=== PATIENT | male | born 1940 | race Caucasian/White ===

== ENCOUNTER 2018-11-29 07:24 | Day surgery (SDC) | payer MEDICARE ==
[2018-11-27 11:33] VITALS: BMI 27.0
[~2018-11-29 07:24] MED LIST: DEXAMETHASONE SOD PHOSPHATE 10 MG/ML 1 ML VIAL IV ONE; HEPARIN SODIUM,PORCINE 5,000 UNIT/ML 1 ML VIAL SQ ONE; LIDOCAINE 1% 20 ML VIAL (10MG/ML) FOR IV START INTRADERMA PRN; MIDAZOLAM 2 MG/2 ML VIAL IV PRN; SCOPOLAMINE 1.5MG/72HR PATCH TRANSDERM ONE; ceFAZolin IN SWFI 2 GM/20 ML SYRINGE IVP ONE
[2018-11-29] MEDS: LACTATED RINGERS 1,000 ML IV SCH ×2 (08:09→12:11)
[2018-11-29] MEDS: ONDANSETRON 4 MG/2 ML VIAL IVP ONE ×2 (08:09→10:29)
[2018-11-29] MEDS ORDERED: LIDOCAINE 1% INJ 10MG/ML (20 ML MDV) ONE (08:42)
[2018-11-29] MEDS ORDERED: ROCURONIUM BROMIDE 10 MG/ML 10 ML VIAL IV ONE (08:42)
[2018-11-29] MEDS ORDERED: PROPOFOL 10 MG/ML 20 ML VIAL IV ONE (08:42)
[2018-11-29] MEDS ORDERED: SUCCINYLCHOLINE CHLORIDE 100 MG/5 ML SYR IV ONE (08:42)
[2018-11-29] MEDS ORDERED: GLYCOPYRROLATE 0.2 MG/ML 2 ML VIAL ONE (08:42)
[2018-11-29] MEDS ORDERED: fentaNYL (PF) 50 MCG/ML 2 ML AMP ONE (08:42)
[2018-11-29] MEDS ORDERED: MIDAZOLAM 2 MG/2 ML VIAL ONE (08:42)
[2018-11-29] MEDS ORDERED: LABETALOL 5 MG/ML VIAL MDV ONE (08:42)
[2018-11-29] MEDS ORDERED: NEOSTIGMINE 1 MG/ML 10 ML VIAL ONE (08:42)
[2018-11-29] MEDS ORDERED: BUPIVACAIN-EPI 0.25%-1:200,000 30 ML VIAL SQ ONE (09:11)
[2018-11-29] MEDS ORDERED: BUPIVACAINE (PF) 0.5% 30 ML VIAL SQ ONE ×2 (09:11)
[2018-11-29] MEDS ORDERED: LACTATED RINGERS 1,000 ML IV ONE (09:35)
[2018-11-29 09:58] VITALS: TEMP 97.4
[2018-11-29] MEDS: HYDROmorphone 0.5 MG/0.5 ML SYRINGE IVP PRN ×2 (10:14→10:27)
[2018-11-29] MEDS ORDERED: NALOXONE 0.4 MG/ML 1 ML VIAL IV PRN (10:20)
[2018-11-29] MEDS ORDERED: HYDROcodone/APAP 5-325MG 1 EACH TAB PO PRN (10:20)
--- NOTE | 2018-11-29 10:23 | P.OP ---
Date of Procedure: 11/29/18 Procedure(s) Performed: PREOPERATIVE DIAGNOSIS: Chronic cholecystitis POSTOPERATIVE DIAGNOSIS: Same PROCEDURE: Laparoscopic cholecystectomy SURGEON: Jose Daniel EBL: Minimal see anesthesia record ANESTHESIA: Gen. COMPLICATIONS: None OPERATIVE PROCEDURE: The patient was brought and placed on the operating room table in the supine position. The patient was placed under general anesthesia at that time. The abdomen was prepped and draped in the usual sterile fashion. A small vertical infraumbilical incision was made. The fascia was grasped with the Augustin forceps. The fascia was retracted anteriorly. The Veress needle was advanced into the peritoneal cavity. The saline drop test was normal. Insufflation took place up to 15 mmHg. A 5 mm optical trocar was advanced and the peritoneal cavity. 2 additional 5 mm trochars were placed in the right upper quadrant under direct visualization. A 12 mm trocar was advanced into the epigastric incision site. The gallbladder was chronically inflamed and quite thickened. In order to grasp the gallbladder a small opening in the fundus was created in the contents were evacuated. The patient had some purulent bilious fluid seen. The gallbladder was retracted superiorly and laterally. The peritoneum overlying the infundibulum was bluntly dissected. The patient's cystic duct was visualized. The junction between the cystic duct common and hepatic duct was identified. The cystic duct was then divided after placement of 3 12 mm clips on the patient's side and one on the specimen side. The cystic artery was identified and clipped as well. A small vessel was seen along the gallbladder fossa and clipped as well. The gallbladder was then removed from the liver bed using electrocautery. The gallbladder was then removed from the epigastric trocar site with an Endo Catch bag. This required lengthening of the fascia at the epigastric incision site. The gallbladder fossa was irrigated with saline. There was no evidence of any bleeding or biliary drainage seen. The fascia at the 12 millimeter site was closed using a running 0 Vicryl stitch. The trochars were then removed. The skin at all 4 sites was closed using a 4-0 Monocryl stitch. Skin glue was utilized on the incision sites. At the end of this procedure the sponge and needle counts were correct. DISPOSITION: Stable to the recovery room
[2018-11-29 10:41] VITALS: RESP 17
[2018-11-29 11:02] VITALS: BP 124/81; PULSE 61
== END 2018-11-29 12:12 | disposition home or self-care (01) ==
LOC: OR 07:24
PROVIDERS: ATTEND Surgery
DX: K80.10 Calculus of gallbladder with chronic cholecystitis without obstruction (principal); I25.10 Atherosclerotic heart disease of native coronary artery without angina pectoris; Z87.891 Personal history of nicotine dependence; Z79.82 Long term (current) use of aspirin
CPT/HCPCS: 47562; 88304; J2250; J1644; J1100; J2710; J2405; J2001; J3010; J0330; J2704; J1170; J0690

== ENCOUNTER 2020-01-09 15:33 | Inpatient (IN) | payer MEDICARE ==
[2020-01-09] MEDS ORDERED: ACETAMINOPHEN TAB 500 MG TAB PO STA (16:28)
[2020-01-09] MEDS ORDERED: IBUPROFEN IV 600 MG in SODIUM CHLORIDE 0.9% 250 ML IV STA (16:28)
[2020-01-09] MEDS: SODIUM CHLORIDE 0.9% 500 ML 500 ML IV SCH ×4 (16:34→18:28)
--- NOTE | 2020-01-09 16:35 | ED ---
General Adult HPI - General Chief complaint: Fall Stated complaint: Fall Time Seen by Provider: 01/09/20 15:40 Source: patient, EMS, RN notes reviewed, old records reviewed Mode of arrival: EMS Limitations: no limitations - History of Present Illness Initial comments: This is a 79-year-old male who presents emergency Department stating that last night he felt the ground because his right knee gave him some problems which she states happens often. Patient was unable to get up off the ground until his daughter found today at 4:00 so been approximately 16 hours. Patient states his lower back does hurt but he is able to move his lower 20s at the hip knee and ankle. Patient denies any specific area pain. Patient denies any head trauma or neck pain. Patient denies any chest pain or difficulty breathing. Patient's temperature was 102 when he came here but he stated he didn't have any cough recently and he denied any abdominal pain denied any nausea vomiting diarrhea. Patient denies any dysuria hematuria urinary frequency. Patient states he's not been out around the community at all and he said no contact with any COVID positive patient's. - Related Data Home Medications Medication Instructions Recorded Confirmed Aspirin 81 mg PO DAILY 04/09/16 01/09/20 Cholecalciferol [Vitamin D3] 1,000 unit PO DAILY 04/09/16 01/09/20 Allergies Allergy/AdvReac Type Severity Reaction Status Date / Time No Known Allergies Allergy Verified 01/09/20 17:00 Review of Systems ROS Statement: Those systems with pertinent positive or pertinent negative responses have been documented in the HPI. ROS Other: All systems not noted in ROS Statement are negative. Past Medical History Past Medical History: Osteoarthritis (OA) History of Any Multi-Drug Resistant Organisms: None Reported Past Surgical History: Orthopedic Surgery Additional Past Surgical History / Comment(s): REPAIR LACERATIONS LEFT LEG- HAS A STEEL PLATE , AMPUTATIONS OF TWO FINGER LEFT HAND Past Anesthesia/Blood Transfusion Reactions: No Reported Reaction Past Psychological History: No Psychological Hx Reported Smoking Status: Former smoker Past Alcohol Use History: Daily Past Drug Use History: None Reported - Past Family History Mother Family Medical History: No Reported History General Exam - General Exam Comments Initial Comments: GENERAL: Patient is well-developed and well-nourished. Patient is nontoxic and well- hydrated and is in moderate distress. ENT: Neck is soft and supple. No significant lymphadenopathy is noted. Oropharynx is clear. Moist mucous membranes. Neck has full range of motion without eliciting any pain. EYES: The sclera were anicteric and conjunctiva were pink and moist. Extraocular movements were intact and pupils were equal round and reactive to light. Eyelids were unremarkable. PULMONARY: Unlabored respirations. Good breath sounds bilaterally. Crackles right base CARDIOVASCULAR: There is a regular rate and rhythm without any murmurs gallops or rubs. ABDOMEN: Soft and nontender with normal bowel sounds. No palpable organomegaly was noted. There is no palpable pulsatile mass. SKIN: Skin is clear with no lesions or rashes and otherwise unremarkable. NEUROLOGIC: Patient is alert and oriented x3. Cranial nerves II through XII are grossly intact. Motor and sensory are also intact. Normal speech, volume and content. Symmetrical smile. MUSCULOSKELETAL: Normal extremities with adequate strength and full range of motion. Patient has no lower back pain to palpation. LYMPHATICS: No significant lymphadenopathy is noted PSYCHIATRIC: Normal psychiatric evaluation. Limitations: no limitations Course Vital Signs 01/09/20 01/09/20 01/09/20 15:39 17:35 17:47 Temperature 102.9 F H 98.9 F Pulse Rate 134 H 114 H 115 H Respiratory 20 32 H 32 H Rate Blood Pressure 109/73 94/61 94/62 O2 Sat by Pulse 97 97 97 Oximetry 01/09/20 01/09/20 01/09/20 18:00 20:45 21:00 Temperature Pulse Rate 108 H 88 83 Respiratory 32 H 18 16 Rate Blood Pressure 99/60 95/67 97/65 O2 Sat by Pulse 97 97 97 Oximetry 01/09/20 22:19 Temperature Pulse Rate 106 H Respiratory 20 Rate Blood Pressure 103/64 O2 Sat by Pulse 97 Oximetry Procedures - Sepsis Sepsis Focused Exam #1 Time Sepsis Criteria Met: 21:00 Sepsis Focused Exam Date: 01/09/20 Sepsis Focused Exam Time: 22:00 Sepsis Focused Exam Complete: Yes Vital Signs & RN Notes Reviewed: Yes Capillary Refill: < 2 Seconds: Fingers Peripheral Pulses: Normal: Radial (R) Skin Color: Normal for Patient Respiratory Exam: rales Cardiovascular Exam: regular rate Medical Decision Making - Medical Decision Making EKG shows sinus rhythm with multiple PACs and PVCs. Patient's rates 144 beats a minute. KS interval is 1:30 QRS 76 QT interval 370 QTC is 4:30. Patient's EKG shows no ST segment elevation or depression. EKG was repeated because when the patient came in he was tachycardic secondary to being febrile. EKG shows a sinus rhythm with PACs with occasional PVC at a rate of 94 bpm KS interval is 140s dresses 80 QT interval 354 QTC is 442. Patient's EKG shows no ST segment elevation or depression. Chest x-ray was difficult to retract his CT of the chest that showed inflammatory changes bilaterally. This accommodation with a white count in the high temperature I believe the patient to have pneumonia. I spoke with Dr. Warner he agreed to admit the patient admitted the patient wrote admitting orders I started the patient on antibiotics and give the patient to half liters of fluid. An EKG showed a sinus rhythm at 101 bpm with multiple PACs and PVCs. EKG showed rate was 101 KS interval is 142 QRS is 80 QT interval 354 QTC is 459. - Lab Data Result diagrams: 01/09/20 15:40 01/09/20 15:40 Lab Results 01/09/20 01/09/20 01/09/20 Range/Units 15:40 15:40 15:40 WBC 16.3 H (3.8-10.6) k/uL RBC 4.50 (4.30-5.90) m/uL Hgb 13.6 (13.0-17.5) gm/dL Hct 41.6 (39.0-53.0) % MCV 92.5 (80.0-100.0) fL MCH 30.3 (25.0-35.0) pg MCHC 32.7 (31.0-37.0) g/dL RDW 12.4 (11.5-15.5) % Plt Count 135 L (150-450) k/uL Neutrophils % 93 % Lymphocytes % 2 % Monocytes % 4 % Eosinophils % 0 % Basophils % 0 % Neutrophils # 15.2 H (1.3-7.7) k/uL Lymphocytes # 0.3 L (1.0-4.8) k/uL Monocytes # 0.6 (0-1.0) k/uL Eosinophils # 0.0 (0-0.7) k/uL Basophils # 0.0 (0-0.2) k/uL PT 10.5 (9.0-12.0) sec INR 1.0 (<1.2) APTT 29.7 (22.0-30.0) sec Sodium 131 L (137-145) mmol/L Potassium 4.2 (3.5-5.1) mmol/L Chloride 97 L (98-107) mmol/L Carbon Dioxide 19 L (22-30) mmol/L Anion Gap 15 mmol/L BUN 37 H (9-20) mg/dL Creatinine 1.18 (0.66-1.25) mg/dL Est GFR (CKD-EPI)AfAm 68 (>60 ml/min/1.73 sqM) Est GFR (CKD-EPI)NonAf 58 (>60 ml/min/1.73 sqM) Glucose 164 H (74-99) mg/dL Lactic Ac Sepsis Rflx Plasma Lactic Acid Tony (0.7-2.0) mmol/L Calcium 8.6 (8.4-10.2) mg/dL Total Bilirubin 2.9 H (0.2-1.3) mg/dL AST 54 (17-59) U/L ALT 27 (4-49) U/L Alkaline Phosphatase 79 (38-126) U/L Creatine Kinase 867 H (55-170) U/L Troponin I (0.000-0.034) ng/mL NT-Pro-B Natriuret Pep pg/mL Total Protein 6.5 (6.3-8.2) g/dL Albumin 3.5 (3.5-5.0) g/dL Urine Color Urine Appearance (Clear) Urine pH (5.0-8.0) Ur Specific Nesmith (1.001-1.035) Urine Protein (Negative) Urine Glucose (UA) (Negative) Urine Ketones (Negative) Urine Blood (Negative) Urine Nitrite (Negative) Urine Bilirubin (Negative) Urine Urobilinogen (<2.0) mg/dL Ur Leukocyte Esterase (Negative) Urine RBC (0-5) /hpf Urine WBC (0-5) /hpf Ur Squamous Epith Cells (0-4) /hpf Urine Bacteria (None) /hpf Urine Mucus (None) /hpf 01/09/20 01/09/20 01/09/20 Range/Units 15:40 15:40 18:05 WBC (3.8-10.6) k/uL RBC (4.30-5.90) m/uL Hgb (13.0-17.5) gm/dL Hct (39.0-53.0) % MCV (80.0-100.0) fL MCH (25.0-35.0) pg MCHC (31.0-37.0) g/dL RDW (11.5-15.5) % Plt Count (150-450) k/uL Neutrophils % % Lymphocytes % % Monocytes % % Eosinophils % % Basophils % % Neutrophils # (1.3-7.7) k/uL Lymphocytes # (1.0-4.8) k/uL Monocytes # (0-1.0) k/uL Eosinophils # (0-0.7) k/uL Basophils # (0-0.2) k/uL PT (9.0-12.0) sec INR (<1.2) APTT (22.0-30.0) sec Sodium (137-145) mmol/L Potassium (3.5-5.1) mmol/L Chloride (98-107) mmol/L Carbon Dioxide (22-30) mmol/L Anion Gap mmol/L BUN (9-20) mg/dL Creatinine (0.66-1.25) mg/dL Est GFR (CKD-EPI)AfAm (>60 ml/min/1.73 sqM) Est GFR (CKD-EPI)NonAf (>60 ml/min/1.73 sqM) Glucose (74-99) mg/dL Lactic Ac Sepsis Rflx Y Plasma Lactic Acid Tony 4.6 H* (0.7-2.0) mmol/L Calcium (8.4-10.2) mg/dL Total Bilirubin (0.2-1.3) mg/dL AST (17-59) U/L ALT (4-49) U/L Alkaline Phosphatase (38-126) U/L Creatine Kinase (55-170) U/L Troponin I 0.025 (0.000-0.034) ng/mL NT-Pro-B Natriuret Pep pg/mL Total Protein (6.3-8.2) g/dL Albumin (3.5-5.0) g/dL Urine Color Urine Appearance (Clear) Urine pH (5.0-8.0) Ur Specific Nesmith (1.001-1.035) Urine Protein (Negative) Urine Glucose (UA) (Negative) Urine Ketones (Negative) Urine Blood (Negative) Urine Nitrite (Negative) Urine Bilirubin (Negative) Urine Urobilinogen (<2.0) mg/dL Ur Leukocyte Esterase (Negative) Urine RBC (0-5) /hpf Urine WBC (0-5) /hpf Ur Squamous Epith Cells (0-4) /hpf Urine Bacteria (None) /hpf Urine Mucus (None) /hpf 01/09/20 01/09/20 01/09/20 Range/Units 18:39 18:55 20:50 WBC (3.8-10.6) k/uL RBC (4.30-5.90) m/uL Hgb (13.0-17.5) gm/dL Hct (39.0-53.0) % MCV (80.0-100.0) fL MCH (25.0-35.0) pg MCHC (31.0-37.0) g/dL RDW (11.5-15.5) % Plt Count (150-450) k/uL Neutrophils % % Lymphocytes % % Monocytes % % Eosinophils % % Basophils % % Neutrophils # (1.3-7.7) k/uL Lymphocytes # (1.0-4.8) k/uL Monocytes # (0-1.0) k/uL Eosinophils # (0-0.7) k/uL Basophils # (0-0.2) k/uL PT (9.0-12.0) sec INR (<1.2) APTT (22.0-30.0) sec Sodium (137-145) mmol/L Potassium (3.5-5.1) mmol/L Chloride (98-107) mmol/L Carbon Dioxide (22-30) mmol/L Anion Gap mmol/L BUN (9-20) mg/dL Creatinine (0.66-1.25) mg/dL Est GFR (CKD-EPI)AfAm (>60 ml/min/1.73 sqM) Est GFR (CKD-EPI)NonAf (>60 ml/min/1.73 sqM) Glucose (74-99) mg/dL Lactic Ac Sepsis Rflx Plasma Lactic Acid Tony 1.3 (0.7-2.0) mmol/L Calcium (8.4-10.2) mg/dL Total Bilirubin (0.2-1.3) mg/dL AST (17-59) U/L ALT (4-49) U/L Alkaline Phosphatase (38-126) U/L Creatine Kinase (55-170) U/L Troponin I (0.000-0.034) ng/mL NT-Pro-B Natriuret Pep 1910 pg/mL Total Protein (6.3-8.2) g/dL Albumin (3.5-5.0) g/dL Urine Color Yellow Urine Appearance Cloudy (Clear) Urine pH 5.5 (5.0-8.0) Ur Specific Nesmith 1.022 (1.001-1.035) Urine Protein 2+ H (Negative) Urine Glucose (UA) Trace H (Negative) Urine Ketones Negative (Negative) Urine Blood Moderate H (Negative) Urine Nitrite Negative (Negative) Urine Bilirubin Negative (Negative) Urine Urobilinogen <2.0 (<2.0) mg/dL Ur Leukocyte Esterase Negative (Negative) Urine RBC 13 H (0-5) /hpf Urine WBC 1 (0-5) /hpf Ur Squamous Epith Cells <1 (0-4) /hpf Urine Bacteria Rare H (None) /hpf Urine Mucus Rare H (None) /hpf Critical Care Time Critical Care Time: Yes Total Critical Care Time: 35 Disposition Clinical Impression: Fall, Left flank pain, Pneumonia, Sepsis Disposition: ADMITTED IP TO THIS [facility] Time of Disposition: 21:57
--- NOTE | 2020-01-09 17:22 | XR ---
EXAMINATION TYPE: XR chest 2V DATE OF EXAM: 01/09/2020 COMPARISON: NONE HISTORY: Fever and weakness TECHNIQUE: 2 views FINDINGS: There is general coarse interstitial pulmonary density. There is poor inspiration. There is some elevation of the diaphragms. There are chest leads. Pulmonary vascularity is difficult to evalu ate. Bony thorax appears intact. There is no definite pleural effusion. IMPRESSION: Poor inspiration with some basilar atelectasis. Interstitial pulmonary density probably r elated to pulmonary fibrosis.
--- NOTE | 2020-01-09 17:24 | XR ---
EXAMINATION TYPE: XR lumbosacral spine min 4V DATE OF EXAM: 01/09/2020 COMPARISON: NONE HISTORY: Fall. Pain. TECHNIQUE: 5 views FINDINGS: Lumbar vertebra have normal alignment. There is some disc space narrowing from L3 to S1 wit h spur formation. There is 50% compression deformity of L1 vertebral body that appears old. There is anterior bridging osteophyte formation. Sacroiliac joints are intact. IMPRESSION: Spondylotic changes. Old L1 compression fracture. No acute fracture seen. Fracture unchan ged compared to old CT scan of 04/09/2016.
[2020-01-09 17:32] LABS: Basophils % (A) 0 %; Eosinophils % (A) 0 %; HCT 41.6 % (39.0-53.0); HGB 13.6 gm/dL (13.0-17.5); Lymphocytes # (A) 0.3 k/uL (1.0-4.8); Lymphocytes % (A) 2 %; MCH 30.3 pg (25.0-35.0); MCHC 32.7 g/dL (31.0-37.0); MCV 92.5 fL (80.0-100.0); Mean Platelet Volume 8.5; Monocytes # (A) 0.6 k/uL (0-1.0); Monocytes % (A) 4 %; Neutrophils # (A) 15.2 k/uL (1.3-7.7); Neutrophils % (A) 93 %; Platelet Count 135 k/uL (150-450); RDW 12.4 % (11.5-15.5); WBC 16.3 k/uL (3.8-10.6)
[2020-01-09 17:44] LABS: Partial Thromboplastin Time 29.7 sec (22.0-30.0); Prothrombin Time 10.5 sec (9.0-12.0)
[2020-01-09 17:50] LABS: Albumin 3.5 g/dL (3.5-5.0); Calcium 8.6 mg/dL (8.4-10.2); Potassium 4.2 mmol/L (3.5-5.1); Total Bilirubin 2.9 mg/dL (0.2-1.3); Total Protein 6.5 g/dL (6.3-8.2)
[2020-01-09] MEDS ORDERED: SODIUM CHLORIDE 0.9% 500 ML 500 ML IV ONE (18:12)
[2020-01-09 19:18] LABS: Appearance,Urine Cloudy (Clear); Bacteria,Urine Rare /hpf; Bilirubin,Urine Negative (Negative); Blood,Urine Moderate (Negative); Color,Urine Yellow; Glucose,Urine (UA) Trace (Negative); Ketones,Urine Negative (Negative); Leukocyte Esterase,Urine Negative (Negative); Mucus,Urine Rare /hpf; Nitrite,Urine Negative (Negative); PH, Urine 5.5 (5.0-8.0); Protein,Urine 2+ (Negative); RBC,Urine 13 /hpf (0-5); Specific Gravity,Urine 1.022 (1.001-1.035); Squamous Epithelial Cell,Urine <1 /hpf (0-4); Urobilinogen,Urine <2.0 mg/dL (<2.0); WBC,Urine 1 /hpf (0-5)
--- NOTE | 2020-01-09 20:30 | CT ---
EXAMINATION TYPE: CT chest wo con DATE OF EXAM: 01/09/2020 COMPARISON: None HISTORY: SOB, a-fib CT DLP: 389.2 mGycm Automated exposure control for dose reduction was used. There is pleural thickening at the posterior lung bases. There are small pleural effusions. There are numerous subpleural peripheral nodular infiltrates in both lungs that measure up to almost 2 cm. The re is 2.5 cm cavitating infiltrate lateral aspect of the left upper lobe. There are paratracheal lymp h nodes that measure less than 1 cm. There is coronary artery calcification. There are no hilar radha s. Heart appears slightly enlarged. There is spurring in the thoracic spine. IMPRESSION: Extensive peripheral bilateral noncalcified pulmonary nodular infiltrates. The appearance is nonspeci fic. I would consider both neoplastic and inflammatory disease. Inflammatory disease more likely. Mil d pleural thickening and atelectasis posterior lung bases. Thoracic spondylotic changes. There is partial visualization of the kidneys and possible right-sided hydronephrosis is noted.
[2020-01-09] MEDS ORDERED: VANCOMYCIN IV PER PHARMACY 1 EACH MISC MISCELLANE PRN (21:58)
[2020-01-09] MEDS ORDERED: AZITHROMYCIN 500 MG in SODIUM CHLORIDE 0.9% 250 ML IVPB STA (22:02)
[2020-01-09] MEDS ORDERED: VANCOMYCIN 1,500 MG in SODIUM CHLORIDE 0.9% 250 ML IVPB STA (22:06)
[2020-01-09] MEDS: SODIUM CHLORIDE 0.9% 1,000 ML IV SCH (22:22)
[2020-01-10] MEDS: SODIUM CHLORIDE 0.9% 1,000 ML IV SCH ×3 (04:41→13:18)
[2020-01-10] MEDS ORDERED: HEPARIN SODIUM,PORCINE 5,000 UNIT/ML 1 ML VIAL SQ SCH (08:00)
--- NOTE | 2020-01-10 08:30 | P.HPIM ---
History of Present Illness H&P Date: 01/10/20 Chief Complaint: Fall/mild rhabdomyolysis. This is a 79-year-old male one of my patient with a previous medical history significant for osteoporosis, osteoporosis with prior history of L1 compression fracture, vitamin D deficiency, history of enlarged prostate, pat anisant was in his usual state of health until about 2 days ago when he felt a bit sick to stomach episode of nausea and vomiting he was not drinking enough water at that time, patient woke up the yesterday morning at around 12 midnight to go to have a drink of water before he goes to the bathroom he ended up falling on the floor after his right knee gave out and the patient landed on the floor for at least 17 hours until his daughter hold him and he did not answer so she came to the house and she found him laying on the floor EMS was called and the patient was brought into the ER at [facility] and brought to the hospital EMS personnel thought the patient was in atrial fibrillation, upon arrival to the ER his initial EKG showed sinus tachycardia with PAC and PVCs without any evidence of atrial fibrillation, patient lactic acid was elevated at 4.7, he was given IV fluid resuscitation, he had a chest x-ray that did not show much ended up going for computed tomography scan of the chest that showed multiple bilateral peripheral pulmonary infiltrate with left 2.5 cm cavitary lesion in the left upper lobe, patient was started on IV antibiotic in the form of Zithromax, Rocephin, and vancomycin, pulmonary consultation was obtained from , as well as cardiology consultation because of his ectopy. Review of Systems Constitutional: Reports weakness, Denies chronic headaches, Denies fatigue, Denies lethargy Eyes: denies blurred vision, denies bulging eye, denies decreased vision Ears: bilateral: decreased hearing Ears, nose, mouth and throat: Denies dysphagia, Denies neck lump, Denies sore throat Cardiovascular: Reports rapid heart beat, Denies chest pain, Denies decreased exercise tolerance, Denies lightheadedness, Denies shortness of breath, Denies syncope Respiratory: Denies congestion, Denies cough with sputum, Denies home oxygen, Denies sleep apnea, Denies snoring, Denies wheezing Gastrointestinal: Reports abdominal pain, Reports nausea, Reports vomiting, Denies bloating, Denies change in bowel habits, Denies coffee ground emesis, Denies excessive gas, Denies heartburn, Denies hematemesis, Denies melena Genitourinary: Denies dysuria, Denies incontinence Musculoskeletal: Reports frequent falls, Reports gait dysfunction Musculoskeletal: right: shoulder pain, shoulder stiffness, absent: ankle pain, ankle stiffness, ankle swelling, elbow pain, elbow stiffness, elbow swelling, foot pain, foot stiffness, foot swelling, hand pain, hand stiffness, hand swelling, hip pain, hip stiffness, hip swelling, knee pain, knee swelling, shoulder swelling, wrist pain, wrist stiffness, wrist swelling Integumentary: Denies pruritus, Denies rash Neurological: Denies numbness, Denies weakness Psychiatric: Denies anxiety, Denies depression Past Medical History Past Medical History: Coronary Artery Disease (CAD), Osteoarthritis (OA) Additional Past Medical History / Comment(s): Osteoporosis with L1 compression fracture, and left prostate, pulmonary nodules, vitamin D deficiency. History of Any Multi-Drug Resistant Organisms: None Reported Past Surgical History: Orthopedic Surgery (Left knee surgery.) Additional Past Surgical History / Comment(s): REPAIR LACERATIONS LEFT LEG- HAS A STEEL PLATE , AMPUTATIONS OF TWO FINGER LEFT HAND Past Anesthesia/Blood Transfusion Reactions: No Reported Reaction Past Psychological History: No Psychological Hx Reported Smoking Status: Former smoker (Patient smoked about a pack every day he smoked for about 10 years he quit about 60 years ago.) Past Alcohol Use History: Daily Past Drug Use History: None Reported - Past Family History Mother Family Medical History: No Reported History (Mother at age of 88 from old age.) Father Family Medical History: Unable to Obtain (Patient did not know much about his father he was and he at 64) Brother(s) Family Medical History: Cancer (Patient had 3 brothers to alive and one from leukemia.) Sister(s) Family Medical History: No Reported History (Patient has 4 sisters alive and well.) Daughter(s) Family Medical History: No Reported History (Patient has 4 daughters one of them with rheumatoid arthritis.) Son(s) Family Medical History: No Reported History (Patient has one son.) Medications and Allergies Home Medications Medication Instructions Recorded Confirmed Type Aspirin 81 mg PO DAILY 04/09/16 01/09/20 History Cholecalciferol [Vitamin D3] 1,000 unit PO DAILY 04/09/16 01/09/20 History Allergies Allergy/AdvReac Type Severity Reaction Status Date / Time No Known Allergies Allergy Verified 01/09/20 17:00 Physical Exam Vitals: Vital Signs Temp Pulse Pulse Resp BP BP Pulse Ox 01/10/20 04:00 97.6 F 86 16 108/56 90 L 01/10/20 00:00 97.5 F L 65 18 120/65 91 L 01/09/20 22:19 106 H 20 103/64 97 01/09/20 21:00 83 16 97/65 97 01/09/20 20:45 88 18 95/67 97 01/09/20 18:00 108 H 32 H 99/60 97 01/09/20 17:47 98.9 F 115 H 32 H 94/62 97 01/09/20 17:35 114 H 32 H 94/61 97 01/09/20 15:39 102.9 F H 134 H 20 109/73 97 Intake and Output 01/09/20 01/10/20 01/10/20 22:59 06:59 14:59 Intake Total 450 Balance 450 Intake: Oral 450 Other: Voiding Method Urinal Weight 83.915 kg 75.5 kg HEENT: Head is atraumatic, normocephalic, pupils were equal round reactive to light and recommendation, extraocular muscle movement were intact. Neck: Supple, no JVD, no carotid bruit. Chest: Decreased breath sounds at the bases, few rhonchi, no expiratory wheezes, minimal chest wall tenderness and the left lower ribs, no intercostal retractions. Heart: First heart sound is depressed, second heart sound is normal, irregular, there is systolic ejection murmur 2/6. Sternal border. Abdomen: Soft, distended, moderate tenderness in the left upper quadrant , as well as right upper quadrant, depressed bowel sounds. Extremities: Trace edema, no calf tenderness, dorsalis pedis +1 bilaterally. Neurologic examination: Patient is awake alert and oriented 3, cranial nerves III through XII appear grossly intact, no significant weakness in both lower ext remities and the patient is not able to move both lower extremities, deep tendon reflexes were depressed bilaterally, Babinski's were flexor bilaterally. Results CBC & Chem 7: 01/09/20 15:40 01/09/20 15:40 Labs: Abnormal Lab Results - Last 24 Hours (Table) 01/09/20 01/09/20 01/09/20 Range/Units 15:40 15:40 15:40 WBC 16.3 H (3.8-10.6) k/uL Plt Count 135 L (150-450) k/uL Neutrophils # 15.2 H (1.3-7.7) k/uL Lymphocytes # 0.3 L (1.0-4.8) k/uL Sodium 131 L (137-145) mmol/L Chloride 97 L (98-107) mmol/L Carbon Dioxide 19 L (22-30) mmol/L BUN 37 H (9-20) mg/dL Glucose 164 H (74-99) mg/dL Plasma Lactic Acid Tony 4.6 H* (0.7-2.0) mmol/L Total Bilirubin 2.9 H (0.2-1.3) mg/dL Creatine Kinase 867 H (55-170) U/L Urine Protein (Negative) Urine Glucose (UA) (Negative) Urine Blood (Negative) Urine RBC (0-5) /hpf Urine Bacteria (None) /hpf Urine Mucus (None) /hpf 01/09/20 Range/Units 18:55 WBC (3.8-10.6) k/uL Plt Count (150-450) k/uL Neutrophils # (1.3-7.7) k/uL Lymphocytes # (1.0-4.8) k/uL Sodium (137-145) mmol/L Chloride (98-107) mmol/L Carbon Dioxide (22-30) mmol/L BUN (9-20) mg/dL Glucose (74-99) mg/dL Plasma Lactic Acid Tony (0.7-2.0) mmol/L Total Bilirubin (0.2-1.3) mg/dL Creatine Kinase (55-170) U/L Urine Protein 2+ H (Negative) Urine Glucose (UA) Trace H (Negative) Urine Blood Moderate H (Negative) Urine RBC 13 H (0-5) /hpf Urine Bacteria Rare H (None) /hpf Urine Mucus Rare H (None) /hpf Thrombosis Risk Factor Assmnt - DVT/VTE Prophylaxis DVT/VTE Prophylaxis: Pharmacologic Prophylaxis ordered, Mechanical Prophylaxis ordered Assessment and Plan Assessment: Assessment and plan: 1. Status post fall with significant pain in the lumbar spine. Reviewed x-ray of the spine did not show any evidence of acute of normalities except for an old L1 fracture, will obtain CT of the abdomen and pelvis without contrast for evaluation of retroperitoneal bleed, we will monitor the patient very closely, monitor the patient's CBC, continue IV fluid resuscitation. 2. Bilateral peripheral pulmonary nodules with left cavitary lesions in the left upper lobe 2.5 cm. Continue IV antibiotic in the form of vancomycin, Rocephin, and Zithromax, obtain blood culture, sputum culture, pulmonary consultation. 3. Mild rhabdomyolysis. Continue IV fluid resuscitation. Repeat CPK and CMP the next 24 hours. 4. Mild hyponatremia secondary to hypovolemia. Continue IV fluid r esuscitation. 5. Sinus tachycardia with frequent PACs/PVCs. Continue IV fluid resuscitation obtain cardiology consultation. 6. History of old L1 fracture. Stable. 7. Lactic acidosis. Continue IV fluid resuscitation, continue IV antibiotic. Repeat lactic acid is better. 8. Osteoarthritis. Stable. 9. Vitamin D deficiency. Continue vitamin D supplements 1000 units once every day. 10. DVT prophylaxis. Heparin 5000 units subcutaneously every 8 hours. 11. GI prophylaxis. Continue Protonix 40 mg orally once every day. 12. Admit to inpatient. Estimate a length of stay 2 midnights. 13. Patient is full code.
[2020-01-10] MEDS: PANTOPRAZOLE 40 MG TABLET PO SCH (09:00)
[2020-01-10] MEDS: ASPIRIN 81 MG PO SCH (09:01)
[2020-01-10] MEDS: CHOLECALCIFEROL 1,000 UNIT TAB PO SCH (09:01)
[2020-01-10] MEDS: IOPAMIDOL CONTRAST (ORAL USE) VIAL PO PRN ×2 (09:02→10:14)
[2020-01-10] MEDS: METOPROLOL TARTRATE 25 MG TAB PO SCH ×2 (10:41→20:49)
[2020-01-10] MEDS ORDERED: DILTIAZEM 5 MG/ML 10 ML VIAL IVP STA (10:50)
[2020-01-10] MEDS ORDERED: HEPARIN SODIUM,PORCINE 5,000 UNIT/ML 1 ML VIAL IV PRN (11:02)
[2020-01-10] MEDS ORDERED: HEPARIN SODIUM,PORCINE 5,000 UNIT/ML 1 ML VIAL IV ONE (11:02)
[2020-01-10] MEDS: DILTIAZEM 125 MG in SODIUM CHLORIDE 0.9% 100 ML IV SCH (11:07)
[2020-01-10] MEDS ORDERED: HEPARIN SOD,PORK IN 0.45% NACL 25,000 UNIT in 0.45% NACL 1 250ML.BAG IV SCH (11:15)
--- NOTE | 2020-01-10 11:42 | ECHOF ---
Referral Reason:pac MEASUREMENTS -------- HEIGHT: 177.8 cm WEIGHT: 75.3 kg BP: 127/65 RVIDd: 3.3 cm (< 3.3) IVSd: 1.3 cm (0.6 - 1.1) LVIDd: 3.6 cm (3.9 - 5.3) LVPWd: 1.3 cm (0.6 - 1.1) IVSs: 1.7 cm LVIDs: 2.5 cm LVPWs: 1.9 cm LA Diam: 3.2 cm (2.7 - 3.8) LAESV Index (A-L): 23.27 ml/m Ao Diam: 3.9 cm (2.0 - 3.7) AV Cusp: 2.0 cm (1.5 - 2.6) MV EXCURSION: 13.189 mm (> 18.000) MV EF SLOPE: 54 mm/s (70 - 150) EPSS: 1.0 cm MV E Javan: 0.91 m/s MV DecT: 204 ms MV A Javan: 1.18 m/s MV E/A Ratio: 0.77 AV maxP.45 mmHg AV meanP.98 mmHg RAP: 5.00 mmHg RVSP: 52.43 mmHg FINDINGS -------- This was a technically difficult study with suboptimal views. The left ventricular size is normal. There is mild concentric left ventricular hypertrophy. Overa ll left ventricular systolic function is low-normal with, an EF between 50 - 55 %. The right ventricle is mildly enlarged. Normal LA size by volume 22+/-6 ml/m2. The right atrium is normal in size. 5.0mg of Lumason was utilized for enhancement of images Interatrial and interventricular septum intact. The aortic valve is trileaflet and appears structurally normal. There is [id number] aortic re gurgitation. The mitral valve leaflets are mildly thickened. Mild mitral annular calcification present. Mild tricuspid regurgitation present. There is moderate pulmonary hypertension. The right ventric ular systolic pressure, as measured by Doppler, is 52.43mmHg. Trace/mild (physiologic) pulmonic regurgitation. The aortic root is dilated measuring 3.9cm. IVC Not well visulized. There is no pericardial effusion. CONCLUSIONS -------- 1. This was a technically difficult study with suboptimal views. 2. The left ventricular size is normal. 3. There is mild concentric left ventricular hypertrophy. 4. Overall left ventricular systolic function is low-normal with, an EF between 50 - 55 %. 5. The right ventricle is mildly enlarged. 6. Normal LA size by volume 22+/-6 ml/m2. 7. The right atrium is normal in size. 8. 5.0mg of Lumason was utilized for enhancement of images 9. Interatrial and interventricular septum intact. 10. The aortic valve is trileaflet and appears structurally normal. 11. There is njkw-zz-izlztytm aortic regurgitation. 12. The mitral valve leaflets are mildly thickened. 13. Mild mitral annular calcification present. 14. Mild tricuspid regurgitation present. 15. There is moderate pulmonary hypertension. 16. The right ventricular systolic pressure, as measured by Doppler, is 52.43mmHg. 17. Trace/mild (physiologic) pulmonic regurgitation. 18. The aortic root is dilated measuring 3.9cm. 19. IVC Not well visulized. 20. There is no pericardial effusion. TELESCOPE REPAIRER: Holley Brand RDCS
[2020-01-10 11:46] LABS: Partial Thromboplastin Time 32.6 sec (22.0-30.0); Prothrombin Time 10.8 sec (9.0-12.0)
[2020-01-10 12:11] LABS: HCT 40.4 % (39.0-53.0); MCH 30.1 pg (25.0-35.0); MCHC 32.2 g/dL (31.0-37.0); MCV 93.5 fL (80.0-100.0); Mean Platelet Volume 8.1; Platelet Count 104 k/uL (150-450); RBC 4.32 m/uL (4.30-5.90); RDW 12.6 % (11.5-15.5); WBC 12.1 k/uL (3.8-10.6)
--- NOTE | 2020-01-10 12:16 | CT ---
EXAMINATION TYPE: CT abdomen pelvis wo con DATE OF EXAM: 01/10/2020 COMPARISON: None HISTORY: 79-year-old male abdominal pain, possible Retroperitoneal bleed CT DLP: 724.6 mGycm. Automated exposure control for dose reduction was used. TECHNIQUE: Contiguous axial scanning of the abdomen and pelvis without IV contrast. Coronal and sagit julia reconstructions performed. FINDINGS: Lower thorax demonstrates 4.7 cm aneurysm of the ascending aorta. Heart borderline enlarged with exte nsive coronary artery calcifications. Tiny hiatal hernia. Mild circumferential wall thickening distal esophagus. Small bilateral pleural effusions persist. Extensive peripheral patchy, groundglass, nodular opacitie s in the visualized lower lungs persist. Noncontrast appearance of the liver, adrenal glands, left kidney, spleen with tiny splenule, and panc reas shows no gross abnormality. Bilateral perinephric stranding, asymmetrically greater on the right. There is stranding and hazy den sity which extends into the right renal sinus region with fluid tracking down the right retroperitone um. The fluid does not appear particularly hyperdense. No lindsey hydronephrosis. No suspicious renal or ureteral calculus seen. Tortuous right common and external iliac artery coursing through the track and edema, refer to gorman l image 50. No dilated small bowel or free air. Oral contrast has progressed into the transverse colon. No ashley lonic inflammatory change or significant stool burden. No mesenteric or retroperitoneal lymphadenopathy. Bladder is nondistended. Prostate gland measures 4.4 cm wide with prostatic calcifications and pelvic phleboliths. No abnormal fluid collection in the pelvis or pelvic lymphadenopathy seen. Bones: Osteitis pubis. Degenerative change of both hips and right greater than left SI joints. Suspec t chronic vertebral compression collapse of L1 given mature bridging anterior endplate spondylosis ac ross T12 down to L2. Baastrup's disease. Severe degenerative disc disease and advanced hypertrophic f acet arthropathy. IMPRESSION: 1. Asymmetric perinephric stranding and edema about the right kidney with changes extending into the right renal sinus. Correlate to exclude pyelonephritis. No lindsey hydronephrosis or suspicious renal/ ureteral calculus. 2. Confluent edema and fluid extends down the right retroperitoneum. Unclear if this is arising from the right kidney. Correlate for any relevant history that could predispose the patient to retroperito michael bleed. The fluid is not particularly high density that would be seen with acute hemorrhage. 3. We do note a tortuous right common and external iliac artery which courses through this tracking f luid, refer to coronal image 50. Again, correlate for any relevant history. 4. Tiny hiatal hernia and mild circumferential wall thickening distal esophagus. Correlate to exclude esophagitis. 5. Continued small effusions with extensive peripheral opacities. Interstitial pneumonitis and atypic al pneumonias including COVID pneumonia are some differential considerations. 6. Incidental 4.7 cm ascending aortic aneurysm.
[2020-01-10 12:54] LABS: Band Neutrophils % 7 %; Lymphocytes # (M) 0.48 k/uL (1.0-4.8); Monocytes # (M) 1.21 k/uL (0-1.0); Neutrophils % (M) 79 %; Nucleated Red Blood Cells 0 /100 WBC (0-0); Total Cells Counted 100
--- NOTE | 2020-01-10 13:29 | P.CNPUL ---
History of Present Illness Consult date: 01/10/20 Requesting physician: Elisa Harley Reason for consult: abnormal CXR/CT Chief complaint: Fall secondary to right knee History of present illness: This is a pleasant 79-year-old gentleman who follows with Dr. Harley as his primary care provider. He has a history of osteoarthritis, osteoporosis with prior history of L1 compression fracture, vitamin D deficiency, enlarged prostate, remote history of tobacco dependence for approximately 10 years but quit 60 years ago. Daily alcohol use. On 01/18/2020 the patient had gotten up from bed and headed to the bathroom when his right knee gave out and he fell to the ground. He was unable to get himself up. His daughter called and the patient had not answered and she went to check on him yesterday, found him on the floor and EMS was called. Approximately 16 hours of down time. He was found to be febrile with presenting temperature of 102.9. Computed tomography scan of the chest revealed extensive peripheral bilateral noncalcified pulmonary nodular infiltrates. Neoplastic versus inflammatory disease. There is a 2.5 cm cavitating lesion in the lateral aspect of the left upper lobe. The largest of the peripheral nodules is 2 cm. The patient is seen today in consultation on the selective care unit. He is currently sitting up in a chair. Awake and alert in no acute distress. Currently afebrile. Sinus tachycardia with frequent PACs, possible paroxysmal atrial fibrillation. Echocardiogram reveals preserved left ventricular systolic function with ejection fraction 50-55%. CAT scan of the abdomen and pelvis revealed edema about the right kidney extending to the right renal sinus with possible polynephritis. Confluent edema and fluid extends down the right retroperitoneum cannot exclude retroperitoneal bleed. Confluent small effusions with extensive peripheral opacities. Interstitial pneumonitis and atypical pneumonias are within the differential. There is a 4.7 cm ascending aortic aneurysm. CoVID 19 screening pending. Blood cultures pending. White count 12.1. Hemoglobin 13.0. Platelet count 104. Lymphocytes 0.48. Sodium 131. Potassium 4.2. Bicarb 19. Creatinine 1.18. Glucose 164. CK 867. Troponin 0.025. ProBNP 1910. He has been initiated on ceftriaxone, vancomycin and azithromycin. Cardizem drip at 5 mg per hour. Heparin drip. Review of Systems REVIEW OF SYSTEMS: CONSTITUTIONAL: Denies any recent significant weight loss or weight gain. EYES: Denies change in vision. EARS, NOSE, MOUTH, THROAT: Denies headaches, denies sore throat. CARDIOVASCULAR: Denies chest pain, palpitations or syncopal episodes. RESPIRATORY: Denies shortness of breath, cough, congestion or hemoptysis. GASTROINTESTINAL: Denies change in appetite, denies abdominal pain GENITOURINARY: Denies hematuria, denies infections. MUSKULOSKELETAL: Right knee pain status post fall. INTEGUMENTARY: Denies rash, denies eczema. NEUROLOGICAL: Denies recent memory loss, no recent seizure activity. PSYCHIATRIC: Denies anxiety, denies depression. HEMATOLOGIC/LYMPHATIC: Denies anemia, denies enlarged lymph nodes. Past Medical History Past Medical History: Osteoarthritis (OA) Additional Past Medical History / Comment(s): Osteoporosis, L1 compression fracture, BPH, esophageal stricture with dilation, hiatal hernia, gastritis, arthritis bilateral hands/fingers, pt states R knee "pops and gives out but not often", vitamin D deficiency. History of Any Multi-Drug Resistant Organisms: None Reported Past Surgical History: Cholecystectomy, Orthopedic Surgery Additional Past Surgical History / Comment(s): EGD with dilation, colonoscopy, L leg repair/pins-plate per pt, L hand 2 finger amputation. Past Anesthesia/Blood Transfusion Reactions: No Reported Reaction Smoking Status: Former smoker - Past Family History Mother Family Medical History: No Reported History Additional Family Medical History / Comment(s): Mother was healthy. Father Family Medical History: Unable to Obtain Additional Family Medical History / Comment(s): Pt does not know father's medical hx, his mother and father when pt was 3 yrs old. Brother(s) Family Medical History: Cancer Sister(s) Family Medical History: No Reported History Daughter(s) Family Medical History: No Reported History Son(s) Family Medical History: No Reported History Medications and Allergies Home Medications Medication Instructions Recorded Confirmed Type Aspirin 81 mg PO DAILY 04/09/16 01/09/20 History Cholecalciferol [Vitamin D3] 1,000 unit PO DAILY 04/09/16 01/09/20 History Allergies Allergy/AdvReac Type Severity Reaction Status Date / Time No Known Allergies Allergy Verified 01/09/20 17:00 Physical Exam Vitals: Vital Signs Temp Pulse Pulse Resp BP BP BP 01/10/20 11:59 98.8 F 120 H 24 97/66 01/10/20 11:18 130 H 20 104/73 01/10/20 11:11 114 H 20 108/67 01/10/20 10:41 181 H 28 H 121/73 01/10/20 10:15 113 H 24 107/72 01/10/20 08:00 98.6 F 100 20 127/65 01/10/20 04:00 97.6 F 86 16 108/56 01/10/20 00:00 97.5 F L 65 18 120/65 01/09/20 22:19 106 H 20 103/64 01/09/20 21:00 83 16 97/65 01/09/20 20:45 88 18 95/67 01/09/20 18:00 108 H 32 H 99/60 01/09/20 17:47 98.9 F 115 H 32 H 94/62 01/09/20 17:35 114 H 32 H 94/61 01/09/20 15:39 102.9 F H 134 H 20 109/73 Pulse Ox 01/10/20 11:59 96 01/10/20 11:18 95 01/10/20 11:11 95 01/10/20 10:41 96 01/10/20 10:15 96 01/10/20 08:00 93 L 01/10/20 04:00 90 L 01/10/20 00:00 91 L 01/09/20 22:19 97 01/09/20 21:00 97 01/09/20 20:45 97 01/09/20 18:00 97 01/09/20 17:47 97 01/09/20 17:35 97 01/09/20 15:39 97 Intake and Output 01/09/20 01/10/20 01/10/20 22:59 06:59 14:59 Intake Total 450 Output Total 400 Balance 450 -400 Intake: Oral 450 Output: Urine 400 Other: Voiding Method Urinal Urinal Weight 83.915 kg 75.5 kg 75.5 kg GENERAL EXAM: Alert, pleasant 79-year-old gentleman, on 3 L nasal cannula with O2 saturation 96% comfortable in no apparent distress. HEAD: Normocephalic. EYES: Normal reaction of pupils, equal size. NOSE: Clear with pink turbinates. THROAT: No erythema or exudates. NECK: No masses, no JVD. CHEST: No chest wall deformity. LUNGS: Equal air entry with few scattered rhonchi. CVS: S1 and S2 normal with an audible murmur, irregular rhythm. ABDOMEN: No hepatosplenomegaly, normal bowel sounds, no guarding or rigidity. SPINE: No scoliosis or deformity SKIN: No rashes CENTRAL NERVOUS SYSTEM: No focal deficits, tone is normal in all 4 extremities. EXTREMITIES: There is trace peripheral edema. No clubbing, no cyanosis. Peripheral pulses are intact. Results - Laboratory Findings CBC and BMP: 01/10/20 11:20 01/09/20 15:40 PT/INR, D-dimer PT 10.8 sec (9.0-12.0) 01/10/20 11: INR 1.0 (<1.2) 01/10/20 11:20 Abnormal lab findings: Abnormal Labs 01/09/20 01/09/20 01/09/20 15:40 15:40 15:40 WBC 16.3 H Plt Count 135 L Neutrophils # 15.2 H Neutrophils # (Manual) Lymphocytes # 0.3 L Lymphocytes # (Manual) Monocytes # (Manual) APTT Sodium 131 L Chloride 97 L Carbon Dioxide 19 L BUN 37 H Glucose 164 H Plasma Lactic Acid Tony 4.6 H* Total Bilirubin 2.9 H Creatine Kinase 867 H Urine Protein Urine Glucose (UA) Urine Blood Urine RBC Urine Bacteria Urine Mucus 01/09/20 01/10/20 01/10/20 18:55 11:20 11:20 WBC 12.1 H Plt Count 104 L Neutrophils # Neutrophils # (Manual) 10.40 H Lymphocytes # Lymphocytes # (Manual) 0.48 L Monocytes # (Manual) 1.21 H APTT 32.6 H Sodium Chloride Carbon Dioxide BUN Glucose Plasma Lactic Acid Tony Total Bilirubin Creatine Kinase Urine Protein 2+ H Urine Glucose (UA) Trace H Urine Blood Moderate H Urine RBC 13 H Urine Bacteria Rare H Urine Mucus Rare H - Diagnostic Findings Chest x-ray: image reviewed CT scan - chest: image reviewed Assessment and Plan Assessment: 1 Fall secondary to right knee pain with an extended downtime of 16 hours 2 Febrile illness of unclear etiology CoVID 19 screen pending, bilateral pulmonary nodular infiltrates 3 Edema about the right kidney with changes extending in the right renal sinus. Possible polynephritis. No lindsey hydronephrosis. 4 Confluent edema and fluid extending down the right retroperitoneum possible retroperitoneal bleed. 5 4.7 cm ascending aortic aneurysm 6 Osteoarthritis 7 Remote history of smoking 8 Osteoporosis with L1 compression fracture 9 Vitamin D deficiency 10 Enlarged prostate 11 Daily alcohol use Plan: The patient was seen and evaluated by Dr. Monk Chest x-ray, CAT scans and labs all reviewed Currently on ceftriaxone, azithromycin and vancomycin Diltiazem for rate control Heparin drip for anticoagulation Covid testing pending We'll continue to follow I, the cosigning physician, performed a history & physical examination of the patient. Lungs sounds with few scattered rhonchi, diminished. Maintaining good O2 saturations in the 90s on 3 L/m per nasal cannula. I discussed the assessment and plan of care with my nurse practitioner, Shanae Joseph. I attest to the above consultation as dictated by her. Time with Patient: Greater than 30
--- NOTE | 2020-01-10 14:14 | CONS ---
CONSULTATION Mr. Kinsey is a 79-year-old male with a history of hyperlipidemia, who presented to the hospital after falling. According to him on Tuesday, he went to the bathroom, and his knee gave up, fell to the ground and was on the ground for 17 hours unable to get up. He came into the emergency room and subsequently admitted. He did not have any syncope. Did not have any chest discomfort. Did not have any palpitation and the event occurred quite acutely. He is complaining predominantly of back discomfort from the fall. Patient has a known history of osteoporosis and prior L1 compression fracture. When he did not answer his daughter, that is how he was found. According to the patient, he never had any syncopal episode. The patient drinks beer on a daily basis. On the monitor, he was noted to have sinus mechanism with frequent PACs. He has short burst of supraventricular tachyarrhythmia that appears to be sinus tachycardia, although the possibility of atrial fibrillation cannot be totally excluded, but the rhythm appears to be regular. Patient has no prior history of documented atrial fibrillation and in the past had no evidence of stress-induced ischemia by stress testing obtained in 2017. His left ventricular systolic function in the past was normal as well. He had a Holter monitor that showed rare PACs and PVCs with SVTs in the past, but no atrial fibrillation. His coronary risk factors are remarkable for hyperlipidemia. MEDICATION: At the time of admission included aspirin and vitamin D. REVIEW OF SYSTEMS: RESPIRATORY SYSTEM: He has no documented history of asthma, emphysema, or bronchitis. GI SYSTEM: No recent GI bleeding, no peptic ulcer disease. SYSTEM: No dysuria or hematuria. NERVOUS SYSTEM: No history of stroke or seizure. PHYSICAL EXAMINATION: He is a 79-year-old male, alert, oriented, in no apparent distress. Blood pressure 127/60 with a heart rate in the 80s to 100s, afebrile. HEAD: Normocephalic. EYES: Sclerae nonicteric. NECK: Good upstroke, no bruit, no jugular venous distention. LUNGS: Clear to auscultation. HEART: Regular rate and rhythm. S1, S2. No S3 with systolic murmur at the base. No diastolic murmur. Abdomen with extrasystole. ABDOMEN: Soft, nontender. Positive bowel sounds, no organomegaly. EXTREMITIES: No edema, intact distal pulses. LAB DATA: Revealed BUN and creatinine 37 and 1.1, potassium 4.2, plasma lactic acid vein intravenous on presentation 4.6, down to 1.3. His CK was 867 on presentation. Troponin 0.025. NT proBNP of 1910. Hemoglobin 13.6, white blood cell of 16.3. Chest x-ray shows interstitial pulmonary density, could be related to pulmonary fibrosis. Chest CT revealed bilateral noncalcified pulmonary nodule infiltrate that could be neoplastic. His EKG revealed a sinus mechanism with frequent PACs and rare PVCs. No clear documentation of atrial fibrillation. IMPRESSION: 1. Fall with probable rhabdomyolysis with elevated CK. There is no evidence of syncope, it appears to be related to musculoskeletal issue. 2. Atrial arrhythmia, no documented atrial fibrillation. 3. Bilateral pulmonary nodules. Workup is in progress. 4. History of alcohol intake. 5. History of osteoarthritis and L1 fracture. 6. Prior history of hyperlipidemia. RECOMMENDATION: From the cardiac standpoint, I will obtain echocardiogram with Doppler. I will start him on low-dose beta yesi. Will check his thyroid function test. Follow his renal function and depending on his progress, further recommendation will be made. I have discussed with the patient the importance of alcohol cessation. Thank you for this consult. We will follow with you. MMODL / IJN: [id number] / PEÑA
--- NOTE | 2020-01-10 14:23 | P.GSCN ---
<Amanda Cantu - Last Filed: 01/10/20 14:24> History of Present Illness Consult date: 01/10/20 Reason for Consult: Possible retroperitoneal bleed Requesting physician: Elisa Harley History of present illness: CHIEF COMPLAINT: Possible retroperitoneal bleed HISTORY OF PRESENT ILLNESS: 79-year-old male who was admitted to hospital after sustaining a fall at home and laying on the floor for approximately 16 hours. Patient had a computed tomography scan completed revealing possible retroperitoneal bleed and Gen. surgery was consulted for further evaluation. Patient examined at the bedside. Patient believes he landed on his left side when he fell. He states he did not hit anything such as a piece of furniture when he fell. Patient denies abdominal pain. Denies abdominal bloating. He reports discomfort to the left lower back region. No pain on the right side of his back. PAST MEDICAL HISTORY: See list. PAST SURGICAL HISTORY: See list. SOCIAL HISTORY: No illicit drug use. REVIEW OF SYSTEMS: CONSTITUTIONAL: Denies fever or chills. Reports recent fall. Reports left sided back pain. HEENT: Denies blurred vision, vision changes, or eye pain. Denies hemoptysis CARDIOVASCULAR: Denies chest pain or pressure. RESPIRATORY: No shortness of breath. GASTROINTESTINAL: Denies abdominal pain. HEMATOLOGIC: Denies bleeding disorders. GENITOURINARY: Denies any blood in urine. SKIN: Denies pruitis. Denies rash. PHYSICAL EXAM: VITAL SIGNS: Reviewed. GENERAL: Well-developed in no acute distress. HEENT: No sclera icterus. Extraocular movements grossly intact. Moist buccal mucosa. Head is atraumatic, normocephalic. ABDOMEN: Soft. Nondistended. Nontender. NEUROLOGIC: Alert and oriented. Cranial nerves II through XII grossly intact. BACK: Patient without bruising or masses noted. Patient complains of right lower back pain but area is nontender with palpation. LABORATORY DATA: WBC 12.1. Hemoglobin 13.0. Platelet count 104. Lactic acid 4.6. Repeat 1.3. Creatinine kinase 867. IMAGING: CT abdomen and pelvis: Asymmetric perinephric stranding and edema about the right kidney with changes extending into the right renal sinus. Correlate to exclude pyelonephritis. Confluent edema and fluid extends down to the right retroperitoneum. Unclear if this arising from the right kidney. Correlate for any relevant history that could predispose the patient to retroperitoneal bleed. The fluid is not particularly high density that would be seen with acute hemorrhage. ASSESSMENT: 1. Fall 2. Possible retroperitoneal bleed 3. Suspected chronic L1 compression fracture PLAN: -Regular diet -Patient will be evaluated by Dr. Sky this afternoon. Continue to hold heparin drip until patient is evaluated by Dr. Sky. Nurse practitioner note has been reviewed by physician. Signing provider agrees with the documented findings, assessment, and plan of care. Past Medical History Past Medical History: Osteoarthritis (OA) Additional Past Medical History / Comment(s): Osteoporosis, L1 compression fracture, BPH, esophageal stricture with dilation, hiatal hernia, gastritis, arthritis bilateral hands/fingers, pt states R knee "pops and gives out but not often", vitamin D deficiency. History of Any Multi-Drug Resistant Organisms: None Reported Past Surgical History: Cholecystectomy, Orthopedic Surgery Additional Past Surgical History / Comment(s): EGD with dilation, colonoscopy, L leg repair/pins-plate per pt, L hand 2 finger amputation. Past Anesthesia/Blood Transfusion Reactions: No Reported Reaction Smoking Status: Former smoker - Past Family History Mother Family Medical History: No Reported History Additional Family Medical History / Comment(s): Mother was healthy. Father Family Medical History: Unable to Obtain Additional Family Medical History / Comment(s): Pt does not know father's medical hx, his mother and father when pt was 3 yrs old. Brother(s) Family Medical History: Cancer Sister(s) Family Medical History: No Reported History Daughter(s) Family Medical History: No Reported History Son(s) Family Medical History: No Reported History Medications and Allergies Home Medications Medication Instructions Recorded Confirmed Type Aspirin 81 mg PO DAILY 04/09/16 01/09/20 History Cholecalciferol [Vitamin D3] 1,000 unit PO DAILY 04/09/16 01/09/20 History Allergies Allergy/AdvReac Type Severity Reaction Status Date / Time No Known Allergies Allergy Verified 01/09/20 17:00 Surgical - Exam Vital Signs Temp Pulse Resp BP Pulse Ox 102.9 F H 134 H 20 109/73 97 01/09/20 15:39 01/09/20 15:39 01/09/20 15:39 01/09/20 15:39 01/09/20 15:39 Results - Labs 01/10/20 11:20 01/09/20 15:40 Abnormal Lab Results - Last 24 Hours (Table) 01/09/20 01/09/20 01/09/20 Range/Units 15:40 15:40 15:40 WBC 16.3 H (3.8-10.6) k/uL Plt Count 135 L (150-450) k/uL Neutrophils # 15.2 H (1.3-7.7) k/uL Neutrophils # (Manual) (1.3-7.7) k/uL Lymphocytes # 0.3 L (1.0-4.8) k/uL Lymphocytes # (Manual) (1.0-4.8) k/uL Monocytes # (Manual) (0-1.0) k/uL APTT (22.0-30.0) sec Sodium 131 L (137-145) mmol/L Chloride 97 L (98-107) mmol/L Carbon Dioxide 19 L (22-30) mmol/L BUN 37 H (9-20) mg/dL Glucose 164 H (74-99) mg/dL Plasma Lactic Acid Tony 4.6 H* (0.7-2.0) mmol/L Total Bilirubin 2.9 H (0.2-1.3) mg/dL Creatine Kinase 867 H (55-170) U/L Urine Protein (Negative) Urine Glucose (UA) (Negative) Urine Blood (Negative) Urine RBC (0-5) /hpf Urine Bacteria (None) /hpf Urine Mucus (None) /hpf 01/09/20 01/10/20 01/10/20 Range/Units 18:55 11:20 11:20 WBC 12.1 H (3.8-10.6) k/uL Plt Count 104 L (150-450) k/uL Neutrophils # (1.3-7.7) k/uL Neutrophils # (Manual) 10.40 H (1.3-7.7) k/uL Lymphocytes # (1.0-4.8) k/uL Lymphocytes # (Manual) 0.48 L (1.0-4.8) k/uL Monocytes # (Manual) 1.21 H (0-1.0) k/uL APTT 32.6 H (22.0-30.0) sec Sodium (137-145) mmol/L Chloride (98-107) mmol/L Carbon Dioxide (22-30) mmol/L BUN (9-20) mg/dL Glucose (74-99) mg/dL Plasma Lactic Acid Tony (0.7-2.0) mmol/L Total Bilirubin (0.2-1.3) mg/dL Creatine Kinase (55-170) U/L Urine Protein 2+ H (Negative) Urine Glucose (UA) Trace H (Negative) Urine Blood Moderate H (Negative) Urine RBC 13 H (0-5) /hpf Urine Bacteria Rare H (None) /hpf Urine Mucus Rare H (None) /hpf Microbiology - Last 24 Hours (Table) 01/09/20 16:40 Blood Culture Gram Stain - Preliminary Blood 01/09/20 16:40 Blood Culture - Final Blood Diabetes panel 01/09/20 Range/Units 15:40 Sodium 131 L (137-145) mmol/L Potassium 4.2 (3.5-5.1) mmol/L Chloride 97 L (98-107) mmol/L Carbon Dioxide 19 L (22-30) mmol/L BUN 37 H (9-20) mg/dL Creatinine 1.18 (0.66-1.25) mg/dL Glucose 164 H (74-99) mg/dL Calcium 8.6 (8.4-10.2) mg/dL AST 54 (17-59) U/L ALT 27 (4-49) U/L Alkaline Phosphatase 79 (38-126) U/L Total Protein 6.5 (6.3-8.2) g/dL Albumin 3.5 (3.5-5.0) g/dL Thyroid panel 01/09/20 Range/Units 15:40 TSH 2.130 (0.465-4.680) mIU/L Calcium panel 01/09/20 Range/Units 15:40 Calcium 8.6 (8.4-10.2) mg/dL Albumin 3.5 (3.5-5.0) g/dL Pituitary panel 01/09/20 01/09/20 Range/Units 15:40 15:40 Sodium 131 L (137-145) mmol/L Potassium 4.2 (3.5-5.1) mmol/L Chloride 97 L (98-107) mmol/L Carbon Dioxide 19 L (22-30) mmol/L BUN 37 H (9-20) mg/dL Creatinine 1.18 (0.66-1.25) mg/dL Glucose 164 H (74-99) mg/dL Calcium 8.6 (8.4-10.2) mg/dL TSH 2.130 (0.465-4.680) mIU/L Adrenal panel 01/09/20 Range/Units 15:40 Sodium 131 L (137-145) mmol/L Potassium 4.2 (3.5-5.1) mmol/L Chloride 97 L (98-107) mmol/L Carbon Dioxide 19 L (22-30) mmol/L BUN 37 H (9-20) mg/dL Creatinine 1.18 (0.66-1.25) mg/dL Glucose 164 H (74-99) mg/dL Calcium 8.6 (8.4-10.2) mg/dL Total Bilirubin 2.9 H (0.2-1.3) mg/dL AST 54 (17-59) U/L ALT 27 (4-49) U/L Alkaline Phosphatase 79 (38-126) U/L Total Protein 6.5 (6.3-8.2) g/dL Albumin 3.5 (3.5-5.0) g/dL <Hayden Sky - Last Filed: 01/10/20 16:57> History of Present Illness History of present illness: As above. Patient with abnormal CAT scan. Films reviewed. Most of the stranding is in the perinephric fat. Given the presentation of fever as high as 102.9 suspect possible pyelonephritis. Continue antibiotic coverage. Unfortunately cannot rule out some component of bleeding although felt to be less likely. Hold anticoagulation for now. Continue workup of the patient's temps. Check urinary culture. We'll follow closely with you. Surgical - Exam Vital Signs Temp Pulse Resp BP Pulse Ox 102.9 F H 134 H 20 109/73 97 01/09/20 15:39 01/09/20 15:39 01/09/20 15:39 01/09/20 15:39 01/09/20 15:39 Results - Labs 01/10/20 11:20 01/09/20 15:40 Abnormal Lab Results - Last 24 Hours (Table) 01/09/20 01/09/20 01/09/20 Range/Units 15:40 15:40 15:40 WBC 16.3 H (3.8-10.6) k/uL Plt Count 135 L (150-450) k/uL Neutrophils # 15.2 H (1.3-7.7) k/uL Neutrophils # (Manual) (1.3-7.7) k/uL Lymphocytes # 0.3 L (1.0-4.8) k/uL Lymphocytes # (Manual) (1.0-4.8) k/uL Monocytes # (Manual) (0-1.0) k/uL APTT (22.0-30.0) sec Sodium 131 L (137-145) mmol/L Chloride 97 L (98-107) mmol/L Carbon Dioxide 19 L (22-30) mmol/L BUN 37 H (9-20) mg/dL Glucose 164 H (74-99) mg/dL Plasma Lactic Acid Tony 4.6 H* (0.7-2.0) mmol/L Total Bilirubin 2.9 H (0.2-1.3) mg/dL Creatine Kinase 867 H (55-170) U/L Urine Protein (Negative) Urine Glucose (UA) (Negative) Urine Blood (Negative) Urine RBC (0-5) /hpf Urine Bacteria (None) /hpf Urine Mucus (None) /hpf 01/09/20 01/10/20 01/10/20 Range/Units 18:55 11:20 11:20 WBC 12.1 H (3.8-10.6) k/uL Plt Count 104 L (150-450) k/uL Neutrophils # (1.3-7.7) k/uL Neutrophils # (Manual) 10.40 H (1.3-7.7) k/uL Lymphocytes # (1.0-4.8) k/uL Lymphocytes # (Manual) 0.48 L (1.0-4.8) k/uL Monocytes # (Manual) 1.21 H (0-1.0) k/uL APTT 32.6 H (22.0-30.0) sec Sodium (137-145) mmol/L Chloride (98-107) mmol/L Carbon Dioxide (22-30) mmol/L BUN (9-20) mg/dL Glucose (74-99) mg/dL Plasma Lactic Acid Tony (0.7-2.0) mmol/L Total Bilirubin (0.2-1.3) mg/dL Creatine Kinase (55-170) U/L Urine Protein 2+ H (Negative) Urine Glucose (UA) Trace H (Negative) Urine Blood Moderate H (Negative) Urine RBC 13 H (0-5) /hpf Urine Bacteria Rare H (None) /hpf Urine Mucus Rare H (None) /hpf Microbiology - Last 24 Hours (Table) 01/09/20 16:40 Blood Culture Gram Stain - Preliminary Blood 01/09/20 16:40 Blood Culture - Final Blood Diabetes panel 01/09/20 Range/Units 15:40 Sodium 131 L (137-145) mmol/L Potassium 4.2 (3.5-5.1) mmol/L Chloride 97 L (98-107) mmol/L Carbon Dioxide 19 L (22-30) mmol/L BUN 37 H (9-20) mg/dL Creatinine 1.18 (0.66-1.25) mg/dL Glucose 164 H (74-99) mg/dL Calcium 8.6 (8.4-10.2) mg/dL AST 54 (17-59) U/L ALT 27 (4-49) U/L Alkaline Phosphatase 79 (38-126) U/L Total Protein 6.5 (6.3-8.2) g/dL Albumin 3.5 (3.5-5.0) g/dL Thyroid panel 01/09/20 Range/Units 15:40 TSH 2.130 (0.465-4.680) mIU/L Calcium panel 01/09/20 Range/Units 15:40 Calcium 8.6 (8.4-10.2) mg/dL Albumin 3.5 (3.5-5.0) g/dL Pituitary panel 01/09/20 01/09/20 Range/Units 15:40 15:40 Sodium 131 L (137-145) mmol/L Potassium 4.2 (3.5-5.1) mmol/L Chloride 97 L (98-107) mmol/L Carbon Dioxide 19 L (22-30) mmol/L BUN 37 H (9-20) mg/dL Creatinine 1.18 (0.66-1.25) mg/dL Glucose 164 H (74-99) mg/dL Calcium 8.6 (8.4-10.2) mg/dL TSH 2.130 (0.465-4.680) mIU/L Adrenal panel 01/09/20 Range/Units 15:40 Sodium 131 L (137-145) mmol/L Potassium 4.2 (3.5-5.1) mmol/L Chloride 97 L (98-107) mmol/L Carbon Dioxide 19 L (22-30) mmol/L BUN 37 H (9-20) mg/dL Creatinine 1.18 (0.66-1.25) mg/dL Glucose 164 H (74-99) mg/dL Calcium 8.6 (8.4-10.2) mg/dL Total Bilirubin 2.9 H (0.2-1.3) mg/dL AST 54 (17-59) U/L ALT 27 (4-49) U/L Alkaline Phosphatase 79 (38-126) U/L Total Protein 6.5 (6.3-8.2) g/dL Albumin 3.5 (3.5-5.0) g/dL
[2020-01-10] MEDS: VANCOMYCIN 1,500 MG in SODIUM CHLORIDE 0.9% 250 ML IVPB SCH (15:52)
[2020-01-10] MEDS ORDERED: HYDROcodone/APAP 5-325MG 1 EACH TAB PO PRN (16:34)
[2020-01-10] MEDS: AZITHROMYCIN 500 MG in SODIUM CHLORIDE 0.9% 250 ML IVPB SCH (20:49)
[2020-01-10] MEDS ORDERED: MAG HYDROX/AL HYDROX/SIMETH 30 ML CUP PO PRN (21:34)
--- NOTE | 2020-01-10 22:40 | P.CONS ---
History of Present Illness - Reason for Consult Consult date: 01/10/20 bacteremia Requesting physician: Elisa Harley - Chief Complaint fall and back pain x 1 day - History of Present Illness Patient is a 79-year male presenting to the hospital yesterday with chief complaints of fall last night as the patient knee gives out and he fell to the ground patient say he was unable to get up by himself and has been lying on the ground for almost 17 hours the patient daughter found him on the ground and calling the EMS patient be complaining of pain into the back of more the leaking pain more of a dull aching 3-4 out of 10 and no radiation patient denies having any fever or chills however he did have a fever of 102 F on arrival to the ER patient has been tachycardic as well and did have elevated white count of 16.3 the patient had denies having any headache or URI symptoms denies any chest pain some shortness of breath he did have mild cough but no sputum production denies any nausea noted no abdominal pain no diarrhea no urinary symptoms work-up in the ER so far including chest x-ray shows poor inspiration with some basilar a telectasis CT of the chest did shows extensive peripheral bilateral noncalcified pulmonary nodules infiltrate which are nonspecific with concern for possible inflammatory disease patient also CT of abdominal pelvis which did shows asymmetric perinephric stranding and edema about the right kidney extending to the right renal sinus with concern for pyelonephritis patient UA with a significantly positive patient has been started on Rocephin and Zithromax blood culture subsequently came back positive with gram-positive cocci that prompted this infectious disease consultation. Review of Systems Positive point has been mentioned in HPI rest of the systems are negative Past Medical History Past Medical History: Osteoarthritis (OA) Additional Past Medical History / Comment(s): Osteoporosis, L1 compression fracture, BPH, esophageal stricture with dilation, hiatal hernia, gastritis, arthritis bilateral hands/fingers, pt states R knee "pops and gives out but not often", vitamin D deficiency. History of Any Multi-Drug Resistant Organisms: None Reported Past Surgical History: Cholecystectomy, Orthopedic Surgery Additional Past Surgical History / Comment(s): EGD with dilation, colonoscopy, L leg repair/pins-plate per pt, L hand 2 finger amputation. Past Anesthesia/Blood Transfusion Reactions: No Reported Reaction Smoking Status: Former smoker - Past Family History Mother Family Medical History: No Reported History Additional Family Medical History / Comment(s): Mother was healthy. Father Family Medical History: Unable to Obtain Additional Family Medical History / Comment(s): Pt does not know father's medical hx, his mother and father when pt was 3 yrs old. Brother(s) Family Medical History: Cancer Sister(s) Family Medical History: No Reported History Daughter(s) Family Medical History: No Reported History Son(s) Family Medical History: No Reported History Medications and Allergies Home Medications Medication Instructions Recorded Confirmed Type Aspirin 81 mg PO DAILY 04/09/16 01/09/20 History Cholecalciferol [Vitamin D3] 1,000 unit PO DAILY 04/09/16 01/09/20 History Allergies Allergy/AdvReac Type Severity Reaction Status Date / Time No Known Allergies Allergy Verified 01/09/20 17:00 Physical Exam Vitals: Vital Signs Temp Pulse Pulse Resp BP BP BP 01/10/20 15:43 98.4 F 114 H 24 113/67 01/10/20 13:18 112 H 28 H 108/73 01/10/20 11:59 98.8 F 120 H 24 97/66 01/10/20 11:18 130 H 20 104/73 01/10/20 11:11 114 H 20 108/67 01/10/20 10:41 181 H 28 H 121/73 01/10/20 10:15 113 H 24 107/72 01/10/20 08:00 98.6 F 100 20 127/65 01/10/20 04:00 97.6 F 86 16 108/56 01/10/20 00:00 97.5 F L 65 18 120/65 01/09/20 22:19 106 H 20 103/64 01/09/20 21:00 83 16 97/65 01/09/20 20:45 88 18 95/67 01/09/20 18:00 108 H 32 H 99/60 01/09/20 17:47 98.9 F 115 H 32 H 94/62 01/09/20 17:35 114 H 32 H 94/61 Pulse Ox 01/10/20 15:43 96 01/10/20 13:18 96 01/10/20 11:59 96 01/10/20 11:18 95 06/11/20 11:11 95 01/10/20 10:41 96 01/10/20 10:15 96 01/10/20 08:00 93 L 01/10/20 04:00 90 L 01/10/20 00:00 91 L 01/09/20 22:19 97 01/09/20 21:00 97 01/09/20 20:45 97 01/09/20 18:00 97 01/09/20 17:47 97 01/09/20 17:35 97 Intake and Output 01/10/20 01/10/20 01/10/20 06:59 14:59 22:59 Intake Total 450 Output Total 400 Balance 450 -400 Intake: Oral 450 Output: Urine 400 Other: Voiding Method Urinal Urinal Weight 75.5 kg 75.5 kg GENERAL DESCRIPTION: Elderly male lying in bed, no distress. No tachypnea or accessory muscle of respiration use. HEENT: Shows Pallor , no scleral icterus. Oral mucous membrane is dry. NECK: Trachea central, no thyromegaly. LUNGS: Unlabored breathing. Decreased breath sound at the base. No wheeze or crackle. HEART: S1, S2, regular rate and rhythm. ABDOMEN: Soft, no tenderness , guarding or rigidity EXTREMITIES: No edema of feet. SKIN: No rash, no masses palpable. NEUROLOGICAL: The patient is awake, alert, oriented x3, mood and affect normal. Results CBC & Chem 7: 01/10/20 11:20 01/09/20 15:40 Labs: Abnormal Lab Results - Last 24 Hours (Table) 01/09/20 01/09/20 01/09/20 Range/Units 15:40 15:40 15:40 WBC 16.3 H (3.8-10.6) k/uL Plt Count 135 L (150-450) k/uL Neutrophils # 15.2 H (1.3-7.7) k/uL Neutrophils # (Manual) (1.3-7.7) k/uL Lymphocytes # 0.3 L (1.0-4.8) k/uL Lymphocytes # (Manual) (1.0-4.8) k/uL Monocytes # (Manual) (0-1.0) k/uL APTT (22.0-30.0) sec Sodium 131 L (137-145) mmol/L Chloride 97 L (98-107) mmol/L Carbon Dioxide 19 L (22-30) mmol/L BUN 37 H (9-20) mg/dL Glucose 164 H (74-99) mg/dL Plasma Lactic Acid Tony 4.6 H* (0.7-2.0) mmol/L Total Bilirubin 2.9 H (0.2-1.3) mg/dL Creatine Kinase 867 H (55-170) U/L Urine Protein (Negative) Urine Glucose (UA) (Negative) Urine Blood (Negative) Urine RBC (0-5) /hpf Urine Bacteria (None) /hpf Urine Mucus (None) /hpf 01/09/20 01/10/20 01/10/20 Range/Units 18:55 11:20 11:20 WBC 12.1 H (3.8-10.6) k/uL Plt Count 104 L (150-450) k/uL Neutrophils # (1.3-7.7) k/uL Neutrophils # (Manual) 10.40 H (1.3-7.7) k/uL Lymphocytes # (1.0-4.8) k/uL Lymphocytes # (Manual) 0.48 L (1.0-4.8) k/uL Monocytes # (Manual) 1.21 H (0-1.0) k/uL APTT 32.6 H (22.0-30.0) sec Sodium (137-145) mmol/L Chloride (98-107) mmol/L Carbon Dioxide (22-30) mmol/L BUN (9-20) mg/dL Glucose (74-99) mg/dL Plasma Lactic Acid Tony (0.7-2.0) mmol/L Total Bilirubin (0.2-1.3) mg/dL Creatine Kinase (55-170) U/L Urine Protein 2+ H (Negative) Urine Glucose (UA) Trace H (Negative) Urine Blood Moderate H (Negative) Urine RBC 13 H (0-5) /hpf Urine Bacteria Rare H (None) /hpf Urine Mucus Rare H (None) /hpf Microbiology - Last 24 Hours (Table) 01/09/20 16:40 Blood Culture Gram Stain - Preliminary Blood 01/09/20 16:40 Blood Culture - Final Blood Assessment and Plan Assessment: 1-patient presented hospital with sepsis in this patient did have a fever tachycardia with evidence of pulmonary nodules and atelectasis with concern for possible pneumonia with a likely source patient also have abnormal right kidney on the CT with the patient UA has been negative, underlying complicated urinary tract infection not entirely excluded. 2-patient with gram-positive bacteremia questionable address underlying pneumonia or UTI (1) Gram-positive bacteremia Current Visit: Yes Status: Acute Code(s): R78.81 - BACTEREMIA SNOMED Cod e(s): 558188432258 (2) Pneumonia Current Visit: Yes Status: Acute Code(s): J18.9 - PNEUMONIA, UNSPECIFIED ORGANISM SNOMED Code(s): 293149976 (3) Sepsis Current Visit: Yes Status: Acute Code(s): A41.9 - SEPSIS, UNSPECIFIED ORGANISM SNOMED Code(s): 41998699 Plan: 1-blood cultures will be repeated document clearance of bacteremia 2-vancomycin pharmacy to dose her with a target trough of 15 while watching her kidney function and Vanco trough closely. 3-Rocephin 1 g daily to continue 4-obtain a sputum for Gram stain and culture We will follow on clinical condition and cultures to further adjust medication if needed Thank you for this consultation we will follow the patient along with you Time with Patient: Greater than 30
[2020-01-11] MEDS: SODIUM CHLORIDE 0.9% 1,000 ML IV SCH ×3 (01:57→22:46)
[2020-01-11] MEDS ORDERED: NALOXONE 0.4 MG/ML 1 ML VIAL IV PRN (02:44)
[2020-01-11] MEDS: IPRATROPIUM-ALBUTEROL 3 ML NEB INHALATION PRN (02:52)
[2020-01-11 04:54] LABS: Albumin 2.4 g/dL (3.5-5.0); Calcium 7.8 mg/dL (8.4-10.2); Potassium 4.3 mmol/L (3.5-5.1); Total Bilirubin 1.2 mg/dL (0.2-1.3); Total Protein 5.1 g/dL (6.3-8.2)
[2020-01-11 05:34] LABS: Basophils % (A) 0 %; Eosinophils % (A) 0 %; HCT 38.1 % (39.0-53.0); HGB 12.6 gm/dL (13.0-17.5); Lymphocytes # (A) 0.4 k/uL (1.0-4.8); Lymphocytes % (A) 3 %; MCH 31.1 pg (25.0-35.0); MCHC 33.1 g/dL (31.0-37.0); Mean Platelet Volume 8.4; Monocytes # (A) 0.7 k/uL (0-1.0); Monocytes % (A) 5 %; Neutrophils # (A) 12.6 k/uL (1.3-7.7); Neutrophils % (A) 90 %; Platelet Count 121 k/uL (150-450); RBC 4.05 m/uL (4.30-5.90); RDW 12.5 % (11.5-15.5)
[2020-01-11] MEDS: VANCOMYCIN 1,500 MG in SODIUM CHLORIDE 0.9% 250 ML IVPB SCH ×2 (05:38→22:27)
[2020-01-11] MEDS: PANTOPRAZOLE 40 MG TABLET PO SCH (06:54)
--- NOTE | 2020-01-11 07:28 | XR ---
EXAMINATION TYPE: XR chest 1V portable DATE OF EXAM: 01/11/2020 Comparison: 01/09/2020 Clinical History: 79-year-old male with fever ICU management Findings: Heart mildly enlarged. Tortuous thoracic aorta. Diffuse interstitial density persists. Increasing pat ashwin opacities throughout the left mid and lower lung. No sizable effusion. Impression: 1. Mild cardiomegaly and continued interstitial density. Correlate to exclude pulmonary vascular amando estion. 2. Increasing patchy airspace disease left mid and lower lung could represent developing confluent pu lmonary edema versus pneumonia.
[2020-01-11] MEDS: CHOLECALCIFEROL 1,000 UNIT TAB PO SCH (08:11)
[2020-01-11] MEDS: ASPIRIN 81 MG PO SCH (08:11)
[2020-01-11] MEDS: DILTIAZEM 125 MG in SODIUM CHLORIDE 0.9% 100 ML IV SCH (08:11)
[2020-01-11] MEDS: METOPROLOL TARTRATE 50 MG TAB PO SCH ×2 (08:11→20:40)
[2020-01-11] MEDS: IPRATROPIUM-ALBUTEROL 3 ML NEB INHALATION SCH ×4 (08:50→19:35)
[2020-01-11] MEDS ORDERED: HEPARIN SODIUM,PORCINE 5,000 UNIT/ML 1 ML VIAL SQ SCH (09:00)
--- NOTE | 2020-01-11 09:50 | PN ---
PROGRESS NOTE Mr. Kinsey is a 79-year-old male with a known history of hyperlipidemia, who presented after falling and being on the floor for 17 hours. He was in sinus mechanism initially with frequent PACs and subsequently went into atrial fibrillation. He has symptoms of dyspnea yesterday and wheezing, he was transferred to the ICU. He feels well this morning. He continues to be in atrial fibrillation with episode of rapid ventricular response. He denies any chest pain or dizziness. He denies any palpitation. He continues to be in hemodynamically stable besides the atrial fibrillation. He underwent an echocardiogram yesterday that revealed an ejection fraction of 50% to 55% with mild tricuspid regurgitation and moderate pulmonary hypertension with mild to moderate aortic regurgitation. He continues to be on IV Cardizem, metoprolol tartrate 25 mg twice a day, aspirin 81 mg daily. He was started on Zithromax and vancomycin. His CT scan of the abdomen raised the possibility of retroperitoneal hemorrhage. PHYSICAL EXAMINATION: Blood pressure 110/80 with a heart rate in the 110s to 130. LUNGS: With no wheezes with decreased air exchange. HEART: Irregular, regular, S1, S2. No S3. No rub with a systolic murmur. ABDOMEN: Soft, nontender. Positive bowel sounds, no organomegaly. EXTREMITIES: No edema. LAB DATA: Revealed BUN and creatinine 58 and 1.62, potassium 4.3, hemoglobin of 12.6. His white blood cell of 14,000. His renal function has worsened compared to yesterday. His CK is 1067. His procalcitonin is 7.1. His chest x-ray shows a left-sided infiltrate that could represent a pneumonia. There is a possibility of congestion. IMPRESSION: 1. Episode of fall, patient on the floor for 17 hours with evidence of rhabdomyolysis and worsening renal function. 2. Atrial fibrillation since admission, rate remains elevated. 3. Bilateral pulmonary nodular infiltrate with more infiltrate on the left side. 4. A 4.7 cm ascending aortic aneurysm. 5. Worsening renal function, most likely related to the rhabdomyolysis. 6. History of hyperlipidemia. RECOMMENDATION: From the cardiac standpoint, I will increase the dose of his beta yesi. Follow his renal function closely. I will hold on diuretic at this time because of his renal function. Patient is receiving fluid. We will hold on anticoagulation until the issue of the retroperitoneal hemorrhage stabilize. His hemoglobin has been stable. Depending on his progress, further recommendation will be made. MMODL / IJN: [id number] /
--- NOTE | 2020-01-11 11:50 | P.PN ---
Subjective Progress Note Date: 01/11/20 This is a 79-year-old male one of my patient with a previous medical history significant for osteoporosis, osteoporosis with prior history of L1 compression fracture, vitamin D deficiency, history of enlarged prostate, patient was in his usual state of health until about 2 days ago when he felt a bit sick to stomach episode of nausea and vomiting he was not drinking enough water at that time, patient woke up the yesterday morning at around 12 midnight to go to have a drink of water before he goes to the bathroom he ended up falling on the floor after his right knee gave out and the patient landed on the floor for at least 17 hours until his daughter hold him and he did not answer so she came to the house and she found him laying on the floor EMS was called and the patient was brought into the ER at [facility] and brought to the hospital EMS personnel thought the patient was in atrial fibrillation, upon arrival to the ER his initial EKG showed sinus tachycardia with PAC and PVCs without any evidence of atrial fibrillation, patient lactic acid was elevated at 4.7, he was given IV fluid resuscitation, he had a chest x-ray that did not show much ended up going for computed tomography scan of the chest that showed multiple bilateral peripheral pulmonary infiltrate with left 2.5 cm cavitary lesion in the left upper lobe, patient was started on IV antibiotic in the form of Zithromax, Rocephin, and vancomycin, pulmonary consultation was obtained from , as well as cardiology consultation because of his ectopy. 01/10: Yesterday, patient developed evidence of atrial fibrillation and consult with Dr. Hdz was requested. Patient was started on Cardizem drip and heparin drip. Echocardiogram revealed EF of 50-55%, mild to moderate aortic regurgitation, mild tricuspid regurgitation, moderate pulmonary hypertension. CAT scan of the abdomen and pelvis was obtained which revealed asymmetrical perinephric stranding and edema in the right kidney, correlated to exclude pyelonephritis. Continue fluid edema and fluid in the right retroperitoneum. Unclear if this is arising from the right kidney. Correlate for any relevant history that could predispose the patient to retroperitoneal bleed. The fluid is not high-density would be seen in acute hemorrhage. Tortuous right common and external iliac artery which courses through this tracking fluid. Tiny hiata l hernia and mild circumferential wall thickening of the distal esophagus. Correlate to exclude esophagitis. Continue small effusions with extensive peripheral opacities. Interstitial pneumonitis and atypical pneumonias including COVID-19 pneumonia in the differentials. Incidental finding of a 70 aortic aneurysm 4.7 cm. Consult was obtained with Dr. Sky and he is not convinced retro-peritoneal bleed. Heparin drip will remain on hold. Repeat chest x-ray revealed mild cardiomegaly and continued interstitial density. Correlate to exclude pulmonary vascular congestion. Increasing patchy airspace disease in the left mid and lower lung could represent developing confluent pulmonary edema versus pneumonia. Patient has been seen and followed by Dr. Monk. Patient was also seen by Dr. Romero and continued on vancomycin and Rocephin for possible gram-positive bacteremia as well as azithromycin. Initial blood culture has not been finalized. This morning, monitoring analyst atrial fibrillation in the 120s to 140s. He denies any chest pain, shortness of breath or dizziness. No palpitations. Cardiology is increasing Lopressor to 50 mg twice daily and Lasix on hold due to worsening renal function. Anticoagulation remains on hold due to possibility of retroperitoneal bleed. Patient has been afebrile since admission. Blood pressure currently 122/74, pulse ox 98% on 3 L nasal cannula. Repeat blood work reveals WBC 14, hemoglobin 12.6, platelet count 121. Sodium 136, potassium 4.3, chloride 108, CO2 21, BUN 58 and creatinine 1.62. Blood sugar 123. CK is 1026. TSH 0.8-9. Coronavirus not detected. Objective - Vital Signs Vital signs: Vital Signs Temp 97.9 F 01/11/20 04:00 Pulse 133 H 01/11/20 07:00 Resp 22 01/11/20 07:00 BP 110/81 01/11/20 07:00 Pulse Ox 94 L 01/11/20 07:00 Intake & Output 01/10/20 01/11/20 01/11/20 18:59 06:59 18:59 Intake Total 1380 400 100 Output Total 800 300 0 Balance 580 100 100 Weight 75.5 kg 82 kg Intake: IV 1140 400 100 Diltiazem 125 mg In 40 Sodium Chloride 0.9% 100 ml @ 5 MG/HR 5 mls/hr IV .Q24H [facility] Rx#:[id number] Sodium Chloride 0.9% 1, 800 400 100 000 ml @ 100 mls/hr IV . Q10H [facility] Rx#:[id number] Vancomycin 1,500 mg In 250 Sodium Chloride 0.9% 250 ml @ 125 mls/hr IVPB Q16H [facility] Rx#:[id number] cefTRIAXone 1 gm In 50 Sodium Chloride 0.9% 50 ml @ 100 mls/hr IVPB Q24H [facility] Rx#:[id number] Oral 240 Output: Urine 800 300 0 Other: Voiding Method Urinal Urinal # Voids 0 - Exam Review of Systems Constitutional: Reports weakness, Denies chronic headaches, Denies fatigue, Denies lethargy Eyes: denies blurred vision, denies bulging eye, denies decreased vision Ears: bilateral: decreased hearing Ears, nose, mouth and throat: Denies dysphagia, Denies neck lump, Denies sore throat Cardiovascular: Reports rapid heart beat, Denies chest pain, Denies decreased exercise tolerance, Denies lightheadedness, Denies shortness of breath, Denies syncope Respiratory: Denies congestion, Denies cough with sputum, Denies home oxygen, Denies sleep apnea, Denies snoring, Denies wheezing Gastrointestinal: Reports abdominal pain, Reports nausea, Reports vomiting, D enies bloating, Denies change in bowel habits, Denies coffee ground emesis, Denies excessive gas, Denies heartburn, Denies hematemesis, Denies melena Genitourinary: Denies dysuria, Denies incontinence Musculoskeletal: Reports frequent falls, Reports gait dysfunction Musculoskeletal: right: shoulder pain, shoulder stiffness, absent: ankle pain, ankle stiffness, ankle swelling, elbow pain, elbow stiffness, elbow swelling, f oot pain, foot stiffness, foot swelling, hand pain, hand stiffness, hand swelling, hip pain, hip stiffness, hip swelling, knee pain, knee swelling, shoulder swelling, wrist pain, wrist stiffness, wrist swelling Integumentary: Denies pruritus, Denies rash Neurological: Denies numbness, Denies weakness Psychiatric: Denies anxiety, Denies depression HEENT: Head is atraumatic, normocephalic, pupils were equal round reactive to light and recommendation, extraocular muscle movement were intact. Neck: Supple, no JVD, no carotid bruit. Chest: Decreased breath sounds at the bases, few rhonchi, no expiratory wheezes, minimal chest wall tenderness and the left lower ribs, no intercostal retractions. Heart: First heart sound is depressed, second heart sound is normal, irregular, there is systolic ejection murmur 2/6. Sternal border. Abdomen: Soft, distended, moderate tenderness in the left upper quadrant , as well as right upper quadrant, depressed bowel sounds. Extremities: Trace edema, no calf tenderness, dorsalis pedis +1 bilaterally. Neurologic examination: Patient is awake alert and oriented 3, cranial nerves III through XII appear grossly intact, no significant weakness in both lower extremities and the patient is not able to move both lower extremities, deep tendon reflexes were depressed bilaterally, Babinski's were flexor bilaterally. - Labs CBC & Chem 7: 01/12/20 04:29 01/12/20 04:29 Labs: Abnormal Lab Results - Last 24 Hours (Table) 01/10/20 01/10/20 01/10/20 Range/Units 11:20 11:20 11:20 WBC 12.1 H (3.8-10.6) k/uL RBC (4.30-5.90) m/uL Hgb (13.0-17.5) gm/dL Hct (39.0-53.0) % Plt Count 104 L (150-450) k/uL Neutrophils # (1.3-7.7) k/uL Neutrophils # (Manual) 10.40 H (1.3-7.7) k/uL Lymphocytes # (1.0-4.8) k/uL Lymphocytes # (Manual) 0.48 L (1.0-4.8) k/uL Monocytes # (Manual) 1.21 H (0-1.0) k/uL APTT 32.6 H (22.0-30.0) sec Sodium (137-145) mmol/L Chloride (98-107) mmol/L Carbon Dioxide (22-30) mmol/L BUN (9-20) mg/dL Creatinine (0.66-1.25) mg/dL Glucose (74-99) mg/dL Calcium (8.4-10.2) mg/dL AST (17-59) U/L Creatine Kinase (55-170) U/L Total Protein (6.3-8.2) g/dL Albumin (3.5-5.0) g/dL Procalcitonin 7.12 H (0.02-0.09) ng/mL 01/10/20 01/11/20 01/11/20 Range/Units 17:11 04:30 04:30 WBC 14.0 H (3.8-10.6) k/uL RBC 4.05 L (4.30-5.90) m/uL Hgb 12.6 L (13.0-17.5) gm/dL Hct 38.1 L (39.0-53.0) % Plt Count 121 L (150-450) k/uL Neutrophils # 12.6 H (1.3-7.7) k/uL Neutrophils # (Manual) (1.3-7.7) k/uL Lymphocytes # 0.4 L (1.0-4.8) k/uL Lymphocytes # (Manual) (1.0-4.8) k/uL Monocytes # (Manual) (0-1.0) k/uL APTT 31.2 H (22.0-30.0) sec Sodium 136 L (137-145) mmol/L Chloride 108 H (98-107) mmol/L Carbon Dioxide 21 L (22-30) mmol/L BUN 58 H (9-20) mg/dL Creatinine 1.62 H (0.66-1.25) mg/dL Glucose 123 H (74-99) mg/dL Calcium 7.8 L (8.4-10.2) mg/dL AST 83 H (17-59) U/L Creatine Kinase 1067 H* (55-170) U/L Total Protein 5.1 L (6.3-8.2) g/dL Albumin 2.4 L (3.5-5.0) g/dL Procalcitonin (0.02-0.09) ng/mL Microbiology - Last 24 Hours (Table) 01/09/20 16:40 Blood Culture Gram Stain - Preliminary Blood 01/09/20 16:40 Blood Culture - Final Blood Assessment and Plan Assessment: Assessment and plan: 1. Status post fall with significant pain in the lumbar spine. Reviewed x-ray of the spine did not show any evidence of acute of normalities except for an old L1 fracture, will obtain CT of the abdomen and pelvis without contrast for evaluation of retroperitoneal bleed, we will monitor the patient very closely, monitor the patient's CBC, continue IV fluid resuscitation. 2. Bilateral peripheral pulmonary nodules with left cavitary lesions in the left upper lobe 2.5 cm. Continue IV antibiotic in the form of vancomycin, Rocephin, and Zithromax, obtain blood culture, sputum culture, pulmonary consultation. 3. Mild rhabdomyolysis. Continue IV fluid resuscitation. Repeat CPK and CMP the next 24 hours. 4. Mild hyponatremia secondary to hypovolemia. Continue IV fluid resuscitation. 5. Atrial fibrillation with RVR. was started on cardizem drip and we will get clearance from surgery before starting heparin drip. 6. History of old L1 fracture. Stable. 7. Lactic acidosis. Continue IV fluid resuscitation, continue IV antibiotic. Repeat lactic acid is better. 8. Osteoarthritis. Stable. 9. Vitamin D deficiency. Continue vitamin D supplements 1000 units once every day. 10. DVT prophylaxis. Heparin 5000 units subcutaneously every 8 hours. 11. GI prophylaxis. Continue Protonix 40 mg orally once every day. 12. Guarded prognosis. 13. No ode. Plan: 1. Status post fall with significant pain in the lumbar spine. Reviewed x-ray of the spine did not show any evidence of acute of normalities except for an old L1 fracture. Possible retroperitoneal bleed on computed tomography scan of the abdomen and pelvis, we will continue to monitor discuss the case with the ICU and general surgery at this point in time we will go ahead and start the patient on anticoagulation assuming this is not an actual retroperitoneal bleed. 2. Bilateral peripheral pulmonary nodules with left cavitary lesions in the left upper lobe 2.5 cm. Continue IV antibiotic in the form of vancomycin, Rocephin, and Zithromax, obtain blood culture, sputum culture, monitor the patient very closely, continue to monitor the patient in the ICU for another 24 hours per 3. Mild rhabdomyolysis. Continue IV fluid resuscitation. Repeat CPK and CMP the next 24 hours. 4. Mild hyponatremia secondary to hypovolemia. Continue IV fluid re suscitation. 5. Acute kidney injury secondary to acute tubular necrosis due to rhabdomyolysis. Continue IV fluid resuscitation, urine creatinine is improving we will continue to monitor the patient very closely. 6. New onset of atrial fibrillation with RVR, paroxysmal atrial fibrillation. Continue Cardizem drip, Lopressor increased to 50 mg twice daily, we will start the patient on Eliquis 5 mg orally twice every day. 7. Possible gram-positive bacteremia. Patient is on vancomycin. We will continue to monitor the patient very closely. 8. Acute kidney injury. Continue IV fluids, avoid nephrotoxic agents. Recheck CMP in the morning. 9. Possible retroperitoneal bleed History of old L1 fracture. After discussing with intensive care and general surgery it does not seems to be an actual bleeding we will monitor very closely.. 10. 4.7 cm ascending aortic aneurysm. Patient will continue to have a surveillance computed tomography scan once every 6 months. 11. Lactic acidosis. Continue IV fluid resuscitation, continue IV antibiotic. Repeat lactic acid is better. 12. Osteoarthritis. Stable. 13. Vitamin D deficiency. Continue vitamin D supplements 1000 units once every day. 14. DVT prophylaxis. We will start the patient on Keith was 5 mg orally twice every day. 15. GI prophylaxis. Continue Protonix 40 mg orally once every day. 16. COVID-19 infection not present.. 17. Patient is full code. Discharge plan: Anticipate need for subacute rehab. PT and OT on consult. 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
--- NOTE | 2020-01-11 12:16 | P.PN ---
Subjective Progress Note Date: 01/11/20 Principal diagnosis: Gram-positive bacteremia, sepsis, bilateral cavitary lung nodules, and pneumonia. Atrial fibrillation with RVR. This is a pleasant 79-year-old gentleman who follows with Dr. Harley as his primary care provider. He has a history of osteoarthritis, osteoporosis with prior history of L1 compression fracture, vitamin D deficiency, enlarged prostate, remote history of tobacco dependence for approximately 10 years but quit 60 years ago. Daily alcohol use. On 01/18/2020 the patient had gotten up from bed and headed to the bathroom when his right knee gave out and he fell to the ground. He was unable to get himself up. His daughter called and the patient had not answered and she went to check on him yesterday, found him on the floor and EMS was called. Approximately 16 hours of down time. He was found to be febrile with presenting temperature of 102.9. Computed tomography scan of the chest revealed extensive peripheral bilateral noncalcified pulmonary nodular infiltrates. Neoplastic versus inflammatory disease. There is a 2.5 cm cavitating lesion in the lateral aspect of the left upper lobe. The largest of the peripheral nodules is 2 cm. The patient is seen today in consultation on the selective care unit. He is currently sitting up in a chair. Awake and alert in no acute distress. Currently afebrile. Sinus tachycardia with freq uent PACs, possible paroxysmal atrial fibrillation. Echocardiogram reveals preserved left ventricular systolic function with ejection fraction 50-55%. CAT scan of the abdomen and pelvis revealed edema about the right kidney extending to the right renal sinus with possible polynephritis. Confluent edema and fluid extends down the right retroperitoneum cannot exclude retroperitoneal bleed. Confluent small effusions with extensive peripheral opacities. Interstitial pneumonitis and atypical pneumonias are within the differential. There is a 4.7 cm ascending aortic aneurysm. CoVID 19 screening pending. Blood cultures pending. White count 12.1. Hemoglobin 13.0. Platelet count 104. Lymphocytes 0.48. Sodium 131. Potassium 4.2. Bicarb 19. Creatinine 1.18. Glucose 164. CK 867. Troponin 0.025. ProBNP 1910. He has been initiated on ceftriaxone, vancomycin and azithromycin. Cardizem drip at 5 mg per hour. Heparin drip. Patient was reevaluated today on 01/11/20, patient developed worsening shortness of breath overnight, wheezing, and worsening atrial fibrillation with RVR, hence he was transferred to the intensive care unit. Feeling better at present, however he is on 3 L nasal cannula, and O2 saturation is 94%. He is also on Cardizem at 5 mg per hour, IV fluid increased to 1 50 mL per hour. His blood cultures came back positive for gram-positive cocci in clusters, and the patient received vancomycin since admission he remains on vancomycin. He was already seen by infectious disease on consultation. Cardiology is evaluating the patient, his initial echocardiogram was nondiagnostic, patient may require transesophageal echocardiography. CPK was noted to be a bit elevated today, hence I increased his IV fluid. Patient is in atrial fibrillation with RVR, rat e is 138 beats per minutes. Primary source of his bacteremia could very well be from the lungs, although the possibility of urinary tract infection and endocarditis is not entirely ruled out. But felt to be less likely. WBC count today is 14 hemoglobin is 12.6. Electrodes are normal, BUN is 58 creatinine is 1.62, worsening compared to yesterday. CPK was also noted to be elevated, pro-calcitonin was quite high 7.12. Objective - Vital Signs Vital signs: Vital Signs Temp 99.0 F 01/11/20 08:00 Pulse 111 H 01/11/20 12:02 Resp 33 H 01/11/20 11:00 BP 98/76 01/11/20 11:00 Pulse Ox 94 L 01/11/20 11:00 Intake & Output 01/10/20 01/11/20 01/11/20 18:59 06:59 18:59 Intake Total 1380 400 955.333 Output Total 800 300 275 Balance 580 100 680.333 Weight 75.5 kg 82 kg Intake: IV 1140 400 600 Diltiazem 125 mg In 40 Sodium Chloride 0.9% 100 ml @ 5 MG/HR 5 mls/hr IV .Q24H [facility] Rx#:[id number] Sodium Chloride 0.9% 1, 800 400 600 000 ml @ 150 mls/hr IV . Q6H40M [facility] Rx#:[id number] Vancomycin 1,500 mg In 250 Sodium Chloride 0.9% 250 ml @ 125 mls/hr IVPB Q16H [facility] Rx#:[id number] cefTRIAXone 1 gm In 50 Sodium Chloride 0.9% 50 ml @ 100 mls/hr IVPB Q24H [facility] Rx#:[id number] Intake, IV Titration 105.333 Amount Diltiazem 125 mg In 105.333 Sodium Chloride 0.9% 100 ml @ 5 MG/HR 5 mls/hr IV .Q24H [facility] Rx#:[id number] Oral 240 250 Output: Urine 800 300 275 Other: Voiding Method Urinal Urinal Urinal # Voids 0 - Exam GENERAL DESCRIPTION: Revealed a 79-year-old white male, in no distress. HEENT: PERRLA, EOMI, no icterus. NECK: Trachea central, no thyromegaly. No neck masses, no JVD LUNGS: Diminished breath sounds at the bases, symmetrical chest expansion, no crackles or rhonchi or wheezes. HEART: Irregular irregular rhythm, no S3 gallop, normal S1 and S2. No murmur. ABDOMEN: Flat, Soft, no tenderness , no guarding. No rebound. EXTREMITIES: No clubbing edema or cyanosis. SKIN: No rashes, no areas of cellulitis.. NEUROLOGICAL: Alert and oriented 3 no gross focal neurologic deficits. Lymphatics: No lymphadenopathy. - Labs CBC & Chem 7: 01/11/20 04:30 01/11/20 04:30 Labs: Abnormal Lab Results - Last 24 Hours (Table) 01/10/20 01/10/20 01/10/20 Range/Units 11:20 11:20 17:11 WBC 12.1 H (3.8-10.6) k/uL RBC (4.30-5.90) m/uL Hgb (13.0-17.5) gm/dL Hct (39.0-53.0) % Plt Count 104 L (150-450) k/uL Neutrophils # (1.3-7.7) k/uL Neutrophils # (Manual) 10.40 H (1.3-7.7) k/uL Lymphocytes # (1.0-4.8) k/uL Lymphocytes # (Manual) 0.48 L (1.0-4.8) k/uL Monocytes # (Manual) 1.21 H (0-1.0) k/uL APTT 31.2 H (22.0-30.0) sec Sodium (137-145) mmol/L Chloride (98-107) mmol/L Carbon Dioxide (22-30) mmol/L BUN (9-20) mg/dL Creatinine (0.66-1.25) mg/dL Glucose (74-99) mg/dL Calcium (8.4-10.2) mg/dL AST (17-59) U/L Creatine Kinase (55-170) U/L Total Protein (6.3-8.2) g/dL Albumin (3.5-5.0) g/dL Procalcitonin 7.12 H (0.02-0.09) ng/mL 01/11/20 01/11/20 Range/Units 04:30 04:30 WBC 14.0 H (3.8-10.6) k/uL RBC 4.05 L (4.30-5.90) m/uL Hgb 12.6 L (13.0-17.5) gm/dL Hct 38.1 L (39.0-53.0) % Plt Count 121 L (150-450) k/uL Neutrophils # 12.6 H (1.3-7.7) k/uL Neutrophils # (Manual) (1.3-7.7) k/uL Lymphocytes # 0.4 L (1.0-4.8) k/uL Lymphocytes # (Manual) (1.0-4.8) k/uL Monocytes # (Manual) (0-1.0) k/uL APTT (22.0-30.0) sec Sodium 136 L (137-145) mmol/L Chloride 108 H (98-107) mmol/L Carbon Dioxide 21 L (22-30) mmol/L BUN 58 H (9-20) mg/dL Creatinine 1.62 H (0.66-1.25) mg/dL Glucose 123 H (74-99) mg/dL Calcium 7.8 L (8.4-10.2) mg/dL AST 83 H (17-59) U/L Creatine Kinase 1067 H* (55-170) U/L Total Protein 5.1 L (6.3-8.2) g/dL Albumin 2.4 L (3.5-5.0) g/dL Procalcitonin (0.02-0.09) ng/mL Microbiology - Last 24 Hours (Table) 01/09/20 16:40 Blood Culture Gram Stain - Preliminary Blood 01/09/20 16:40 Blood Culture - Final Blood Assessment and Plan Assessment: Impression: Gram-positive bacteremia, most likely source is lungs related/pneumonia. Acute Gram-positive pneumonia, could be staph aureus related or Streptococcus related. Final identification is pending on the blood cultures. Acute sepsis Atrial fibrillation with RVR Possible urinary tract infection. Doubt endocarditis with relatively unremarkable echocardiogram done on this admission. Abnormal CT of the abdomen questioning opacity or hemorrhage/retroperitoneal. Hence there is some reluctance to start the patient on heparin at this point. F inal decision will have to be made by cardiology and cleared by surgery. Patient does need to be on antiplatelet ablation therapy because of his atrial fibrillation and RVR. Acute rhabdomyolysis and acute kidney injury. Degenerative joint disease. Bilateral peripheral pulmonary nodules, some are cavitary in nature, need to be monitored and followed closely, plan to repeat CT of the chest in the near future. Probably in the next few weeks. Recommendation: Continue antibiotics as per infectious disease on the case including vancomycin. Await final cultures. Continue Cardizem. Continue IV fluid and monitor CPK as well as renal profile. Continue beta blockers. Hold diuretics. Anticoagulations to be decided upon by cardiology and surgery. We'll continue to follow in the ICU. Time with Patient: Less than 30
--- NOTE | 2020-01-11 16:13 | PN ---
PROGRESS NOTE DATE OF SERVICE: 01/11/2020 REASON FOR FOLLOWUP: Sepsis with pneumonia and bacteremia. INTERVAL HISTORY: The patient is currently afebrile. Patient has been transferred to the ICU because of more wheezing last night. As of this morning, the patient is breathing more comfortably. He denies having any chest pain. Did have a cough but no sputum. No nausea, no abdominal pain or diarrhea. PHYSICAL EXAMINATION: Blood pressure 99/67, pulse of 111, temperature 98.9, he is 97% on 2 L nasal cannula. General description is an elderly male up in the chair in no distress. RESPIRATORY SYSTEM: Unlabored breathing, decreased breath sounds at bases. No wheeze. HEART: S1, S2. Regular rate and rhythm. ABDOMEN: Soft, no tenderness. LABS: Hemoglobin is 12.8, white count of 14,000, BUN of 28, creatinine 1.62, blood culture with gram-positive. DIAGNOSTIC IMPRESSION AND PLAN: Patient admitted to hospital with sepsis, possible pneumonia and evidence of gram- positive bacteremia. ID sensitivity is currently pending. We will keep the patient on vancomycin and Rocephin while waiting for the culture to finalize and monitor clinical course closely. MMODL / IJN: [id number] /
--- NOTE | 2020-01-11 16:51 | P.PN ---
Subjective Progress Note Date: 01/11/20 Principal diagnosis: Retroperitoneal bleed Patient transfer to the ICU last night because of shortness of breath. Remains somewhat tachypneic although improved. Still having left-sided back pain per patient but says its improved. He remains afebrile. Patient remains tachycar dic. White blood cell count 14. Urine culture pending. Chest x-ray showing 2.5 cm cavitary lesion. Hemoglobin remained stable. Objective - Vital Signs Vital signs: Vital Signs Temp 98.9 F 01/11/20 12:00 Pulse 106 H 01/11/20 15:58 Resp 27 H 01/11/20 15:00 BP 99/72 01/11/20 15:00 Pulse Ox 96 01/11/20 15:47 Intake & Output 01/10/20 01/11/20 01/11/20 18:59 06:59 18:59 Intake Total 7670 106 5361.333 Output Total 800 300 475 Balance 035 613 6181.333 Weight 75.5 kg 82 kg Intake: IV 2339 408 0248 Diltiazem 125 mg In 40 Sodium Chloride 0.9% 100 ml @ 5 MG/HR 5 mls/hr IV .Q24H DAI Rx#:[id number] Sodium Chloride 0.9% 1, 130 613 9825 000 ml @ 125 mls/hr IV . Q8H DAI Rx#:[id number] Vancomycin 1,500 mg In 250 Sodium Chloride 0.9% 250 ml @ 125 mls/hr IVPB Q16H DAI Rx#:[id number] cefTRIAXone 1 gm In 50 Sodium Chloride 0.9% 50 ml @ 100 mls/hr IVPB Q24H DAI Rx#:[id number] Intake, IV Titration 105.333 Amount Diltiazem 125 mg In 105.333 Sodium Chloride 0.9% 100 ml @ 5 MG/HR 5 mls/hr IV .Q24H DAI Rx#:[id number] Oral 240 450 Output: Urine 800 300 475 Other: Voiding Method Urinal Urinal Urinal # Voids 0 - Exam Abdomen: Soft, nondistended, nontender, mild bilateral CVA tenderness - Labs CBC & Chem 7: 01/11/20 04:30 01/11/20 04:30 Labs: Abnormal Lab Results - Last 24 Hours (Table) 01/10/20 01/10/20 01/11/20 Range/Units 11:20 17:11 04:30 WBC 14.0 H (3.8-10.6) k/uL RBC 4.05 L (4.30-5.90) m/uL Hgb 12.6 L (13.0-17.5) gm/dL Hct 38.1 L (39.0-53.0) % Plt Count 121 L (150-450) k/uL Neutrophils # 12.6 H (1.3-7.7) k/uL Lymphocytes # 0.4 L (1.0-4.8) k/uL APTT 31.2 H (22.0-30.0) sec Sodium (137-145) mmol/L Chloride (98-107) mmol/L Carbon Dioxide (22-30) mmol/L BUN (9-20) mg/dL Creatinine (0.66-1.25) mg/dL Glucose (74-99) mg/dL Calcium (8.4-10.2) mg/dL AST (17-59) U/L Creatine Kinase (55-170) U/L Total Protein (6.3-8.2) g/dL Albumin (3.5-5.0) g/dL Procalcitonin 7.12 H (0.02-0.09) ng/mL 01/11/20 Range/Units 04:30 WBC (3.8-10.6) k/uL RBC (4.30-5.90) m/uL Hgb (13.0-17.5) gm/dL Hct (39.0-53.0) % Plt Count (150-450) k/uL Neutrophils # (1.3-7.7) k/uL Lymphocytes # (1.0-4.8) k/uL APTT (22.0-30.0) sec Sodium 136 L (137-145) mmol/L Chloride 108 H (98-107) mmol/L Carbon Dioxide 21 L (22-30) mmol/L BUN 58 H (9-20) mg/dL Creatinine 1.62 H (0.66-1.25) mg/dL Glucose 123 H (74-99) mg/dL Calcium 7.8 L (8.4-10.2) mg/dL AST 83 H (17-59) U/L Creatine Kinase 1067 H* (55-170) U/L Total Protein 5.1 L (6.3-8.2) g/dL Albumin 2.4 L (3.5-5.0) g/dL Procalcitonin (0.02-0.09) ng/mL Microbiology - Last 24 Hours (Table) 01/09/20 16:40 Blood Culture Gram Stain - Preliminary Blood Assessment and Plan (1) Left flank pain Narrative/Plan: Patient appears to be doing better today than he was yesterday evening. Remains afebrile. Remains on broad-spectrum antibiotic for possible pulmonary and urinary sources. Etiology of retroperitoneal appearance remains unclear but certainly retroperitoneal bleeding within the differential. Would consider beginning low-dose anticoagulation tomorrow if hemoglobin remains stable. Continue diet as tolerated. Await cultures. Current Visit: Yes Status: Acute Code(s): R10.9 - UNSPECIFIED ABDOMINAL PAIN SNOMED Code(s): 272348371
[2020-01-11] MEDS: AZITHROMYCIN 500 MG in SODIUM CHLORIDE 0.9% 250 ML IVPB SCH (21:05)
[2020-01-12] MEDS: IPRATROPIUM-ALBUTEROL 3 ML NEB INHALATION PRN (01:08)
[2020-01-12 05:00] LABS: HGB 11.7 gm/dL (13.0-17.5); MCH 31.4 pg (25.0-35.0); MCHC 33.4 g/dL (31.0-37.0); Mean Platelet Volume 8.3; Platelet Count 132 k/uL (150-450); RBC 3.72 m/uL (4.30-5.90); RDW 12.6 % (11.5-15.5); WBC 12.8 k/uL (3.8-10.6)
[2020-01-12 05:18] LABS: Albumin 2.2 g/dL (3.5-5.0); Calcium 7.8 mg/dL (8.4-10.2); Potassium 3.9 mmol/L (3.5-5.1); Total Bilirubin 0.9 mg/dL (0.2-1.3); Total Protein 4.8 g/dL (6.3-8.2)
--- NOTE | 2020-01-12 06:50 | XR ---
EXAMINATION TYPE: XR chest 1V portable DATE OF EXAM: 01/12/2020 HISTORY: Pneumonia. REFERENCE: Previous study dated 01/11/2020. FINDINGS: The heart is enlarged. There is patchy, bilateral airspace disease. There is blunting of debra th CP angles. I could not exclude small effusions. There is a curvilinear air density paralleling the right hemidiaphragm. It would be difficult to excl ude some free air. IMPRESSION: 1. CONTINUING, PATCHY, BILATERAL AIRSPACE DISEASE. THIS MAY HAVE IMPROVED SLIGHTLY. 2. CARDIOMEGALY. 3. I CANNOT EXCLUDE SMALL EFFUSIONS. 4. CURVILINEAR AIR DENSITY PARALLELING THE RIGHT HEMIDIAPHRAGM IS SOMEWHAT CONCERNING FOR FREE AIR. A N UPRIGHT ABDOMEN VERSUS CT OF THE ABDOMEN WOULD BE SUGGESTED. This report was phoned to Marin in the ICU at the time of reporting.
[2020-01-12] MEDS: SODIUM CHLORIDE 0.9% 1,000 ML IV SCH ×3 (07:12→22:54)
[2020-01-12] MEDS: PANTOPRAZOLE 40 MG TABLET PO SCH (07:13)
--- NOTE | 2020-01-12 07:40 | XR ---
EXAMINATION TYPE: XR abdomen 1V , 2 VIEWS DATE OF EXAM ORDERED: 01/12/2020 HISTORY: Possible Free Air. COMPARISON: Previous study dated 04/01/2016. FINDINGS: There is left basilar airspace disease. The heart is mildly enlarged. Curvilinear density noted previously represents colonic interposition on the right. There are moderately dilated air-fill ed loops of large bowel. No free intraperitoneal air is seen. IMPRESSION: CURVILINEAR AIR DENSITY NOTED ON THIS MORNING'S CHEST X-RAY REPRESENTS COLONIC INTERPOSITION ON THE R IGHT.
[2020-01-12] MEDS: IPRATROPIUM-ALBUTEROL 3 ML NEB INHALATION SCH ×4 (08:46→20:54)
--- NOTE | 2020-01-12 09:33 | P.PN ---
Subjective Progress Note Date: 01/12/20 This is a 79-year-old male one of my patient with a previous medical history significant for osteoporosis, osteoporosis with prior history of L1 compression fracture, vitamin D deficiency, history of enlarged prostate, patient was in his usual state of health until about 2 days ago when he felt a bit sick to stomach episode of nausea and vomiting he was not drinking enough water at that time, patient woke up the yesterday morning at around 12 midnight to go to have a drink of water before he goes to the bathroom he ended up falling on the floor after his right knee gave out and the patient landed on the floor for at least 17 hours until his daughter hold him and he did not answer so she came to the house and she found him laying on the floor EMS was called and the patient was brought into the ER at [facility] and brought to the hospital EMS personnel thought the patient was in atrial fibrillation, upon arrival to the ER his initial EKG showed sinus tachycardia with PAC and PVCs without any evidence of atrial fibrillation, patient lactic acid was elevated at 4.7, he was given IV fluid resuscitation, he had a chest x-ray that did not show much ended up going for computed tomography scan of the chest that showed multiple bilateral peripheral pulmonary infiltrate with left 2.5 cm cavitary lesion in the left upper lobe, patient was started on IV antibiotic in the form of Zithromax, Rocephin, and vancomycin, pulmonary consultation was obtained from , as well as cardiology consultation because of his ectopy. 01/10: Yesterday, patient developed evidence of atrial fibrillation and consult with Dr. Hdz was requested. Patient was started on Cardizem drip and heparin drip. Echocardiogram revealed EF of 50-55%, mild to moderate aortic regurgitation, mild tricuspid regurgitation, moderate pulmonary hypertension. CAT scan of the abdomen and pelvis was obtained which revealed asymmetrical perinephric stranding and edema in the right kidney, correlated to exclude pyelonephritis. Continue fluid edema and fluid in the right retroperitoneum. Unclear if this is arising from the right kidney. Correlate for any relevant history that could predispose the patient to retroperitoneal bleed. The fluid is not high-density would be seen in acute hemorrhage. Tortuous right common and external iliac artery which courses through this tracking fluid. Tiny hiata l hernia and mild circumferential wall thickening of the distal esophagus. Correlate to exclude esophagitis. Continue small effusions with extensive peripheral opacities. Interstitial pneumonitis and atypical pneumonias including COVID-19 pneumonia in the differentials. Incidental finding of a 70 aortic aneurysm 4.7 cm. Consult was obtained with Dr. Sky and he is not convinced retro-peritoneal bleed. Heparin drip will remain on hold. Repeat chest x-ray revealed mild cardiomegaly and continued interstitial density. Correlate to exclude pulmonary vascular congestion. Increasing patchy airspace disease in the left mid and lower lung could represent developing confluent pulmonary edema versus pneumonia. Patient has been seen and followed by Dr. Monk. Patient was also seen by Dr. Romero and continued on vancomycin and Rocephin for possible gram-positive bacteremia as well as azithromycin. Initial blood culture has not been finalized. 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 He denies any chest pain, shortness of breath or dizziness. No palpitations. Cardiology is increasing Lopressor to 50 mg twice daily and Lasix on hold due to worsening renal function. Anticoagulation remains on hold due to possibility of retroperitoneal bleed. Patient has been afebrile since admission. Blood pressure currently 122/74, pulse ox 98% on 3 L nasal cannula. Repeat blood work reveals WBC 14, hemoglobin 12.6, platelet count 121. Sodium 136, potassium 4.3, chloride 108, CO2 21, BUN 58 and creatinine 1.62. Blood sugar 123. CK is 1026. TSH 0.8-9. Coronavirus not detected. 01/11: Patient sitting up in bed in no apparent distress he denies any chest pain is less short of breath today he denies any abdominal pain, he continues to be in atrial fibrillation his heart rate is better he remains on Cardizem drip at 5 mg hour his Lopressor was increased we will start the patient on Eliquis 5 mg orally twice every day, he would be kept in the ICU for another 24 hours, then he will be transferred to the cardiac telemetry unit. Objective - Vital Signs Vital signs: Vital Signs Temp 98.1 F 01/12/20 04:00 Pulse 117 H 01/12/20 09:00 Resp 28 H 01/12/20 09:00 BP 102/81 01/12/20 09:00 Pulse Ox 99 01/12/20 09:00 Intake & Output 01/11/20 01/12/20 01/12/20 18:59 06:59 18:59 Intake Total 2430.333 2000 375 Output Total 475 1075 325 Balance 1955.333 925 50 Weight 85.1 kg Intake: IV 1575 1750 375 Sodium Chloride 0.9% 1, 1575 1500 375 000 ml @ 125 mls/hr IV . Q8H DAI Rx#:[id number] Vancomycin 1,500 mg In 250 Sodium Chloride 0.9% 250 ml @ 125 mls/hr IVPB Q16H DAI Rx#:[id number] Intake, IV Titration 105.333 250 Amount Azithromycin 500 mg In 250 Sodium Chloride 0.9% 250 ml @ 250 mls/hr IVPB HS DAI Rx#:[id number] Diltiazem 125 mg In 105.333 Sodium Chloride 0.9% 100 ml @ 5 MG/HR 5 mls/hr IV .Q24H DAI Rx#:[id number] Oral 750 Output: Urine 475 1075 325 Other: Voiding Method Urinal Urinal # Voids 0 1 - Exam Review of Systems Constitutional: Reports weakness, Denies chronic headaches, Denies fatigue, Denies lethargy Eyes: denies blurred vision, denies bulging eye, denies decreased vision Ears: bilateral: decreased hearing Ears, nose, mouth and throat: Denies dysphagia, Denies neck lump, Denies sore throat Cardiovascular: Reports rapid heart beat, Denies chest pain, Denies decreased exercise tolerance, Denies lightheadedness, Denies shortness of breath, Denies syncope Respiratory: Denies congestion, Denies cough with sputum, Denies home oxygen, Denies sleep apnea, Denies snoring, Denies wheezing Gastrointestinal: Reports abdominal pain, Reports nausea, Reports vomiting, Denies bloating, Denies change in bowel habits, Denies coffee ground emesis, Denies excessive gas, Denies heartburn, Denies hematemesis, Denies melena Genitourinary: Denies dysuria, Denies incontinence Musculoskeletal: Reports frequent falls, Reports gait dysfunction Musculoskeletal: right: shoulder pain, shoulder stiffness, absent: ankle pain, ankle stiffness, ankle swelling, elbow pain, elbow stiffness, elbow swelling, foot pain, foot stiffness, foot swelling, hand pain, hand stiffness, hand sw elling, hip pain, hip stiffness, hip swelling, knee pain, knee swelling, shoulder swelling, wrist pain, wrist stiffness, wrist swelling Integumentary: Denies pruritus, Denies rash Neurological: Denies numbness, Denies weakness Psychiatric: Denies anxiety, Denies depression HEENT: Head is atraumatic, normocephalic, pupils were equal round reactive to light and recommendation, extraocular muscle movement were intact. Neck: Supple, no JVD, no carotid bruit. Chest: Decreased breath sounds at the bases, few rhonchi, no expiratory wheezes, minimal chest wall tenderness and the left lower ribs, no intercostal retractions. Heart: First heart sound is depressed, second heart sound is normal, irregular, there is systolic ejection murmur 2/6. Sternal border. Abdomen: Soft, distended, moderate tenderness in the left upper quadrant , as well as right upper quadrant, depressed bowel sounds. Extremities: Trace edema, no calf tenderness, dorsalis pedis +1 bilaterally. Neurologic examination: Patient is awake alert and oriented 3, cranial nerves III through XII appear grossly intact, no significant weakness in both lower extremities and the patient is not able to move both lower extremities, deep tendon reflexes were depressed bilaterally, Babinski's were flexor bilaterally. - Labs CBC & Chem 7: 01/13/20 04:08 01/13/20 04:08 Labs: Abnormal Lab Results - Last 24 Hours (Table) 01/12/20 01/12/20 Range/Units 04:29 04:29 WBC 12.8 H (3.8-10.6) k/uL RBC 3.72 L (4.30-5.90) m/uL Hgb 11.7 L (13.0-17.5) gm/dL Hct 35.0 L (39.0-53.0) % Plt Count 132 L (150-450) k/uL Chloride 113 H (98-107) mmol/L Carbon Dioxide 18 L (22-30) mmol/L BUN 55 H (9-20) mg/dL Creatinine 1.39 H (0.66-1.25) mg/dL Glucose 118 H (74-99) mg/dL Calcium 7.8 L (8.4-10.2) mg/dL Creatine Kinase 422 H (55-170) U/L Total Protein 4.8 L (6.3-8.2) g/dL Albumin 2.2 L (3.5-5.0) g/dL Assessment and Plan Assessment: Assessment and plan: 1. Status post fall with significant pain in the lumbar spine. Reviewed x-ray of the spine did not show any evidence of acute of normalities except for an old L1 fracture. Possible retroperitoneal bleed on computed tomography scan of the abdomen and pelvis, we will continue to monitor discuss the case with the ICU and general surgery at this point in time we will go ahead and start the patient on anticoagulation assuming this is not an actual retroperitoneal bleed. 2. Bilateral peripheral pulmonary nodules with left cavitary lesions in the left upper lobe 2.5 cm. Continue IV antibiotic in the form of vancomycin, Rocephin, and Zithromax, obtain blood culture, sputum culture, monitor the patient very closely, continue to monitor the patient in the ICU for another 24 hours . 3. Mild rhabdomyolysis. Continue IV fluid resuscitation. Repeat CPK and CMP the next 24 hours. 4. Mild hyponatremia secondary to hypovolemia. Continue IV fluid resuscitation. 5. Acute kidney injury secondary to acute tubular necrosis due to rhabdomyolysis. Continue IV fluid resuscitation, urine creatinine is improving we will continue to monitor the patient very closely. 6. New onset of atrial fibrillation with RVR, paroxysmal atrial fibrillation. Continue Cardizem drip, Lopressor increased to 50 mg twice daily, we will start the patient on Eliquis 5 mg orally twice every day. 7. Possible gram-positive bacteremia. Patient is on vancomycin. We will continue to monitor the patient very closely. 8. Acute kidney injury. Continue IV fluids, avoid nephrotoxic agents. Recheck CMP in the morning. 9. Possible retroperitoneal bleed History of old L1 fracture. After discussing with intensive care and general surgery it does not seems to be an actual bleeding we will monitor very closely.. 10. 4.7 cm ascending aortic aneurysm. Patient will continue to have a surveill ance computed tomography scan once every 6 months. 11. Lactic acidosis. Continue IV fluid resuscitation, continue IV antibiotic. Repeat lactic acid is better. 12. Osteoarthritis. Stable. 13. Vitamin D deficiency. Continue vitamin D supplements 1000 units once every day. 14. DVT prophylaxis. We will start the patient on Keith was 5 mg orally twice every day. 15. GI prophylaxis. Continue Protonix 40 mg orally once every day. 16. COVID-19 infection not present.. 17. Patient is full code. Discharge plan: Anticipate need for subacute rehab. PT and OT on consult. 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 Plan: 1. Status post fall with significant pain in the lumbar spine. Reviewed x-ray of the spine did not show any evidence of acute of normalities except for an old L1 fracture. Possible retroperitoneal bleed on computed tomography scan of the abdomen and pelvis, we will continue to monitor discuss the case with the ICU and general surgery at this point in time we will go ahead and start the patient on anticoagulation assuming this is not an actual retroperitoneal bleed. 2. Bilateral peripheral pulmonary nodules with left cavitary lesions in the left upper lobe 2.5 cm. Continue IV antibiotic in the form of vancomycin, Rocephin, and Zithromax, obtain blood culture, sputum culture, monitor the patient very closely, continue to monitor the patient in the ICU for another 24 hours . 3. Mild rhabdomyolysis. Continue IV fluid resuscitation. Repeat CPK and CMP the next 24 hours. 4. Mild hyponatremia secondary to hypovolemia. Continue IV fluid resuscitation. 5. Acute kidney injury secondary to acute tubular necrosis due to rhabdomyol ysis. Continue IV fluid resuscitation, urine creatinine is improving we will continue to monitor the patient very closely. 6. New onset of atrial fibrillation with RVR, paroxysmal atrial fibrillation. Continue Cardizem drip, Lopressor increased to 50 mg twice daily, we will start the patient on Eliquis 5 mg orally twice every day. 7. Possible gram-positive bacteremia. Patient is on vancomycin. We will continue to monitor the patient very closely. 8. Acute kidney injury. Continue IV fluids, avoid nephrotoxic agents. Recheck CMP in the morning. 9. Possible retroperitoneal bleed History of old L1 fracture. After discussing with intensive care and general surgery it does not seems to be an actual bleeding we will monitor very closely.. 10. 4.7 cm ascending aortic aneurysm. Patient will continue to have a surveillance computed tomography scan once every 6 months. 11. Lactic acidosis. Continue IV fluid resuscitation, continue IV antibiotic. Repeat lactic acid is better. 12. Osteoarthritis. Stable. 13. Vitamin D deficiency. Continue vitamin D supplements 1000 units once every day. 14. DVT prophylaxis. We will start the patient on Eliquis 5 mg orally twice e very day. 15. GI prophylaxis. Continue Protonix 40 mg orally once every day. 16. COVID-19 infection not present.. 17. Patient is full code. Discharge plan: Anticipate need for subacute rehab. PT and OT on consult. 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
[2020-01-12] MEDS: ASPIRIN 81 MG PO SCH (09:51)
[2020-01-12] MEDS: METOPROLOL TARTRATE 50 MG TAB PO SCH ×3 (09:55→21:24)
[2020-01-12] MEDS: CHOLECALCIFEROL 1,000 UNIT TAB PO SCH (09:55)
--- NOTE | 2020-01-12 10:41 | P.PN ---
Subjective Progress Note Date: 01/12/20 Principal diagnosis: Gram-positive bacteremia, sepsis, bilateral cavitary lung nodules, and pneumonia. Atrial fibrillation with RVR. This is a pleasant 79-year-old gentleman who follows with Dr. Harley as his primary care provider. He has a history of osteoarthritis, osteoporosis with prior history of L1 compression fracture, vitamin D deficiency, enlarged prostate, remote history of tobacco dependence for approximately 10 years but quit 60 years ago. Daily alcohol use. On 01/18/2020 the patient had gotten up from bed and headed to the bathroom when his right knee gave out and he fell to the ground. He was unable to get himself up. His daughter called and the patient had not answered and she went to check on him yesterday, found him on the floor and EMS was called. Approximately 16 hours of down time. He was found to be febrile with presenting temperature of 102.9. Computed tomography scan of the chest revealed extensive peripheral bilateral noncalcified pulmonary nodular infiltrates. Neoplastic versus inflammatory disease. There is a 2.5 cm cavitating lesion in the lateral aspect of the left upper lobe. The largest of the peripheral nodules is 2 cm. The patient is seen today in consultation on the selective care unit. He is currently sitting up in a chair. Awake and alert in no acute distress. Currently afebrile. Sinus tachycardia with freq uent PACs, possible paroxysmal atrial fibrillation. Echocardiogram reveals preserved left ventricular systolic function with ejection fraction 50-55%. CAT scan of the abdomen and pelvis revealed edema about the right kidney extending to the right renal sinus with possible polynephritis. Confluent edema and fluid extends down the right retroperitoneum cannot exclude retroperitoneal bleed. Confluent small effusions with extensive peripheral opacities. Interstitial pneumonitis and atypical pneumonias are within the differential. There is a 4.7 cm ascending aortic aneurysm. CoVID 19 screening pending. Blood cultures pending. White count 12.1. Hemoglobin 13.0. Platelet count 104. Lymphocytes 0.48. Sodium 131. Potassium 4.2. Bicarb 19. Creatinine 1.18. Glucose 164. CK 867. Troponin 0.025. ProBNP 1910. He has been initiated on ceftriaxone, vancomycin and azithromycin. Cardizem drip at 5 mg per hour. Heparin drip. Patient was reevaluated today on 01/11/20, patient developed worsening shortness of breath overnight, wheezing, and worsening atrial fibrillation with RVR, hence he was transferred to the intensive care unit. Feeling better at present, however he is on 3 L nasal cannula, and O2 saturation is 94%. He is also on Cardizem at 5 mg per hour, IV fluid increased to 1 50 mL per hour. His blood cultures came back positive for gram-positive cocci in clusters, and the patient received vancomycin since admission he remains on vancomycin. He was already seen by infectious disease on consultation. Cardiology is evaluating the patient, his initial echocardiogram was nondiagnostic, patient may require transesophageal echocardiography. CPK was noted to be a bit elevated today, hence I increased his IV fluid. Patient is in atrial fibrillation with RVR, rat e is 138 beats per minutes. Primary source of his bacteremia could very well be from the lungs, although the possibility of urinary tract infection and endocarditis is not entirely ruled out. But felt to be less likely. WBC count today is 14 hemoglobin is 12.6. Electrodes are normal, BUN is 58 creatinine is 1.62, worsening compared to yesterday. CPK was also noted to be elevated, pro-calcitonin was quite high 7.12. Patient was reevaluated today on , remains in the ICU, remains in atrial fibrillation, but rate seems to be better controlled. Remains on Cardizem drip at 5 mg per hour, IV fluid is 125 mL per hour. Remains on vancomycin for his gram-positive bacteremia. Chest x-ray continues to show left lower lobe infiltrate. Abdominal film showed dilated bowel loops, however the patient had no clinical symptoms to suggest bowel obstruction. Patient is also on Lopressor and on Eliquis twice a day. We plan to keep him in the ICU for the next 24 hours, and if he remains stable will transfer out of the ICU to a monitor bed on selective. CBC showed evidence of 12.8 hemoglobin is 11.7 electrodes are normal bicarb is a bit low at 18. Renal profile is improving. Is down to 55 creatinine is down to 1.39. CPK is down to 422 from 1067 yesterday Objective - Vital Signs Vital signs: Vital Signs Temp 98.1 F 01/12/20 04:00 Pulse 117 H 01/12/20 09:00 Resp 28 H 01/12/20 09:00 BP 102/81 01/12/20 09:00 Pulse Ox 99 01/12/20 09:00 Intake & Output 01/11/20 01/12/20 01/12/20 18:59 06:59 18:59 Intake Total 2430.333 2000 375 Output Total 475 1075 325 Balance 1955.333 925 50 Weight 85.1 kg Intake: IV 1575 1750 375 Sodium Chloride 0.9% 1, 1575 1500 375 000 ml @ 125 mls/hr IV . Q8H DAI Rx#:[id number] Vancomycin 1,500 mg In 250 Sodium Chloride 0.9% 250 ml @ 125 mls/hr IVPB Q16H DAI Rx#:[id number] Intake, IV Titration 105.333 250 Amount Azithromycin 500 mg In 250 Sodium Chloride 0.9% 250 ml @ 250 mls/hr IVPB HS DAI Rx#:[id number] Diltiazem 125 mg In 105.333 Sodium Chloride 0.9% 100 ml @ 5 MG/HR 5 mls/hr IV .Q24H DAI Rx#:[id number] Oral 750 Output: Urine 475 1075 325 Other: Voiding Method Urinal Urinal # Voids 0 1 - Exam GENERAL DESCRIPTION: Revealed a 79-year-old white male, in no distress. On few liters nasal cannula. HEENT: PERRLA, EOMI, no icterus. NECK: Trachea central, no thyromegaly. No neck masses, no JVD LUNGS: Diminished breath sounds at the bases, symmetrical chest expansion, no crackles or rhonchi or wheezes. HEART: Irregular irregular rhythm, no S3 gallop, normal S1 and S2. No murmur. ABDOMEN: Flat, Soft, no tenderness , no guarding. No rebound. EXTREMITIES: No clubbing edema or cyanosis. SKIN: No rashes, no areas of cellulitis.. NEUROLOGICAL: Alert and oriented 3 no gross focal neurologic deficits. Lymphatics: No lymphadenopathy. - Labs CBC & Chem 7: 01/12/20 04:29 01/12/20 04:29 Labs: Abnormal Lab Results - Last 24 Hours (Table) 01/12/20 01/12/20 Range/Units 04:29 04:29 WBC 12.8 H (3.8-10.6) k/uL RBC 3.72 L (4.30-5.90) m/uL Hgb 11.7 L (13.0-17.5) gm/dL Hct 35.0 L (39.0-53.0) % Plt Count 132 L (150-450) k/uL Chloride 113 H (98-107) mmol/L Carbon Dioxide 18 L (22-30) mmol/L BUN 55 H (9-20) mg/dL Creatinine 1.39 H (0.66-1.25) mg/dL Glucose 118 H (74-99) mg/dL Calcium 7.8 L (8.4-10.2) mg/dL Creatine Kinase 422 H (55-170) U/L Total Protein 4.8 L (6.3-8.2) g/dL Albumin 2.2 L (3.5-5.0) g/dL Assessment and Plan Assessment: Impression: Gram-positive bacteremia, most likely source is lungs related/pneumonia. Acute Gram-positive pneumonia, could be staph aureus related or Streptococcus related. Final identification is pending on the blood cultures. Acute sepsis Atrial fibrillation with RVR Possible urinary tract infection. Doubt endocarditis with relatively unremarkable echocardiogram done on this admission. Abnormal CT of the abdomen questioning opacity or hemorrhage/retroperitoneal. Hence there is some reluctance to start the patient on heparin at this point. Final decision will have to be made by cardiology and cleared by surgery. Patient does need to be on antiplatelet ablation therapy because of his atrial fibrillation and RVR. Acute rhabdomyolysis and acute kidney injury. Degenerative joint disease. Bilateral peripheral pulmonary nodules, some are cavitary in nature, need to be monitored and followed closely, plan to repeat CT of the chest in the near future. Probably in the next few weeks. Acute L1 fracture secondary to fall. Acute kidney injury secondary to sepsis and bacteremia. Also secondary to acute rhabdomyolysis. Improving. Recommendation: Continue antibiotics as per infectious disease on the case including vancomycin. Await final cultures. Continue Cardizem. Continue Lopressor. Continue to monitor in the ICU. Continue IV fluid and monitor CPK as well as renal profile. CPK is coming down nicely. Start patient on oral intake regulation therapy since he was cleared by surgery. Continue to hold diuretics.. We'll continue to follow in the ICU. Discussed his condition with the admitting physician today Continue GI and DVT prophylaxis. Time with Patient: Less than 30
--- NOTE | 2020-01-12 11:04 | PN ---
PROGRESS NOTE Mr. Kinsey is a 79-year-old male who presented after a fall and evidence of rhabdomyolysis. He had atrial fibrillation after admission. He is feeling better today. His main complaint is related to his back. He denies any chest pain. He denies any dizziness or palpitation. He denies any nausea. There was a question of retroperitoneal hemorrhage and anticoagulation was not initiated. He continues to be on diltiazem IV, metoprolol tartrate 50 mg twice a day and aspirin once a day. PHYSICAL EXAMINATION: Blood pressure 102/80 with a heart rate in the 100's. LUNGS: Clear. HEART: Irregular, regular. S1, S2. No S3. No rub with a systolic murmur. ABDOMEN: Soft. No significant tenderness. EXTREMITIES: No edema. LAB DATA: BUN and creatinine 55 and 1.39, improved compared to yesterday. Potassium 3.9, hemoglobin of 11.7, white blood cell of 12.8. His CK is down to 422. IMPRESSION: 1. Status post fall with rhabdomyolysis, improving. 2. Acute kidney injury, improving. 3. Atrial fibrillation with episode of rapid ventricular response. 4. Ascending aortic aneurysm. 5. Hyperlipidemia. 6. Bilateral pulmonary nodule infiltrate. RECOMMENDATION: From the cardiac standpoint I would recommend to initiate anticoagulation if it is okay with Dr. Sky. I will increase the dose of his beta yesi and stop his IV Cardizem. We will follow his renal function and depending on his progress, further recommendations will be made. MMODL / IJN: [id number] /
[2020-01-12] MEDS ORDERED: VANCOMYCIN TROUGH DUE 1 EACH MISC MISCELLANE ONE (13:00)
--- NOTE | 2020-01-12 13:07 | PN ---
PROGRESS NOTE DATE OF SERVICE: 01/12/2020 REASON FOR FOLLOWUP: Possible pneumonia and bacteremia. INTERVAL HISTORY: The patient is currently afebrile. The patient has been breathing comfortably. The patient denies having any chest pain or shortness of breath or cough. No sputum. No nausea, vomiting. No abdominal pain. No diarrhea. PHYSICAL EXAMINATION: Blood pressure 111/72 with a pulse of 107. Temperature 98.1. She is 96% on 4 L nasal cannula. General description is an elderly male up in the chair in no distress. Respiratory system: Unlabored breathing. Some coarse crackles at the bases bilaterally. No wheeze. HEART: S1, S2. Regular rate and rhythm. ABDOMEN soft, no tenderness. LABS: Hemoglobin 11.1, white count 12.8, BUN 55, creatinine 1.39. Blood culture with gram- positive with ID sensitivities still pending. DIAGNOSTIC IMPRESSION AND PLAN: Patient with fever with concern for pneumonia. Sputum could not be obtained. Chest x- ray this morning shows some improvement. Blood culture has not been finalized. The patient is currently covered with Rocephin and vancomycin to continue while monitoring clinical course closely. Continue supportive care. MMODL / IJN: [id number] /
[2020-01-12] MEDS: VANCOMYCIN 1,500 MG in SODIUM CHLORIDE 0.9% 250 ML IVPB SCH (14:36)
--- NOTE | 2020-01-12 15:48 | P.PN ---
Subjective Progress Note Date: 01/12/20 CHIEF COMPLAINT: Status post fall with abdominal pain HISTORY OF PRESENT ILLNESS: The patient is a 79-year-old male admitted secondary to a fall. Additional diagnostics demonstrated a questionable retroperitoneal bleed. Patient is being observed in intensive care unit. He has atrial fibrillation with RVR. He was on Cardizem drip. No reports of abdominal pain. He sitting up in chair. He is status post fall onto his back 4 days ago, 01/09/2020. ROS: No reports of nausea and vomiting. No bowel movements. No fevers or chills. No new chest pain. PHYSICAL EXAM: VITAL SIGNS: Reviewed CONSTITUTIONAL: Well developed and in no acute distress. EYES: Conjuctivae without sclera icterus. Extraocular movements grossly intact. HEAD, EARS, NOSE, THROAT: Moist buccal mucosa. Head is atraumatic, normocephalic. Hears conversational speech. No nasal drainage. NECK: Supple. No thyroidomegaly. RESPIRATORY: Non-labored respirations and equal bilateral excursions. CARDIOVASCULAR: Palpable 2+ radial pulses. Irregular rate and rhythm ABDOMEN Soft. No peritonitis. MUSCULOSKELETAL: No gross deformity of the lower extremities noted. No clubbing. No cyanosis. SKIN: Good skin turgor. Well perfused. NEUROLOGIC: Cranial nerves II through XII grossly intact. No focal or lateralizing signs. PSYCH: Appropriate affect. Alert and oriented to person, place and time. CLINICAL LABS: White blood cell count on admission 16,000 now 12,800. Urinalysis consistent moderate blood. ASSESSMENT: 1. Status post fall with retroperitoneal bleed 2. Hematuria 3. Gram-positive bacteremia 4. Atrial fibrillation PLAN: 1. Overall, patient clinically denies any abdominal pain or flank pain. 2. I personally reviewed his computed tomography scan whereby retroperitoneal hematoma is less likely in the presence of septicemia and may really be severe pyelonephritis. 3. For atrial fibrillation, recommend starting heparin drip instead of Eliquis, where his hemoglobin and hematocrit may be closely monitored. Objective - Vital Signs Vital signs: Vital Signs Temp 98.1 F 01/12/20 04:00 Pulse 117 H 01/12/20 09:00 Resp 28 H 01/12/20 09:00 BP 102/81 01/12/20 09:00 Pulse Ox 99 01/12/20 09:00 Intake & Output 06/07/2001/12/20 01/12/20 18:59 06:59 18:59 Intake Total 2430.333 2000 375 Output Total 475 1075 325 Balance 1955.333 925 50 Weight 85.1 kg Intake: IV 1575 1750 375 Sodium Chloride 0.9% 1, 1575 1500 375 000 ml @ 125 mls/hr IV . Q8H DAI Rx#:[id number] Vancomycin 1,500 mg In 250 Sodium Chloride 0.9% 250 ml @ 125 mls/hr IVPB Q16H DAI Rx#:[id number] Intake, IV Titration 105.333 250 Amount Azithromycin 500 mg In 250 Sodium Chloride 0.9% 250 ml @ 250 mls/hr IVPB HS DAI Rx#:[id number] Diltiazem 125 mg In 105.333 Sodium Chloride 0.9% 100 ml @ 5 MG/HR 5 mls/hr IV .Q24H DAI Rx#:[id number] Oral 750 Output: Urine 475 1075 325 Other: Voiding Method Urinal Urinal # Voids 0 1 - Labs CBC & Chem 7: 01/12/20 04:29 01/12/20 04:29 Labs: Abnormal Lab Results - Last 24 Hours (Table) 01/12/20 01/12/20 Range/Units 04:29 04:29 WBC 12.8 H (3.8-10.6) k/uL RBC 3.72 L (4.30-5.90) m/uL Hgb 11.7 L (13.0-17.5) gm/dL Hct 35.0 L (39.0-53.0) % Plt Count 132 L (150-450) k/uL Chloride 113 H (98-107) mmol/L Carbon Dioxide 18 L (22-30) mmol/L BUN 55 H (9-20) mg/dL Creatinine 1.39 H (0.66-1.25) mg/dL Glucose 118 H (74-99) mg/dL Calcium 7.8 L (8.4-10.2) mg/dL Creatine Kinase 422 H (55-170) U/L Total Protein 4.8 L (6.3-8.2) g/dL Albumin 2.2 L (3.5-5.0) g/dL Microbiology - Last 24 Hours (Table) 01/11/20 23:35 Urine Culture - Preliminary Urine,Voided Assessment and Plan (1) Hematuria Current Visit: Yes Status: Acute Code(s): R31.9 - HEMATURIA, UNSPECIFIED SNOMED Code(s): 06430671 (2) Leukocytosis Current Visit: Yes Status: Acute Code(s): D72.829 - ELEVATED WHITE BLOOD CELL COUNT, UNSPECIFIED SNOMED Code(s): 726776737 (3) Fall Current Visit: Yes Status: Acute Code(s): W19.XXXA - UNSPECIFIED FALL, INITIAL ENCOUNTER SNOMED Code(s): 6191293 (4) Traumatic retroperitoneal hematoma Current Visit: Yes Status: Acute Code(s): S36.892A - CONTUSION OF OTHER INTRA-ABDOMINAL ORGANS, INITIAL ENCOUNTER SNOMED Code(s): 818389630 (5) Atrial fibrillation Current Visit: Yes Status: Acute Code(s): I48.91 - UNSPECIFIED ATRIAL F IBRILLATION SNOMED Code(s): 05643364 (6) Gram positive sepsis Current Visit: Yes Status: Acute Code(s): A41.89 - OTHER SPECIFIED SEPSIS SNOMED Code(s): 222815986 (7) Gram-positive bacteremia Current Visit: Yes Status: Acute Code(s): R78.81 - BACTEREMIA SNOMED Code(s): 742310958623
[2020-01-12] MEDS ORDERED: HEPARIN SODIUM,PORCINE 5,000 UNIT/ML 1 ML VIAL IV ONE (15:49)
[2020-01-12] MEDS ORDERED: METOPROLOL TARTRATE 50 MG TAB PO SCH (16:00)
[2020-01-12 16:59] LABS: Partial Thromboplastin Time 33.1 sec (22.0-30.0); Prothrombin Time 10.4 sec (9.0-12.0)
[2020-01-12 17:04] LABS: Basophils % (A) 0 %; Eosinophils # (A) 0.1 k/uL (0-0.7); Eosinophils % (A) 1 %; HCT 36.8 % (39.0-53.0); HGB 11.9 gm/dL (13.0-17.5); Hypochromasia Slight; Lymphocytes # (A) 0.6 k/uL (1.0-4.8); Lymphocytes % (A) 5 %; MCHC 32.3 g/dL (31.0-37.0); MCV 95.8 fL (80.0-100.0); Mean Platelet Volume 8.1; Monocytes # (A) 0.7 k/uL (0-1.0); Monocytes % (A) 6 %; Neutrophils # (A) 9.4 k/uL (1.3-7.7); Neutrophils % (A) 86 %; Platelet Count 135 k/uL (150-450); RBC 3.84 m/uL (4.30-5.90); RDW 12.7 % (11.5-15.5); WBC 10.9 k/uL (3.8-10.6)
[2020-01-12] MEDS: HEPARIN SOD,PORK IN 0.45% NACL 25,000 UNIT in 0.45% NACL 1 250ML.BAG IV SCH (17:21)
[2020-01-12] MEDS: AZITHROMYCIN 500 MG TAB PO SCH (20:24)
[2020-01-12] MEDS ORDERED: APIXABAN 5 MG TAB PO SCH (21:00)
[2020-01-13 04:50] LABS: Albumin 2.3 g/dL (3.5-5.0); Calcium 7.9 mg/dL (8.4-10.2); Total Bilirubin 1.1 mg/dL (0.2-1.3)
[2020-01-13] MEDS: HEPARIN SODIUM,PORCINE 5,000 UNIT/ML 1 ML VIAL IV PRN ×2 (04:59→11:58)
[2020-01-13 05:12] LABS: Potassium 4.6 mmol/L (3.5-5.1)
[2020-01-13 05:30] LABS: Basophils % (A) 0 %; Eosinophils # (A) 0.1 k/uL (0-0.7); Eosinophils % (A) 1 %; HCT 36.3 % (39.0-53.0); HGB 11.5 gm/dL (13.0-17.5); Hypochromasia Moderate; Lymphocytes # (A) 0.4 k/uL (1.0-4.8); Lymphocytes % (A) 5 %; MCH 30.9 pg (25.0-35.0); MCHC 31.7 g/dL (31.0-37.0); MCV 97.3 fL (80.0-100.0); Mean Platelet Volume 8.3; Monocytes # (A) 0.7 k/uL (0-1.0); Monocytes % (A) 7 %; Neutrophils # (A) 8.1 k/uL (1.3-7.7); Neutrophils % (A) 86 %; Platelet Count 156 k/uL (150-450); RBC 3.73 m/uL (4.30-5.90); RDW 12.9 % (11.5-15.5); WBC 9.4 k/uL (3.8-10.6)
[2020-01-13] MEDS: VANCOMYCIN 1,500 MG in SODIUM CHLORIDE 0.9% 250 ML IVPB SCH ×2 (05:50→21:04)
[2020-01-13] MEDS: SODIUM CHLORIDE 0.9% 1,000 ML IV SCH ×2 (05:55→14:26)
--- NOTE | 2020-01-13 06:48 | XR ---
EXAMINATION TYPE: XR chest 1V portable DATE OF EXAM: 01/13/2020 HISTORY: pneumonia. REFERENCE: Previous study dated 01/12/2020. FINDINGS: The heart is enlarged. There is bibasilar airspace disease, worse on the left than the righ t. There is vascular congestion. I could not exclude subtle interstitial change. I suspect a small le ft effusion. IMPRESSION: 1. CONTINUING BIBASILAR AIRSPACE DISEASE. 2. CARDIOMEGALY, VASCULAR CONGESTION AND SUBTLE PULMONARY EDEMA. 3. RIGHT-SIDED EFFUSION.
[2020-01-13] MEDS: PANTOPRAZOLE 40 MG TABLET PO SCH (07:03)
[2020-01-13] MEDS: IPRATROPIUM-ALBUTEROL 3 ML NEB INHALATION SCH ×4 (07:48→20:05)
[2020-01-13] MEDS: ASPIRIN 81 MG PO SCH (08:03)
[2020-01-13] MEDS: METOPROLOL TARTRATE 50 MG TAB PO SCH ×3 (08:03→21:04)
[2020-01-13] MEDS: CHOLECALCIFEROL 1,000 UNIT TAB PO SCH (08:03)
[2020-01-13] MEDS ORDERED: FUROSEMIDE 10 MG/ML 2 ML VIAL IV ONE (09:00)
[2020-01-13] MEDS: DILTIAZEM ORAL 30 MG TAB PO SCH ×3 (09:23→21:04)
--- NOTE | 2020-01-13 09:36 | PN ---
PROGRESS NOTE Mr. Kinsey is a 79-year-old male who presented after a fall and initially was in sinus mechanism with multiple PACs. Subsequently, he became in atrial fibrillation with episode of rapid ventricular response. He is feeling better overall. He denies any symptoms of chest pain. He denies any dizziness or palpitation. He denies any nausea. He was started on IV heparin yesterday. The surgical team felt that it is better to hold on oral anticoagulant at this time and make sure that hemoglobin is stable. He continues to be on aspirin 81 mg daily, IV heparin, metoprolol tartrate 50 mg 3 times a day. PHYSICAL EXAMINATION: Blood pressure running in the 110s to 120s with a heart rate in the 110s to 130. LUNGS: A few crackles at the bases. HEART irregularly irregular, S1, S2. No S3. No rub. ABDOMEN: Soft, nontender. EXTREMITIES trace edema. LAB DATA: Revealed a BUN and creatinine 29 and 1.9, improved compared with yesterday. His hemoglobin stable at 11.5. His CK count 214. IMPRESSION: 1. Status post fall with rhabdomyolysis improving. 2. Acute kidney injury, improving. 3. Atrial fibrillation. 4. Gram-positive bacteremia. 5. Questionable retroperitoneal hemorrhage. 6. Bilateral peripheral pulmonary nodules being followed by Dr. Monk. RECOMMENDATIONS: I will add to his regimen oral Cardizem to optimize his rate control. Continue rest of his medical regimen. Once he is cleared by the surgical team, I will proceed switching him to oral anticoagulants and depending on his progress further recommendation will be made. MMODL / IJN: [id number] /
--- NOTE | 2020-01-13 12:23 | P.PN ---
Subjective Progress Note Date: 01/13/20 Principal diagnosis: Gram-positive bacteremia, sepsis, bilateral cavitary lung nodules, and pneumonia. Atrial fibrillation with RVR. This is a pleasant 79-year-old gentleman who follows with Dr. Harley as his primary care provider. He has a history of osteoarthritis, osteoporosis with prior history of L1 compression fracture, vitamin D deficiency, enlarged prostate, remote history of tobacco dependence for approximately 10 years but quit 60 years ago. Daily alcohol use. On 01/18/2020 the patient had gotten up from bed and headed to the bathroom when his right knee gave out and he fell to the ground. He was unable to get himself up. His daughter called and the patient had not answered and she went to check on him yesterday, found him on the floor and EMS was called. Approximately 16 hours of down time. He was found to be febrile with presenting temperature of 102.9. Computed tomography scan of the chest revealed extensive peripheral bilateral noncalcified pulmonary nodular infiltrates. Neoplastic versus inflammatory disease. There is a 2.5 cm cavitating lesion in the lateral aspect of the left upper lobe. The largest of the peripheral nodules is 2 cm. The patient is seen today in consultation on the selective care unit. He is currently sitting up in a chair. Awake and alert in no acute distress. Currently afebrile. Sinus tachycardia with freq uent PACs, possible paroxysmal atrial fibrillation. Echocardiogram reveals preserved left ventricular systolic function with ejection fraction 50-55%. CAT scan of the abdomen and pelvis revealed edema about the right kidney extending to the right renal sinus with possible polynephritis. Confluent edema and fluid extends down the right retroperitoneum cannot exclude retroperitoneal bleed. Confluent small effusions with extensive peripheral opacities. Interstitial pneumonitis and atypical pneumonias are within the differential. There is a 4.7 cm ascending aortic aneurysm. CoVID 19 screening pending. Blood cultures pending. White count 12.1. Hemoglobin 13.0. Platelet count 104. Lymphocytes 0.48. Sodium 131. Potassium 4.2. Bicarb 19. Creatinine 1.18. Glucose 164. CK 867. Troponin 0.025. ProBNP 1910. He has been initiated on ceftriaxone, vancomycin and azithromycin. Cardizem drip at 5 mg per hour. Heparin drip. Patient was reevaluated today on 01/11/20, patient developed worsening shortness of breath overnight, wheezing, and worsening atrial fibrillation with RVR, hence he was transferred to the intensive care unit. Feeling better at present, however he is on 3 L nasal cannula, and O2 saturation is 94%. He is also on Cardizem at 5 mg per hour, IV fluid increased to 1 50 mL per hour. His blood cultures came back positive for gram-positive cocci in clusters, and the patient received vancomycin since admission he remains on vancomycin. He was already seen by infectious disease on consultation. Cardiology is evaluating the patient, his initial echocardiogram was nondiagnostic, patient may require transesophageal echocardiography. CPK was noted to be a bit elevated today, hence I increased his IV fluid. Patient is in atrial fibrillation with RVR, rat e is 138 beats per minutes. Primary source of his bacteremia could very well be from the lungs, although the possibility of urinary tract infection and endocarditis is not entirely ruled out. But felt to be less likely. WBC count today is 14 hemoglobin is 12.6. Electrodes are normal, BUN is 58 creatinine is 1.62, worsening compared to yesterday. CPK was also noted to be elevated, pro-calcitonin was quite high 7.12. Patient was reevaluated today on 01/12/20, remains in the ICU, remains in atrial fibrillation, but rate seems to be better controlled. Remains on Cardizem drip at 5 mg per hour, IV fluid is 125 mL per hour. Remains on vancomycin for his gram-positive bacteremia. Chest x-ray continues to show left lower lobe infiltrate. Abdominal film showed dilated bowel loops, however the patient had no clinical symptoms to suggest bowel obstruction. Patient is also on Lopressor and on Eliquis twice a day. We plan to keep him in the ICU for the next 24 hours, and if he remains stable will transfer out of the ICU to a monitor bed on selective. CBC showed evidence of 12.8 hemoglobin is 11.7 electrodes are normal bicarb is a bit low at 18. Renal profile is improving. Is down to 55 creatinine is down to 1.39. CPK is down to 422 from 1067 yesterday Patient was reevaluated today on 01/13/20, remains in the ICU, remains in atrial fibrillation with RVR. This is being addressed by cardiology. Patient remains on IV fluid at 50 mL/h remains on oxygen at 2 L/m. Patient is off Cardizem drip, and his Lopressor was increased. His renal functioning is improving. Patient was given a dose of Lasix 20 mg IV push 1 today after reviewing his chest x-ray which is suggestive of mild interstitial edema, and I strongly suspect the left lower lobe pneumonia. Final report on the blood cultures remains pending, but the patient did have positive cocci in clusters and his blood cultures. And I believe the most likely source is his left lower lobe pneumonia. Objective - Vital Signs Vital signs: Vital Signs Temp 98.1 F 01/13/20 08:00 Pulse 113 H 01/13/20 11:06 Resp 27 H 01/13/20 11:00 BP 140/81 01/13/20 11:00 Pulse Ox 98 01/13/20 11:00 Intake & Output 01/12/20 01/13/20 01/13/20 18:59 06:59 18:59 Intake Total 1800 1815.155 483.467 Output Total 875 985 720 Balance 925 830.155 -236.533 Weight 87.6 kg Intake: IV 1800 1500 400 Sodium Chloride 0.9% 1, 1500 1500 400 000 ml @ 125 mls/hr IV . Q8H DAI Rx#:[id number] Vancomycin 1,500 mg In 250 Sodium Chloride 0.9% 250 ml @ 125 mls/hr IVPB Q16H DAI Rx#:[id number] cefTRIAXone 1 gm In 50 Sodium Chloride 0.9% 50 ml @ 100 mls/hr IVPB Q24H DAI Rx#:[id number] Intake, IV Titration 115.155 83.467 Amount Heparin Sod,Pork in 0.45% 115.155 83.467 NaCl 25,000 unit In 0.45 % NaCl 1 250ml.bag @ 11. 75 UNITS/KG/HR 9.999 mls/ hr IV .Q24H DAI Rx#: [id number] Oral 200 Output: Urine 875 985 720 Other: Voiding Method Urinal Urinal Urinal # Voids 0 1 1 - Exam GENERAL DESCRIPTION: Revealed a 79-year-old white male, in no distress. On 2 L nasal cannula HEENT: PERRLA, EOMI, no icterus. NECK: Trachea central, no thyromegaly. No neck masses, no JVD LUNGS: Diminished breath sounds at the bases, symmetrical chest expansion, no crackles or rhonchi or wheezes. HEART: Irregular irregular rhythm, no S3 gallop, normal S1 and S2. No murmur. ABDOMEN: Flat, Soft, no tenderness , no guarding. No rebound. EXTREMITIES: No clubbing edema or cyanosis. SKIN: No rashes, no areas of cellulitis.. NEUROLOGICAL: Alert and oriented 3 no gross focal neurologic deficits. Lymphatics: No lymphadenopathy. - Labs CBC & Chem 7: 01/13/20 04:08 01/13/20 04:08 Labs: Abnormal Lab Results - Last 24 Hours (Table) 01/12/20 01/12/20 01/12/20 Range/Units 16:27 16:27 22:44 WBC 10.9 H (3.8-10.6) k/uL RBC 3.84 L (4.30-5.90) m/uL Hgb 11.9 L (13.0-17.5) gm/dL Hct 36.8 L (39.0-53.0) % Plt Count 135 L (150-450) k/uL Neutrophils # 9.4 H (1.3-7.7) k/uL Lymphocytes # 0.6 L (1.0-4.8) k/uL APTT 33.1 H 43.5 H (22.0-30.0) sec Chloride (98-107) mmol/L Carbon Dioxide (22-30) mmol/L BUN (9-20) mg/dL Creatinine (0.66-1.25) mg/dL Glucose (74-99) mg/dL Calcium (8.4-10.2) mg/dL AST (17-59) U/L ALT (4-49) U/L Creatine Kinase (55-170) U/L Total Protein (6.3-8.2) g/dL Albumin (3.5-5.0) g/dL 01/13/20 01/13/20 01/13/20 Range/Units 04:08 04:08 04:08 WBC (3.8-10.6) k/uL RBC 3.73 L (4.30-5.90) m/uL Hgb 11.5 L (13.0-17.5) gm/dL Hct 36.3 L (39.0-53.0) % Plt Count (150-450) k/uL Neutrophils # 8.1 H (1.3-7.7) k/uL Lymphocytes # 0.4 L (1.0-4.8) k/uL APTT 36.8 H (22.0-30.0) sec Chloride 117 H (98-107) mmol/L Carbon Dioxide 17 L (22-30) mmol/L BUN 49 H (9-20) mg/dL Creatinine 1.29 H (0.66-1.25) mg/dL Glucose 118 H (74-99) mg/dL Calcium 7.9 L (8.4-10.2) mg/dL AST 61 H (17-59) U/L ALT 54 H (4-49) U/L Creatine Kinase 214 H (55-170) U/L Total Protein 5.0 L (6.3-8.2) g/dL Albumin 2.3 L (3.5-5.0) g/dL 01/13/20 Range/Units 10:44 WBC (3.8-10.6) k/uL RBC (4.30-5.90) m/uL Hgb (13.0-17.5) gm/dL Hct (39.0-53.0) % Plt Count (150-450) k/uL Neutrophils # (1.3-7.7) k/uL Lymphocytes # (1.0-4.8) k/uL APTT 40.6 H (22.0-30.0) sec Chloride (98-107) mmol/L Carbon Dioxide (22-30) mmol/L BUN (9-20) mg/dL Creatinine (0.66-1.25) mg/dL Glucose (74-99) mg/dL Calcium (8.4-10.2) mg/dL AST (17-59) U/L ALT (4-49) U/L Creatine Kinase (55-170) U/L Total Protein (6.3-8.2) g/dL Albumin (3.5-5.0) g/dL Microbiology - Last 24 Hours (Table) 01/11/20 23:35 Urine Culture - Final Urine,Voided Assessment and Plan Assessment: Impression: Gram-positive bacteremia, most likely source is lungs related/pneumonia. Acute Gram-positive pneumonia, could be staph aureus related unless proven otherwise. Acute sepsis Atrial fibrillation with RVR Acute rhabdomyolysis and acute kidney injury. Degenerative joint disease. Bilateral peripheral pulmonary nodules, some are cavitary in nature, need to be monitored and followed closely, plan to repeat CT of the chest in the near future. Probably in the next few weeks. Acute L1 fracture secondary to fall. Acute kidney injury secondary to sepsis and bacteremia. Also secondary to acute rhabdomyolysis. Improving. Recommendation: Continue antibiotics as per infectious disease on the case including vancomycin. Await final cultures. Continue antiarrhythmic medications for A. fib/RVR. Continue to monitor in the ICU. Decrease IV fluid to 50 mL per hour, and give 1 dose of Lasix 20 mg IV push 1. We'll continue to follow in the ICU. For the next 24 hours. Continue GI and DVT prophylaxis. Time with Patient: Less than 30
--- NOTE | 2020-01-13 12:26 | P.PN ---
Subjective Progress Note Date: 01/13/20 This is a 79-year-old male one of my patient with a previous medical history significant for osteoporosis, osteoporosis with prior history of L1 compression fracture, vitamin D deficiency, history of enlarged prostate, patient was in his usual state of health until about 2 days ago when he felt a bit sick to stomach episode of nausea and vomiting he was not drinking enough water at that time, patient woke up the yesterday morning at around 12 midnight to go to have a drink of water before he goes to the bathroom he ended up falling on the floor after his right knee gave out and the patient landed on the floor for at least 17 hours until his daughter hold him and he did not answer so she came to the house and she found him laying on the floor EMS was called and the patient was brought into the ER at [facility] and brought to the hospital EMS personnel thought the patient was in atrial fibrillation, upon arrival to the ER his initial EKG showed sinus tachycardia with PAC and PVCs without any evidence of atrial fibrillation, patient lactic acid was elevated at 4.7, he was given IV fluid resuscitation, he had a chest x-ray that did not show much ended up going for computed tomography scan of the chest that showed multiple bilateral peripheral pulmonary infiltrate with left 2.5 cm cavitary lesion in the left upper lobe, patient was started on IV antibiotic in the form of Zithromax, Rocephin, and vancomycin, pulmonary consultation was obtained from , as well as cardiology consultation because of his ectopy. 01/10: Yesterday, patient developed evidence of atrial fibrillation and consult with Dr. Hdz was requested. Patient was started on Cardizem drip and heparin drip. Echocardiogram revealed EF of 50-55%, mild to moderate aortic regurgitation, mild tricuspid regurgitation, moderate pulmonary hypertension. CAT scan of the abdomen and pelvis was obtained which revealed asymmetrical perinephric stranding and edema in the right kidney, correlated to exclude pyelonephritis. Continue fluid edema and fluid in the right retroperitoneum. Unclear if this is arising from the right kidney. Correlate for any relevant history that could predispose the patient to retroperitoneal bleed. The fluid is not high-density would be seen in acute hemorrhage. Tortuous right common and external iliac artery which courses through this tracking fluid. Tiny hiata l hernia and mild circumferential wall thickening of the distal esophagus. Correlate to exclude esophagitis. Continue small effusions with extensive peripheral opacities. Interstitial pneumonitis and atypical pneumonias including COVID-19 pneumonia in the differentials. Incidental finding of a 70 aortic aneurysm 4.7 cm. Consult was obtained with Dr. Sky and he is not convinced retro-peritoneal bleed. Heparin drip will remain on hold. Repeat chest x-ray revealed mild cardiomegaly and continued interstitial density. Correlate to exclude pulmonary vascular congestion. Increasing patchy airspace disease in the left mid and lower lung could represent developing confluent pulmonary edema versus pneumonia. Patient has been seen and followed by Dr. Monk. Patient was also seen by Dr. Romero and continued on vancomycin and Rocephin for possible gram-positive bacteremia as well as azithromycin. Initial blood culture has not been finalized. 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 He denies any chest pain, shortness of breath or dizziness. No palpitations. Cardiology is increasing Lopressor to 50 mg twice daily and Lasix on hold due to worsening renal function. Anticoagulation remains on hold due to possibility of retroperitoneal bleed. Patient has been afebrile since admission. Blood pressure currently 122/74, pulse ox 98% on 3 L nasal cannula. Repeat blood work reveals WBC 14, hemoglobin 12.6, platelet count 121. Sodium 136, potassium 4.3, chloride 108, CO2 21, BUN 58 and creatinine 1.62. Blood sugar 123. CK is 1026. TSH 0.8-9. Coronavirus not detected. 01/11: Patient sitting up in bed in no apparent distress he denies any chest pain is less short of breath today he denies any abdominal pain, he continues to be in atrial fibrillation his heart rate is better he remains on Cardizem drip at 5 mg hour his Lopressor was increased we will start the patient on Eliquis 5 mg orally twice every day, he would be kept in the ICU for another 24 hours, then he will be transferred to the cardiac telemetry unit. 01/12: Patient is sitting up in his recliner today he is in a positive fluid balance he did receive 20 mg Lasix IV push he continues to be in atrial fibrillation with somewhat fast ventricular response, he was seen earlier by cardiology and pulmonary medicine and spoke with his daughter done and I gave her an updated about his current situation he needs to stay in the ICU, until he goes into neutral fluid balance, he needs additional dose of Lasix we will give him another 20 mg Lasix IV push and continue to monitor his weight and fluid balance. Patient denies any chest pain he continues to have some coughing and minimal phlegm production he appears to be tachypneic, he denies any abdominal pain that he has no nausea or vomiting he seems to be tolerating his treatment very well, he was switched to heparin drip as opposed to Eliquis for few days and he would be monitored. Objective - Vital Signs Vital signs: Vital Signs Temp 98.1 F 01/13/20 08:00 Pulse 117 H 01/13/20 10:56 Resp 29 H 01/13/20 08:00 BP 113/80 01/13/20 08:00 Pulse Ox 94 L 01/13/20 08:00 Intake & Output 01/12/20 01/13/20 01/13/20 18:59 06:59 18:59 Intake Total 1800 1815.155 250 Output Total 875 985 470 Balance 925 830.155 -220 Weight 87.6 kg Intake: IV 1800 1500 250 Sodium Chloride 0.9% 1, 1500 1500 250 000 ml @ 125 mls/hr IV . Q8H DAI Rx#:[id number] Vancomycin 1,500 mg In 250 Sodium Chloride 0.9% 250 ml @ 125 mls/hr IVPB Q16H DAI Rx#:[id number] cefTRIAXone 1 gm In 50 Sodium Chloride 0.9% 50 ml @ 100 mls/hr IVPB Q24H DAI Rx#:[id number] Intake, IV Titration 115.155 Amount Heparin Sod,Pork in 0.45% 115.155 NaCl 25,000 unit In 0.45 % NaCl 1 250ml.bag @ 11. 75 UNITS/KG/HR 9.999 mls/ hr IV .Q24H DAI Rx#: [id number] Oral 200 Output: Urine 875 985 470 Other: Voiding Method Urinal Urinal Urinal # Voids 0 1 1 - Exam Review of Systems Constitutional: Reports weakness, Denies chronic headaches, Denies fatigue, Denies lethargy Eyes: denies blurred vision, denies bulging eye, denies decreased vision Ears: bilateral: decreased hearing Ears, nose, mouth and throat: Denies dysphagia, Denies neck lump, Denies sore throat Cardiovascular: Reports rapid heart beat, Denies chest pain, Denies decreased exercise tolerance, Denies lightheadedness, positive for shortness of breath, D enies syncope Respiratory: Denies congestion, positive for cough with no sputum, Denies home oxygen, Denies sleep apnea, Denies snoring, Denies wheezing Gastrointestinal: Reports abdominal pain, no nausea, no vomiting, Denies bloating, Denies change in bowel habits, Denies coffee ground emesis, Denies excessive gas, Denies heartburn, Denies hematemesis, Denies melena Genitourinary: Denies dysuria, Denies incontinence, urinary frequency. Musculoskeletal: Reports frequent falls, Reports gait dysfunction, generally weak. Musculoskeletal: right: shoulder pain, shoulder stiffness, absent: ankle pain, ankle stiffness, ankle swelling, elbow pain, elbow stiffness, elbow swelling, foot pain, foot stiffness, foot swelling, hand pain, hand stiffness, hand swelling, hip pain, hip stiffness, hip swelling, knee pain, knee swelling, shoulder swelling, wrist pain, wrist stiffness, wrist swelling Integumentary: Denies pruritus, Denies rash Neurological: Denies numbness, generalized weakness. Psychiatric: Denies anxiety, Denies depression HEENT: Head is atraumatic, normocephalic, pupils were equal round reactive to light and recommendation, extraocular muscle movement were intact. Neck: Supple, no JVD, no carotid bruit. Chest: Decreased breath sounds at the bases, few rhonchi, no expiratory wheezes, minimal chest wall tenderness and the left lower ribs, no intercostal retra ctions, there is decreased tactile fremitus at bilateral base. Heart: First heart sound is depressed, second heart sound is normal, irregular, there is systolic ejection murmur 2/6. Sternal border. Abdomen: Soft, distended, mild tenderness in the left upper quadrant , as well as right upper quadrant, depressed bowel sounds, no ecchymosis or bruising Extremities: +3 pitting edema, no calf tenderness, dorsalis pedis +1 bilaterally. Neurologic examination: Patient is awake alert and oriented 3, cranial nerves III through XII appear grossly intact, muscle power 4 out of 5 in upper extremities and 3 out of 5 in bilateral lower extremities. - Labs CBC & Chem 7: 01/13/20 04:08 01/13/20 04:08 Labs: Abnormal Lab Results - Last 24 Hours (Table) 01/12/20 01/12/20 01/12/20 Range/Units 16:27 16:27 22:44 WBC 10.9 H (3.8-10.6) k/uL RBC 3.84 L (4.30-5.90) m/uL Hgb 11.9 L (13.0-17.5) gm/dL Hct 36.8 L (39.0-53.0) % Plt Count 135 L (150-450) k/uL Neutrophils # 9.4 H (1.3-7.7) k/uL Lymphocytes # 0.6 L (1.0-4.8) k/uL APTT 33.1 H 43.5 H (22.0-30.0) sec Chloride (98-107) mmol/L Carbon Dioxide (22-30) mmol/L BUN (9-20) mg/dL Creatinine (0.66-1.25) mg/dL Glucose (74-99) mg/dL Calcium (8.4-10.2) mg/dL AST (17-59) U/L ALT (4-49) U/L Creatine Kinase (55-170) U/L Total Protein (6.3-8.2) g/dL Albumin (3.5-5.0) g/dL 01/13/20 01/13/20 01/13/20 Range/Units 04:08 04:08 04:08 WBC (3.8-10.6) k/uL RBC 3.73 L (4.30-5.90) m/uL Hgb 11.5 L (13.0-17.5) gm/dL Hct 36.3 L (39.0-53.0) % Plt Count (150-450) k/uL Neutrophils # 8.1 H (1.3-7.7) k/uL Lymphocytes # 0.4 L (1.0-4.8) k/uL APTT 36.8 H (22.0-30.0) sec Chloride 117 H (98-107) mmol/L Carbon Dioxide 17 L (22-30) mmol/L BUN 49 H (9-20) mg/dL Creatinine 1.29 H (0.66-1.25) mg/dL Glucose 118 H (74-99) mg/dL Calcium 7.9 L (8.4-10.2) mg/dL AST 61 H (17-59) U/L ALT 54 H (4-49) U/L Creatine Kinase 214 H (55-170) U/L Total Protein 5.0 L (6.3-8.2) g/dL Albumin 2.3 L (3.5-5.0) g/dL Microbiology - Last 24 Hours (Table) 01/11/20 23:35 Urine Culture - Preliminary Urine,Voided Assessment and Plan Plan: 1. Acute hypoxemic respiratory failure secondary to acute diastolic heart failure due to atrial fibrillation with rapid ventricular response and possible gram positive pneumonia. Continue Rocephin 1 g IV piggyback every 24 hours, continue Zithromax, continue vancomycin pharmacy to dose its peak and trough, continue oxygen support, continue nebulized treatment. Pulmonary consultation. 2. Bilateral peripheral pulmonary nodules with left cavitary lesions in the left upper lobe 2.5 cm. Continue IV antibiotic in the form of vancomycin, Rocephin, and Zithromax . Monitor the patient very closely repeat computed tomography scan in about 4 weeks from now. 3. Mild rhabdomyolysis. Resolving his last CPK is 200, decrease IV fluid to 50 mL an hour, patient is fluid overloaded. 4. Mild hyponatremia secondary to hypovolemia. Resolved. 5. Acute kidney injury secondary to acute tubular necrosis due to rhabdomyolysi s. Resolved. Decrease IV fluid as the patient is fluid overloaded. 6. New onset of atrial fibrillation with RVR, paroxysmal atrial fibrillation. We will maintain patient on Cardizem 30 mg orally 3 times every day, continue metoprolol 50 mg orally 3 times every day, continue heparin drip for now, monitor the patient heart rate is very closely. 7. Possible gram-positive bacteremia. Patient is on vancomycin. Final result showing gram-positive cocci. 8. Severe sepsis likely due to gram-positive pneumonia. Continue vancomycin, Rocephin, Zithromax.. 9. Possible retroperitoneal bleed. His hemoglobin appears to be stable at this time continue heparin drip for now monitor the patient very closely, general surgery is following. 10. 4.7 cm ascending aortic aneurysm. Patient will continue to have a surveillance computed tomography scan once every 6 months. 11. Lactic acidosis. Continue IV fluid resuscitation, continue IV antibiotic, resolved. 12. Osteoarthritis. Stable. 13. Vitamin D deficiency. Continue vitamin D supplements 1000 units once every day. 14. DVT prophylaxis. Continue patient on heparin drip. 15. GI prophylaxis. Continue Protonix 40 mg orally once every day. 16. COVID-19 infection not present.. 17. Patient is no code. 18. Medical debility due to multiple medical issues. Physical therapy evaluation, patient likely will require subacute rehabilitation.
[2020-01-13 16:48] LABS: Basophils % (A) 0 %; Eosinophils # (A) 0.2 k/uL (0-0.7); Eosinophils % (A) 1 %; HCT 37.3 % (39.0-53.0); HGB 12.3 gm/dL (13.0-17.5); Lymphocytes # (A) 0.6 k/uL (1.0-4.8); Lymphocytes % (A) 5 %; MCH 30.9 pg (25.0-35.0); MCHC 32.9 g/dL (31.0-37.0); MCV 93.8 fL (80.0-100.0); Mean Platelet Volume 8.1; Monocytes # (A) 0.6 k/uL (0-1.0); Monocytes % (A) 5 %; Neutrophils # (A) 10.1 k/uL (1.3-7.7); Neutrophils % (A) 87 %; Platelet Count 202 k/uL (150-450); RBC 3.97 m/uL (4.30-5.90); RDW 12.9 % (11.5-15.5); WBC 11.6 k/uL (3.8-10.6)
--- NOTE | 2020-01-13 17:09 | P.PN ---
Subjective Progress Note Date: 01/13/20 CHIEF COMPLAINT: Status post fall with abdominal pain HISTORY OF PRESENT ILLNESS: The patient is a 79-year-old male is status post fall onto his back 5 days ago, 01/09/2020. He has been intensive care unit secondary to evaluation for retroperitoneal bleed including sepsis. Patient is an attempted in chair. Secondary to atrophic fibrillation RVR, was placed on heparin drip rather than Eliquis for high-risk for uncontrollable bleeding. Per discussion with nursing, patient had gross hematuria which is new today. He also reports new suprapubic pain. ROS: No reports of nausea and vomiting. No bowel movements. No fevers or chills. No new chest pain. PHYSICAL EXAM: VITAL SIGNS: Reviewed CONSTITUTIONAL: Well developed and in no acute distress. EYES: Conjuctivae without sclera icterus. Extraocular movements grossly intact. HEAD, EARS, NOSE, THROAT: Moist buccal mucosa. Head is atraumatic, normocephalic. Hears conversational speech. No nasal drainage. NECK: Supple. No thyroidomegaly. RESPIRATORY: Non-labored respirations and equal bilateral excursions. CARDIOVASCULAR: Palpable 2+ radial pulses. Irregular rate and rhythm ABDOMEN Soft. No peritonitis. MUSCULOSKELETAL: No gross deformity of the lower extremities noted. No clubbing. No cyanosis. SKIN: Good skin turgor. Well perfused. NEUROLOGIC: Cranial nerves II through XII grossly intact. No focal or lateralizing signs. PSYCH: Appropriate affect. Alert and oriented to person, place and time. CLINICAL LABS: White blood cell count on admission 16,000 now 9400. Hemoglobin 11.9-11.5, today. Urinalysis consistent moderate blood on admission ASSESSMENT: 1. Status post fall with retroperitoneal bleed 2. Hematuria 3. Gram-positive bacteremia 4. Atrial fibrillation PLAN: 1. Heparin has been held secondary to new gross hematuria and suprapubic pain. 2. Consultation to urology obtained for hematuria 3. Recommend holding anticoagulation for the next 24-48 hours including upon completion by urologist for gross hematuria 4. May need repeat computed tomography scan for progression of retroperitoneal bleed Objective - Vital Signs Vital signs: Vital Signs Temp 98.1 F 01/13/20 12:00 Pulse 112 H 01/13/20 14:00 Resp 26 H 01/13/20 14:00 BP 124/80 01/13/20 14:00 Pulse Ox 95 01/13/20 14:00 Intake & Output 01/12/20 01/13/20 01/13/20 18:59 06:59 18:59 Intake Total 1800 1815.155 534.845 Output Total 875 985 720 Balance 925 830.155 -185.155 Weight 87.6 kg Intake: IV 1800 1500 400 Sodium Chloride 0.9% 1, 1500 1500 400 000 ml @ 125 mls/hr IV . Q8H DAI Rx#:[id number] Vancomycin 1,500 mg In 250 Sodium Chloride 0.9% 250 ml @ 125 mls/hr IVPB Q16H DAI Rx#:[id number] cefTRIAXone 1 gm In 50 Sodium Chloride 0.9% 50 ml @ 100 mls/hr IVPB Q24H DAI Rx#:[id number] Intake, IV Titration 115.155 134.845 Amount Heparin Sod,Pork in 0.45% 115.155 134.845 NaCl 25,000 unit In 0.45 % NaCl 1 250ml.bag @ 11. 75 UNITS/KG/HR 9.999 mls/ hr IV .Q24H DAI Rx#: [id number] Oral 200 Output: Urine 875 985 720 Other: Voiding Method Urinal Urinal Urinal # Voids 0 1 1 - Labs CBC & Chem 7: 01/13/20 16:20 01/13/20 04:08 Labs: Abnormal Lab Results - Last 24 Hours (Table) 01/12/20 01/13/20 01/13/20 Range/Units 22:44 04:08 04:08 WBC (3.8-10.6) k/uL RBC 3.73 L (4.30-5.90) m/uL Hgb 11.5 L (13.0-17.5) gm/dL Hct 36.3 L (39.0-53.0) % Neutrophils # 8.1 H (1.3-7.7) k/uL Lymphocytes # 0.4 L (1.0-4.8) k/uL APTT 43.5 H (22.0-30.0) sec Chloride 117 H (98-107) mmol/L Carbon Dioxide 17 L (22-30) mmol/L BUN 49 H (9-20) mg/dL Creatinine 1.29 H (0.66-1.25) mg/dL Glucose 118 H (74-99) mg/dL Calcium 7.9 L (8.4-10.2) mg/dL AST 61 H (17-59) U/L ALT 54 H (4-49) U/L Creatine Kinase 214 H (55-170) U/L Total Protein 5.0 L (6.3-8.2) g/dL Albumin 2.3 L (3.5-5.0) g/dL 01/13/20 01/13/20 01/13/20 Range/Units 04:08 10:44 16:20 WBC 11.6 H (3.8-10.6) k/uL RBC 3.97 L (4.30-5.90) m/uL Hgb 12.3 L (13.0-17.5) gm/dL Hct 37.3 L (39.0-53.0) % Neutrophils # 10.1 H (1.3-7.7) k/uL Lymphocytes # 0.6 L (1.0-4.8) k/uL APTT 36.8 H 40.6 H (22.0-30.0) sec Chloride (98-107) mmol/L Carbon Dioxide (22-30) mmol/L BUN (9-20) mg/dL Creatinine (0.66-1.25) mg/dL Glucose (74-99) mg/dL Calcium (8.4-10.2) mg/dL AST (17-59) U/L ALT (4-49) U/L Creatine Kinase (55-170) U/L Total Protein (6.3-8.2) g/dL Albumin (3.5-5.0) g/dL 01/13/20 Range/Units 16:20 WBC (3.8-10.6) k/uL RBC (4.30-5.90) m/uL Hgb (13.0-17.5) gm/dL Hct (39.0-53.0) % Neutrophils # (1.3-7.7) k/uL Lymphocytes # (1.0-4.8) k/uL APTT 44.4 H (22.0-30.0) sec Chloride (98-107) mmol/L Carbon Dioxide (22-30) mmol/L BUN (9-20) mg/dL Creatinine (0.66-1.25) mg/dL Glucose (74-99) mg/dL Calcium (8.4-10.2) mg/dL AST (17-59) U/L ALT (4-49) U/L Creatine Kinase (55-170) U/L Total Protein (6.3-8.2) g/dL Albumin (3.5-5.0) g/dL Microbiology - Last 24 Hours (Table) 01/11/20 23:35 Urine Culture - Final Urine,Voided Assessment and Plan (1) Hematuria Current Visit: Yes Status: Acute Code(s): R31.9 - HEMATURIA, UNSPECIFIED S NOMED Code(s): 17938859 (2) Leukocytosis Current Visit: Yes Status: Acute Code(s): D72.829 - ELEVATED WHITE BLOOD CELL COUNT, UNSPECIFIED SNOMED Code(s): 231328618 (3) Fall Current Visit: Yes Status: Acute Code(s): W19.XXXA - UNSPECIFIED FALL, INITIAL ENCOUNTER SNOMED Code(s): 7677751 (4) Traumatic retroperitoneal hematoma Current Visit: Yes Status: Acute Code(s): S36.892A - CONTUSION OF OTHER INTRA-ABDOMINAL ORGANS, INITIAL ENCOUNTER SNOMED Code(s): 369278811 (5) Atrial fibrillation Current Visit: Yes Status: Acute Code(s): I48.91 - UNSPECIFIED ATRIAL FIBRILLATION SNOMED Code(s): 54329291 (6) Gram positive sepsis Current Visit: Yes Status: Acute Code(s): A41.89 - OTHER SPECIFIED SEPSIS SNOMED Code(s): 431768015 (7) Gram-positive bacteremia Current Visit: Yes Status: Acute Code(s): R78.81 - BACTEREMIA SNOMED Code(s): 641287843926
[2020-01-13] MEDS: HEPARIN SOD,PORK IN 0.45% NACL 25,000 UNIT in 0.45% NACL 1 250ML.BAG IV SCH (20:10)
[2020-01-13] MEDS: AZITHROMYCIN 500 MG TAB PO SCH (20:11)
--- NOTE | 2020-01-13 22:38 | P.GSCN ---
History of Present Illness Consult date: 01/13/20 Reason for Consult: Gross Hematuria/ urinary retention History of present illness: Mr Kinsey is a 79-year-old male admitted to the hospital on 01/09/2020 following a fall. He has been intensive care unit secondary for managment of retroperitoneal bleed and sepsis. Urology is counsulted for gross hematuria which is of new onset, he described his urine as dark brown. PVR was obtained which was 1.1 L. morillo catheter was placed for urinary retention with return of clear urine. He is on heparin drip for A fib. Denies any urinary issues at baseline. He indicated he underwent hematuria workup in past he is unsure when. on admission he underwent a CT abd/pelvis which showed retroperitoneal bleed but no renal masses were appreciated Review of Systems - Constitutional Denies chills, Denies fever - Cardiovascular Denies chest pain, Denies shortness of breath - Respiratory Denies cough, Denies cough with sputum - Gastrointestinal Reports abdominal pain, Denies nausea, Denies vomiting - Genitourinary Reports hematuria, Reports urinary retention, Denies flank pain - Musculoskeletal Reports frequent falls Past Medical History Past Medical History: Osteoarthritis (OA) Additional Past Medical History / Comment(s): Osteoporosis, L1 compression fracture, BPH, esophageal stricture with dilation, hiatal hernia, gastritis, arthritis bilateral hands/fingers, pt states R knee "pops and gives out but not often", vitamin D deficiency. History of Any Multi-Drug Resistant Organisms: None Reported Past Surgical History: Cholecystectomy, Orthopedic Surgery Additional Past Surgical History / Comment(s): EGD with dilation, colonoscopy, L leg repair/pins-plate per pt, L hand 2 finger amputation. Past Anesthesia/Blood Transfusion Reactions: No Reported Reaction Smoking Status: Former smoker - Past Family History Mother Family Medical History: No Reported History Additional Family Medical History / Comment(s): Mother was healthy. Father Family Medical History: Unable to Obtain Additional Family Medical History / Comment(s): Pt does not know father's medical hx, his mother and father when pt was 3 yrs old. Brother(s) Family Medical History: Cancer Sister(s) Family Medical History: No Reported History Daughter(s) Family Medical History: No Reported History Son(s) Family Medical History: No Reported History Medications and Allergies Home Medications Medication Instructions Recorded Confirmed Type Cholecalciferol [Vitamin D3] 1,000 unit PO DAILY 04/09/16 01/09/20 History RX: Aspirin 81 mg PO DAILY 04/09/16 01/09/20 History Allergies Allergy/AdvReac Type Severity Reaction Status Date / Time No Known Allergies Allergy Verified 01/09/20 17:00 Surgical - Exam Vital Signs Temp Pulse Resp BP Pulse Ox 102.9 F H 134 H 20 109/73 97 01/09/20 15:39 01/09/20 15:39 01/09/20 15:39 01/09/20 15:39 01/09/20 15:39 - General no distress, no pain - Eyes normal ocular movement, no pale - ENT normal nares, normal mucosa - Respiratory normal expansion, normal respiratory effort - Genitourinary morillo with clear yellow urine - Psychiatric oriented to time, oriented to person, oriented to place, speech is normal Results - Labs 01/13/20 16:20 01/13/20 04:08 Abnormal Lab Results - Last 24 Hours (Table) 01/12/20 01/13/20 01/13/20 Range/Units 22:44 04:08 04:08 WBC (3.8-10.6) k/uL RBC 3.73 L (4.30-5.90) m/uL Hgb 11.5 L (13.0-17.5) gm/dL Hct 36.3 L (39.0-53.0) % Neutrophils # 8.1 H (1.3-7.7) k/uL Lymphocytes # 0.4 L (1.0-4.8) k/uL APTT 43.5 H (22.0-30.0) sec Chloride 117 H (98-107) mmol/L Carbon Dioxide 17 L (22-30) mmol/L BUN 49 H (9-20) mg/dL Creatinine 1.29 H (0.66-1.25) mg/dL Glucose 118 H (74-99) mg/dL Calcium 7.9 L (8.4-10.2) mg/dL AST 61 H (17-59) U/L ALT 54 H (4-49) U/L Creatine Kinase 214 H (55-170) U/L Total Protein 5.0 L (6.3-8.2) g/dL Albumin 2.3 L (3.5-5.0) g/dL 01/13/20 01/13/20 01/13/20 Range/Units 04:08 10:44 16:20 WBC 11.6 H (3.8-10.6) k/uL RBC 3.97 L (4.30-5.90) m/uL Hgb 12.3 L (13.0-17.5) gm/dL Hct 37.3 L (39.0-53.0) % Neutrophils # 10.1 H (1.3-7.7) k/uL Lymphocytes # 0.6 L (1.0-4.8) k/uL APTT 36.8 H 40.6 H (22.0-30.0) sec Chloride (98-107) mmol/L Carbon Dioxide (22-30) mmol/L BUN (9-20) mg/dL Creatinine (0.66-1.25) mg/dL Glucose (74-99) mg/dL Calcium (8.4-10.2) mg/dL AST (17-59) U/L ALT (4-49) U/L Creatine Kinase (55-170) U/L Total Protein (6.3-8.2) g/dL Albumin (3.5-5.0) g/dL 01/13/20 Range/Units 16:20 WBC (3.8-10.6) k/uL RBC (4.30-5.90) m/uL Hgb (13.0-17.5) gm/dL Hct (39.0-53.0) % Neutrophils # (1.3-7.7) k/uL Lymphocytes # (1.0-4.8) k/uL APTT 44.4 H (22.0-30.0) sec Chloride (98-107) mmol/L Carbon Dioxide (22-30) mmol/L BUN (9-20) mg/dL Creatinine (0.66-1.25) mg/dL Glucose (74-99) mg/dL Calcium (8.4-10.2) mg/dL AST (17-59) U/L ALT (4-49) U/L Creatine Kinase (55-170) U/L Total Protein (6.3-8.2) g/dL Albumin (3.5-5.0) g/dL Microbiology - Last 24 Hours (Table) 01/11/20 23:35 Urine Culture - Final Urine,Voided Diabetes panel 01/13/20 Range/Units 04:08 Sodium 139 (137-145) mmol/L Potassium 4.6 (3.5-5.1) mmol/L Chloride 117 H (98-107) mmol/L Carbon Dioxide 17 L (22-30) mmol/L BUN 49 H (9-20) mg/dL Creatinine 1.29 H (0.66-1.25) mg/dL Glucose 118 H (74-99) mg/dL Calcium 7.9 L (8.4-10.2) mg/dL AST 61 H (17-59) U/L ALT 54 H (4-49) U/L Alkaline Phosphatase 87 (38-126) U/L Total Protein 5.0 L (6.3-8.2) g/dL Albumin 2.3 L (3.5-5.0) g/dL Calcium panel 01/13/20 Range/Units 04:08 Calcium 7.9 L (8.4-10.2) mg/dL Albumin 2.3 L (3.5-5.0) g/dL Pituitary panel 01/13/20 Range/Units 04:08 Sodium 139 (137-145) mmol/L Potassium 4.6 (3.5-5.1) mmol/L Chloride 117 H (98-107) mmol/L Carbon Dioxide 17 L (22-30) mmol/L BUN 49 H (9-20) mg/dL Creatinine 1.29 H (0.66-1.25) mg/dL Glucose 118 H (74-99) mg/dL Calcium 7.9 L (8.4-10.2) mg/dL Adrenal panel 01/13/20 Range/Units 04:08 Sodium 139 (137-145) mmol/L Potassium 4.6 (3.5-5.1) mmol/L Chloride 117 H (98-107) mmol/L Carbon Dioxide 17 L (22-30) mmol/L BUN 49 H (9-20) mg/dL Creatinine 1.29 H (0.66-1.25) mg/dL Glucose 118 H (74-99) mg/dL Calcium 7.9 L (8.4-10.2) mg/dL Total Bilirubin 1.1 (0.2-1.3) mg/dL AST 61 H (17-59) U/L ALT 54 H (4-49) U/L Alkaline Phosphatase 87 (38-126) U/L Total Protein 5.0 L (6.3-8.2) g/dL Albumin 2.3 L (3.5-5.0) g/dL Assessment and Plan Assessment: Mr Kinsey is a 79-year-old male admitted to the hospital on 01/09/2020 following a fall. He has been intensive care unit secondary for managment of retroperitoneal bleed and sepsis. Urology is counsulted for gross hematuria, his hematuria is most likely secondary to 1.1 L urinary retention. Hematuria now resolved Plan: -Keep morillo for 7 days -start flomax -His gross hematuria most likely secondary to retention, ok to resume anticogulation from urology standpoint
--- NOTE | 2020-01-14 00:48 | PN ---
PROGRESS NOTE DATE OF SERVICE: 01/13/2020 REASON FOR FOLLOWUP: Pneumonia and gram-positive bacteremia. INTERVAL HISTORY: The patient is currently afebrile. The patient has been breathing more comfortably. Denies having any chest pain. No shortness of breath. Occasional cough. No abdominal pain or diarrhea. Overall feeling better and wants to go home. PHYSICAL EXAMINATION: Blood pressure is 123/82 with a pulse of 105, temperature 98.1. He is 93% on 2 L nasal cannula. General description is an elderly male up in the chair in no distress. RESPIRATORY SYSTEM: Unlabored breathing, decreased intense breath sounds. No wheeze. HEART: S1, S2. Regular rate and rhythm. ABDOMEN: Soft, no tenderness. LABS: Hemoglobin is 12.3, white count 11.6, creatinine 1.29. Blood culture with gram- positive, ID and sensitivity still pending. The patient did have a repeat chest x-ray this morning bibasilar airspace disease. DIAGNOSTIC IMPRESSION AND PLAN: 1. Patient admitted to the hospital with shortness of breath, cough with evidence of bibasilar infiltrate, concern for pneumonia. The patient is currently covered with Rocephin and to continue. 2. Positive blood culture with gram-positive, ID and sensitivity still pending. Repeat blood culture has been ordered. Keep the patient on vancomycin and monitor his kidney function closely. MMODL / IJN: [id number] /
[2020-01-14 05:29] LABS: HCT 35.2 % (39.0-53.0); HGB 11.3 gm/dL (13.0-17.5); Hypochromasia Slight; MCH 30.9 pg (25.0-35.0); MCHC 32.2 g/dL (31.0-37.0); MCV 95.7 fL (80.0-100.0); Mean Platelet Volume 7.8; Platelet Count 234 k/uL (150-450); RBC 3.67 m/uL (4.30-5.90); RDW 12.9 % (11.5-15.5); WBC 9.5 k/uL (3.8-10.6)
[2020-01-14 05:46] LABS: Albumin 2.2 g/dL (3.5-5.0); Calcium 8.2 mg/dL (8.4-10.2); Potassium 4.3 mmol/L (3.5-5.1); Total Bilirubin 1.5 mg/dL (0.2-1.3)
[2020-01-14] MEDS: PANTOPRAZOLE 40 MG TABLET PO SCH (06:58)
[2020-01-14] MEDS ORDERED: FUROSEMIDE 10 MG/ML 4 ML VIAL IV STA (07:08)
--- NOTE | 2020-01-14 07:16 | XR ---
EXAMINATION TYPE: XR chest 1V portable DATE OF EXAM: 01/14/2020 Comparison: 01/13/2020 Clinical History: 79-year-old male pneumonia Findings: Heart mildly enlarged. Low lung volumes. Interstitial densities persist throughout. More confluent pa tchy left basilar and peripheral left lung densities unchanged. Impression: Hypoventilatory changes as compared to prior exam. Persistent interstitial infiltrates throughout and similar confluent left basilar and peripheral left lung airspace disease.
--- NOTE | 2020-01-14 07:33 | PN ---
PROGRESS NOTE Mr. Kinsey is a 79-year-old male who presented with a fall. Subsequently went into atrial fibrillation. He continues to be in atrial fibrillation at this time. He is feeling better overall. He denies any symptoms of chest pain. He denies any dizziness or palpitation. He denies any nausea. Hemodynamically, he is stable, but he continues to be in atrial fibrillation with episode of rapid ventricular response. He continues to be on aspirin 81 mg daily, diltiazem 30 mg 3 times a day, metoprolol tartrate 50 mg 3 times a day. PHYSICAL EXAMINATION: Blood pressure 110/70 with the heart rate between the 80s at the 100. LUNGS: A few crackles at the bases. HEART: Irregular, irregular. S1, S2. No S3 with systolic murmur at the base ejection type. No diastolic murmur. ABDOMEN: Soft, nontender. EXTREMITIES: With 1+ edema. IMPRESSION: 1. Atrial fibrillation with episode of rapid ventricular response, under better control at this time. 2. Fall. 3. Episode of hematuria. Yesterday his IV heparin is on hold. 4. Questionable retroperitoneal hemorrhage. RECOMMENDATION: I will adjust the dose of his Cardizem. If it is agreeable with Urology and the surgical service, I would recommend to initiate treatment with oral anticoagulant. I will give him diuretics in view of the results of his chest x-ray as well as lung examination. Will follow his renal function. Depending on his progress, further recommendation will be made. MMODL / IJN: [id number] /
[2020-01-14] MEDS: IPRATROPIUM-ALBUTEROL 3 ML NEB INHALATION SCH ×4 (07:59→21:19)
[2020-01-14] MEDS: ASPIRIN 81 MG PO SCH (08:25)
[2020-01-14] MEDS: TAMSULOSIN 0.4 MG CAP.ER.24H PO SCH (08:25)
[2020-01-14] MEDS: DILTIAZEM ORAL 60 MG TAB PO SCH ×3 (08:26→20:03)
[2020-01-14] MEDS: METOPROLOL TARTRATE 50 MG TAB PO SCH ×3 (08:26→20:03)
[2020-01-14] MEDS: CHOLECALCIFEROL 1,000 UNIT TAB PO SCH (08:26)
--- NOTE | 2020-01-14 10:07 | P.PN ---
Subjective Progress Note Date: 01/14/20 Principal diagnosis: Gram-positive bacteremia, sepsis, bilateral cavitary lung nodules and pneumonia, A. fib with RVR This is a pleasant 79-year-old gentleman who follows with Dr. Harley as his primary care provider. He has a history of osteoarthritis, osteoporosis with prior history of L1 compression fracture, vitamin D deficiency, enlarged prostate, remote history of tobacco dependence for approximately 10 years but quit 60 years ago. Daily alcohol use. On 01/18/2020 the patient had gotten up from bed and headed to the bathroom when his right knee gave out and he fell to the ground. He was unable to get himself up. His daughter called and the patient had not answered and she went to check on him yesterday, found him on the floor and EMS was called. Approximately 16 hours of down time. He was found to be febrile with presenting temperature of 102.9. Computed tomography scan of the chest revealed extensive peripheral bilateral noncalcified pulmonary nodular infiltrates. Neoplastic versus inflammatory disease. There is a 2.5 cm cavitating lesion in the lateral aspect of the left upper lobe. The largest of the peripheral nodules is 2 cm. The patient is seen today in consultation on the selective care unit. He is currently sitting up in a chair. Awake and alert in no acute distress. Currently afebrile. Sinus tachycardia with frequent PACs, possible paroxysmal atrial fibrillation. Echocardiogram reveals preserved left ventricular systolic function with ejection fraction 50-55%. CAT scan of the abdomen and pelvis revealed edema about the right kidney extending to the right renal sinus with possible polynephritis. Confluent edema and fluid extends down the right retroperitoneum cannot exclude retroperitoneal bleed. Confluent small effusions with extensive peripheral opacities. Interstitial pneumonitis and atypical pneumonias are within the differential. There is a 4.7 cm ascending aortic aneurysm. CoVID 19 screening pending. Blood cultures pending. White count 12.1. Hemoglobin 13.0. Platelet count 104. Lymphocytes 0.48. Sodium 131. Potassium 4.2. Bicarb 19. Creatinine 1.18. Glucose 164. CK 867. Troponin 0.025. ProBNP 1910. He has been initiated on ceftriaxone, vancomycin and azithromycin. Cardizem drip at 5 mg per hour. Heparin drip. Patient was reevaluated today on 01/11/20, patient developed worsening shortness of breath overnight, wheezing, and worsening atrial fibrillation with RVR, hence he was transferred to the intensive care unit. Feeling better at present, however he is on 3 L nasal cannula, and O2 saturation is 94%. He is also on Cardizem at 5 mg per hour, IV fluid increased to 1 50 mL per hour. His blood cultures came back positive for gram-positive cocci in clusters, and the patient received vancomycin since admission he remains on vancomycin. He was already seen by infectious disease on consultation. Cardiology is evaluating the patient, his initial echocardiogram was nondiagnostic, patient may require transesophageal echocardiography. CPK was noted to be a bit elevated today, hence I increased his IV fluid. Patient is in atrial fibrillation with RVR, rate is 138 beats per minutes. Primary source of his bacteremia could very well be from the lungs, although the possibility of urinary tract infection and endocarditis is not entirely ruled out. But felt to be less likely. WBC count today is 14 hemoglobin is 12.6. Electrodes are normal, BUN is 58 creatinine is 1.62, worsening compared to yesterday. CPK was also noted to be elevated, pro- calcitonin was quite high 7.12. Patient was reevaluated today on 01/12/20, remains in the ICU, remains in atrial fibrillation, but rate seems to be better controlled. Remains on Cardizem drip at 5 mg per hour, IV fluid is 125 mL per hour. Remains on vancomycin for his gram-positive bacteremia. Chest x-ray continues to show left lower lobe infiltrate. Abdominal film showed dilated bowel loops, however the patient had no clinical symptoms to suggest bowel obstruction. Patient is also on Lopressor and on Eliquis twice a day. We plan to keep him in the ICU for the next 24 hours, and if he remains stable will transfer out of the ICU to a monitor bed on selective. CBC showed evidence of 12.8 hemoglobin is 11.7 electrodes are normal bicarb is a bit low at 18. Renal profile is improving. Is down to 55 creatinin e is down to 1.39. CPK is down to 422 from 1067 yesterday Patient was reevaluated today on 01/13/20, remains in the ICU, remains in atrial fibrillation with RVR. This is being addressed by cardiology. Patient remains on IV fluid at 50 mL/h remains on oxygen at 2 L/m. Patient is off Cardizem drip , and his Lopressor was increased. His renal functioning is improving. Patient was given a dose of Lasix 20 mg IV push 1 today after reviewing his chest x-ray which is suggestive of mild interstitial edema, and I strongly suspect the left lower lobe pneumonia. Final report on the blood cultures remains pending, but the patient did have positive cocci in clusters and his blood cultures. And I believe the most likely source is his left lower lobe pneumonia. On 01/14/2020 patient seen in follow-up in intensive care unit, he is calm and comfortable, sitting up in the recliner, eating breakfast, appetite is good, patient has eaten all of his food on the tray. Tolerating regular diet, denies any difficulty breathing. His heparin infusion is on hold related to hematuria, and urinary retention with subsequent placement of Davalos catheter, currently patient has a Davalos catheter in place and his hematuria seems to have resolved, patient is producing yellow clear urine today, today's hemoglobin is 11.3, white count is 9.5, patient has been afebrile, he is on 2 L of oxygen and pulse ox of 95%. Remains in atrial fibrillation with a controlled rate in the 120-160 BPM, cardiology is following and managing rate control medications. Currently patient is on oral Cardizem and the dose was increased to 60 mg 3 times daily, and oral metoprolol and 50 mg 3 times daily. Patient was given a dose of IV Lasix yesterday, he is in -1.2 L over the last 24 hours, and was started on maintenance dose of IV Lasix 40 mg every 12 hours. Patient is on Zithromax and Rocephin. Patient is on Rocephin and Zithromax and vancomycin, for blood culture positive for MSSA. We'll discontinue vancomycin. Urine culture was negative. Today's chest x-ray shows hypoventilatory changes, and persistent interstitial infiltrate throughout and more confluent patchy left basilar and peripheral left lung densities. Objective - Vital Signs Vital signs: Vital Signs Temp 98.0 F 01/14/20 08:00 Pulse 126 H 01/14/20 09:00 Resp 25 H 01/14/20 09:00 BP 128/84 01/14/20 09:00 Pulse Ox 95 01/14/20 09:00 Intake & Output 01/13/20 01/14/20 01/14/20 18:59 06:59 18:59 Intake Total 884.845 950 110 Output Total 2170 945 850 Balance -1285.155 5 -740 Intake: IV 750 600 110 Sodium Chloride 0.9% 1, 750 600 110 000 ml @ 50 mls/hr IV . Q20H DAI Rx#:[id number] Intake, IV Titration 134.845 250 Amount Heparin Sod,Pork in 0.45% 134.845 NaCl 25,000 unit In 0.45 % NaCl 1 250ml.bag @ 11. 75 UNITS/KG/HR 9.999 mls/ hr IV .Q24H DAI Rx#: [id number] Vancomycin 1,500 mg In 250 Sodium Chloride 0.9% 250 ml @ 125 mls/hr IVPB Q16H DAI Rx#:[id number] Oral 100 Output: Urine 2170 945 850 Other: Voiding Method Urinal Indwelling Catheter Indwelling Catheter # Voids 1 1 - Exam GENERAL EXAM: Alert, very pleasant, 79-year-old white male, on 2 L of oxygen a pulse ox of 95% comfortable in no apparent distress. HEAD: Normocephalic/atraumatic. EYES: Normal reaction of pupils, equal size. Conjunctiva pink, sclera white. NOSE: Clear with pink turbinates. THROAT: No erythema or exudates. NECK: No masses, no JVD, no thyroid enlargement, no adenopathy. CHEST: No chest wall deformity. Symmetrical expansion. LUNGS: Equal air entry with inspiratory crackles over left lower and left mid lung CVS: Irregular rate and rhythm she remains in atrial fibrillation with a controlled rate currently at a rate of 120-160 BPM, normal S1 and S2, no gallops, no murmurs, no rubs ABDOMEN: Soft, nontender. No hepatosplenomegaly, normal bowel sounds, no guarding or rigidity. EXTREMITIES: No clubbing, no edema, no cyanosis, 2+ pulses and upper and lower extremities. MUSCULOSKELETAL: Muscle strength and tone normal. SPINE: No scoliosis or deformity SKIN: No rashes CENTRAL NERVOUS SYSTEM: Alert and oriented -3. No focal deficits, tone is normal in all 4 extremities. PSYCHIATRIC: Alert and oriented -3. Appropriate affect. Intact judgment and insight. - Labs CBC & Chem 7: 01/14/20 04:25 01/14/20 04:25 Labs: Abnormal Lab Results - Last 24 Hours (Table) 01/13/20 01/13/20 01/13/20 Range/Units 10:44 16:20 16:20 WBC 11.6 H (3.8-10.6) k/uL RBC 3.97 L (4.30-5.90) m/uL Hgb 12.3 L (13.0-17.5) gm/dL Hct 37.3 L (39.0-53.0) % Neutrophils # 10.1 H (1.3-7.7) k/uL Lymphocytes # 0.6 L (1.0-4.8) k/uL APTT 40.6 H 44.4 H (22.0-30.0) sec Chloride (98-107) mmol/L Carbon Dioxide (22-30) mmol/L BUN (9-20) mg/dL Creatinine (0.66-1.25) mg/dL Glucose (74-99) mg/dL Calcium (8.4-10.2) mg/dL Total Bilirubin (0.2-1.3) mg/dL Total Protein (6.3-8.2) g/dL Albumin (3.5-5.0) g/dL 01/14/20 01/14/20 Range/Units 04:25 04:25 WBC (3.8-10.6) k/uL RBC 3.67 L (4.30-5.90) m/uL Hgb 11.3 L (13.0-17.5) gm/dL Hct 35.2 L (39.0-53.0) % Neutrophils # (1.3-7.7) k/uL Lymphocytes # (1.0-4.8) k/uL APTT (22.0-30.0) sec Chloride 115 H (98-107) mmol/L Carbon Dioxide 18 L (22-30) mmol/L BUN 46 H (9-20) mg/dL Creatinine 1.28 H (0.66-1.25) mg/dL Glucose 108 H (74-99) mg/dL Calcium 8.2 L (8.4-10.2) mg/dL Total Bilirubin 1.5 H (0.2-1.3) mg/dL Total Protein 5.0 L (6.3-8.2) g/dL Albumin 2.2 L (3.5-5.0) g/dL Microbiology - Last 24 Hours (Table) 01/09/20 16:40 Blood Culture Gram Stain - Final Blood Blood Culture - Final Staphylococcus aureus 01/11/20 23:35 Urine Culture - Final Urine,Voided Assessment and Plan Plan: Assessment: #1. Acute MSSA bacteremia possibly related to pneumonia #2. Acute gram-positive pneumonia with sepsis likely related to staph aureus #3. Atrial fibrillation with RVR #4. Acute rhabdomyolysis and acute kidney injury, improving #5. Degenerative joint disease #6. Bilateral peripheral pulmonary nodules, some are cavitary in nature and need to be monitored and followed closely, with a plan to repeat CT of the chest in the next few weeks #7. Acute L1 fracture secondary to a fall #8. Acute kidney injury related to sepsis and bacteremia and acute rhabdomyolysis, improving #9. Acute retroperitoneal bleed, status post fall, heparin is on hold #10. Hematuria, resolved, heparin remains on hold #11. Urinary retention requiring placement of urinary catheter #12. 4.7 ascending aortic aneurysm, will be followed every 6 months #13. Osteoarthritis Plan: Continue current medical treatment, agree with increasing the IV Lasix to 40 mg twice daily, today's chest x-ray shows persistent interstitial infiltrates and left basilar airspace disease. We'll discontinue vancomycin, blood culture was positive for MSSA, and [id number] with Zithromax and Rocephin, patient is afebrile, clinically he is feeling better, he is sitting up in the chair, denies any acute distress, he is tolerating oral intake, he is appetite is good. Still has some occasional left flank discomfort at times. Encourage deep breathing and coughing. Heparin drip remains on hold for hematuria which seems to have resolved. Renal profile stable on today's labs, overall improved since admis isabel. Continue GI and DVT prophylaxis, we'll continue to closely follow in the intensive care unit I performed a history & physical examination of the patient and discussed their management with my nurse practitioner, Araceli Alexandra. I reviewed the nurse practitioner's note and agree with the documented findings and plan of care. Lung sounds are positive for diminished breath sounds with left lung inspiratory crackles. The findings and the impression was discussed with the patient. I attest to the documentation by the nurse practitioner. Time with Patient: Less than 30
--- NOTE | 2020-01-14 10:14 | P.PN ---
Subjective Progress Note Date: 01/14/20 This is a 79-year-old male one of my patient with a previous medical history significant for osteoporosis, osteoporosis with prior history of L1 compression fracture, vitamin D deficiency, history of enlarged prostate, patient was in his usual state of health until about 2 days ago when he felt a bit sick to stomach episode of nausea and vomiting he was not drinking enough water at that time, patient woke up the yesterday morning at around 12 midnight to go to have a drink of water before he goes to the bathroom he ended up falling on the floor after his right knee gave out and the patient landed on the floor for at least 17 hours until his daughter hold him and he did not answer so she came to the house and she found him laying on the floor EMS was called and the patient was brought into the ER at [facility] and brought to the hospital EMS personnel thought the patient was in atrial fibrillation, upon arrival to the ER his initial EKG showed sinus tachycardia with PAC and PVCs without any evidence of atrial fibrillation, patient lactic acid was elevated at 4.7, he was given IV fluid resuscitation, he had a chest x-ray that did not show much ended up going for computed tomography scan of the chest that showed multiple bilateral peripheral pulmonary infiltrate with left 2.5 cm cavitary lesion in the left upper lobe, patient was started on IV antibiotic in the form of Zithromax, Rocephin, and vancomycin, pulmonary consultation was obtained from , as well as cardiology consultation because of his ectopy. 01/10: Yesterday, patient developed evidence of atrial fibrillation and consult with Dr. Hdz was requested. Patient was started on Cardizem drip and heparin drip. Echocardiogram revealed EF of 50-55%, mild to moderate aortic regurgitation, mild tricuspid regurgitation, moderate pulmonary hypertension. CAT scan of the abdomen and pelvis was obtained which revealed asymmetrical perinephric stranding and edema in the right kidney, correlated to exclude pyelonephritis. Continue fluid edema and fluid in the right retroperitoneum. Unclear if this is arising from the right kidney. Correlate for any relevant history that could predispose the patient to retroperitoneal bleed. The fluid is not high-density would be seen in acute hemorrhage. Tortuous right common and external iliac artery which courses through this tracking fluid. Tiny hiata l hernia and mild circumferential wall thickening of the distal esophagus. Correlate to exclude esophagitis. Continue small effusions with extensive peripheral opacities. Interstitial pneumonitis and atypical pneumonias including COVID-19 pneumonia in the differentials. Incidental finding of a 70 aortic aneurysm 4.7 cm. Consult was obtained with Dr. Sky and he is not convinced retro-peritoneal bleed. Heparin drip will remain on hold. Repeat chest x-ray revealed mild cardiomegaly and continued interstitial density. Correlate to exclude pulmonary vascular congestion. Increasing patchy airspace disease in the left mid and lower lung could represent developing confluent pulmonary edema versus pneumonia. Patient has been seen and followed by Dr. Monk. Patient was also seen by Dr. Romero and continued on vancomycin and Rocephin for possible gram-positive bacteremia as well as azithromycin. Initial blood culture has not been finalized. This morning, utility mechanic atrial fibrillation in the 120s to 140s. He denies any chest pain, shortness of breath or dizziness. No palpitations. Cardiology is increasing Lopressor to 50 mg twice daily and Lasix on hold due to worsening renal function. Anticoagulation remains on hold due to possibility of retroperitoneal bleed. Patient has been afebrile since admission. Blood pressure currently 122/74, pulse ox 98% on 3 L nasal cannula. Repeat blood work reveals WBC 14, hemoglobin 12.6, platelet count 121. Sodium 136, potassium 4.3, chloride 108, CO2 21, BUN 58 and creatinine 1.62. Blood sugar 123. CK is 1026. TSH 0.8-9. Coronavirus not detected. 01/11: Patient sitting up in bed in no apparent distress he denies any chest pain is less short of breath today he denies any abdominal pain, he continues to be in atrial fibrillation his heart rate is better he remains on Cardizem drip at 5 mg hour his Lopressor was increased we will start the patient on Eliquis 5 mg orally twice every day, he would be kept in the ICU for another 24 hours, then he will be transferred to the cardiac telemetry unit. 01/12: Patient is sitting up in his recliner today he is in a positive fluid balance he did receive 20 mg Lasix IV push he continues to be in atrial fibrillation with somewhat fast ventricular response, he was seen earlier by cardiology and pulmonary medicine and spoke with his daughter done and I gave her an updated about his current situation he needs to stay in the ICU, until he goes into neutral fluid balance, he needs additional dose of Lasix we will give him another 20 mg Lasix IV push and continue to monitor his weight and fluid balance. Patient denies any chest pain he continues to have some coughing and minimal phlegm production he appears to be tachypneic, he denies any abdominal pain that he has no nausea or vomiting he seems to be tolerating his treatment very well, he was switched to heparin drip as opposed to Eliquis for few days and he would be monitored. 01/13: Patient remains in intensive care unit. Patient continues to be in atrial fibrillation with RVR running up to the 140s this morning. Patient denies any chest pain, dizziness, palpitations. No nausea or vomiting. No bowel movem ents. No fever or chills. Dr. Hdz has adjusted his Cardizem dose to 60 mg 3 times daily. He is also recommending oral anticoagulation once cleared by urology. Patient has been seen by Dr. Batres with recommendations to keep Davalos for 7 days, start Flomax. Gross hematuria most likely secondary to retention and okay to resume anticoagulation. Repeat chest x-ray reveals hypoventilatory changes. Persistent interstitial infiltrates of the Route and similar confluent left basilar and peripheral left lung airspace disease. One dose of IV Lasix 40mg ordered this morning and continue every 12 hours. BUN 46, creatinine 1.28, potassium 4.3. Hemoglobin 11.3. Initial blood culture has been finalized as MSSA. Patient is currently on ceftriaxone and vancomycin followed by Dr. Romero. Objective - Vital Signs Vital signs: Vital Signs Temp 98.0 F 01/14/20 08:00 Pulse 140 H 01/14/20 08:00 Resp 32 H 01/14/20 08:00 BP 119/77 01/14/20 08:00 Pulse Ox 91 L 01/14/20 08:00 Intake & Output 01/13/20 01/14/20 01/14/20 18:59 06:59 18:59 Intake Total 884.845 950 50 Output Total 2170 945 75 Balance -1285.155 5 -25 Intake: IV 750 600 50 Sodium Chloride 0.9% 1, 750 600 50 000 ml @ 50 mls/hr IV . Q20H [facility] Rx#:[id number] Intake, IV Titration 134.845 250 Amount Heparin Sod,Pork in 0.45% 134.845 NaCl 25,000 unit In 0.45 % NaCl 1 250ml.bag @ 11. 75 UNITS/KG/HR 9.999 mls/ hr IV .Q24H [facility] Rx#: [id number] Vancomycin 1,500 mg In 250 Sodium Chloride 0.9% 250 ml @ 125 mls/hr IVPB Q16H [facility] Rx#:[id number] Oral 100 Output: Urine 2170 945 75 Other: Voiding Method Urinal Indwelling Catheter # Voids 1 - Exam Review of Systems Constitutional: Reports weakness, Denies chronic headaches, Denies fatigue, Denies lethargy Eyes: denies blurred vision, denies bulging eye, denies decreased vision Ears: bilateral: decreased hearing Ears, nose, mouth and throat: Denies dysphagia, Denies neck lump, Denies sore throat Cardiovascular: Reports rapid heart beat, Denies chest pain, Denies decreased exercise tolerance, Denies lightheadedness, Denies shortness of breath, Denies syncope Respiratory: Denies congestion, Denies cough with sputum, Denies home oxygen, Denies sleep apnea, Denies snoring, Denies wheezing Gastrointestinal: Reports abdominal pain, Reports nausea, Reports vomiting, Denies bloating, Denies change in bowel habits, Denies coffee ground emesis, Denies excessive gas, Denies heartburn, Denies hematemesis, Denies melena Genitourinary: Denies dysuria, Denies incontinence, reports hematuriaresolving Musculoskeletal: Reports frequent falls, Reports gait dysfunction Musculoskeletal: right: shoulder pain, shoulder stiffness, absent: ankle pain, ankle stiffness, ankle swelling, elbow pain, elbow stiffness, elbow swelling, foot pain, foot stiffness, foot swelling, hand pain, hand stiffness, hand swelling, hip pain, hip stiffness, hip swelling, knee pain, knee swelling, shoulder swelling, wrist pain, wrist stiffness, wrist swelling Integumentary: Denies pruritus, Denies rash Neurological: Denies numbness, Denies weakness Psychiatric: Denies anxiety, Denies depression HEENT: Head is atraumatic, normocephalic, pupils were equal round reactive to light and recommendation, extraocular muscle movement were intact. Neck: Supple, no JVD, no carotid bruit. Chest: Decreased breath sounds at the bases, few rhonchi, no expiratory wheezes, minimal chest wall tenderness and the left lower ribs, no intercostal retractions. No sensory muscle usage. Heart: First heart sound is depressed, second heart sound is normal, irregular, there is systolic ejection murmur 2/6. Sternal border. Abdomen: Soft, distended, moderate tenderness in the left upper quadrant , as well as right upper quadrant, depressed bowel sounds. Extremities: Trace edema, no calf tenderness, dorsalis pedis +1 bilaterally. Neurologic examination: Patient is awake alert and oriented 3, cranial nerves III through XII appear grossly intact, no significant weakness in both lower extremities and the patient is not able to move both lower extremities, deep tendon reflexes were depressed bilaterally, Babinski's were flexor bilaterally. - Labs CBC & Chem 7: 01/14/20 04:25 01/14/20 04:25 Labs: Abnormal Lab Results - Last 24 Hours (Table) 01/13/20 01/13/20 01/13/20 Range/Units 10:44 16:20 16:20 WBC 11.6 H (3.8-10.6) k/uL RBC 3.97 L (4.30-5.90) m/uL Hgb 12.3 L (13.0-17.5) gm/dL Hct 37.3 L (39.0-53.0) % Neutrophils # 10.1 H (1.3-7.7) k/uL Lymphocytes # 0.6 L (1.0-4.8) k/uL APTT 40.6 H 44.4 H (22.0-30.0) sec Chloride (98-107) mmol/L Carbon Dioxide (22-30) mmol/L BUN (9-20) mg/dL Creatinine (0.66-1.25) mg/dL Glucose (74-99) mg/dL Calcium (8.4-10.2) mg/dL Total Bilirubin (0.2-1.3) mg/dL Total Protein (6.3-8.2) g/dL Albumin (3.5-5.0) g/dL 01/14/20 01/14/20 Range/Units 04:25 04:25 WBC (3.8-10.6) k/uL RBC 3.67 L (4.30-5.90) m/uL Hgb 11.3 L (13.0-17.5) gm/dL Hct 35.2 L (39.0-53.0) % Neutrophils # (1.3-7.7) k/uL Lymphocytes # (1.0-4.8) k/uL APTT (22.0-30.0) sec Chloride 115 H (98-107) mmol/L Carbon Dioxide 18 L (22-30) mmol/L BUN 46 H (9-20) mg/dL Creatinine 1.28 H (0.66-1.25) mg/dL Glucose 108 H (74-99) mg/dL Calcium 8.2 L (8.4-10.2) mg/dL Total Bilirubin 1.5 H (0.2-1.3) mg/dL Total Protein 5.0 L (6.3-8.2) g/dL Albumin 2.2 L (3.5-5.0) g/dL Microbiology - Last 24 Hours (Table) 01/11/20 23:35 Urine Culture - Final Urine,Voided Assessment and Plan Plan: 1. 1. Acute hypoxemic respiratory failure secondary to acute diastolic heart failure due to atrial fibrillation with rapid ventricular response and possible gram positive pneumonia. Continue Rocephin 1 g IV piggyback every 24 hours, continue Zithromax, continue vancomycin pharmacy to dose its peak and trough, continue oxygen support, continue nebulized treatment. Pulmonary consultation. 2. Bilateral peripheral pulmonary nodules with left cavitary lesions in the left upper lobe 2.5 cm. Continue IV antibiotic in the form of vancomycin, Rocephin, and Zithromax. Monitor the patient very closely repeat computed tomography scan in about 4 weeks from now. 3. Mild rhabdomyolysis. Completed IV fluid resuscitation. Discontinue IV fluids. 4. Mild hyponatremia secondary to hypovolemia. Resolved. 5. Acute kidney injury secondary to acute tubular necrosis due to rhabdomyolysis. Resolved. 6. New onset of atrial fibrillation with RVR, paroxysmal atrial fibrillation. Continue Cardizem oral increased to 60 mg 3 times daily, continue metoprolol 50 mg 3 times daily, start Eliquis 5 mg orally twice every day. 7. MSSA bacteremia. Patient is on ceftriaxone vancomycin. We will continue to monitor the patient very closely. 8. Severe sepsis likely due to gram-positive pneumonia. Continue vancomycin, Rocephin, Zithromax. 9. Possible retroperitoneal bleed History of old L1 fracture. After discussing with intensive care and general surgery it does not seems to be an actual bleeding we will monitor very closely.. 10. 4.7 cm ascending aortic aneurysm. Patient will continue to have a surveillance computed tomography scan once every 6 months. 11. Lactic acidosis. Continue IV fluid resuscitation, continue IV antibiotic. Repeat lactic acid is better. 12. Osteoarthritis. Stable. 13. Vitamin D deficiency. Continue vitamin D supplements 1000 units once every day. 14. DVT prophylaxis. We will start the patient on Eliquis 5 mg orally twice every day. 15. GI prophylaxis. Continue Protonix 40 mg orally once every day. 16. COVID-19 infection not present. 17. Patient is full code. Discharge plan: Anticipate need for subacute rehab. PT and OT on consult. facility service manager following closely.
--- NOTE | 2020-01-14 11:24 | P.PN ---
<Amanda Cantu Diane - Last Filed: 01/14/20 11:21> Subjective Progress Note Date: 01/14/20 CHIEF COMPLAINT: Possible retroperitoneal bleed HISTORY OF PRESENT ILLNESS: Patient examined this morning in the ICU. He is sitting up in the chair. Denies abdominal pain. Mild back discomfort. Patient developed hematuria over the weekend which has since resolved. Hemoglobin 11.3 PHYSICAL EXAM: VITAL SIGNS: Reviewed. GENERAL: Well-developed in no acute distress. HEENT: No sclera icterus. Extraocular movements grossly intact. Moist buccal mucosa. Head is atraumatic, normocephalic. ABDOMEN: Soft. Nondistended. Nontender. NEUROLOGIC: Alert and oriented. Cranial nerves II through XII grossly intact. ASSESSMENT: 1. Fall 2. Possible retroperitoneal bleed PLAN: Okay to resume anticoagulation from a surgical standpoint Continue to monitor hemoglobin Nurse practitioner note has been reviewed by physician. Signing provider agrees with the documented findings, assessment, and plan of care. Objective - Vital Signs Vital signs: Vital Signs Temp 98.0 F 01/14/20 08:00 Pulse 112 H 01/14/20 10:00 Resp 31 H 01/14/20 10:00 BP 113/83 01/14/20 10:00 Pulse Ox 97 01/14/20 10:00 Intake & Output 01/13/20 01/14/20 01/14/20 18:59 06:59 18:59 Intake Total 884.845 950 120 Output Total 2170 945 1250 Balance -1285.155 5 -1130 Intake: IV 750 600 120 Sodium Chloride 0.9% 1, 750 600 120 000 ml @ 50 mls/hr IV . Q20H [facility] Rx#:[id number] Intake, IV Titration 134.845 250 Amount Heparin Sod,Pork in 0.45% 134.845 NaCl 25,000 unit In 0.45 % NaCl 1 250ml.bag @ 11. 75 UNITS/KG/HR 9.999 mls/ hr IV .Q24H [facility] Rx#: [id number] Vancomycin 1,500 mg In 250 Sodium Chloride 0.9% 250 ml @ 125 mls/hr IVPB Q16H [facility] Rx#:[id number] Oral 100 Output: Urine 2170 945 1250 Other: Voiding Method Urinal Indwelling Catheter Indwelling Catheter # Voids 1 1 - Labs CBC & Chem 7: 01/14/20 04:25 01/14/20 04:25 Labs: Abnormal Lab Results - Last 24 Hours (Table) 01/13/20 01/13/20 01/14/20 Range/Units 16:20 16:20 04:25 WBC 11.6 H (3.8-10.6) k/uL RBC 3.97 L (4.30-5.90) m/uL Hgb 12.3 L (13.0-17.5) gm/dL Hct 37.3 L (39.0-53.0) % Neutrophils # 10.1 H (1.3-7.7) k/uL Lymphocytes # 0.6 L (1.0-4.8) k/uL APTT 44.4 H (22.0-30.0) sec Chloride 115 H (98-107) mmol/L Carbon Dioxide 18 L (22-30) mmol/L BUN 46 H (9-20) mg/dL Creatinine 1.28 H (0.66-1.25) mg/dL Glucose 108 H (74-99) mg/dL Calcium 8.2 L (8.4-10.2) mg/dL Total Bilirubin 1.5 H (0.2-1.3) mg/dL Total Protein 5.0 L (6.3-8.2) g/dL Albumin 2.2 L (3.5-5.0) g/dL 01/14/20 Range/Units 04:25 WBC (3.8-10.6) k/uL RBC 3.67 L (4.30-5.90) m/uL Hgb 11.3 L (13.0-17.5) gm/dL Hct 35.2 L (39.0-53.0) % Neutrophils # (1.3-7.7) k/uL Lymphocytes # (1.0-4.8) k/uL APTT (22.0-30.0) sec Chloride (98-107) mmol/L Carbon Dioxide (22-30) mmol/L BUN (9-20) mg/dL Creatinine (0.66-1.25) mg/dL Glucose (74-99) mg/dL Calcium (8.4-10.2) mg/dL Total Bilirubin (0.2-1.3) mg/dL Total Protein (6.3-8.2) g/dL Albumin (3.5-5.0) g/dL Microbiology - Last 24 Hours (Table) 01/09/20 16:40 Blood Culture Gram Stain - Final Blood Blood Culture - Final Staphylococcus aureus 01/11/20 23:35 Urine Culture - Final Urine,Voided <BouttHayden - Last Filed: 01/14/20 16:49> Subjective As above. Patient doing better. Shortness of breath definitely improved. Urinary culture negative. Continue to monitor hemoglobin once anticoagulation resumes. Objective - Vital Signs Vital signs: Vital Signs Temp 98.1 F 01/14/20 16:00 Pulse 128 H 01/14/20 16:00 Resp 39 H 01/14/20 16:00 BP 112/65 01/14/20 16:00 Pulse Ox 97 01/14/20 16:00 Intake & Output 01/13/20 01/14/20 01/14/20 18:59 06:59 18:59 Intake Total 884.845 950 230 Output Total 2170 945 2780 Balance -1285.155 5 -2550 Intake: IV 750 600 230 Sodium Chloride 0.9% 1, 750 600 180 000 ml @ 50 mls/hr IV . Q20H [facility] Rx#:[id number] cefTRIAXone 1 gm In 50 Sodium Chloride 0.9% 50 ml @ 100 mls/hr IVPB Q24H [facility] Rx#:[id number] Intake, IV Titration 134.845 250 Amount Heparin Sod,Pork in 0.45% 134.845 NaCl 25,000 unit In 0.45 % NaCl 1 250ml.bag @ 11. 75 UNITS/KG/HR 9.999 mls/ hr IV .Q24H [facility] Rx#: [id number] Vancomycin 1,500 mg In 250 Sodium Chloride 0.9% 250 ml @ 125 mls/hr IVPB Q16H [facility] Rx#:[id number] Oral 100 Output: Urine 2170 945 2780 Other: Voiding Method Urinal Indwelling Catheter Indwelling Catheter # Voids 1 1 - Labs CBC & Chem 7: 01/14/20 04:25 01/14/20 04:25 Labs: Abnormal Lab Results - Last 24 Hours (Table) 01/13/20 01/14/20 01/14/20 Range/Units 16:20 04:25 04:25 RBC 3.67 L (4.30-5.90) m/uL Hgb 11.3 L (13.0-17.5) gm/dL Hct 35.2 L (39.0-53.0) % APTT 44.4 H (22.0-30.0) sec Chloride 115 H (98-107) mmol/L Carbon Dioxide 18 L (22-30) mmol/L BUN 46 H (9-20) mg/dL Creatinine 1.28 H (0.66-1.25) mg/dL Glucose 108 H (74-99) mg/dL Calcium 8.2 L (8.4-10.2) mg/dL Total Bilirubin 1.5 H (0.2-1.3) mg/dL Total Protein 5.0 L (6.3-8.2) g/dL Albumin 2.2 L (3.5-5.0) g/dL Microbiology - Last 24 Hours (Table) 01/09/20 16:40 Blood Culture Gram Stain - Final Blood Blood Culture - Final Staphylococcus aureus Assessment and Plan (1) Left flank pain Current Visit: Yes Status: Acute Code(s): R10.9 - UNSPECIFIED ABDOMINAL PAIN SNOMED Code(s): 471425523
[2020-01-14] MEDS: SODIUM CHLORIDE 0.9% 1,000 ML IV SCH (12:03)
--- NOTE | 2020-01-14 19:27 | PN ---
PROGRESS NOTE DATE OF SERVICE: 01/14/2020 REASON FOR FOLLOWUP: MSSA bacteremia, concern for pneumonia. INTERVAL HISTORY: The patient is currently afebrile. The patient is breathing more comfortably. The patient denies having any chest pain. Some cough but not bringing up sputum. No nausea, no vomiting. No abdominal pain or diarrhea. PHYSICAL EXAMINATION: Blood pressure is 112/65 with a pulse of 128. Temperature 98.1. He is 97% on 2 L nasal cannula. General description: The patient is an elderly male lying in bed in no distress. Respiratory system: Unlabored breathing. Clear to auscultation anteriorly. HEART S1, S2. Regular rate and rhythm. ABDOMEN: Soft, no tenderness. LABS: Hemoglobin 11.3, white count 9.5, creatinine 1.28. DIAGNOSTIC IMPRESSION AND PLAN: Patient admitted to the hospital with fever and respiratory symptoms with concern for pneumonia. Did have blood culture that has been finalized with MSSA. Antibiotic was switched over to cefazolin 2 grams q.8 hours. Blood culture repeated this morning. Will repeat tomorrow to document clearance of his bacteremia and continue supportive care. MMODL / IJN: [id number] /
[2020-01-14] MEDS ORDERED: FUROSEMIDE 10 MG/ML 4 ML VIAL IV SCH (20:00)
[2020-01-14] MEDS: APIXABAN 5 MG TAB PO SCH (20:03)
[2020-01-15] MEDS ORDERED: VANCOMYCIN TROUGH DUE 1 EACH MISC MISCELLANE ONE (05:00)
[2020-01-15 05:26] LABS: Hypochromasia Slight; MCH 29.7 pg (25.0-35.0); MCHC 31.4 g/dL (31.0-37.0); MCV 94.5 fL (80.0-100.0); Mean Platelet Volume 7.7; Platelet Count 298 k/uL (150-450); RBC 3.71 m/uL (4.30-5.90); WBC 12.4 k/uL (3.8-10.6)
[2020-01-15 05:37] LABS: Calcium 8.2 mg/dL (8.4-10.2); Potassium 3.7 mmol/L (3.5-5.1)
[2020-01-15] MEDS ORDERED: Potassium Replacement Protocol 1 EACH MISC MISCELLANE PRN (06:11)
--- NOTE | 2020-01-15 07:36 | XR ---
EXAMINATION TYPE: XR chest 1V portable DATE OF EXAM: 01/15/2020 HISTORY: Shortness of breath. COMPARISON: 01/14/2020 TECHNIQUE: Single view of the chest is submitted. FINDINGS: Demonstrated are scattered senescent parenchymal change. Patchy infiltrates persist at the lung bases left greater than right without significant change. Luis elate for pneumonia. The heart is stable. Hilar and mediastinal structures are within normal limits. Degenerative changes are seen of the dorsal spine. IMPRESSION: 1. Patchy infiltrates persist at the lung bases left greater than right without significant change. Correlate for pneumonia.
[2020-01-15] MEDS: IPRATROPIUM-ALBUTEROL 3 ML NEB INHALATION SCH (07:37)
[2020-01-15] MEDS ORDERED: POTASSIUM CHLORIDE ER 20 MEQ TAB.ER PO SCH (08:00)
[2020-01-15] MEDS: FUROSEMIDE 40 MG TAB PO SCH ×2 (08:18→15:50)
[2020-01-15] MEDS: PANTOPRAZOLE 40 MG TABLET PO SCH (08:18)
[2020-01-15] MEDS: METOPROLOL TARTRATE 50 MG TAB PO SCH ×3 (08:18→21:04)
[2020-01-15] MEDS: SODIUM CHLORIDE 0.9% 1,000 ML IV SCH (08:19)
[2020-01-15] MEDS: TAMSULOSIN 0.4 MG CAP.ER.24H PO SCH (08:19)
[2020-01-15] MEDS: APIXABAN 5 MG TAB PO SCH ×2 (08:19→21:04)
[2020-01-15] MEDS: CHOLECALCIFEROL 1,000 UNIT TAB PO SCH (08:19)
[2020-01-15] MEDS: DILTIAZEM ORAL 60 MG TAB PO SCH ×3 (08:20→21:05)
--- NOTE | 2020-01-15 09:02 | P.PN ---
Subjective Progress Note Date: 01/15/20 Principal diagnosis: Gram-positive bacteremia, sepsis, bilateral cavitary lung nodules and pneumonia, A. fib with RVR This is a pleasant 79-year-old gentleman who follows with Dr. Harley as his primary care provider. He has a history of osteoarthritis, osteoporosis with prior history of L1 compression fracture, vitamin D deficiency, enlarged prostate, remote history of tobacco dependence for approximately 10 years but quit 60 years ago. Daily alcohol use. On 01/18/2020 the patient had gotten up from bed and headed to the bathroom when his right knee gave out and he fell to the ground. He was unable to get himself up. His daughter called and the patient had not answered and she went to check on him yesterday, found him on the floor and EMS was called. Approximately 16 hours of down time. He was found to be febrile with presenting temperature of 102.9. Computed tomography scan of the chest revealed extensive peripheral bilateral noncalcified pulmonary nodular infiltrates. Neoplastic versus inflammatory disease. There is a 2.5 cm cavitating lesion in the lateral aspect of the left upper lobe. The largest of the peripheral nodules is 2 cm. The patient is seen today in consultation on the selective care unit. He is currently sitting up in a chair. Awake and alert in no acute distress. Currently afebrile. Sinus tachycardia with frequent PACs, possible paroxysmal atrial fibrillation. Echocardiogram reveals preserved left ventricular systolic function with ejection fraction 50-55%. CAT scan of the abdomen and pelvis revealed edema about the right kidney extending to the right renal sinus with possible polynephritis. Confluent edema and fluid extends down the right retroperitoneum cannot exclude retroperitoneal bleed. Confluent small effusions with extensive peripheral opacities. Interstitial pneumonitis and atypical pneumonias are within the differential. There is a 4.7 cm ascending aortic aneurysm. CoVID 19 screening pending. Blood cultures pending. White count 12.1. Hemoglobin 13.0. Platelet count 104. Lymphocytes 0.48. Sodium 131. Potassium 4.2. Bicarb 19. Creatinine 1.18. Glucose 164. CK 867. Troponin 0.025. ProBNP 1910. He has been initiated on ceftriaxone, vancomycin and azithromycin. Cardizem drip at 5 mg per hour. Heparin drip. Patient was reevaluated today on 01/11/20, patient developed worsening shortness of breath overnight, wheezing, and worsening atrial fibrillation with RVR, hence he was transferred to the intensive care unit. Feeling better at present, however he is on 3 L nasal cannula, and O2 saturation is 94%. He is also on Cardizem at 5 mg per hour, IV fluid increased to 1 50 mL per hour. His blood cultures came back positive for gram-positive cocci in clusters, and the patient received vancomycin since admission he remains on vancomycin. He was already seen by infectious disease on consultation. Cardiology is evaluating the patient, his initial echocardiogram was nondiagnostic, patient may require transesophageal echocardiography. CPK was noted to be a bit elevated today, hence I increased his IV fluid. Patient is in atrial fibrillation with RVR, rate is 138 beats per minutes. Primary source of his bacteremia could very well be from the lungs, although the possibility of urinary tract infection and endocarditis is not entirely ruled out. But felt to be less likely. WBC count today is 14 hemoglobin is 12.6. Electrodes are normal, BUN is 58 creatinine is 1.62, worsening compared to yesterday. CPK was also noted to be elevated, pro- calcitonin was quite high 7.12. Patient was reevaluated today on 01/12/20, remains in the ICU, remains in atrial fibrillation, but rate seems to be better controlled. Remains on Cardizem drip at 5 mg per hour, IV fluid is 125 mL per hour. Remains on vancomycin for his gram-positive bacteremia. Chest x-ray continues to show left lower lobe infiltrate. Abdominal film showed dilated bowel loops, however the patient had no clinical symptoms to suggest bowel obstruction. Patient is also on Lopressor and on Eliquis twice a day. We plan to keep him in the ICU for the next 24 hours, and if he remains stable will transfer out of the ICU to a monitor bed on selective. CBC showed evidence of 12.8 hemoglobin is 11.7 electrodes are normal bicarb is a bit low at 18. Renal profile is improving. Is down to 55 creatinin e is down to 1.39. CPK is down to 422 from 1067 yesterday Patient was reevaluated today on 01/13/20, remains in the ICU, remains in atrial fibrillation with RVR. This is being addressed by cardiology. Patient remains on IV fluid at 50 mL/h remains on oxygen at 2 L/m. Patient is off Cardizem drip , and his Lopressor was increased. His renal functioning is improving. Patient was given a dose of Lasix 20 mg IV push 1 today after reviewing his chest x-ray which is suggestive of mild interstitial edema, and I strongly suspect the left lower lobe pneumonia. Final report on the blood cultures remains pending, but the patient did have positive cocci in clusters and his blood cultures. And I believe the most likely source is his left lower lobe pneumonia. On 01/14/2020 patient seen in follow-up in intensive care unit, he is calm and comfortable, sitting up in the recliner, eating breakfast, appetite is good, patient has eaten all of his food on the tray. Tolerating regular diet, denies any difficulty breathing. His heparin infusion is on hold related to hematuria, and urinary retention with subsequent placement of Davalos catheter, currently patient has a Davalos catheter in place and his hematuria seems to have resolved, patient is producing yellow clear urine today, today's hemoglobin is 11.3, white count is 9.5, patient has been afebrile, he is on 2 L of oxygen and pulse ox of 95%. Remains in atrial fibrillation with a controlled rate in the 120-160 BPM, cardiology is following and managing rate control medications. Currently patient is on oral Cardizem and the dose was increased to 60 mg 3 times daily, and oral metoprolol and 50 mg 3 times daily. Patient was given a dose of IV Lasix yesterday, he is in -1.2 L over the last 24 hours, and was started on maintenance dose of IV Lasix 40 mg every 12 hours. Patient is on Zithromax and Rocephin. Patient is on Rocephin and Zithromax and vancomycin, for blood culture positive for MSSA. We'll discontinue vancomycin. Urine culture was negative. Today's chest x-ray shows hypoventilatory changes, and persistent interstitial infiltrate throughout and more confluent patchy left basilar and peripheral left lung densities. On 01/15/2020 patient seen in follow-up in intensive care unit, he is awake and alert, oriented 3, he sitting up in the recliner, in no acute distress, currently on 3 L of oxygen the pulse ox of 96%, remains in atrial fibrillation, and his rate is better controlled compared to yesterday's exam, and is currently at 102 - 116 BPM. Afebrile. Hemodynamically stable, no worsening dyspnea, lung sounds revealed inspiratory crackles in the left base, clear right lung. Currently on point and was saline at a rate of 10 ML per hour, no other drips. Patient is on Cardizem at 60 mg orally 3 times a day in addition to metoprolol 50 mg 3 times daily cardiology is following, he is on oral dose of Lasix at 40 mg twice daily. 2 -4.5 L over last 24 hours, has mild swelling of lower extremities, knee-high VÍCTOR hose are applied. Today's labs have been reviewed showing white blood cell, 12.4, hemoglobin of 11, sodium is 138, potassium 3.7, chloride is 111, CO2 is 22, BUN is 44, and creatinine is 1.33. Patient is tolerating oral diet. Specific complaints, other than left lateral chest discomfort with coughing. Follow blood cultures have been negative, urine culture showed no growth, single blood culture from 01/09/2020 showed MSSA. he is currently on Kefzol for antibiotic coverage, oral anticoagulation was started in the form of Eliquis 5 mg twice a day. Objective - Vital Signs Vital signs: Vital Signs Temp 98.3 F 01/15/20 08:00 Pulse 124 H 01/15/20 08:00 Resp 22 01/15/20 08:00 BP 121/81 01/15/20 08:00 Pulse Ox 96 01/15/20 08:00 Intake & Output 01/14/20 01/15/20 01/15/20 18:59 06:59 18:59 Intake Total 250 110 20 Output Total 3130 1790 325 Balance -2880 -1680 -305 Weight 87.1 kg Intake: IV 250 110 20 Sodium Chloride 0.9% 1, 200 110 20 000 ml @ 50 mls/hr IV . Q20H [facility] Rx#:[id number] cefTRIAXone 1 gm In 50 Sodium Chloride 0.9% 50 ml @ 100 mls/hr IVPB Q24H [facility] Rx#:[id number] Output: Urine 3130 1790 325 Other: Voiding Method Indwelling Catheter Indwelling Catheter # Voids 1 - Exam GENERAL EXAM: Alert, very pleasant, 79-year-old white male, on 2 L of oxygen a pulse ox of 96% comfortable in no apparent distress. HEAD: Normocephalic/atraumatic. EYES: Normal reaction of pupils, equal size. Conjunctiva pink, sclera white. NOSE: Clear with pink turbinates. THROAT: No erythema or exudates. NECK: No masses, no JVD, no thyroid enlargement, no adenopathy. CHEST: No chest wall deformity. Symmetrical expansion. LUNGS: Equal air entry with inspiratory crackles over left lower and left mid lung CVS: Irregular rate and rhythm she remains in atrial fibrillation with a controlled rate currently at a rate of 116 BPM, normal S1 and S2, no gallops, no murmurs, no rubs ABDOMEN: Soft, nontender. No hepatosplenomegaly, normal bowel sounds, no guarding or rigidity. EXTREMITIES: No clubbing, mild 1+ edema in bilateral lower extremities, knee- high VÍCTOR hose on bilateral lower extremity no cyanosis, 2+ pulses and upper and lower extremities. MUSCULOSKELETAL: Muscle strength and tone normal. SPINE: No scoliosis or deformity SKIN: No rashes CENTRAL NERVOUS SYSTEM: Alert and oriented -3. No focal deficits, tone is normal in all 4 extremities. PSYCHIATRIC: Alert and oriented -3. Appropriate affect. Intact judgment and insight. - Labs CBC & Chem 7: 01/15/20 04:42 01/15/20 04:42 Labs: Abnormal Lab Results - Last 24 Hours (Table) 01/15/20 01/15/20 Range/Units 04:42 04:42 WBC 12.4 H (3.8-10.6) k/uL RBC 3.71 L (4.30-5.90) m/uL Hgb 11.0 L (13.0-17.5) gm/dL Hct 35.0 L (39.0-53.0) % Chloride 111 H (98-107) mmol/L BUN 44 H (9-20) mg/dL Creatinine 1.33 H (0.66-1.25) mg/dL Glucose 121 H (74-99) mg/dL Calcium 8.2 L (8.4-10.2) mg/dL Microbiology - Last 24 Hours (Table) 01/14/20 04:25 Blood Culture Gram Stain - Preliminary Blood 01/14/20 04:25 Blood Culture - Final Blood 01/09/20 16:40 Blood Culture Gram Stain - Final Blood Blood Culture - Final Staphylococcus aureus Assessment and Plan Plan: Assessment: #1. Acute MSSA bacteremia possibly related to pneumonia #2. Acute gram-positive pneumonia with sepsis likely related to staph aureus #3. Atrial fibrillation with RVR #4. Acute rhabdomyolysis and acute kidney injury, improving #5. Degenerative joint disease #6. Bilateral peripheral pulmonary nodules, some are cavitary in nature and need to be monitored and followed closely, with a plan to repeat CT of the chest in the next few weeks #7. Acute L1 fracture secondary to a fall #8. Acute kidney injury related to sepsis and bacteremia and acute rhabdomyolysis, improving #9. Acute retroperitoneal bleed, status post fall, heparin is on hold #10. Hematuria, resolved, heparin remains on hold #11. Urinary retention requiring placement of urinary catheter #12. 4.7 ascending aortic aneurysm, will be followed every 6 months #13. Osteoarthritis Plan: Continue current medical treatment, continue oral diuretics, patient is in negative fluid balance, dyspnea, wean FiO2, remains in A. fib but his rate is better controlled, oral anticoagulation was started. No fever or chills, hemodynamically stable, no specific complaints, no acute events overnight, stable for transfer out of the intensive care unit to [facility] care today. I performed a history & physical examination of the patient and discussed their management with my nurse practitioner, Araceli Alexandra. I reviewed the nurse practitioner's note and agree with the documented findings and plan of care. Lung sounds are positive for diminished breath sounds with left lung inspiratory crackles. The findings and the impression was discussed with the patient. I attest to the documentation by the nurse practitioner. Time with Patient: Less than 30
--- NOTE | 2020-01-15 09:56 | PN ---
PROGRESS NOTE Mr. Kinsey is a 79-year-old male who presented after a fall and rhabdomyolysis. Then went in atrial fibrillation with rapid ventricular response. He had episode of hematuria that resolved. He has been started on anticoagulation of Eliquis. He is feeling better overall, his breathing is stable. He denies any chest pain. No dizziness or palpitation. He denies any nausea. His ventricular response has been under good control overall and he continues to be on aspirin once a day, Eliquis 5 mg twice a day that was started yesterday, diltiazem 60 mg 3 times a day, Lasix 40 mg IV q.12 hours, metoprolol tartrate 50 mg 3 times a day, potassium supplementation. PHYSICAL EXAMINATION: Blood pressure 129/80 with a heart rate in 90s. LUNGS: A few crackles at the bases. HEART: Irregular, regular, S1, S2. No S3 with systolic ejection murmur, no diastolic murmur, no rub. ABDOMEN: Soft, nontender. EXTREMITIES: +1 edema. LAB DATA: Revealed a BUN and creatinine 44 and 1.33, potassium 3.7, hemoglobin of 11. IMPRESSION: 1. Atrial fibrillation with overall preserved systolic function. Anticoagulation has been started. 2. Rhabdomyolysis, resolved. 3. Acute renal injury. 4. Hematuria, resolved. 5. Recent fall with no syncope. RECOMMENDATION: I will switch to oral diuretic at this time because of the renal function. Increase his level activity. If he remains stable, I would expect he should be able to be discharged home in the next 24 to 48 hours and with close followup of his renal function. MMODL / IJN: [id number] /
--- NOTE | 2020-01-15 09:57 | P.PN ---
<Amanda Cantu - Last Filed: 01/15/20 09:54> Subjective Progress Note Date: 01/15/20 CHIEF COMPLAINT: Possible retroperitoneal bleed HISTORY OF PRESENT ILLNESS: Patient examined this morning in the ICU. He is sitting up in the chair. Denies abdominal pain. No further hematuria. Patient has been started on Eliquis. Hemoglobin 11.0. WBC 12.4. Afebrile. PHYSICAL EXAM: VITAL SIGNS: Reviewed. GENERAL: Well-developed in no acute distress. HEENT: No sclera icterus. Extraocular movements grossly intact. Moist buccal mucosa. Head is atraumatic, normocephalic. ABDOMEN: Soft. Nondistended. Nontender. NEUROLOGIC: Alert and oriented. Cranial nerves II through XII grossly intact. ASSESSMENT: 1. Fall 2. Possible retroperitoneal bleed PLAN: Diet as tolerated Patient has been started on Eliquis. Continue to monitor hemoglobin Nurse practitioner note has been reviewed by physician. Signing provider agrees with the documented findings, assessment, and plan of care. Objective - Vital Signs Vital signs: Vital Signs Temp 98.3 F 01/15/20 08:00 Pulse 124 H 01/15/20 08:00 Resp 22 01/15/20 08:00 BP 121/81 01/15/20 08:00 Pulse Ox 96 01/15/20 08:00 Intake & Output 01/14/20 01/15/20 01/15/20 18:59 06:59 18:59 Intake Total 250 110 20 Output Total 3130 1790 325 Balance -2880 -1680 -305 Weight 87.1 kg Intake: IV 250 110 20 Sodium Chloride 0.9% 1, 200 110 20 000 ml @ 50 mls/hr IV . Q20H [facility] Rx#:[id number] cefTRIAXone 1 gm In 50 Sodium Chloride 0.9% 50 ml @ 100 mls/hr IVPB Q24H [facility] Rx#:[id number] Output: Urine 3130 1790 325 Other: Voiding Method Indwelling Catheter Indwelling Catheter # Voids 1 - Labs CBC & Chem 7: 01/15/20 04:42 01/15/20 04:42 Labs: Abnormal Lab Results - Last 24 Hours (Table) 01/15/20 01/15/20 Range/Units 04:42 04:42 WBC 12.4 H (3.8-10.6) k/uL RBC 3.71 L (4.30-5.90) m/uL Hgb 11.0 L (13.0-17.5) gm/dL Hct 35.0 L (39.0-53.0) % Chloride 111 H (98-107) mmol/L BUN 44 H (9-20) mg/dL Creatinine 1.33 H (0.66-1.25) mg/dL Glucose 121 H (74-99) mg/dL Calcium 8.2 L (8.4-10.2) mg/dL Microbiology - Last 24 Hours (Table) 01/14/20 04:25 Blood Culture Gram Stain - Preliminary Blood 01/14/20 04:25 Blood Culture - Final Blood 01/09/20 16:40 Blood Culture Gram Stain - Final Blood Blood Culture - Final Staphylococcus aureus <Hayden Sky - Last Filed: 01/15/20 20:49> Subjective As above. Patient doing well. Hemoglobin stable. Possible transfer to rehab. Objective - Vital Signs Vital signs: Vital Signs Temp 98.1 F 01/15/20 16:00 Pulse 84 01/15/20 18:00 Resp 22 01/15/20 18:00 BP 103/72 01/15/20 18:00 Pulse Ox 96 01/15/20 19:55 Intake & Output 01/15/20 01/15/20 01/16/20 06:59 18:59 06:59 Intake Total 110 40 Output Total 1789 2064 Balance -1679 Weight 87.1 kg 87.1 kg Intake: IV 110 40 Sodium Chloride 0.9% 1, 110 40 000 ml @ 50 mls/hr IV . Q20H [facility] Rx#:[id number] Output: Urine 1789 2064 Other: Voiding Method Indwelling Catheter Indwelling Catheter - Labs CBC & Chem 7: 01/15/20 04:42 01/15/20 04:42 Labs: Abnormal Lab Results - Last 24 Hours (Table) 01/15/20 01/15/20 Range/Units 04:42 04:42 WBC 12.4 H (3.8-10.6) k/uL RBC 3.71 L (4.30-5.90) m/uL Hgb 11.0 L (13.0-17.5) gm/dL Hct 35.0 L (39.0-53.0) % Chloride 111 H (98-107) mmol/L BUN 44 H (9-20) mg/dL Creatinine 1.33 H (0.66-1.25) mg/dL Glucose 121 H (74-99) mg/dL Calcium 8.2 L (8.4-10.2) mg/dL Microbiology - Last 24 Hours (Table) 01/14/20 04:25 Blood Culture Gram Stain - Preliminary Blood Blood Culture - Preliminary Staphylococcus aureus 01/14/20 04:25 Blood Culture - Final Blood Assessment and Plan (1) Left flank pain Current Visit: Yes Status: Acute Code(s): R10.9 - UNSPECIFIED ABDOMINAL PAIN SNOMED Code(s): 905290746
--- NOTE | 2020-01-15 13:09 | P.PN ---
Subjective Progress Note Date: 01/15/20 This is a 79-year-old male one of my patient with a previous medical history significant for osteoporosis, osteoporosis with prior history of L1 compression fracture, vitamin D deficiency, history of enlarged prostate, patient was in his usual state of health until about 2 days ago when he felt a bit sick to stomach episode of nausea and vomiting he was not drinking enough water at that time, patient woke up the yesterday morning at around 12 midnight to go to have a drink of water before he goes to the bathroom he ended up falling on the floor after his right knee gave out and the patient landed on the floor for at least 17 hours until his daughter hold him and he did not answer so she came to the house and she found him laying on the floor EMS was called and the patient was brought into the ER at [facility] and brought to the hospital EMS personnel thought the patient was in atrial fibrillation, upon arrival to the ER his initial EKG showed sinus tachycardia with PAC and PVCs without any evidence of atrial fibrillation, patient lactic acid was elevated at 4.7, he was given IV fluid resuscitation, he had a chest x-ray that did not show much ended up going for computed tomography scan of the chest that showed multiple bilateral peripheral pulmonary infiltrate with left 2.5 cm cavitary lesion in the left upper lobe, patient was started on IV antibiotic in the form of Zithromax, Rocephin, and vancomycin, pulmonary consultation was obtained from , as well as cardiology consultation because of his ectopy. 01/10: Yesterday, patient developed evidence of atrial fibrillation and consult with Dr. Hdz was requested. Patient was started on Cardizem drip and heparin drip. Echocardiogram revealed EF of 50-55%, mild to moderate aortic regurgitation, mild tricuspid regurgitation, moderate pulmonary hypertension. CAT scan of the abdomen and pelvis was obtained which revealed asymmetrical perinephric stranding and edema in the right kidney, correlated to exclude pyelonephritis. Continue fluid edema and fluid in the right retroperitoneum. Unclear if this is arising from the right kidney. Correlate for any relevant history that could predispose the patient to retroperitoneal bleed. The fluid is not high-density would be seen in acute hemorrhage. Tortuous right common and external iliac artery which courses through this tracking fluid. Tiny hiata l hernia and mild circumferential wall thickening of the distal esophagus. Correlate to exclude esophagitis. Continue small effusions with extensive peripheral opacities. Interstitial pneumonitis and atypical pneumonias including COVID-19 pneumonia in the differentials. Incidental finding of a 70 aortic aneurysm 4.7 cm. Consult was obtained with Dr. Sky and he is not convinced retro-peritoneal bleed. Heparin drip will remain on hold. Repeat chest x-ray revealed mild cardiomegaly and continued interstitial density. Correlate to exclude pulmonary vascular congestion. Increasing patchy airspace disease in the left mid and lower lung could represent developing confluent pulmonary edema versus pneumonia. Patient has been seen and followed by Dr. Monk. Patient was also seen by Dr. Romero and continued on vancomycin and Rocephin for possible gram-positive bacteremia as well as azithromycin. Initial blood culture has not been finalized. 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 He denies any chest pain, shortness of breath or dizziness. No palpitations. Cardiology is increasing Lopressor to 50 mg twice daily and Lasix on hold due to worsening renal function. Anticoagulation remains on hold due to possibility of retroperitoneal bleed. Patient has been afebrile since admission. Blood pressure currently 122/74, pulse ox 98% on 3 L nasal cannula. Repeat blood work reveals WBC 14, hemoglobin 12.6, platelet count 121. Sodium 136, potassium 4.3, chloride 108, CO2 21, BUN 58 and creatinine 1.62. Blood sugar 123. CK is 1026. TSH 0.8-9. Coronavirus not detected. 01/11: Patient sitting up in bed in no apparent distress he denies any chest pain is less short of breath today he denies any abdominal pain, he continues to be in atrial fibrillation his heart rate is better he remains on Cardizem drip at 5 mg hour his Lopressor was increased we will start the patient on Eliquis 5 mg orally twice every day, he would be kept in the ICU for another 24 hours, then he will be transferred to the cardiac telemetry unit. 01/12: Patient is sitting up in his recliner today he is in a positive fluid balance he did receive 20 mg Lasix IV push he continues to be in atrial fibrillation with somewhat fast ventricular response, he was seen earlier by cardiology and pulmonary medicine and spoke with his daughter done and I gave her an updated about his current situation he needs to stay in the ICU, until he goes into neutral fluid balance, he needs additional dose of Lasix we will give him another 20 mg Lasix IV push and continue to monitor his weight and fluid balance. Patient denies any chest pain he continues to have some coughing and minimal phlegm production he appears to be tachypneic, he denies any abdominal pain that he has no nausea or vomiting he seems to be tolerating his treatment very well, he was switched to heparin drip as opposed to Eliquis for few days and he would be monitored. 01/13: Patient remains in intensive care unit. Patient continues to be in atrial fibrillation with RVR running up to the 140s this morning. Patient denies any chest pain, dizziness, palpitations. No nausea or vomiting. No bowel movem ents. No fever or chills. Dr. Hdz has adjusted his Cardizem dose to 60 mg 3 times daily. He is also recommending oral anticoagulation once cleared by urology. Patient has been seen by Dr. Batres with recommendations to keep Davalos for 7 days, start Flomax. Gross hematuria most likely secondary to retention and okay to resume anticoagulation. Repeat chest x-ray reveals hypoventilatory changes. Persistent interstitial infiltrates of the Route and similar confluent left basilar and peripheral left lung airspace disease. One dose of IV Lasix 40mg ordered this morning and continue every 12 hours. BUN 46, creatinine 1.28, potassium 4.3. Hemoglobin 11.3. Initial blood culture has been finalized as MSSA. Patient is currently on ceftriaxone and vancomycin followed by Dr. Romero. 01/14: Patient remains in intensive care unit. He is seen today sitting in recliner and appears to be comfortable. caseworker intake remains in atrial fibrillation and rate in the 120s bpm. He has been otherwise hemodynamically stable. WBC 12.4, hemoglobin 11, sodium 138, potassium 3.7, chloride 111, CO2 22, BUN 44, creatinine 1.33. Dr. Romero has transitioned antibiotics to kefzol. Repeat blood culture revealed gram-positive cocci in groups. Patient was started on Eliquis yesterday. No further hematuria. Repeat chest x-ray reveals patchy infiltrates persist at the lung bases left greater than right without significant change. Correlate for pneumonia. Discharge plan to [facility]. Objective - Vital Signs Vital signs: Vital Signs Temp 98.3 F 01/15/20 08:00 Pulse 100 01/15/20 11:00 Resp 18 01/15/20 11:00 BP 130/84 01/15/20 11:00 Pulse Ox 96 01/15/20 11:00 Intake & Output 01/14/20 01/15/20 01/15/20 18:59 06:59 18:59 Intake Total 250 110 40 Output Total 3130 1790 550 Balance -6247 -0702 -753 Weight 87.1 kg Intake: IV 250 110 40 Sodium Chloride 0.9% 1, 200 110 40 000 ml @ 50 mls/hr IV . Q20H FOR[facility]LY [facility], 1928–1983 Rx#:[id number] cefTRIAXone 1 gm In 50 Sodium Chloride 0.9% 50 ml @ 100 mls/hr IVPB Q24H [facility], [facility]–1983 Rx#:[id number] Output: Urine 3130 1790 550 Other: Voiding Method Indwelling Catheter Indwelling Catheter Indwelling Catheter # Voids 1 - Exam Review of Systems Constitutional: Reports weakness, Denies chronic headaches, Denies fatigue, Denies lethargy Eyes: denies blurred vision, denies bulging eye, denies decreased vision Ears: bilateral: decreased hearing Ears, nose, mouth and throat: Denies dysphagia, Denies neck lump, Denies sore throat Cardiovascular: Reports rapid heart beat, Denies chest pain, Denies decreased exercise tolerance, Denies lightheadedness, Denies shortness of breath, Denies syncope Respiratory: Denies congestion, Denies cough with sputum, Denies home oxygen, Denies sleep apnea, Denies snoring, Denies wheezing Gastrointestinal: Reports abdominal pain, Reports nausea, Reports vomiting, Denies bloating, Denies change in bowel habits, Denies coffee ground emesis, Denies excessive gas, Denies heartburn, Denies hematemesis, Denies melena Genitourinary: Denies dysuria, Denies incontinence, reports hematuriaresolving Musculoskeletal: Reports frequent falls, Reports gait dysfunction Musculoskeletal: right: shoulder pain, shoulder stiffness, absent: ankle pain, ankle stiffness, ankle swelling, elbow pain, elbow stiffness, elbow swelling, foot pain, foot stiffness, foot swelling, hand pain, hand stiffness, hand swelling, hip pain, hip stiffness, hip swelling, knee pain, knee swelling, shoulder swelling, wrist pain, wrist stiffness, wrist swelling Integumentary: Denies pruritus, Denies rash Neurological: Denies numbness, Denies weakness Psychiatric: Denies anxiety, Denies depression HEENT: Head is atraumatic, normocephalic, pupils were equal round reactive to light and recommendation, extraocular muscle movement were intact. Neck: Supple, no JVD, no carotid bruit. Chest: Decreased breath sounds at the bases, few rhonchi, no expiratory wheezes, minimal chest wall tenderness and the left lower ribs, no intercostal retractions. No sensory muscle usage. Heart: First heart sound is depressed, second heart sound is normal, irregular, there is systolic ejection murmur 2/6. Sternal border. Abdomen: Soft, distended, moderate tenderness in the left upper quadrant , as well as right upper quadrant, depressed bowel sounds. Extremities: Trace edema, no calf tenderness, dorsalis pedis +1 bilaterally. Neurologic examination: Patient is awake alert and oriented 3, cranial nerves I II through XII appear grossly intact, no significant weakness in both lower extremities and the patient is not able to move both lower extremities, deep tendon reflexes were depressed bilaterally, Babinski's were flexor bilaterally. - Labs CBC & Chem 7: 01/15/20 04:42 01/15/20 04:42 Labs: Abnormal Lab Results - Last 24 Hours (Table) 01/15/20 01/15/20 Range/Units 04:42 04:42 WBC 12.4 H (3.8-10.6) k/uL RBC 3.71 L (4.30-5.90) m/uL Hgb 11.0 L (13.0-17.5) gm/dL Hct 35.0 L (39.0-53.0) % Chloride 111 H (98-107) mmol/L BUN 44 H (9-20) mg/dL Creatinine 1.33 H (0.66-1.25) mg/dL Glucose 121 H (74-99) mg/dL Calcium 8.2 L (8.4-10.2) mg/dL Microbiology - Last 24 Hours (Table) 01/14/20 04:25 Blood Culture Gram Stain - Preliminary Blood 01/14/20 04:25 Blood Culture - Final Blood 01/09/20 16:40 Blood Culture Gram Stain - Final Blood Blood Culture - Final Staphylococcus aureus Assessment and Plan Assessment: 1. Acute hypoxemic respiratory failure secondary to acute diastolic heart failure due to atrial fibrillation with rapid ventricular response and possible gram positive pneumonia. Antibiotics transition to, continue oxygen support, continue nebulized treatment. Pulmonary consultation. ID consult appreciated. 2. Bilateral peripheral pulmonary nodules with left cavitary lesions in the left upper lobe 2.5 cm. Continue IV antibiotic in the form of Kefzol. Monitor the patient very closely repeat computed tomography scan in about 4 weeks from now. 3. Mild rhabdomyolysis. Completed IV fluid resuscitation. Discontinue IV fluids. 4. Mild hyponatremia secondary to hypovolemia. Resolved. 5. Acute kidney injury secondary to acute tubular necrosis due to rhabdomyolysis. Resolved. 6. New onset of atrial fibrillation with RVR, paroxysmal atrial fibrillation. Continue Cardizem oral 60 mg 3 times daily, continue metoprolol 50 mg 3 times daily, continue Eliquis 5 mg orally twice every day. 7. MSSA bacteremia. Patient is on Kefzol. We will continue to monitor the patient very closely. 8. Severe sepsis likely due to gram-positive pneumonia. Continue Kefzol. 9. Possible retroperitoneal bleed History of old L1 fracture. After discussing with intensive care and general surgery it does not seems to be an actual bleeding we will monitor very closely. 10. 4.7 cm ascending aortic aneurysm. Patient will continue to have a surveillance computed tomography scan once every 6 months. 11. Lactic acidosis. Continue IV fluid resuscitation, continue IV antibiotic. Repeat lactic acid is better. 12. Osteoarthritis. Stable. 13. Vitamin D deficiency. Continue vitamin D supplements 1000 units once every day. 14. DVT prophylaxis. We will start the patient on Eliquis 5 mg orally twice every day. 15. GI prophylaxis. Continue Protonix 40 mg orally once every day. 16. COVID-19 infection not present. 17. Patient is full code. Discharge plan: [facility] in approximately 48 hours. PT and OT on consult. technical support manager following closely.
--- NOTE | 2020-01-15 15:40 | PN ---
PROGRESS NOTE DATE OF SERVICE: 01/15/2020 REASON FOR FOLLOWUP: Pneumonia with MSSA bacteremia. INTERVAL HISTORY: The patient is currently afebrile, has been breathing comfortably. The patient denies having any chest pain. Occasional cough. No nausea, no vomiting. No abdominal pain or diarrhea. PHYSICAL EXAMINATION: Blood pressure 100/77, pulse of 83, temperature 98.1, he is 92% on room air. General description is an elderly male, up in the chair in no distress. RESPIRATORY SYSTEM: Unlabored breathing with decreased breath sounds at the base. No wheeze. HEART: S1, S2. Regular rate and rhythm. ABDOMEN: Soft, no tenderness. LABS: Hemoglobin 11.1, white count 12.4, creatinine 1.33. Blood cultures of 01/13 positive as well. DIAGNOSTIC IMPRESSION AND PLAN: Patient with MSSA bacteremia with concern for possible pneumonia. However, persistent bacteremia is slightly of concern. Blood culture has been done this morning, positive. Recommend obtaining and echocardiogram to make sure no evidence of any possible abnormality. Continue cefazolin 2 g q.8 hours and monitor clinical course closely. MMODL / IJN: [id number] /
[2020-01-16] MEDS: SODIUM CHLORIDE 0.9% 1,000 ML IV SCH (04:36)
[2020-01-16 04:47] LABS: HCT 33.7 % (39.0-53.0); HGB 10.8 gm/dL (13.0-17.5); MCH 29.9 pg (25.0-35.0); MCHC 32.2 g/dL (31.0-37.0); Mean Platelet Volume 7.3; Platelet Count 368 k/uL (150-450); RBC 3.62 m/uL (4.30-5.90); RDW 12.9 % (11.5-15.5)
[2020-01-16 04:58] LABS: Potassium 3.7 mmol/L (3.5-5.1)
[2020-01-16 05:51] LABS: Band Neutrophils % 2 %; Eosinophils # (M) 0.36 k/uL (0-0.7); Monocytes # (M) 0.72 k/uL (0-1.0); Neutrophils % (M) 79 %; Nucleated Red Blood Cells 0 /100 WBC (0-0); Total Cells Counted 100
[2020-01-16] MEDS: PANTOPRAZOLE 40 MG TABLET PO SCH (06:54)
[2020-01-16] MEDS ORDERED: POTASSIUM CHLORIDE ER 20 MEQ TAB.ER PO SCH (07:00)
[2020-01-16] MEDS: DILTIAZEM ORAL 60 MG TAB PO SCH (07:16)
[2020-01-16] MEDS: METOPROLOL TARTRATE 50 MG TAB PO SCH ×3 (07:16→21:07)
[2020-01-16] MEDS: APIXABAN 5 MG TAB PO SCH ×2 (07:16→21:08)
--- NOTE | 2020-01-16 07:51 | P.PN ---
Subjective Progress Note Date: 01/16/20 Principal diagnosis: Gram-positive bacteremia, sepsis, bilateral cavitary lung nodules and pneumonia, A. fib with RVR This is a pleasant 79-year-old gentleman who follows with Dr. Harley as his primary care provider. He has a history of osteoarthritis, osteoporosis with prior history of L1 compression fracture, vitamin D deficiency, enlarged prostate, remote history of tobacco dependence for approximately 10 years but quit 60 years ago. Daily alcohol use. On 01/18/2020 the patient had gotten up from bed and headed to the bathroom when his right knee gave out and he fell to the ground. He was unable to get himself up. His daughter called and the patient had not answered and she went to check on him yesterday, found him on the floor and EMS was called. Approximately 16 hours of down time. He was found to be febrile with presenting temperature of 102.9. Computed tomography scan of the chest revealed extensive peripheral bilateral noncalcified pulmonary nodular infiltrates. Neoplastic versus inflammatory disease. There is a 2.5 cm cavitating lesion in the lateral aspect of the left upper lobe. The largest of the peripheral nodules is 2 cm. The patient is seen today in consultation on the selective care unit. He is currently sitting up in a chair. Awake and alert in no acute distress. Currently afebrile. Sinus tachycardia with frequent PACs, possible paroxysmal atrial fibrillation. Echocardiogram reveals preserved left ventricular systolic function with ejection fraction 50-55%. CAT scan of the abdomen and pelvis revealed edema about the right kidney extending to the right renal sinus with possible polynephritis. Confluent edema and fluid extends down the right retroperitoneum cannot exclude retroperitoneal bleed. Confluent small effusions with extensive peripheral opacities. Interstitial pneumonitis and atypical pneumonias are within the differential. There is a 4.7 cm ascending aortic aneurysm. CoVID 19 screening pending. Blood cultures pending. White count 12.1. Hemoglobin 13.0. Platelet count 104. Lymphocytes 0.48. Sodium 131. Potassium 4.2. Bicarb 19. Creatinine 1.18. Glucose 164. CK 867. Troponin 0.025. ProBNP 1910. He has been initiated on ceftriaxone, vancomycin and azithromycin. Cardizem drip at 5 mg per hour. Heparin drip. Patient was reevaluated today on 01/11/20, patient developed worsening shortness of breath overnight, wheezing, and worsening atrial fibrillation with RVR, hence he was transferred to the intensive care unit. Feeling better at present, however he is on 3 L nasal cannula, and O2 saturation is 94%. He is also on Cardizem at 5 mg per hour, IV fluid increased to 1 50 mL per hour. His blood cultures came back positive for gram-positive cocci in clusters, and the patient received vancomycin since admission he remains on vancomycin. He was already seen by infectious disease on consultation. Cardiology is evaluating the patient, his initial echocardiogram was nondiagnostic, patient may require transesophageal echocardiography. CPK was noted to be a bit elevated today, hence I increased his IV fluid. Patient is in atrial fibrillation with RVR, rate is 138 beats per minutes. Primary source of his bacteremia could very well be from the lungs, although the possibility of urinary tract infection and endocarditis is not entirely ruled out. But felt to be less likely. WBC count today is 14 hemoglobin is 12.6. Electrodes are normal, BUN is 58 creatinine is 1.62, worsening compared to yesterday. CPK was also noted to be elevated, pro- calcitonin was quite high 7.12. Patient was reevaluated today on 01/12/20, remains in the ICU, remains in atrial fibrillation, but rate seems to be better controlled. Remains on Cardizem drip at 5 mg per hour, IV fluid is 125 mL per hour. Remains on vancomycin for his gram-positive bacteremia. Chest x-ray continues to show left lower lobe infiltrate. Abdominal film showed dilated bowel loops, however the patient had no clinical symptoms to suggest bowel obstruction. Patient is also on Lopressor and on Eliquis twice a day. We plan to keep him in the ICU for the next 24 hours, and if he remains stable will transfer out of the ICU to a monitor bed on selective. CBC showed evidence of 12.8 hemoglobin is 11.7 electrodes are normal bicarb is a bit low at 18. Renal profile is improving. Is down to 55 creatinin e is down to 1.39. CPK is down to 422 from 1067 yesterday Patient was reevaluated today on 01/13/20, remains in the ICU, remains in atrial fibrillation with RVR. This is being addressed by cardiology. Patient remains on IV fluid at 50 mL/h remains on oxygen at 2 L/m. Patient is off Cardizem drip , and his Lopressor was increased. His renal functioning is improving. Patient was given a dose of Lasix 20 mg IV push 1 today after reviewing his chest x-ray which is suggestive of mild interstitial edema, and I strongly suspect the left lower lobe pneumonia. Final report on the blood cultures remains pending, but the patient did have positive cocci in clusters and his blood cultures. And I believe the most likely source is his left lower lobe pneumonia. On 01/14/2020 patient seen in follow-up in intensive care unit, he is calm and comfortable, sitting up in the recliner, eating breakfast, appetite is good, patient has eaten all of his food on the tray. Tolerating regular diet, denies any difficulty breathing. His heparin infusion is on hold related to hematuria, and urinary retention with subsequent placement of Davalos catheter, currently patient has a Davalos catheter in place and his hematuria seems to have resolved, patient is producing yellow clear urine today, today's hemoglobin is 11.3, white count is 9.5, patient has been afebrile, he is on 2 L of oxygen and pulse ox of 95%. Remains in atrial fibrillation with a controlled rate in the 120-160 BPM, cardiology is following and managing rate control medications. Currently patient is on oral Cardizem and the dose was increased to 60 mg 3 times daily, and oral metoprolol and 50 mg 3 times daily. Patient was given a dose of IV Lasix yesterday, he is in -1.2 L over the last 24 hours, and was started on maintenance dose of IV Lasix 40 mg every 12 hours. Patient is on Zithromax and Rocephin. Patient is on Rocephin and Zithromax and vancomycin, for blood culture positive for MSSA. We'll discontinue vancomycin. Urine culture was negative. Today's chest x-ray shows hypoventilatory changes, and persistent interstitial infiltrate throughout and more confluent patchy left basilar and peripheral left lung densities. On 01/15/2020 patient seen in follow-up in intensive care unit, he is awake and alert, oriented 3, he sitting up in the recliner, in no acute distress, currently on 3 L of oxygen the pulse ox of 96%, remains in atrial fibrillation, and his rate is better controlled compared to yesterday's exam, and is currently at 102 - 116 BPM. Afebrile. Hemodynamically stable, no worsening dyspnea, lung sounds revealed inspiratory crackles in the left base, clear right lung. Currently on point and was saline at a rate of 10 ML per hour, no other drips. Patient is on Cardizem at 60 mg orally 3 times a day in addition to metoprolol 50 mg 3 times daily cardiology is following, he is on oral dose of Lasix at 40 mg twice daily. 2 -4.5 L over last 24 hours, has mild swelling of lower extremities, knee-high VÍCTOR hose are applied. Today's labs have been reviewed showing white blood cell, 12.4, hemoglobin of 11, sodium is 138, potassium 3.7, chloride is 111, CO2 is 22, BUN is 44, and creatinine is 1.33. Patient is tolerating oral diet. Specific complaints, other than left lateral chest discomfort with coughing. Follow blood cultures have been negative, urine culture showed no growth, single blood culture from 01/09/2020 showed MSSA. he is currently on Kefzol for antibiotic coverage, oral anticoagulation was started in the form of Eliquis 5 mg twice a day. On 01/16/2020 patient seen in follow-up in the intensive care unit. He is awake and alert, oriented 3, he sitting up in the recliner, eating breakfast. Denies any distress, remains in atrial fibrillation with a rate of 129, patient is due for his morning medications. He is on metoprolol 50 mg 3 times a day, and oral Cardizem at 60 mg 3 times a day per cardiology, he has been started on oral anticoagulation in the form of Eliquis, and there has been no sign of active bleeding. Today's labs have been reviewed, showing hemoglobin of 10.8, white blood cell count is 12.0, platelet count is 368, sodium is 138, potassium 3.7, chloride is 108, CO2 is 23, BUN is 43, creatinine is 1.32. Afebrile, hemodynamically patient is stable, remains on 0.9 normal saline at a rate of 50 ML per hour, room air pulse ox is 94%. Lung sounds reveal crackles over left lower and mid left lung. Today's chest x-ray shows persistent patchy infiltrates at the lung bases left greater than right without significant change. Patient remains on for antibiotic coverage for MSSA bacteremia likely related to MSSA pneumonia. Remains on oral Lasix at 40 mg twice daily. He is in -2.8 L over last 24 hours, mild edema involving bilateral lower extremities. Renal profile remains stable with BUN of 43 and creatinine of 1.32. Davalos catheter remains in place, draining clear yellow urine, in the order of 75-125 ML per hour. There has been no recurrence of hematuria. Objective - Vital Signs Vital signs: Vital Signs Temp 98.0 F 01/16/20 00:00 Pulse 108 H 01/16/20 06:00 Resp 26 H 01/16/20 06:00 BP 130/89 01/16/20 06:00 Pulse Ox 94 L 01/16/20 06:00 Intake & Output 01/15/20 01/16/20 01/16/20 18:59 06:59 18:59 Intake Total 40 600 Output Total 2064 145 Balance -2024 Weight 87.1 kg Intake: IV 40 500 Sodium Chloride 0.9% 1, 40 500 000 ml @ 50 mls/hr IV . Q20H [facility] Rx#:[id number] Intake, IV Titration 100 Amount Sodium Chloride 0.9% 1, 100 000 ml @ 50 mls/hr IV . Q20H [facility] Rx#:[id number] Output: Urine 2064 145 Other: Voiding Method Indwelling Catheter Indwelling Catheter - Exam GENERAL EXAM: Alert, very pleasant, 79-year-old white male, on room air with a pulse ox 94% comfortable in no apparent distress. HEAD: Normocephalic/atraumatic. EYES: Normal reaction of pupils, equal size. Conjunctiva pink, sclera white. NOSE: Clear with pink turbinates. THROAT: No erythema or exudates. NECK: No masses, no JVD, no thyroid enlargement, no adenopathy. CHEST: No chest wall deformity. Symmetrical expansion. LUNGS: Equal air entry with inspiratory crackles over left lower and left mid lung CVS: Irregular rate and rhythm she remains in atrial fibrillation with a controlled rate currently at a rate of 116 BPM, normal S1 and S2, no gallops, no murmurs, no rubs ABDOMEN: Soft, nontender. No hepatosplenomegaly, normal bowel sounds, no guarding or rigidity. EXTREMITIES: No clubbing, mild 1+ edema in bilateral lower extremities, knee- high VÍCTOR hose on bilateral lower extremity no cyanosis, 2+ pulses and upper and lower extremities. MUSCULOSKELETAL: Muscle strength and tone normal. SPINE: No scoliosis or deformity SKIN: No rashes CENTRAL NERVOUS SYSTEM: Alert and oriented -3. No focal deficits, tone is normal in all 4 extremities. PSYCHIATRIC: Alert and oriented -3. Appropriate affect. Intact judgment and insight. - Labs CBC & Chem 7: 01/16/20 04:09 01/16/20 04:09 Labs: Abnormal Lab Results - Last 24 Hours (Table) 01/16/20 01/16/20 Range/Units 04:09 04:09 WBC 12.0 H (3.8-10.6) k/uL RBC 3.62 L (4.30-5.90) m/uL Hgb 10.8 L (13.0-17.5) gm/dL Hct 33.7 L (39.0-53.0) % Neutrophils # (Manual) 9.70 H (1.3-7.7) k/uL Chloride 108 H (98-107) mmol/L BUN 43 H (9-20) mg/dL Creatinine 1.32 H (0.66-1.25) mg/dL Glucose 112 H (74-99) mg/dL Calcium 8.0 L (8.4-10.2) mg/dL Microbiology - Last 24 Hours (Table) 01/15/20 04:42 Blood Culture - Preliminary Blood No Growth after 24 hours 01/14/20 04:25 Blood Culture Gram Stain - Preliminary Blood Blood Culture - Preliminary Staphylococcus aureus 01/14/20 04:25 Blood Culture - Final Blood Assessment and Plan Plan: Assessment: #1. Acute MSSA bacteremia most likely related to pneumonia #2. Acute gram-positive pneumonia with sepsis likely related to staph aureus #3. Atrial fibrillation with RVR #4. Acute rhabdomyolysis and acute kidney injury, improving #5. Degenerative joint disease #6. Bilateral peripheral pulmonary nodules, some are cavitary in nature and need to be monitored and followed closely, with a plan to repeat CT of the chest in the next few weeks #7. Acute L1 fracture secondary to a fall #8. Acute kidney injury related to sepsis and bacteremia and acute rhabdomyolysis, improving #9. Acute retroperitoneal bleed, status post fall, heparin is on hold #10. Hematuria, resolved, patient has been restarted on Eliquis with no recurrence of hematuria #11. Urinary retention requiring placement of urinary catheter #12. 4.7 ascending aortic aneurysm, will be followed every 6 months #13. Osteoarthritis Plan: Today's chest x-ray shows persistent patchy infiltrates involving bilateral bases, left greater than right, stable in appearance, hemodynamically patient remains stable, he is on room air, his been afebrile, he is on Kefzol for MSSA bacteremia likely related to pneumonia. Eliquis has been restarted with no recurrence of hematuria or any other sign of bleeding, patient is tolerating oral diet, tolerating activity, contonue current dose of Lasix. Patient is stable to be transferred out of the intensive care unit today to [facility] care. I performed a history & physical examination of the patient and discussed their management with my nurse practitioner, Araceli Alexandra. I reviewed the nurse practitioner's note and agree with the documented findings and plan of care. Lung sounds are positive for diminished breath sounds with left lung inspiratory crackles. The findings and the impression was discussed with the patient. I attest to the documentation by the nurse practitioner. Time with Patient: Less than 30
--- NOTE | 2020-01-16 07:56 | XR ---
EXAMINATION TYPE: XR chest 1V portable DATE OF EXAM: 01/16/2020 Comparison: 01/15/2020 Clinical History: 79-year-old male SOB Findings: Heart mildly enlarged. Ectatic ascending aorta. Retrocardiac and left basilar opacification extending up to the mid chest level. Some of the density has a nodular configuration peripheral left upper rian g. Lesser degree of mild patchy density at the right base. Impression: 1. Airspace disease throughout the left mid and lower lung and to a lesser extent within the right ba se, similar to prior. 2. Some of the density has a nodular configuration along the periphery of the left upper lung. Again unchanged. Follow-up after treatment to ensure clearance.
[2020-01-16] MEDS: TAMSULOSIN 0.4 MG CAP.ER.24H PO SCH (08:03)
[2020-01-16] MEDS: FUROSEMIDE 40 MG TAB PO SCH (08:03)
[2020-01-16] MEDS: AMIODARONE 200 MG TAB PO SCH ×2 (08:03→21:07)
[2020-01-16] MEDS: CHOLECALCIFEROL 1,000 UNIT TAB PO SCH (08:03)
--- NOTE | 2020-01-16 09:38 | PN ---
PROGRESS NOTE Mr. Kinsey is a 79-year-old male who presented after a fall. He initially was in sinus mechanism with PACs. Subsequently went into atrial fibrillation. He remains in atrial fibrillation at this time with episode of rapid ventricular response. He is feeling well overall. He is denying any chest pain. His breathing has been stable. He denies any dizziness, palpitation. He denies any nausea. He continues to have mild peripheral edema. His hematuria has resolved. He has evidence consistent with pneumonia with infiltrate in the left lung. He continues to be on Eliquis 5 mg twice a day, Cardizem 60 mg 3 times a day, Lasix 40 mg twice a day, metoprolol tartrate 50 mg 3 times a day. PHYSICAL EXAMINATION: His heart rate has been in the 80s and 90s, but earlier this morning was up in the 120s and 130. Blood pressure in the 130s. LUNGS: With a few crackles, more noted on the left base. HEART: Irregular, regular, S1, S2. No S3 with a systolic murmur, no diastolic murmur. ABDOMEN: Soft, nontender. EXTREMITIES: +1 edema. LAB DATA: Revealed BUN and creatinine 43 and 1.32, potassium 3.7, hemoglobin of 10.8, white blood cell of 12.0, platelet count 368. IMPRESSION: 1. Atrial fibrillation with episode of rapid ventricular response, anticoagulated. 2. Rhabdomyolysis, resolved. 3. Pneumonia. 4. Acute renal injury. 5. Hematuria, resolved. 6. Recent fall. RECOMMENDATION: I will add to his regimen amiodarone 200 mg twice a day to optimize his ventricular response. Will continue the rest of his medical regimen. His echocardiogram revealed preserved ventricular size and systolic function with no evidence of valvular abnormality. Will follow his renal function and depending on his progress, further recommendation will be made. MMODL / IJN: [id number] /
--- NOTE | 2020-01-16 09:59 | P.PN ---
<Amanda Cantu Diane - Last Filed: 01/16/20 09:57> Subjective Progress Note Date: 01/16/20 CHIEF COMPLAINT: Possible retroperitoneal bleed HISTORY OF PRESENT ILLNESS: Patient examined this morning in the ICU. He is sitting up in the chair. Denies abdominal pain. No further hematuria. Hemoglobin stable at 10.8. WBC 12.0. He is afebrile. PHYSICAL EXAM: VITAL SIGNS: Reviewed. GENERAL: Well-developed in no acute distress. HEENT: No sclera icterus. Extraocular movements grossly intact. Moist buccal mucosa. Head is atraumatic, normocephalic. ABDOMEN: Soft. Nondistended. Nontender. NEUROLOGIC: Alert and oriented. Cranial nerves II through XII grossly intact. ASSESSMENT: 1. Fall 2. Possible retroperitoneal bleed PLAN: Diet as tolerated Continue to monitor hemoglobin Nurse practitioner note has been reviewed by physician. Signing provider agrees with the documented findings, assessment, and plan of care. Objective - Vital Signs Vital signs: Vital Signs Temp 98.3 F 01/16/20 07:00 Pulse 116 H 01/16/20 07:00 Resp 20 01/16/20 07:00 BP 114/77 01/16/20 07:00 Pulse Ox 95 01/16/20 07:00 Intake & Output 01/15/20 01/16/20 01/16/20 18:59 06:59 18:59 Intake Total 40 600 Output Total 2064 145 Balance -2024 Weight 87.1 kg Intake: IV 40 500 Sodium Chloride 0.9% 1, 40 500 000 ml @ 50 mls/hr IV . Q20H [facility] Rx#:[id number] Intake, IV Titration 100 Amount Sodium Chloride 0.9% 1, 100 000 ml @ 50 mls/hr IV . Q20H [facility] Rx#:[id number] Output: Urine 2064 1450 Other: Voiding Method Indwelling Catheter Indwelling Catheter Indwelling Catheter - Labs CBC & Chem 7: 01/16/20 04:09 01/16/20 04:09 Labs: Abnormal Lab Results - Last 24 Hours (Table) 01/16/20 01/16/20 Range/Units 04:09 04:09 WBC 12.0 H (3.8-10.6) k/uL RBC 3.62 L (4.30-5.90) m/uL Hgb 10.8 L (13.0-17.5) gm/dL Hct 33.7 L (39.0-53.0) % Neutrophils # (Manual) 9.70 H (1.3-7.7) k/uL Chloride 108 H (98-107) mmol/L BUN 43 H (9-20) mg/dL Creatinine 1.32 H (0.66-1.25) mg/dL Glucose 112 H (74-99) mg/dL Calcium 8.0 L (8.4-10.2) mg/dL Microbiology - Last 24 Hours (Table) 01/15/20 04:42 Blood Culture - Preliminary Blood No Growth after 24 hours 01/14/20 04:25 Blood Culture Gram Stain - Preliminary Blood Blood Culture - Preliminary Staphylococcus aureus <Hayden Sky - Last Filed: 01/16/20 20:27> Subjective As above. Hemoglobin stable. No pain. Chest x-ray and echo results noted Leukocytosis present. Continue antibiotics. Await TATUM. Objective - Vital Signs Vital signs: Vital Signs Temp 98.5 F 01/16/20 20:00 Pulse 114 H 01/16/20 20:00 Resp 19 01/16/20 20:00 BP 104/72 01/16/20 20:00 Pulse Ox 94 L 01/16/20 20:00 Intake & Output 01/16/20 01/16/20 01/17/20 06:59 18:59 06:59 Intake Total 600 1800 50 Output Total 1450 780 105 Balance -850 1020 -55 Intake: IV 500 1800 50 Sodium Chloride 0.9% 1, 500 550 50 000 ml @ 50 mls/hr IV . Q20H [facility] Rx#:[id number] Sodium Chloride 0.9% 500 250 ml 250 ml @ 999 mls/hr IV .Q16M ONE Rx#:[id number] Sodium Chloride 0.9% 500 500 ml 500 ml @ 999 mls/hr IV .Q31M ONE Rx#:[id number] Sodium Chloride 0.9% 500 500 ml 500 ml @ 999 mls/hr IV .Q31M ONE Rx#:[id number] Intake, IV Titration 100 Amount Sodium Chloride 0.9% 1, 100 000 ml @ 50 mls/hr IV . Q20H [facility] Rx#:[id number] Output: Urine 1450 780 105 Other: Voiding Method Indwelling Catheter Indwelling Catheter Indwelling Catheter - Labs CBC & Chem 7: 01/16/20 04:09 01/16/20 04:09 Labs: Abnormal Lab Results - Last 24 Hours (Table) 01/16/20 01/16/20 Range/Units 04:09 04:09 WBC 12.0 H (3.8-10.6) k/uL RBC 3.62 L (4.30-5.90) m/uL Hgb 10.8 L (13.0-17.5) gm/dL Hct 33.7 L (39.0-53.0) % Neutrophils # (Manual) 9.70 H (1.3-7.7) k/uL Chloride 108 H (98-107) mmol/L BUN 43 H (9-20) mg/dL Creatinine 1.32 H (0.66-1.25) mg/dL Glucose 112 H (74-99) mg/dL Calcium 8.0 L (8.4-10.2) mg/dL Microbiology - Last 24 Hours (Table) 01/15/20 04:42 Blood Culture - Preliminary Blood No Growth after 24 hours 01/14/20 04:25 Blood Culture Gram Stain - Preliminary Blood Blood Culture - Preliminary Staphylococcus aureus Assessment and Plan (1) Left flank pain Current Visit: Yes Status: Acute Code(s): R10.9 - UNSPECIFIED ABDOMINAL PAIN SNOMED Code(s): 324482873
--- NOTE | 2020-01-16 10:27 | ECHOF ---
Referral Reason:bacteremia MEASUREMENTS -------- HEIGHT: 177.8 cm WEIGHT: 87.1 kg BP: 114/77 RAP: 5.00 mmHg RVSP: 27.81 mmHg FINDINGS -------- This was a technically difficult study with suboptimal views. Limited Study There is mild aortic regurgitation. Can nor r/o vegetation on AOV Mild mitral regurgitation is present. Mild tricuspid regurgitation present. Trace/mild (physiologic) pulmonic regurgitation. There is no pericardial effusion. CONCLUSIONS -------- 1. This was a technically difficult study with suboptimal views. 2. Limited Study 3. There is mild aortic regurgitation. 4. Can nor r/o vegetation on AOV 5. Mild mitral regurgitation is present. 6. Mild tricuspid regurgitation present. 7. Trace/mild (physiologic) pulmonic regurgitation. 8. There is no pericardial effusion. COIL REWIND MACHINE OPERATOR: Holley Brand RDCS
--- NOTE | 2020-01-16 10:58 | P.PN ---
Subjective Progress Note Date: 01/16/20 This is a 79-year-old male one of my patient with a previous medical history significant for osteoporosis, osteoporosis with prior history of L1 compression fracture, vitamin D deficiency, history of enlarged prostate, patient was in his usual state of health until about 2 days ago when he felt a bit sick to stomach episode of nausea and vomiting he was not drinking enough water at that time, patient woke up the yesterday morning at around 12 midnight to go to have a drink of water before he goes to the bathroom he ended up falling on the floor after his right knee gave out and the patient landed on the floor for at least 17 hours until his daughter hold him and he did not answer so she came to the house and she found him laying on the floor EMS was called and the patient was brought into the ER at [facility] and brought to the hospital EMS personnel thought the patient was in atrial fibrillation, upon arrival to the ER his initial EKG showed sinus tachycardia with PAC and PVCs without any evidence of atrial fibrillation, patient lactic acid was elevated at 4.7, he was given IV fluid resuscitation, he had a chest x-ray that did not show much ended up going for computed tomography scan of the chest that showed multiple bilateral peripheral pulmonary infiltrate with left 2.5 cm cavitary lesion in the left upper lobe, patient was started on IV antibiotic in the form of Zithromax, Rocephin, and vancomycin, pulmonary consultation was obtained from , as well as cardiology consultation because of his ectopy. 01/10: Yesterday, patient developed evidence of atrial fibrillation and consult with Dr. Hdz was requested. Patient was started on Cardizem drip and heparin drip. Echocardiogram revealed EF of 50-55%, mild to moderate aortic regurgitation, mild tricuspid regurgitation, moderate pulmonary hypertension. CAT scan of the abdomen and pelvis was obtained which revealed asymmetrical perinephric stranding and edema in the right kidney, correlated to exclude pyelonephritis. Continue fluid edema and fluid in the right retroperitoneum. Unclear if this is arising from the right kidney. Correlate for any relevant history that could predispose the patient to retroperitoneal bleed. The fluid is not high-density would be seen in acute hemorrhage. Tortuous right common and external iliac artery which courses through this tracking fluid. Tiny hiata l hernia and mild circumferential wall thickening of the distal esophagus. Correlate to exclude esophagitis. Continue small effusions with extensive peripheral opacities. Interstitial pneumonitis and atypical pneumonias including COVID-19 pneumonia in the differentials. Incidental finding of a 70 aortic aneurysm 4.7 cm. Consult was obtained with Dr. Sky and he is not convinced retro-peritoneal bleed. Heparin drip will remain on hold. Repeat chest x-ray revealed mild cardiomegaly and continued interstitial density. Correlate to exclude pulmonary vascular congestion. Increasing patchy airspace disease in the left mid and lower lung could represent developing confluent pulmonary edema versus pneumonia. Patient has been seen and followed by Dr. Monk. Patient was also seen by Dr. Romero and continued on vancomycin and Rocephin for possible gram-positive bacteremia as well as azithromycin. Initial blood culture has not been finalized. This morning, compliance monitor atrial fibrillation in the 120s to 140s. He denies any chest pain, shortness of breath or dizziness. No palpitations. Cardiology is increasing Lopressor to 50 mg twice daily and Lasix on hold due to worsening renal function. Anticoagulation remains on hold due to possibility of retroperitoneal bleed. Patient has been afebrile since admission. Blood pressure currently 122/74, pulse ox 98% on 3 L nasal cannula. Repeat blood work reveals WBC 14, hemoglobin 12.6, platelet count 121. Sodium 136, potassium 4.3, chloride 108, CO2 21, BUN 58 and creatinine 1.62. Blood sugar 123. CK is 1026. TSH 0.8-9. Coronavirus not detected. 01/11: Patient sitting up in bed in no apparent distress he denies any chest pain is less short of breath today he denies any abdominal pain, he continues to be in atrial fibrillation his heart rate is better he remains on Cardizem drip at 5 mg hour his Lopressor was increased we will start the patient on Eliquis 5 mg orally twice every day, he would be kept in the ICU for another 24 hours, then he will be transferred to the cardiac telemetry unit. 01/12: Patient is sitting up in his recliner today he is in a positive fluid balance he did receive 20 mg Lasix IV push he continues to be in atrial fibrillation with somewhat fast ventricular response, he was seen earlier by cardiology and pulmonary medicine and spoke with his daughter done and I gave her an updated about his current situation he needs to stay in the ICU, until he goes into neutral fluid balance, he needs additional dose of Lasix we will give him another 20 mg Lasix IV push and continue to monitor his weight and fluid balance. Patient denies any chest pain he continues to have some coughing and minimal phlegm production he appears to be tachypneic, he denies any abdominal pain that he has no nausea or vomiting he seems to be tolerating his treatment very well, he was switched to heparin drip as opposed to Eliquis for few days and he would be monitored. 01/13: Patient remains in intensive care unit. Patient continues to be in atrial fibrillation with RVR running up to the 140s this morning. Patient denies any chest pain, dizziness, palpitations. No nausea or vomiting. No bowel movem ents. No fever or chills. Dr. Hdz has adjusted his Cardizem dose to 60 mg 3 times daily. He is also recommending oral anticoagulation once cleared by urology. Patient has been seen by Dr. Batres with recommendations to keep Davalos for 7 days, start Flomax. Gross hematuria most likely secondary to retention and okay to resume anticoagulation. Repeat chest x-ray reveals hypoventilatory changes. Persistent interstitial infiltrates of the Route and similar confluent left basilar and peripheral left lung airspace disease. One dose of IV Lasix 40mg ordered this morning and continue every 12 hours. BUN 46, creatinine 1.28, potassium 4.3. Hemoglobin 11.3. Initial blood culture has been finalized as MSSA. Patient is currently on ceftriaxone and vancomycin followed by Dr. Romero. 01/14: Patient remains in intensive care unit. He is seen today sitting in recliner and appears to be comfortable. court recording monitor remains in atrial fibrillation and rate in the 120s bpm. He has been otherwise hemodynamically stable. WBC 12.4, hemoglobin 11, sodium 138, potassium 3.7, chloride 111, CO2 22, BUN 44, creatinine 1.33. Dr. Romero has transitioned antibiotics to kefzol. Repeat blood culture revealed gram-positive cocci in groups. Patient was started on Eliquis yesterday. No further hematuria. Repeat chest x-ray reveals patchy infiltrates persist at the lung bases left greater than right without significant change. Correlate for pneumonia. Discharge plan to [facility]. 01/15: Patient remains in the intensive care unit and has been cleared by Dr. Hathaway for transfer out. Patient remains in atrial fibrillation. 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 Currently 116. Dr. Hdz has had an in amiodarone 200 mg twice daily and continued on Cardizem and metoprolol. Repeat limited echocardiogram reveals suboptimal views but cannot rule out vegetation on the aortic valve. Mild mitral regurgitation, tricuspid regurgitation. Blood pressure 114/77, pulse ox 95% on room air, afebrile. Patient is tolerating eliquis with no recurrence of hematuria. Pulmonary catheter is in place. Repeat blood work reveals WBC 12.0, hemoglobin 10.8. Chloride 108, Repeat chest x-ray reveals airspace disease throughout the left mid and lower lung and lesser extent to the right base selective prior. Some of the density has a nodular configuration along the periphery of the left upper lung. Unchanged. WBC 12, hemoglobin 10.8. Sodium 138, potassium 3.7, chloride 108, CO2 23. BUN 43, creatinine 1.32. Repeat blood cultures positive for staph aureus Objective - Vital Signs Vital signs: Vital Signs Temp 98.3 F 01/16/20 07:00 Pulse 116 H 01/16/20 07:00 Resp 20 01/16/20 07:00 BP 114/77 01/16/20 07:00 Pulse Ox 95 01/16/20 07:00 Intake & Output 01/15/20 01/16/20 01/16/20 18:59 06:59 18:59 Intake Total 40 600 Output Total 2064 1449 Balance -2024 - Weight 87.1 kg Intake: IV 40 500 Sodium Chloride 0.9% 1, 40 500 000 ml @ 50 mls/hr IV . Q20H DAI Rx#:[id number] Intake, IV Titration 100 Amount Sodium Chloride 0.9% 1, 100 000 ml @ 50 mls/hr IV . Q20H DAI Rx#:[id number] Output: Urine 2064 1449 Other: Voiding Method Indwelling Catheter Indwelling Catheter Indwelling Catheter - Exam Review of Systems Constitutional: Reports weakness, Denies chronic headaches, Denies fatigue, Denies lethargy Eyes: denies blurred vision, denies bulging eye, denies decreased vision Ears: bilateral: decreased hearing Ears, nose, mouth and throat: Denies dysphagia, Denies neck lump, Denies sore throat Cardiovascular: Reports rapid heart beat, Denies chest pain, Denies decreased exercise tolerance, Denies lightheadedness, Denies shortness of breath, Denies syncope Respiratory: Denies congestion, Denies cough with sputum, Denies home oxygen, Denies sleep apnea, Denies snoring, Denies wheezing Gastrointestinal: Reports abdominal pain, Reports nausea, Reports vomiting, Denies bloating, Denies change in bowel habits, Denies coffee ground emesis, De nies excessive gas, Denies heartburn, Denies hematemesis, Denies melena Genitourinary: Denies dysuria, Denies incontinence, reports hematuriaresolving Musculoskeletal: Reports frequent falls, Reports gait dysfunction Musculoskeletal: right: shoulder pain, shoulder stiffness, absent: ankle pain, ankle stiffness, ankle swelling, elbow pain, elbow stiffness, elbow swelling, foot pain, foot stiffness, foot swelling, hand pain, hand stiffness, hand swelling, hip pain, hip stiffness, hip swelling, knee pain, knee swelling, s houlder swelling, wrist pain, wrist stiffness, wrist swelling Integumentary: Denies pruritus, Denies rash Neurological: Denies numbness, Denies weakness Psychiatric: Denies anxiety, Denies depression HEENT: Head is atraumatic, normocephalic, pupils were equal round reactive to light and recommendation, extraocular muscle movement were intact. Neck: Supple, no JVD, no carotid bruit. Chest: Decreased breath sounds at the bases, few rhonchi, no expiratory wheezes, minimal chest wall tenderness and the left lower ribs, no intercostal retractions. No sensory muscle usage. Heart: First heart sound is depressed, second heart sound is normal, irregular, there is systolic ejection murmur 2/6. Sternal border. Abdomen: Soft, distended, moderate tenderness in the left upper quadrant , as well as right upper quadrant, depressed bowel sounds. Extremities: Trace edema, no calf tenderness, dorsalis pedis +1 bilaterally. Neurologic examination: Patient is awake alert and oriented 3, cranial nerves III through XII appear grossly intact, no significant weakness in both lower extremities and the patient is not able to move both lower extremities, deep tendon reflexes were depressed bilaterally, Babinski's were flexor bilaterally. - Labs CBC & Chem 7: 01/16/20 04:09 01/16/20 04:09 Labs: Abnormal Lab Results - Last 24 Hours (Table) 01/16/20 01/16/20 Range/Units 04:09 04:09 WBC 12.0 H (3.8-10.6) k/uL RBC 3.62 L (4.30-5.90) m/uL Hgb 10.8 L (13.0-17.5) gm/dL Hct 33.7 L (39.0-53.0) % Neutrophils # (Manual) 9.70 H (1.3-7.7) k/uL Chloride 108 H (98-107) mmol/L BUN 43 H (9-20) mg/dL Creatinine 1.32 H (0.66-1.25) mg/dL Glucose 112 H (74-99) mg/dL Calcium 8.0 L (8.4-10.2) mg/dL Microbiology - Last 24 Hours (Table) 01/15/20 04:42 Blood Culture - Preliminary Blood No Growth after 24 hours 01/14/20 04:25 Blood Culture Gram Stain - Preliminary Blood Blood Culture - Preliminary Staphylococcus aureus Assessment and Plan Plan: 1. Acute hypoxemic respiratory failure secondary to acute diastolic heart failure due to atrial fibrillation with rapid ventricular response and MSSA pneumonia. Antibiotics transition to Kefzol, continue oxygen support, continue nebulized treatment. Pulmonary consultation. ID consult appreciated. Limited echocardiogram reveals the vegetation cannot be ruled out an aortic valve. 2. Bilateral peripheral pulmonary nodules with left cavitary lesions in the left upper lobe 2.5 cm. Continue IV antibiotic in the form of Kefzol. Monitor the patient very closely repeat computed tomography scan in about 4 weeks from now. 3. Mild rhabdomyolysis. Completed IV fluid resuscitation. Discontinue IV fluids. 4. Mild hyponatremia secondary to hypovolemia. Resolved. 5. Acute kidney injury secondary to acute tubular necrosis due to rhabdomyolysis. Resolved. 6. New onset of atrial fibrillation with RVR, paroxysmal atrial fibrillation. Continue Cardizem oral 60 mg 3 times daily, continue metoprolol 50 mg 3 times daily, continue Eliquis 5 mg orally twice every day. Amiodarone 200 mg twice daily added. 7. MSSA bacteremia secondary to MSSA pneumonia. Patient is on Kefzol. We will continue to monitor the patient very closely. 8. Severe sepsis likely due to gram-positive pneumonia. Continue Kefzol. 9. Possible retroperitoneal bleed . After discussing with intensive care and general surgery it does not seems to be an actual bleeding we will monitor very closely. 10. 4.7 cm ascending aortic aneurysm. Patient will continue to have a surveillance computed tomography scan once every 6 months. 11. Lactic acidosis. Continue IV fluid resuscitation, continue IV antibiotic. Repeat lactic acid is better. 12. Osteoarthritis. Stable. 13. Vitamin D deficiency. Continue vitamin D supplements 1000 units once every day. 14. DVT prophylaxis. We will start the patient on Eliquis 5 mg orally twice every day. 15. GI prophylaxis. Continue Protonix 40 mg orally once every day. 16. History of old L1 fracture 17. COVID-19 infection not present. CODE STATUS: full code. Discharge plan: [facility]. PT and OT on consult. visual merchandising manager following closely. Impression and plan of care have been directed as dictated by the signing physician. Gris Zuniga nurse practitioner acting as scribe for signing physician.
[2020-01-16] MEDS ORDERED: SODIUM CHLORIDE 0.9% 500 ML 250 ML IV ONE ×2 (13:05→13:25)
[2020-01-16] MEDS ORDERED: SODIUM CHLORIDE 0.9% 500 ML 500 ML IV ONE ×2 (13:23→14:45)
--- NOTE | 2020-01-16 14:13 | P.PN ---
Subjective Progress Note Date: 01/16/20 This is a 79-year-old male one of my patient with a previous medical history significant for osteoporosis, osteoporosis with prior history of L1 compression fracture, vitamin D deficiency, history of enlarged prostate, patient was in his usual state of health until about 2 days ago when he felt a bit sick to stomach episode of nausea and vomiting he was not drinking enough water at that time, patient woke up the yesterday morning at around 12 midnight to go to have a drink of water before he goes to the bathroom he ended up falling on the floor after his right knee gave out and the patient landed on the floor for at least 17 hours until his daughter hold him and he did not answer so she came to the house and she found him laying on the floor EMS was called and the patient was brought into the ER at [facility] and brought to the hospital EMS personnel thought the patient was in atrial fibrillation, upon arrival to the ER his initial EKG showed sinus tachycardia with PAC and PVCs without any evidence of atrial fibrillation, patient lactic acid was elevated at 4.7, he was given IV fluid resuscitation, he had a chest x-ray that did not show much ended up going for computed tomography scan of the chest that showed multiple bilateral peripheral pulmonary infiltrate with left 2.5 cm cavitary lesion in the left upper lobe, patient was started on IV antibiotic in the form of Zithromax, Rocephin, and vancomycin, pulmonary consultation was obtained from , as well as cardiology consultation because of his ectopy. 01/10: Yesterday, patient developed evidence of atrial fibrillation and consult with Dr. Hdz was requested. Patient was started on Cardizem drip and heparin drip. Echocardiogram revealed EF of 50-55%, mild to moderate aortic regurgitation, mild tricuspid regurgitation, moderate pulmonary hypertension. CAT scan of the abdomen and pelvis was obtained which revealed asymmetrical perinephric stranding and edema in the right kidney, correlated to exclude pyelonephritis. Continue fluid edema and fluid in the right retroperitoneum. Unclear if this is arising from the right kidney. Correlate for any relevant history that could predispose the patient to retroperitoneal bleed. The fluid is not high-density would be seen in acute hemorrhage. Tortuous right common and external iliac artery which courses through this tracking fluid. Tiny hiata l hernia and mild circumferential wall thickening of the distal esophagus. Correlate to exclude esophagitis. Continue small effusions with extensive peripheral opacities. Interstitial pneumonitis and atypical pneumonias including COVID-19 pneumonia in the differentials. Incidental finding of a 70 aortic aneurysm 4.7 cm. Consult was obtained with Dr. Sky and he is not convinced retro-peritoneal bleed. Heparin drip will remain on hold. Repeat chest x-ray revealed mild cardiomegaly and continued interstitial density. Correlate to exclude pulmonary vascular congestion. Increasing patchy airspace disease in the left mid and lower lung could represent developing confluent pulmonary edema versus pneumonia. Patient has been seen and followed by Dr. Monk. Patient was also seen by Dr. Romero and continued on vancomycin and Rocephin for possible gram-positive bacteremia as well as azithromycin. Initial blood culture has not been finalized. This morning, playground monitor atrial fibrillation in the 120s to 140s. He denies any chest pain, shortness of breath or dizziness. No palpitations. Cardiology is increasing Lopressor to 50 mg twice daily and Lasix on hold due to worsening renal function. Anticoagulation remains on hold due to possibility of retroperitoneal bleed. Patient has been afebrile since admission. Blood pressure currently 122/74, pulse ox 98% on 3 L nasal cannula. Repeat blood work reveals WBC 14, hemoglobin 12.6, platelet count 121. Sodium 136, potassium 4.3, chloride 108, CO2 21, BUN 58 and creatinine 1.62. Blood sugar 123. CK is 1026. TSH 0.8-9. Coronavirus not detected. 01/11: Patient sitting up in bed in no apparent distress he denies any chest pain is less short of breath today he denies any abdominal pain, he continues to be in atrial fibrillation his heart rate is better he remains on Cardizem drip at 5 mg hour his Lopressor was increased we will start the patient on Eliquis 5 mg orally twice every day, he would be kept in the ICU for another 24 hours, then he will be transferred to the cardiac telemetry unit. 01/12: Patient is sitting up in his recliner today he is in a positive fluid balance he did receive 20 mg Lasix IV push he continues to be in atrial fibrillation with somewhat fast ventricular response, he was seen earlier by cardiology and pulmonary medicine and spoke with his daughter done and I gave her an updated about his current situation he needs to stay in the ICU, until he goes into neutral fluid balance, he needs additional dose of Lasix we will give him another 20 mg Lasix IV push and continue to monitor his weight and fluid balance. Patient denies any chest pain he continues to have some coughing and minimal phlegm production he appears to be tachypneic, he denies any abdominal pain that he has no nausea or vomiting he seems to be tolerating his treatment very well, he was switched to heparin drip as opposed to Eliquis for few days and he would be monitored. 01/13: Patient remains in intensive care unit. Patient continues to be in atrial fibrillation with RVR running up to the 140s this morning. Patient denies any chest pain, dizziness, palpitations. No nausea or vomiting. No bowel movem ents. No fever or chills. Dr. Hdz has adjusted his Cardizem dose to 60 mg 3 times daily. He is also recommending oral anticoagulation once cleared by urology. Patient has been seen by Dr. Batres with recommendations to keep Davalos for 7 days, start Flomax. Gross hematuria most likely secondary to retention and okay to resume anticoagulation. Repeat chest x-ray reveals hypoventilatory changes. Persistent interstitial infiltrates of the Route and similar confluent left basilar and peripheral left lung airspace disease. One dose of IV Lasix 40mg ordered this morning and continue every 12 hours. BUN 46, creatinine 1.28, potassium 4.3. Hemoglobin 11.3. Initial blood culture has been finalized as MSSA. Patient is currently on ceftriaxone and vancomycin followed by Dr. Romero. 01/14: Patient remains in intensive care unit. He is seen today sitting in recliner and appears to be comfortable. monitoring analyst remains in atrial fibrillation and rate in the 120s bpm. He has been otherwise hemodynamically stable. WBC 12.4, hemoglobin 11, sodium 138, potassium 3.7, chloride 111, CO2 22, BUN 44, creatinine 1.33. Dr. Romero has transitioned antibiotics to kefzol. Repeat blood culture revealed gram-positive cocci in groups. Patient was started on Eliquis yesterday. No further hematuria. Repeat chest x-ray reveals patchy infiltrates persist at the lung bases left greater than right without significant change. Correlate for pneumonia. Discharge plan to [facility]. 01/15: Patient remains in the intensive care unit and has been cleared by Dr. Hathaway for transfer out. Patient remains in atrial fibrillation. 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 Currently 116. Dr. Hdz has had an in amiodarone 200 mg twice daily and continued on Cardizem and metoprolol. Repeat limited echocardiogram reveals suboptimal views but cannot rule out vegetation on the aortic valve. Mild mitral regurgitation, tricuspid regurgitation. Patient to be scheduled for TATUM to rule out vegetation. Patient had hypotension when working with physical therapy today and at time of the evaluation is also complaining of feeling lightheaded. Cardiology is planning to decrease Cardizem 30 mg 3 times daily. Patient will be given fluid bolus. Lasix frequency will also be decreased frequency to daily He denies having any chest pain or shortness of breath. No abdominal pain. Blood pressure 114/77, pulse ox 95% on room air, afebrile. Patient is tolerating eliquis with no recurrence of hematuria. Davalos catheter is in place. Repeat blood work reveals WBC 12.0, hemoglobin 10.8. Chloride 108, Repeat chest x-ray reveals airspace disease throughout the left mid and lower lung and lesser extent to the right base selective prior. Some of the density has a nodular configuration along the periphery of the left upper lung. Unchanged. WBC 12, hemoglobin 10.8. Sodium 138, potassium 3.7, chloride 108, CO2 23. BUN 43, creatinine 1.32. Repeat blood cultures positive for staph aureus Objective - Vital Signs Vital signs: Vital Signs Temp 98.3 F 01/16/20 07:00 Pulse 116 H 01/16/20 07:00 Resp 20 01/16/20 07:00 BP 114/77 01/16/20 07:00 Pulse Ox 95 01/16/20 07:00 Intake & Output 01/15/20 01/16/20 01/16/20 18:59 06:59 18:59 Intake Total 40 600 Output Total 2064 1449 Balance -2024 Weight 87.1 kg Intake: IV 40 500 Sodium Chloride 0.9% 1, 40 500 000 ml @ 50 mls/hr IV . Q20H DAI Rx#:[id number] Intake, IV Titration 100 Amount Sodium Chloride 0.9% 1, 100 000 ml @ 50 mls/hr IV . Q20H DAI Rx#:[id number] Output: Urine 2064 1449 Other: Voiding Method Indwelling Catheter Indwelling Catheter Indwelling Catheter - Exam Review of Systems Constitutional: Reports weakness, Denies chronic headaches, Denies fatigue, Denies lethargy, reports lightheadedness Eyes: denies blurred vision, denies bulging eye, denies decreased vision Ears: bilateral: decreased hearing Ears, nose, mouth and throat: Denies dysphagia, Denies neck lump, Denies sore throat Cardiovascular: Rdenies rapid heart beat, Denies chest pain, Denies decreased exercise tolerance, reports lightheadedness, Denies shortness of breath, Denies syncope Respiratory: Denies congestion, Denies cough with sputum, Denies home oxygen, Denies sleep apnea, Denies snoring, Denies wheezing Gastrointestinal: Denies abdominal pain, denies nausea,denies vomiting, Denies bloating, Denies change in bowel habits, Denies coffee ground emesis, Denies excessive gas, Denies heartburn, Denies hematemesis, Denies melena Genitourinary: Denies dysuria, Denies incontinence, reports hematuriaresolving Musculoskeletal: Reports frequent falls, Reports gait dysfunction Musculoskeletal: right: shoulder pain, shoulder stiffness, absent: ankle pain, ankle stiffness, ankle swelling, elbow pain, elbow stiffness, elbow swelling, foot pain, foot stiffness, foot swelling, hand pain, hand stiffness, hand swelling, hip pain, hip stiffness, hip swelling, knee pain, knee swelling, shoulder swelling, wrist pain, wrist stiffness, wrist swelling Integumentary: Denies pruritus, Denies rash Neurological: Denies numbness, Denies weakness Psychiatric: Denies anxiety, Denies depression Physical examination HEENT: Head is atraumatic, normocephalic, pupils were equal round reactive to light and recommendation, extraocular muscle movement were intact. Neck: Supple, no JVD, no carotid bruit. Chest: Decreased breath sounds at the bases, few rhonchi, no expiratory wheezes, minimal chest wall tenderness and the left lower ribs, no intercostal retractions. No sensory muscle usage. Heart: First heart sound is depressed, second heart sound is normal, irregular, there is systolic ejection murmur 2/6. Sternal border. Abdomen: Soft, distended, moderate tenderness in the left upper quadrant , as well as right upper quadrant, depressed bowel sounds. Extremities: Trace edema, no calf tenderness, dorsalis pedis +1 bilaterally. Neurologic examination: Patient is awake alert and oriented 3, cranial nerves III through XII appear grossly intact. - Labs CBC & Chem 7: 01/16/20 04:09 01/16/20 04:09 Labs: Abnormal Lab Results - Last 24 Hours (Table) 01/16/20 01/16/20 Range/Units 04:09 04:09 WBC 12.0 H (3.8-10.6) k/uL RBC 3.62 L (4.30-5.90) m/uL Hgb 10.8 L (13.0-17.5) gm/dL Hct 33.7 L (39.0-53.0) % Neutrophils # (Manual) 9.70 H (1.3-7.7) k/uL Chloride 108 H (98-107) mmol/L BUN 43 H (9-20) mg/dL Creatinine 1.32 H (0.66-1.25) mg/dL Glucose 112 H (74-99) mg/dL Calcium 8.0 L (8.4-10.2) mg/dL Microbiology - Last 24 Hours (Table) 01/15/20 04:42 Blood Culture - Preliminary Blood No Growth after 24 hours 01/14/20 04:25 Blood Culture Gram Stain - Preliminary Blood Blood Culture - Preliminary Staphylococcus aureus Assessment and Plan Assessment: 1. Acute hypoxemic respiratory failure secondary to acute diastolic heart failure due to atrial fibrillation with rapid ventricular response and MSSA pneumonia. Antibiotics transition to Kefzol, continue oxygen support, continue nebulized treatment. Pulmonary consultation. ID consult appreciated. Limited echocardiogram reveals that vegetation cannot be ruled out an aortic valve. 2. Bilateral peripheral pulmonary nodules with left cavitary lesions in the left upper lobe 2.5 cm. Continue IV antibiotic in the form of Kefzol. Monitor the patient very closely repeat computed tomography scan in about 4 weeks from now. 3. Mild rhabdomyolysis. Completed IV fluid resuscitation. Discontinue IV fluids. 4. Mild hyponatremia secondary to hypovolemia. Resolved. 5. Acute kidney injury secondary to acute tubular necrosis due to rh abdomyolysis. Resolved. 6. New onset of atrial fibrillation with RVR, paroxysmal atrial fibrillation. Continue Cardizem oral decreased to 30 mg 3 times daily, continue metoprolol 50 mg 3 times daily, amiodarone 200 mg twice daily added today, continue Eliquis 5 mg orally twice every day. 7. MSSA bacteremia secondary to MSSA pneumonia, possible vegetation on aortic valve. Patient is on Kefzol. We will continue to monitor the patient very closely. TATUM to be scheduled. 8. Severe sepsis likely due to gram-positive pneumonia. Continue Kefzol. 9. Possible retroperitoneal bleed . After discussing with intensive care and general surgery it does not seems to be an actual bleeding we will monitor very closely. 10. 4.7 cm ascending aortic aneurysm. Patient will continue to have a alexandre rveillance computed tomography scan once every 6 months. 11. Lactic acidosis. Continue IV fluid resuscitation, continue IV antibiotic. Repeat lactic acid is better. 12. Osteoarthritis. Stable. 13. Vitamin D deficiency. Continue vitamin D supplements 1000 units once every day. 14. DVT prophylaxis. We will start the patient on Eliquis 5 mg orally twice every day. 15. GI prophylaxis. Continue Protonix 40 mg orally once every day. 16. History of old L1 fracture 17. COVID-19 infection not present. CODE STATUS: full code. Discharge plan: [facility]. PT and OT on consult. correctional manager following closely.
--- NOTE | 2020-01-16 15:09 | CDI ---
Documentation Clarification Form Date: 01/16/2020 02:44:01 PM From: Leatha MartinezReyesAISSATOU elise, CCDS Admit Date: 01/09/2020 10:03:00 PM Patient Name: Ben Kinsey Visit Number: [id number] Discharge Date: ATTENTION: The Clinical Documentation Specialists (CDI) and [facility] Coding Staff appreciate your assistance in clarifying documentation. Please respond to the clarification below the line at the bottom and electronically sign. The CDI & [facility] Coding staff will review the response and follow-up if needed. Please note: Queries are made part of the Legal Health Record. If you have any questions, please contact the author of this message via ITS. Dr. Thai Hdz: Per the 01/09 Cardiology Consult: "On the monitor, he was noted to have sinus mechanism with frequent PACs. He has short bursts of supraventricular tachyarrhythmia that appears to be sinus tachycardia, although the possibility of atrial fibrillation cannot be totally excluded, but the rhythm appears to be regular." "He had a Holter monitor that showed rare PACs and PVCs with SVTs in the past, but no atrial fibrillation." History/Risk factors: CAD, Osteoporosis w/L1 fracture, Hyperlipidemia, Vit D Deficiency, BPH. Former Smoker. Clinical Indicators: Presented to the ED on 01/08 via EMS after a fall when his right knee gave out, unable to get up & found on the ground 16 hours later. Admit with MSSA Sepsis, Rhabdomyolysis & Paroxysmal Atrial Fibrillation. VS: P 134^, BP 109/73 LAB: Na 131*, Cl 97*, CO2 19*, BUN 37^, Glucose 164^, Lactic Acid 4.6^^, BNP 1910, Creatine Kinase 867^. Home meds: Aspirin & Vitamin D EKG 01/08: R 144, Undetermined rhythm. EKG #2 01/08: R 94 Sinus rhythm w/blocked premature atrial complexes with occasional premature ventricular complexes. Treatment: IV fluid 500 mls @ 1000/hr, IV fluid 500 mls @ 999/hr, Heparin sq, po Aspirin, po Metoprolol, IV Cardizem, po Cardizem on 01/13, po Eliquis. Consults: Cardiology orders: ECHO, Low dose Beta Laura, Check Thyroid Function, Alcohol cessation. In your professional opinion, can you please clarify the type of Arrhythmia, if known? Ventricular tachycardia Other tachycardia, please specify: pac Other, please specify Unable to determine (Last Revision: October 2017) [facility]
[2020-01-16] MEDS ORDERED: METOPROLOL TARTRATE 25 MG TAB PO ONE (16:00)
[2020-01-16] MEDS ORDERED: DILTIAZEM ORAL 30 MG TAB PO SCH (16:00)
--- NOTE | 2020-01-16 23:18 | PN ---
PROGRESS NOTE DATE OF SERVICE: 01/16/2020 REASON FOR FOLLOWUP: MSSA bacteremia and a question of endocarditis. INTERVAL HISTORY: The patient is currently afebrile. The patient is breathing comfortably. The patient denies having any chest pain or shortness of breath. Occasional cough. No nausea. No vomiting. No abdominal pain or diarrhea. PHYSICAL EXAMINATION: Blood pressure 115/77, pulse of 86, temperature 98.5. He is 95% on room air. General description is an elderly male up in the chair in no distress. RESPIRATORY SYSTEM: Unlabored breathing with decreased breath sounds at the base. No wheeze. HEART: S1, S2. Regular rate and rhythm. ABDOMEN: Soft. No tenderness. LABS: Hemoglobin is 10.8, white count of 12,000, and BUN of 43, creatinine 1.32. DIAGNOSTIC IMPRESSION AND PLAN: Patient with methicillin-susceptible Staphylococcus aeruginosa bacteremia, now with concern for possible endocarditis with vegetation on the aortic valve. TATUM will be requested. Patient is covered with cefazolin 2 grams q.8 hours. Follow-up blood culture from 01/15/2020 has been negative so far. We will monitor his clinical course closely. MMLINCOLNL / IJN: [id number] /
[2020-01-17] MEDS: SODIUM CHLORIDE 0.9% 1,000 ML IV SCH ×3 (01:18→20:06)
[2020-01-17 06:01] LABS: Calcium 7.8 mg/dL (8.4-10.2); Potassium 3.8 mmol/L (3.5-5.1)
[2020-01-17] MEDS ORDERED: Potassium Replacement Protocol 1 EACH MISC MISCELLANE PRN (06:16)
[2020-01-17 06:19] LABS: Basophils % (A) 0 %; Eosinophils # (A) 0.2 k/uL (0-0.7); Eosinophils % (A) 1 %; HCT 30.1 % (39.0-53.0); HGB 9.9 gm/dL (13.0-17.5); Lymphocytes # (A) 0.8 k/uL (1.0-4.8); Lymphocytes % (A) 7 %; MCH 30.8 pg (25.0-35.0); MCHC 32.8 g/dL (31.0-37.0); MCV 94.1 fL (80.0-100.0); Mean Platelet Volume 7.1; Monocytes # (A) 0.4 k/uL (0-1.0); Monocytes % (A) 3 %; Neutrophils # (A) 9.6 k/uL (1.3-7.7); Neutrophils % (A) 88 %; Platelet Count 351 k/uL (150-450); RDW 12.9 % (11.5-15.5)
--- NOTE | 2020-01-17 06:36 | XR ---
EXAMINATION TYPE: XR chest 1V portable DATE OF EXAM: 01/17/2020 CLINICAL HISTORY: Difficulty breathing progress study. TECHNIQUE: Single AP portable upright view of the chest is obtained. COMPARISON: Chest x-ray from one day earlier and older studies. CT chest January 09, 2020. FINDINGS: Persistent low lung volumes and chronic parenchymal changes bilaterally with worsening lef t mid to lower lung airspace opacity extending along lateral aspect of the upper lung or an underlyin g pulmonary nodules on CT less well seen on plain films. Increasing silhouetting left heart border no gisselle. Cardiac silhouette size is stable and mildly enlarged with atherosclerotic and ectatic thoracic aorta. Osseous structures are intact. Cholecystectomy clips are redemonstrated. IMPRESSION: Low lung volumes and cardiomegaly with chronic parenchymal changes and worsening left rian g acute infiltrate and/or atelectasis greatest in the lower lung.
[2020-01-17] MEDS: POTASSIUM CHLORIDE 10 MEQ in WATER FOR INJECTION 1 100ML.BAG IVPB SCH ×2 (06:51→07:58)
--- NOTE | 2020-01-17 07:27 | P.PN ---
Subjective Progress Note Date: 01/17/20 Principal diagnosis: Gram-positive bacteremia, sepsis, bilateral cavitary lung nodules and pneumonia, A. fib with RVR This is a pleasant 79-year-old gentleman who follows with Dr. Harley as his primary care provider. He has a history of osteoarthritis, osteoporosis with prior history of L1 compression fracture, vitamin D deficiency, enlarged prostate, remote history of tobacco dependence for approximately 10 years but quit 60 years ago. Daily alcohol use. On 01/18/2020 the patient had gotten up from bed and headed to the bathroom when his right knee gave out and he fell to the ground. He was unable to get himself up. His daughter called and the patient had not answered and she went to check on him yesterday, found him on the floor and EMS was called. Approximately 16 hours of down time. He was found to be febrile with presenting temperature of 102.9. Computed tomography scan of the chest revealed extensive peripheral bilateral noncalcified pulmonary nodular infiltrates. Neoplastic versus inflammatory disease. There is a 2.5 cm cavitating lesion in the lateral aspect of the left upper lobe. The largest of the peripheral nodules is 2 cm. The patient is seen today in consultation on the selective care unit. He is currently sitting up in a chair. Awake and alert in no acute distress. Currently afebrile. Sinus tachycardia with frequent PACs, possible paroxysmal atrial fibrillation. Echocardiogram reveals preserved left ventricular systolic function with ejection fraction 50-55%. CAT scan of the abdomen and pelvis revealed edema about the right kidney extending to the right renal sinus with possible polynephritis. Confluent edema and fluid extends down the right retroperitoneum cannot exclude retroperitoneal bleed. Confluent small effusions with extensive peripheral opacities. Interstitial pneumonitis and atypical pneumonias are within the differential. There is a 4.7 cm ascending aortic aneurysm. CoVID 19 screening pending. Blood cultures pending. White count 12.1. Hemoglobin 13.0. Platelet count 104. Lymphocytes 0.48. Sodium 131. Potassium 4.2. Bicarb 19. Creatinine 1.18. Glucose 164. CK 867. Troponin 0.025. ProBNP 1910. He has been initiated on ceftriaxone, vancomycin and azithromycin. Cardizem drip at 5 mg per hour. Heparin drip. Patient was reevaluated today on 01/11/20, patient developed worsening shortness of breath overnight, wheezing, and worsening atrial fibrillation with RVR, hence he was transferred to the intensive care unit. Feeling better at present, however he is on 3 L nasal cannula, and O2 saturation is 94%. He is also on Cardizem at 5 mg per hour, IV fluid increased to 1 50 mL per hour. His blood cultures came back positive for gram-positive cocci in clusters, and the patient received vancomycin since admission he remains on vancomycin. He was already seen by infectious disease on consultation. Cardiology is evaluating the patient, his initial echocardiogram was nondiagnostic, patient may require transesophageal echocardiography. CPK was noted to be a bit elevated today, hence I increased his IV fluid. Patient is in atrial fibrillation with RVR, rate is 138 beats per minutes. Primary source of his bacteremia could very well be from the lungs, although the possibility of urinary tract infection and endocarditis is not entirely ruled out. But felt to be less likely. WBC count today is 14 hemoglobin is 12.6. Electrodes are normal, BUN is 58 creatinine is 1.62, worsening compared to yesterday. CPK was also noted to be elevated, pro- calcitonin was quite high 7.12. Patient was reevaluated today on 01/12/20, remains in the ICU, remains in atrial fibrillation, but rate seems to be better controlled. Remains on Cardizem drip at 5 mg per hour, IV fluid is 125 mL per hour. Remains on vancomycin for his gram-positive bacteremia. Chest x-ray continues to show left lower lobe infiltrate. Abdominal film showed dilated bowel loops, however the patient had no clinical symptoms to suggest bowel obstruction. Patient is also on Lopressor and on Eliquis twice a day. We plan to keep him in the ICU for the next 24 hours, and if he remains stable will transfer out of the ICU to a monitor bed on selective. CBC showed evidence of 12.8 hemoglobin is 11.7 electrodes are normal bicarb is a bit low at 18. Renal profile is improving. Is down to 55 creatinin e is down to 1.39. CPK is down to 422 from 1067 yesterday Patient was reevaluated today on 01/13/20, remains in the ICU, remains in atrial fibrillation with RVR. This is being addressed by cardiology. Patient remains on IV fluid at 50 mL/h remains on oxygen at 2 L/m. Patient is off Cardizem drip , and his Lopressor was increased. His renal functioning is improving. Patient was given a dose of Lasix 20 mg IV push 1 today after reviewing his chest x-ray which is suggestive of mild interstitial edema, and I strongly suspect the left lower lobe pneumonia. Final report on the blood cultures remains pending, but the patient did have positive cocci in clusters and his blood cultures. And I believe the most likely source is his left lower lobe pneumonia. On 01/14/2020 patient seen in follow-up in intensive care unit, he is calm and comfortable, sitting up in the recliner, eating breakfast, appetite is good, patient has eaten all of his food on the tray. Tolerating regular diet, denies any difficulty breathing. His heparin infusion is on hold related to hematuria, and urinary retention with subsequent placement of Davalos catheter, currently patient has a Davalos catheter in place and his hematuria seems to have resolved, patient is producing yellow clear urine today, today's hemoglobin is 11.3, white count is 9.5, patient has been afebrile, he is on 2 L of oxygen and pulse ox of 95%. Remains in atrial fibrillation with a controlled rate in the 120-160 BPM, cardiology is following and managing rate control medications. Currently patient is on oral Cardizem and the dose was increased to 60 mg 3 times daily, and oral metoprolol and 50 mg 3 times daily. Patient was given a dose of IV Lasix yesterday, he is in -1.2 L over the last 24 hours, and was started on maintenance dose of IV Lasix 40 mg every 12 hours. Patient is on Zithromax and Rocephin. Patient is on Rocephin and Zithromax and vancomycin, for blood culture positive for MSSA. We'll discontinue vancomycin. Urine culture was negative. Today's chest x-ray shows hypoventilatory changes, and persistent interstitial infiltrate throughout and more confluent patchy left basilar and peripheral left lung densities. On 01/15/2020 patient seen in follow-up in intensive care unit, he is awake and alert, oriented 3, he sitting up in the recliner, in no acute distress, currently on 3 L of oxygen the pulse ox of 96%, remains in atrial fibrillation, and his rate is better controlled compared to yesterday's exam, and is currently at 102 - 116 BPM. Afebrile. Hemodynamically stable, no worsening dyspnea, lung sounds revealed inspiratory crackles in the left base, clear right lung. Currently on point and was saline at a rate of 10 ML per hour, no other drips. Patient is on Cardizem at 60 mg orally 3 times a day in addition to metoprolol 50 mg 3 times daily cardiology is following, he is on oral dose of Lasix at 40 mg twice daily. 2 -4.5 L over last 24 hours, has mild swelling of lower extremities, knee-high VÍCTOR hose are applied. Today's labs have been reviewed showing white blood cell, 12.4, hemoglobin of 11, sodium is 138, potassium 3.7, chloride is 111, CO2 is 22, BUN is 44, and creatinine is 1.33. Patient is tolerating oral diet. Specific complaints, other than left lateral chest discomfort with coughing. Follow blood cultures have been negative, urine culture showed no growth, single blood culture from 01/09/2020 showed MSSA. he is currently on Kefzol for antibiotic coverage, oral anticoagulation was started in the form of Eliquis 5 mg twice a day. On 01/16/2020 patient seen in follow-up in the intensive care unit. He is awake and alert, oriented 3, he sitting up in the recliner, eating breakfast. Denies any distress, remains in atrial fibrillation with a rate of 129, patient is due for his morning medications. He is on metoprolol 50 mg 3 times a day, and oral Cardizem at 60 mg 3 times a day per cardiology, he has been started on oral anticoagulation in the form of Eliquis, and there has been no sign of active bleeding. Today's labs have been reviewed, showing hemoglobin of 10.8, white blood cell count is 12.0, platelet count is 368, sodium is 138, potassium 3.7, chloride is 108, CO2 is 23, BUN is 43, creatinine is 1.32. Afebrile, hemodynamically patient is stable, remains on 0.9 normal saline at a rate of 50 ML per hour, room air pulse ox is 94%. Lung sounds reveal crackles over left lower and mid left lung. Today's chest x-ray shows persistent patchy infiltrates at the lung bases left greater than right without significant change. Patient remains on for antibiotic coverage for MSSA bacteremia likely related to MSSA pneumonia. Remains on oral Lasix at 40 mg twice daily. He is in -2.8 L over last 24 hours, mild edema involving bilateral lower extremities. Renal profile remains stable with BUN of 43 and creatinine of 1.32. Davalos catheter remains in place, draining clear yellow urine, in the order of 75-125 ML per hour. There has been no recurrence of hematuria. On 01/17/2020 patient seen in follow-up in the intensive care unit, yesterday in the afternoon patient developed hypotension with systolic in the 70s, however A. fib was better controlled with the rate down to 70s BPM. Earlier in the day oral amiodarone was added in addition to oral Lopressor and Cardizem. Lopressor dose was held in the afternoon, patient was given 1.2 L in fluid boluses, blood pressure improved. Today she seen resting comfortably in bed, she is scheduled for transesophageal echocardiogram. Blood pressure has improved, and this morning it is 111/82, patient remains in atrial fibrillation with a rate of 120 BPM. Today's chest x-ray shows low lung volumes, cardiomegaly and worsening left lung infiltrate and atelectasis. Clinical patient denies any shortness of breath, he remains on room air with pulse ox of 94%, afebrile, remains on cefazolin for antibiotic coverage for MSSA bacteremia likely related to pneumonia. Follow-up blood cultures on and 01/16/2020 are negative. Objective - Vital Signs Vital signs: Vital Signs Temp 98.4 F 01/17/20 04:00 Pulse 113 H 01/17/20 06:00 Resp 18 01/17/20 06:00 BP 111/82 01/17/20 06:00 Pulse Ox 94 L 01/17/20 06:00 Intake & Output 01/16/20 01/17/20 01/17/20 18:59 06:59 18:59 Intake Total 1800 650 Output Total 780 1155 Balance 1020 -505 Weight 88.4 kg Intake: IV 1800 650 Sodium Chloride 0.9% 1, 550 600 000 ml @ 50 mls/hr IV . Q20H [facility] Rx#:[id number] Sodium Chloride 0.9% 500 250 ml 250 ml @ 999 mls/hr IV .Q16M ONE Rx#:[id number] Sodium Chloride 0.9% 500 500 ml 500 ml @ 999 mls/hr IV .Q31M [facility] Rx#:[id number] Sodium Chloride 0.9% 500 500 ml 500 ml @ 999 mls/hr IV .Q31M ONE Rx#:[id number] ceFAZolin 2 gm In Sodium 50 Chloride 0.9% 50 ml @ 100 mls/hr IVPB Q8H [facility] Rx#: [id number] Output: Urine 780 1155 Other: Voiding Method Indwelling Catheter Indwelling Catheter - Exam GENERAL EXAM: Alert, very pleasant, 79-year-old white male, on room air with a pulse ox 94% comfortable in no apparent distress. HEAD: Normocephalic/atraumatic. EYES: Normal reaction of pupils, equal size. Conjunctiva pink, sclera white. NOSE: Clear with pink turbinates. THROAT: No erythema or exudates. NECK: No masses, no JVD, no thyroid enlargement, no adenopathy. CHEST: No chest wall deformity. Symmetrical expansion. LUNGS: Equal air entry with inspiratory crackles over left lower and left mid lung CVS: Irregular rate and rhythm she remains in atrial fibrillation with a controlled rate currently at a rate of 116 BPM, normal S1 and S2, no gallops, no murmurs, no rubs ABDOMEN: Soft, nontender. No hepatosplenomegaly, normal bowel sounds, no guarding or rigidity. EXTREMITIES: No clubbing, mild 1+ edema in bilateral lower extremities, knee- high VÍCTOR hose on bilateral lower extremity no cyanosis, 2+ pulses and upper and lower extremities. MUSCULOSKELETAL: Muscle strength and tone normal. SPINE: No scoliosis or deformity SKIN: No rashes CENTRAL NERVOUS SYSTEM: Alert and oriented -3. No focal deficits, tone is normal in all 4 extremities. PSYCHIATRIC: Alert and oriented -3. Appropriate affect. Intact judgment and insight. - Labs CBC & Chem 7: 01/17/20 05:06 01/17/20 05:06 Labs: Abnormal Lab Results - Last 24 Hours (Table) 01/17/20 01/17/20 Range/Units 05:06 05:06 WBC 11.0 H (3.8-10.6) k/uL RBC 3.20 L (4.30-5.90) m/uL Hgb 9.9 L (13.0-17.5) gm/dL Hct 30.1 L (39.0-53.0) % Neutrophils # 9.6 H (1.3-7.7) k/uL Lymphocytes # 0.8 L (1.0-4.8) k/uL Sodium 136 L (137-145) mmol/L Chloride 109 H (98-107) mmol/L BUN 40 H (9-20) mg/dL Creatinine 1.28 H (0.66-1.25) mg/dL Glucose 105 H (74-99) mg/dL Calcium 7.8 L (8.4-10.2) mg/dL Microbiology - Last 24 Hours (Table) 01/15/20 04:42 Blood Culture - Preliminary Blood No Growth after 48 hours 01/16/20 04:09 Blood Culture - Preliminary Blood No Growth after 24 hours 01/14/20 04:25 Blood Culture Gram Stain - Final Blood Blood Culture - Final Staphylococcus aureus Assessment and Plan Plan: Assessment: #1. Acute MSSA bacteremia most likely related to pneumonia #2. Acute gram-positive pneumonia with sepsis likely related to staph aureus #3. Atrial fibrillation with RVR #4. Acute rhabdomyolysis and acute kidney injury, improving #5. Degenerative joint disease #6. Bilateral peripheral pulmonary nodules, some are cavitary in nature and need to be monitored and followed closely, with a plan to repeat CT of the chest in the next few weeks #7. Acute L1 fracture secondary to a fall #8. Acute kidney injury related to sepsis and bacteremia and acute rhabdomyolysis, improving #9. Acute retroperitoneal bleed, status post fall, heparin is on hold #10. Hematuria, resolved, patient has been restarted on Eliquis with no recurrence of hematuria #11. Urinary retention requiring placement of urinary catheter #12. 4.7 ascending aortic aneurysm, will be followed every 6 months #13. Osteoarthritis Plan: Patient is calm and comfortable this morning, he is nothing by mouth after midn ight for transesophageal echocardiogram. Remains in A. fib with a rate of 120 BPM, continue oral anticoagulation, rate control occasions per cardiology, today's chest x-ray has been reviewed showing worsening left lung infiltrate. No fever or chills. No recurrence of hematuria, no signs of bleeding. Continue to monitor the patient in the intensive care unit. I performed a history & physical examination of the patient and discussed their management with my nurse practitioner, Araceli Alexandra. I reviewed the nurse practitioner's note and agree with the documented findings and plan of care. Lung sounds are positive for diminished breath sounds with left lung inspiratory crackles. The findings and the impression was discussed with the patient. I attest to the documentation by the nurse practitioner. Time with Patient: Less than 30
[2020-01-17] MEDS: CHOLECALCIFEROL 1,000 UNIT TAB PO SCH (07:58)
[2020-01-17] MEDS: AMIODARONE 200 MG TAB PO SCH ×2 (07:58→21:14)
[2020-01-17] MEDS: PANTOPRAZOLE 40 MG TABLET PO SCH (07:58)
[2020-01-17] MEDS: FUROSEMIDE 40 MG TAB PO SCH (07:59)
[2020-01-17] MEDS: TAMSULOSIN 0.4 MG CAP.ER.24H PO SCH (07:59)
[2020-01-17] MEDS: METOPROLOL TARTRATE 50 MG TAB PO SCH ×3 (07:59→21:14)
[2020-01-17] MEDS ORDERED: BENZOCAINE SPRAY 1 CAN TOPICAL STA (08:59)
[2020-01-17] MEDS ORDERED: MIDAZOLAM 1 MG/ML 5 ML VIAL IV STA (09:08)
[2020-01-17] MEDS ORDERED: fentaNYL (PF) 50 MCG/ML 2 ML AMP IVP ONE (09:15)
[2020-01-17] MEDS ORDERED: MIDAZOLAM 2 MG/2 ML VIAL IV STA (09:42)
--- NOTE | 2020-01-17 10:00 | P.PN ---
<Amanda Cantu Diane - Last Filed: 01/17/20 09:59> Subjective Progress Note Date: 01/17/20 CHIEF COMPLAINT: Possible retroperitoneal bleed HISTORY OF PRESENT ILLNESS: Patient examined this morning in the ICU. Reports his abdomen is sore from coughing, but otherwise denies abdominal pain. No nausea or vomiting. Hemoglobin 9.9. WBC 11.0. He is afebrile. PHYSICAL EXAM: VITAL SIGNS: Reviewed. GENERAL: Well-developed in no acute distress. HEENT: No sclera icterus. Extraocular movements grossly intact. Moist buccal mucosa. Head is atraumatic, normocephalic. ABDOMEN: Soft. Nondistended. Nontender. NEUROLOGIC: Alert and oriented. Cranial nerves II through XII grossly intact. ASSESSMENT: 1. Fall 2. Possible retroperitoneal bleed PLAN: Diet as tolerated Continue to monitor hemoglobin Patient scheduled for TATUM today. Await results Nurse practitioner note has been reviewed by physician. Signing provider agrees with the documented findings, assessment, and plan of care. Objective - Vital Signs Vital signs: Vital Signs Temp 98.4 F 01/17/20 04:00 Pulse 108 H 01/17/20 09:00 Resp 22 01/17/20 09:00 BP 119/89 01/17/20 09:00 Pulse Ox 93 L 01/17/20 09:00 Intake & Output 01/16/20 01/17/20 01/17/20 18:59 06:59 18:59 Intake Total 1800 650 300 Output Total 780 1155 475 Balance 1020 -505 -175 Weight 88.4 kg Intake: IV 1800 650 200 Sodium Chloride 0.9% 1, 550 600 150 000 ml @ 50 mls/hr IV . Q20H [facility] Rx#:[id number] Sodium Chloride 0.9% 500 250 ml 250 ml @ 999 mls/hr IV .Q16M [facility] Rx#:[id number] Sodium Chloride 0.9% 500 500 ml 500 ml @ 999 mls/hr IV .Q31M [facility] Rx#:[id number] Sodium Chloride 0.9% 500 500 ml 500 ml @ 999 mls/hr IV .Q31M [facility] Rx#:[id number] ceFAZolin 2 gm In Sodium 50 50 Chloride 0.9% 50 ml @ 100 mls/hr IVPB Q8H [facility] Rx#: [id number] Intake, IV Titration 100 Amount Potassium Chloride 10 meq 100 In Water For Injection 1 100ml.bag @ 100 mls/hr IVPB Q1H [facility] Rx#: [id number] Output: Urine 780 1152 475 Other: Voiding Method Indwelling Catheter Indwelling Catheter Indwelling Catheter - Labs CBC & Chem 7: 01/17/20 05:06 01/17/20 05:06 Labs: Abnormal Lab Results - Last 24 Hours (Table) 01/17/20 01/17/20 Range/Units 05:06 05:06 WBC 11.0 H (3.8-10.6) k/uL RBC 3.20 L (4.30-5.90) m/uL Hgb 9.9 L (13.0-17.5) gm/dL Hct 30.1 L (39.0-53.0) % Neutrophils # 9.6 H (1.3-7.7) k/uL Lymphocytes # 0.8 L (1.0-4.8) k/uL Sodium 136 L (137-145) mmol/L Chloride 109 H (98-107) mmol/L BUN 40 H (9-20) mg/dL Creatinine 1.28 H (0.66-1.25) mg/dL Glucose 105 H (74-99) mg/dL Calcium 7.8 L (8.4-10.2) mg/dL Microbiology - Last 24 Hours (Table) 01/15/20 04:42 Blood Culture - Preliminary Blood No Growth after 48 hours 01/16/20 04:09 Blood Culture - Preliminary Blood No Growth after 24 hours 01/14/20 04:25 Blood Culture Gram Stain - Final Blood Blood Culture - Final Staphylococcus aureus <Hayden Sky - Last Filed: 01/17/20 17:07> Subjective As above. No new complaints. Hemoglobin stable. Denies abdominal pain. We'll sign off. Please call if needed. Objective - Vital Signs Vital signs: Vital Signs Temp 97.6 F 01/17/20 12:00 Pulse 130 H 01/17/20 15:00 Resp 28 H 01/17/20 15:00 BP 118/80 01/17/20 15:00 Pulse Ox 98 01/17/20 15:00 Intake & Output 01/16/20 01/17/20 01/17/20 18:59 06:59 18:59 Intake Total 1800 650 960 Output Total 780 1155 1725 Balance 1020 -228 -757 Weight 88.4 kg Intake: IV 1800 650 500 Sodium Chloride 0.9% 1, 550 600 450 000 ml @ 50 mls/hr IV . Q20H [facility] Rx#:[id number] Sodium Chloride 0.9% 500 250 ml 250 ml @ 999 mls/hr IV .Q16M [facility] Rx#:[id number] Sodium Chloride 0.9% 500 500 ml 500 ml @ 999 mls/hr IV .Q31M [facility] Rx#:[id number] Sodium Chloride 0.9% 500 500 ml 500 ml @ 999 mls/hr IV .Q31M [facility] Rx#:[id number] ceFAZolin 2 gm In Sodium 50 50 Chloride 0.9% 50 ml @ 100 mls/hr IVPB Q8H [facility] Rx#: [id number] Intake, IV Titration 100 Amount Potassium Chloride 10 meq 100 In Water For Injection 1 100ml.bag @ 100 mls/hr IVPB Q1H [facility] Rx#: [id number] Oral 360 Output: Urine 780 1155 1725 Other: Voiding Method Indwelling Catheter Indwelling Catheter Indwelling Catheter - Labs CBC & Chem 7: 01/17/20 05:06 01/17/20 05:06 Labs: Abnormal Lab Results - Last 24 Hours (Table) 01/17/20 01/17/20 Range/Units 05:06 05:06 WBC 11.0 H (3.8-10.6) k/uL RBC 3.20 L (4.30-5.90) m/uL Hgb 9.9 L (13.0-17.5) gm/dL Hct 30.1 L (39.0-53.0) % Neutrophils # 9.6 H (1.3-7.7) k/uL Lymphocytes # 0.8 L (1.0-4.8) k/uL Sodium 136 L (137-145) mmol/L Chloride 109 H (98-107) mmol/L BUN 40 H (9-20) mg/dL Creatinine 1.28 H (0.66-1.25) mg/dL Glucose 105 H (74-99) mg/dL Calcium 7.8 L (8.4-10.2) mg/dL Microbiology - Last 24 Hours (Table) 01/15/20 04:42 Blood Culture - Preliminary Blood No Growth after 48 hours 01/16/20 04:09 Blood Culture - Preliminary Blood No Growth after 24 hours 01/14/20 04:25 Blood Culture Gram Stain - Final Blood Blood Culture - Final Staphylococcus aureus Assessment and Plan (1) Left flank pain Current Visit: Yes Status: Acute Code(s): R10.9 - UNSPECIFIED ABDOMINAL PAIN SNOMED Code(s): 866902508
--- NOTE | 2020-01-17 10:31 | PN ---
PROGRESS NOTE Mr. Kinsey is a 79-year-old male who presented after a fall with no syncope. He had evidence of rhabdomyolysis. Subsequently went in atrial fibrillation with rapid ventricular response. He continues to be in atrial fibrillation. His ventricular response overall has been controlled. There is a question of endocarditis and Infectious Disease service requested a TATUM and he is scheduled to undergo that today. Hemodynamically, he is on no pressor. He had episode of hypertension yesterday that resolved. He denies any dizziness or palpitation. He is feeling well overall. He denies any nausea. According to him his breathing is better. He continues to be on Eliquis 5 mg twice a day, amiodarone 200 mg twice a day, Lasix 40 mg daily, metoprolol tartrate 50 mg 3 times a day his. His Cardizem was held because of episode of hypotension. His. PHYSICAL EXAMINATION: Blood pressure today is 111/80 with a heart rate in 90s to 100. LUNGS: Crackles bilaterally at the bases. HEART: Irregular, regular, S1, S2, no S3 with systolic murmur, no diastolic murmur. ABDOMEN: Soft, nontender, positive bowel sounds, no organomegaly. EXTREMITIES: +1 edema. LAB DATA: Revealed a white blood cell of 11.000, hemoglobin 9.9, BUN and creatinine 40 and 1.28, potassium 3.8. Chest x-ray revealed worsening infiltrate in the left lower lobe. IMPRESSION: 1. Infectious process with infiltrate in the lung consistent with pneumonia. The possibility of endocarditis is being raised by the Infectious Disease Services. The transthoracic echocardiogram revealed no vegetations. 2. Atrial fibrillation with episode of active rapid ventricular response. 3. Renal failure, stable. 4. Rhabdomyolysis, resolved. 5. Status post fall. 6. Ascending aortic aneurysm stable. RECOMMENDATION: From the cardiac standpoint, I will increase the dose of his amiodarone. Continue rest of his medical regimen. Will proceed with transesophageal echocardiogram today. The rationale behind the procedure as well as risks and complications were discussed with the patient, who is in full understanding and agreement. MMODL / IJN: [id number] /
[2020-01-17] MEDS: APIXABAN 5 MG TAB PO SCH ×2 (12:15→21:14)
--- NOTE | 2020-01-17 12:53 | P.PN ---
Subjective Progress Note Date: 01/17/20 This is a 79-year-old male one of my patient with a previous medical history significant for osteoporosis, osteoporosis with prior history of L1 compression fracture, vitamin D deficiency, history of enlarged prostate, patient was in his usual state of health until about 2 days ago when he felt a bit sick to stomach episode of nausea and vomiting he was not drinking enough water at that time, patient woke up the yesterday morning at around 12 midnight to go to have a drink of water before he goes to the bathroom he ended up falling on the floor after his right knee gave out and the patient landed on the floor for at least 17 hours until his daughter hold him and he did not answer so she came to the house and she found him laying on the floor EMS was called and the patient was brought into the ER at [facility] and brought to the hospital EMS personnel thought the patient was in atrial fibrillation, upon arrival to the ER his initial EKG showed sinus tachycardia with PAC and PVCs without any evidence of atrial fibrillation, patient lactic acid was elevated at 4.7, he was given IV fluid resuscitation, he had a chest x-ray that did not show much ended up going for computed tomography scan of the chest that showed multiple bilateral peripheral pulmonary infiltrate with left 2.5 cm cavitary lesion in the left upper lobe, patient was started on IV antibiotic in the form of Zithromax, Rocephin, and vancomycin, pulmonary consultation was obtained from , as well as cardiology consultation because of his ectopy. 01/10: Yesterday, patient developed evidence of atrial fibrillation and consult with Dr. Hdz was requested. Patient was started on Cardizem drip and heparin drip. Echocardiogram revealed EF of 50-55%, mild to moderate aortic regurgitation, mild tricuspid regurgitation, moderate pulmonary hypertension. CAT scan of the abdomen and pelvis was obtained which revealed asymmetrical perinephric stranding and edema in the right kidney, correlated to exclude pyelonephritis. Continue fluid edema and fluid in the right retroperitoneum. Unclear if this is arising from the right kidney. Correlate for any relevant history that could predispose the patient to retroperitoneal bleed. The fluid is not high-density would be seen in acute hemorrhage. Tortuous right common and external iliac artery which courses through this tracking fluid. Tiny hiata l hernia and mild circumferential wall thickening of the distal esophagus. Correlate to exclude esophagitis. Continue small effusions with extensive peripheral opacities. Interstitial pneumonitis and atypical pneumonias including COVID-19 pneumonia in the differentials. Incidental finding of a 70 aortic aneurysm 4.7 cm. Consult was obtained with Dr. Sky and he is not convinced retro-peritoneal bleed. Heparin drip will remain on hold. Repeat chest x-ray revealed mild cardiomegaly and continued interstitial density. Correlate to exclude pulmonary vascular congestion. Increasing patchy airspace disease in the left mid and lower lung could represent developing confluent pulmonary edema versus pneumonia. Patient has been seen and followed by Dr. Monk. Patient was also seen by Dr. Romero and continued on vancomycin and Rocephin for possible gram-positive bacteremia as well as azithromycin. Initial blood culture has not been finalized. This morning, panel monitor atrial fibrillation in the 120s to 140s. He denies any chest pain, shortness of breath or dizziness. No palpitations. Cardiology is increasing Lopressor to 50 mg twice daily and Lasix on hold due to worsening renal function. Anticoagulation remains on hold due to possibility of retroperitoneal bleed. Patient has been afebrile since admission. Blood pressure currently 122/74, pulse ox 98% on 3 L nasal cannula. Repeat blood work reveals WBC 14, hemoglobin 12.6, platelet count 121. Sodium 136, potassium 4.3, chloride 108, CO2 21, BUN 58 and creatinine 1.62. Blood sugar 123. CK is 1026. TSH 0.8-9. Coronavirus not detected. 01/11: Patient sitting up in bed in no apparent distress he denies any chest pain is less short of breath today he denies any abdominal pain, he continues to be in atrial fibrillation his heart rate is better he remains on Cardizem drip at 5 mg hour his Lopressor was increased we will start the patient on Eliquis 5 mg orally twice every day, he would be kept in the ICU for another 24 hours, then he will be transferred to the cardiac telemetry unit. 01/12: Patient is sitting up in his recliner today he is in a positive fluid balance he did receive 20 mg Lasix IV push he continues to be in atrial fibrillation with somewhat fast ventricular response, he was seen earlier by cardiology and pulmonary medicine and spoke with his daughter done and I gave her an updated about his current situation he needs to stay in the ICU, until he goes into neutral fluid balance, he needs additional dose of Lasix we will give him another 20 mg Lasix IV push and continue to monitor his weight and fluid balance. Patient denies any chest pain he continues to have some coughing and minimal phlegm production he appears to be tachypneic, he denies any abdominal pain that he has no nausea or vomiting he seems to be tolerating his treatment very well, he was switched to heparin drip as opposed to Eliquis for few days and he would be monitored. 01/13: Patient remains in intensive care unit. Patient continues to be in atrial fibrillation with RVR running up to the 140s this morning. Patient denies any chest pain, dizziness, palpitations. No nausea or vomiting. No bowel movem ents. No fever or chills. Dr. Hdz has adjusted his Cardizem dose to 60 mg 3 times daily. He is also recommending oral anticoagulation once cleared by urology. Patient has been seen by Dr. Batres with recommendations to keep Davalos for 7 days, start Flomax. Gross hematuria most likely secondary to retention and okay to resume anticoagulation. Repeat chest x-ray reveals hypoventilatory changes. Persistent interstitial infiltrates of the Route and similar confluent left basilar and peripheral left lung airspace disease. One dose of IV Lasix 40mg ordered this morning and continue every 12 hours. BUN 46, creatinine 1.28, potassium 4.3. Hemoglobin 11.3. Initial blood culture has been finalized as MSSA. Patient is currently on ceftriaxone and vancomycin followed by Dr. Romero. 01/14: Patient remains in intensive care unit. He is seen today sitting in recliner and appears to be comfortable. cardiac monitor remains in atrial fibrillation and rate in the 120s bpm. He has been otherwise hemodynamically stable. WBC 12.4, hemoglobin 11, sodium 138, potassium 3.7, chloride 111, CO2 22, BUN 44, creatinine 1.33. Dr. Romero has transitioned antibiotics to kefzol. Repeat blood culture revealed gram-positive cocci in groups. Patient was started on Eliquis yesterday. No further hematuria. Repeat chest x-ray reveals patchy infiltrates persist at the lung bases left greater than right without significant change. Correlate for pneumonia. Discharge plan to [facility]. 01/15: Patient remains in the intensive care unit and has been cleared by Dr. Hathaway for transfer out. Patient remains in atrial fibrillation. 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 Currently 116. Dr. Hdz has had an in amiodarone 200 mg twice daily and continued on Cardizem and metoprolol. Repeat limited echocardiogram reveals suboptimal views but cannot rule out vegetation on the aortic valve. Mild mitral regurgitation, tricuspid regurgitation. Patient to be scheduled for TATUM to rule out vegetation. Patient had hypotension when working with physical therapy today and at time of the evaluation is also complaining of feeling lightheaded. Cardiology is planning to decrease Cardizem 30 mg 3 times daily. Patient will be given fluid bolus. Lasix frequency will also be decreased frequency to daily He denies having any chest pain or shortness of breath. No abdominal pain. Blood pressure 114/77, pulse ox 95% on room air, afebrile. Patient is tolerating eliquis with no recurrence of hematuria. Davalos catheter is in place. Repeat blood work reveals WBC 12.0, hemoglobin 10.8. Chloride 108, Repeat chest x-ray reveals airspace disease throughout the left mid and lower lung and lesser extent to the right base selective prior. Some of the density has a nodular configuration along the periphery of the left upper lung. Unchanged. WBC 12, hemoglobin 10.8. Sodium 138, potassium 3.7, chloride 108, CO2 23. BUN 43, creatinine 1.32. Repeat blood cultures positive for staph aureus 01/16: Patient remains in the intensive care unit. Dizziness has resolved. He does not have any abdominal pain. Davalos catheter is clear. Dr. Hdz has adjusted amiodarone 400 mg twice daily, Cardizem was discontinued and Lopressor was increased to 50 mg 3 times daily. Heart rate is running in the 150s prior to medications, panel monitor is atrial fibrillation, pulse ox 94% on room air, blood pressure 109/84. He has been afebrile. He is scheduled for TATUM today. Most recent blood cultures obtained on January 14 and January 15 showing no growth. Patient has been continued on Kefzol. Objective - Vital Signs Vital signs: Vital Signs Temp 98.4 F 01/17/20 04:00 Pulse 113 H 01/17/20 06:00 Resp 18 01/17/20 06:00 BP 111/82 01/17/20 06:00 Pulse Ox 94 L 06/18/20 06:00 Intake & Output 01/16/20 01/17/20 01/17/20 18:59 06:59 18:59 Intake Total 1800 650 Output Total 780 1155 Balance 1020 -505 Weight 88.4 kg Intake: IV 1800 650 Sodium Chloride 0.9% 1, 550 600 000 ml @ 50 mls/hr IV . Q20H [facility] Rx#:[id number] Sodium Chloride 0.9% 500 250 ml 250 ml @ 999 mls/hr IV .Q16M [facility] Rx#:[id number] Sodium Chloride 0.9% 500 500 ml 500 ml @ 999 mls/hr IV .Q31M [facility] Rx#:[id number] Sodium Chloride 0.9% 500 500 ml 500 ml @ 999 mls/hr IV .Q31M [facility] Rx#:[id number] ceFAZolin 2 gm In Sodium 50 Chloride 0.9% 50 ml @ 100 mls/hr IVPB Q8H [facility] Rx#: [id number] Output: Urine 780 1155 Other: Voiding Method Indwelling Catheter Indwelling Catheter - Exam Review of Systems Constitutional: Reports weakness, Denies chronic headaches, Denies fatigue, Denies lethargy, denies dizziness Eyes: denies blurred vision, denies bulging eye, denies decreased vision Ears: bilateral: decreased hearing Ears, nose, mouth and throat: Denies dysphagia, Denies neck lump, Denies sore throat Cardiovascular: Reports rapid heart beat, Denies chest pain, Denies decreased exercise tolerance, Denies lightheadedness, Denies shortness of breath, Denies syncope Respiratory: Denies congestion, Denies cough with sputum, Denies home oxygen, Denies sleep apnea, Denies snoring, Denies wheezing Gastrointestinal: Denies abdominal pain, denies nausea, denies vomiting, Denies bloating, Denies change in bowel habits, Denies coffee ground emesis, Denies excessive gas, Denies heartburn, Denies hematemesis, Denies melena Genitourinary: Denies dysuria, Denies incontinence, reports hematuriaresolving Musculoskeletal: Denies frequent falls, Reports gait dysfunction Musculoskeletal: right: shoulder pain, shoulder stiffness, absent: ankle pain, ankle stiffness, ankle swelling, elbow pain, elbow stiffness, elbow swelling, foot pain, foot stiffness, foot swelling, hand pain, hand stiffness, hand swelling, hip pain, hip stiffness, hip swelling, knee pain, knee swelling, shoulder swelling, wrist pain, wrist stiffness, wrist swelling Integumentary: Denies pruritus, Denies rash Neurological: Denies numbness, Denies weakness Psychiatric: Denies anxiety, Denies depression Physical examination GEN: This is a 79-year-old male. He is resting in bed and appears to be comfortable and in no acute distress. HEENT: Head is atraumatic, normocephalic, pupils were equal round reactive to light and recommendation, extraocular muscle movement were intact. Neck: Supple, no JVD, no carotid bruit. Chest: Decreased breath sounds at the bases, few rhonchi, no expiratory wheezes, minimal chest wall tenderness and the left lower ribs, no intercostal retrac tions. No sensory muscle usage. Heart: First heart sound is depressed, second heart sound is normal, irregular, there is systolic ejection murmur 2/6. Sternal border. Abdomen: Soft, distended, moderate tenderness in the left upper quadrant , as well as right upper quadrant, depressed bowel sounds. Extremities: Trace edema, no calf tenderness, dorsalis pedis +1 bilaterally. Neurologic examination: Patient is awake alert and oriented 3, cranial nerves III through XII appear grossly intact. - Labs CBC & Chem 7: 01/17/20 05:06 01/17/20 05:06 Labs: Abnormal Lab Results - Last 24 Hours (Table) 01/17/20 01/17/20 Range/Units 05:06 05:06 WBC 11.0 H (3.8-10.6) k/uL RBC 3.20 L (4.30-5.90) m/uL Hgb 9.9 L (13.0-17.5) gm/dL Hct 30.1 L (39.0-53.0) % Neutrophils # 9.6 H (1.3-7.7) k/uL Lymphocytes # 0.8 L (1.0-4.8) k/uL Sodium 136 L (137-145) mmol/L Chloride 109 H (98-107) mmol/L BUN 40 H (9-20) mg/dL Creatinine 1.28 H (0.66-1.25) mg/dL Glucose 105 H (74-99) mg/dL Calcium 7.8 L (8.4-10.2) mg/dL Microbiology - Last 24 Hours (Table) 01/15/20 04:42 Blood Culture - Preliminary Blood No Growth after 48 hours 01/16/20 04:09 Blood Culture - Preliminary Blood No Growth after 24 hours 01/14/20 04:25 Blood Culture Gram Stain - Final Blood Blood Culture - Final Staphylococcus aureus Assessment and Plan Plan: 1. Acute hypoxemic respiratory failure secondary to acute diastolic heart failure due to atrial fibrillation with rapid ventricular response and MSSA pneumonia. Antibiotics transition to Kefzol, continue oxygen support, continue nebulized treatment. Pulmonary consultation. ID consult appreciated. Limited echocardiogram reveals that vegetation cannot be ruled out an aortic valve. TATUM scheduled for today. 2. Bilateral peripheral pulmonary nodules with left cavitary lesions in the left upper lobe 2.5 cm. Continue IV antibiotic in the form of Kefzol. Monitor the patient very closely repeat computed tomography scan in about 4 weeks from now. 3. Mild rhabdomyolysis. Completed IV fluid resuscitation. Discontinue IV fluids. 4. Mild hyponatremia secondary to hypovolemia. Resolved. 5. Acute kidney injury secondary to acute tubular necrosis due to rhabdomyolysis. Resolved. 6. New onset of atrial fibrillation with RVR, paroxysmal atrial fibrillation. Amiodarone increased to 400 mg twice daily, Cardizem discontinued,, continue metoprolol 50 mg 3 times daily, continue Eliquis 5 mg orally twice every day. 7. MSSA bacteremia secondary to MSSA pneumonia, possible vegetation on aortic valve. Patient is on Kefzol. We will continue to monitor the patient very closely. TATUM scheduled today. 8. Severe sepsis likely due to gram-positive pneumonia. Continue Kefzol. 9. Possible retroperitoneal bleed . After discussing with intensive care and general surgery it does not seems to be an actual bleeding we will monitor very closely. 10. 4.7 cm ascending aortic aneurysm. Patient will continue to have a [facility] computed tomography scan once every 6 months. 11. Lactic acidosis. Continue IV fluid resuscitation, continue IV antibiotic. Repeat lactic acid is better. 12. Osteoarthritis. Stable. 13. Vitamin D deficiency. Continue vitamin D supplements 1000 units once every day. 14. DVT prophylaxis. We will start the patient on Eliquis 5 mg orally twice every day. 15. GI prophylaxis. Continue Protonix 40 mg orally once every day. 16. History of old L1 fracture 17. COVID-19 infection not present. CODE STATUS: full code. Discharge plan: [facility]. PT and OT on consult. marketing systems manager following closely. Impression and plan of care have been directed as dictated by the signing physician. Gris Zuniga nurse practitioner acting as scribe for signing physician.
--- NOTE | 2020-01-17 13:21 | ECHOT ---
TRANSESOPHAGEAL ECHOCARDIOGRAM INDICATION: Evaluation for possible endocarditis. PROCEDURE: After explaining the procedure to the patient, its risks and the complications, his blood pressure, heart rate, O2 saturation was monitored. The throat was sprayed with Cetacaine, he received 2 mg intravenous Versed, 50 mcg intravenous fentanyl. The probe was introduced in the esophagus without difficulty, images were obtained, following that, the probe was removed. FINDINGS: Left atrial size is dilated. Left atrial appendage is normal. The aortic valve, tricuspid and mitral valve appears to be normal. Left ventricular size and systolic function are normal. Descending thoracic aorta appears to be normal. The ascending aorta is dilated measuring 4.2 cm. No pericardial effusion was noted, contrast bubble study revealed no evidence of shunting across the interatrial septum. Doppler pulse wave and color Doppler obtained, revealed moderate aortic with mild mitral and tricuspid regurgitation. There was no shunting by color Doppler study. CONCLUSION: 1. Dilated left atrium with normal appearance left atrial appendage. 2. Normal left ventricular size and systolic function. 3. Dilated ascending aorta with normal appearance of the aortic valve and moderate aortic regurgitation. 4. Mild mitral and tricuspid regurgitation. 5. No evidence of vegetation. 6. Normal appearance of the descending thoracic aorta. 7. No pericardial effusion. MMODL / IJN: [id number] /
--- NOTE | 2020-01-17 15:09 | CT ---
EXAMINATION TYPE: CT chest wo con DATE OF EXAM: 01/17/2020 COMPARISON: 01/09/2020 HISTORY: 79-year-old male Left lung pneumonia TECHNIQUE: Contiguous axial scanning of the chest without IV contrast. Coronal and sagittal reconstru ctions performed. CT DLP: 524.2 mGycm Automated exposure control for dose reduction was used. FINDINGS: Heart borderline enlarged without pericardial effusion. Extensive three-vessel coronary artery calcif ications are present. Ectatic aortic root at 3.9 cm. Aneurysmal ascending aorta 4.4 cm. Conventional vessel branching anatomy. Ectatic upper descending thoracic aorta 3.3 cm. Ectatic aorta at the thoracoabdominal junction and 2.9 cm. Subcarinal lymph node measures 1 cm there is numerous nonenlarged mediastinal lymph nodes are demonst rated. Precarinal lymph node borderline in size at 9 mm. Increasing [id number] left and small right pleural effusions. Increasing consolidation which n ow involves the entire basilar left lower lobe. Nodular peripheral groundglass foci redemonstrated. Many of these now show cavitary change. Small hiatal hernia. Cholecystectomy clips. Moderate stool burden. Bones: Generalized anasarca change. L1 vertebral compression collapse with mild retropulsion into the ventral spinal canal causing [id number] spinal canal stenosis. This appears to have been prese nt on 04/09/2016 suggesting chronic compression collapse. IMPRESSION: 1. INCREASING SMALL TO MODERATE LEFT AND SMALL RIGHT PLEURAL EFFUSIONS. INCREASING AIRSPACE DISEASE W HICH NOW INVOLVES THE ENTIRE BASILAR LEFT LOWER LOBE. CORRELATE FOR WORSENING PNEUMONIA. 2. PERIPHERAL NODULAR INFILTRATES AND GROUNDGLASS REDEMONSTRATED NOW MANY OF WHICH SHOW CAVITATION. C ONSIDER ATYPICAL FUNGAL/MYCOBACTERIAL INFECTIONS AND SEPTIC EMBOLI. 3. ASCENDING AORTIC ANEURYSM AT 4.4 CM. CAD WITH EXTENSIVE CORONARY ARTERY CALCIFICATIONS.
--- NOTE | 2020-01-17 23:20 | PN ---
PROGRESS NOTE DATE OF SERVICE: 01/17/2020 REASON FOR FOLLOWUP: MSSA bacteremia. INTERVAL HISTORY: The patient is currently afebrile patient is breathing more comfortably. Denies having any chest pain. Cough is mostly dry. No nausea or vomiting. No abdominal pain. No diarrhea. PHYSICAL EXAMINATION: Blood pressure is 106/69 with a pulse of 109, temperature 98. He is 97% on room air. General description is an elderly male up in the chair in no distress. RESPIRATORY SYSTEM: Unlabored breathing, decreased breath sounds at the bases. No wheeze. HEART: S1, S2. Regular rate and rhythm. ABDOMEN: Soft, no tenderness. LABS: Hemoglobin is 9.9, white count 11, BUN of 40, creatinine 1.28. Blood culture repeat 01/14 and 01/15 has been negative. TATUM was negative. CT of the chest with left lower lobe pneumonia. DIAGNOSTIC IMPRESSION AND PLAN: Patient with MSSA bacteremia, source likely left lower lobe pneumonia. The patient is currently covered with cefazolin 2 grams q.8 hours to continue and will monitor clinical course closely. Continue with supportive care. MMODL / IJN: [id number] /
[2020-01-18 06:08] LABS: Calcium 7.8 mg/dL (8.4-10.2)
[2020-01-18] MEDS: FUROSEMIDE 40 MG TAB PO SCH (08:20)
[2020-01-18] MEDS: APIXABAN 5 MG TAB PO SCH (08:20)
[2020-01-18] MEDS: AMIODARONE 200 MG TAB PO SCH ×2 (08:20→21:11)
[2020-01-18] MEDS: CHOLECALCIFEROL 1,000 UNIT TAB PO SCH (08:20)
[2020-01-18] MEDS: METOPROLOL TARTRATE 50 MG TAB PO SCH ×3 (08:20→21:10)
[2020-01-18] MEDS: TAMSULOSIN 0.4 MG CAP.ER.24H PO SCH (08:20)
[2020-01-18] MEDS: SODIUM CHLORIDE 0.9% 1,000 ML IV SCH (08:22)
--- NOTE | 2020-01-18 08:30 | US ---
EXAMINATION TYPE: US chest DATE OF EXAM: 01/18/2020 COMPARISON: CXR CLINICAL HISTORY: Markings for thoracentesis by pulmonary staff. Effusion TECHNIQUE: Targeted ultrasound of the posterior lower bilateral hemithoraces EXAM MEASUREMENTS: Right Pleural Effusion pocket size: 1.8 cm Left Pleural Effusion pocket size: 10.4 cm "Honeycomb" in appearance with multiple septations Left skin surface to fluid distance: 3.9 cm Right side NOT marked for possible thoracentesis outside the dept. Left side marked for possible thoracentesis outside the dept. Pulmonologists are able to review the images in the patient?s EMR. IMPRESSIONS: 1. Loculated pleural effusion left lung base.
--- NOTE | 2020-01-18 08:46 | P.PN ---
Subjective Progress Note Date: 01/18/20 Principal diagnosis: Gram-positive bacteremia, sepsis, bilateral cavitary lung nodules and pneumonia, A. fib with RVR This is a pleasant 79-year-old gentleman who follows with Dr. Harley as his primary care provider. He has a history of osteoarthritis, osteoporosis with prior history of L1 compression fracture, vitamin D deficiency, enlarged prostate, remote history of tobacco dependence for approximately 10 years but quit 60 years ago. Daily alcohol use. On 01/18/2020 the patient had gotten up from bed and headed to the bathroom when his right knee gave out and he fell to the ground. He was unable to get himself up. His daughter called and the patient had not answered and she went to check on him yesterday, found him on the floor and EMS was called. Approximately 16 hours of down time. He was found to be febrile with presenting temperature of 102.9. Computed tomography scan of the chest revealed extensive peripheral bilateral noncalcified pulmonary nodular infiltrates. Neoplastic versus inflammatory disease. There is a 2.5 cm cavitating lesion in the lateral aspect of the left upper lobe. The largest of the peripheral nodules is 2 cm. The patient is seen today in consultation on the selective care unit. He is currently sitting up in a chair. Awake and alert in no acute distress. Currently afebrile. Sinus tachycardia with frequent PACs, possible paroxysmal atrial fibrillation. Echocardiogram reveals preserved left ventricular systolic function with ejection fraction 50-55%. CAT scan of the abdomen and pelvis revealed edema about the right kidney extending to the right renal sinus with possible polynephritis. Confluent edema and fluid extends down the right retroperitoneum cannot exclude retroperitoneal bleed. Confluent small effusions with extensive peripheral opacities. Interstitial pneumonitis and atypical pneumonias are within the differential. There is a 4.7 cm ascending aortic aneurysm. CoVID 19 screening pending. Blood cultures pending. White count 12.1. Hemoglobin 13.0. Platelet count 104. Lymphocytes 0.48. Sodium 131. Potassium 4.2. Bicarb 19. Creatinine 1.18. Glucose 164. CK 867. Troponin 0.025. ProBNP 1910. He has been initiated on ceftriaxone, vancomycin and azithromycin. Cardizem drip at 5 mg per hour. Heparin drip. Patient was reevaluated today on 01/11/20, patient developed worsening shortness of breath overnight, wheezing, and worsening atrial fibrillation with RVR, hence he was transferred to the intensive care unit. Feeling better at present, however he is on 3 L nasal cannula, and O2 saturation is 94%. He is also on Cardizem at 5 mg per hour, IV fluid increased to 1 50 mL per hour. His blood cultures came back positive for gram-positive cocci in clusters, and the patient received vancomycin since admission he remains on vancomycin. He was already seen by infectious disease on consultation. Cardiology is evaluating the patient, his initial echocardiogram was nondiagnostic, patient may require transesophageal echocardiography. CPK was noted to be a bit elevated today, hence I increased his IV fluid. Patient is in atrial fibrillation with RVR, rate is 138 beats per minutes. Primary source of his bacteremia could very well be from the lungs, although the possibility of urinary tract infection and endocarditis is not entirely ruled out. But felt to be less likely. WBC count today is 14 hemoglobin is 12.6. Electrodes are normal, BUN is 58 creatinine is 1.62, worsening compared to yesterday. CPK was also noted to be elevated, pro- calcitonin was quite high 7.12. Patient was reevaluated today on 01/12/20, remains in the ICU, remains in atrial fibrillation, but rate seems to be better controlled. Remains on Cardizem drip at 5 mg per hour, IV fluid is 125 mL per hour. Remains on vancomycin for his gram-positive bacteremia. Chest x-ray continues to show left lower lobe infiltrate. Abdominal film showed dilated bowel loops, however the patient had no clinical symptoms to suggest bowel obstruction. Patient is also on Lopressor and on Eliquis twice a day. We plan to keep him in the ICU for the next 24 hours, and if he remains stable will transfer out of the ICU to a monitor bed on selective. CBC showed evidence of 12.8 hemoglobin is 11.7 electrodes are normal bicarb is a bit low at 18. Renal profile is improving. Is down to 55 creatinin e is down to 1.39. CPK is down to 422 from 1067 yesterday Patient was reevaluated today on 01/13/20, remains in the ICU, remains in atrial fibrillation with RVR. This is being addressed by cardiology. Patient remains on IV fluid at 50 mL/h remains on oxygen at 2 L/m. Patient is off Cardizem drip , and his Lopressor was increased. His renal functioning is improving. Patient was given a dose of Lasix 20 mg IV push 1 today after reviewing his chest x-ray which is suggestive of mild interstitial edema, and I strongly suspect the left lower lobe pneumonia. Final report on the blood cultures remains pending, but the patient did have positive cocci in clusters and his blood cultures. And I believe the most likely source is his left lower lobe pneumonia. On 01/14/2020 patient seen in follow-up in intensive care unit, he is calm and comfortable, sitting up in the recliner, eating breakfast, appetite is good, patient has eaten all of his food on the tray. Tolerating regular diet, denies any difficulty breathing. His heparin infusion is on hold related to hematuria, and urinary retention with subsequent placement of Davalos catheter, currently patient has a Davalos catheter in place and his hematuria seems to have resolved, patient is producing yellow clear urine today, today's hemoglobin is 11.3, white count is 9.5, patient has been afebrile, he is on 2 L of oxygen and pulse ox of 95%. Remains in atrial fibrillation with a controlled rate in the 120-160 BPM, cardiology is following and managing rate control medications. Currently patient is on oral Cardizem and the dose was increased to 60 mg 3 times daily, and oral metoprolol and 50 mg 3 times daily. Patient was given a dose of IV Lasix yesterday, he is in -1.2 L over the last 24 hours, and was started on maintenance dose of IV Lasix 40 mg every 12 hours. Patient is on Zithromax and Rocephin. Patient is on Rocephin and Zithromax and vancomycin, for blood culture positive for MSSA. We'll discontinue vancomycin. Urine culture was negative. Today's chest x-ray shows hypoventilatory changes, and persistent interstitial infiltrate throughout and more confluent patchy left basilar and peripheral left lung densities. On 01/15/2020 patient seen in follow-up in intensive care unit, he is awake and alert, oriented 3, he sitting up in the recliner, in no acute distress, currently on 3 L of oxygen the pulse ox of 96%, remains in atrial fibrillation, and his rate is better controlled compared to yesterday's exam, and is currently at 102 - 116 BPM. Afebrile. Hemodynamically stable, no worsening dyspnea, lung sounds revealed inspiratory crackles in the left base, clear right lung. Currently on point and was saline at a rate of 10 ML per hour, no other drips. Patient is on Cardizem at 60 mg orally 3 times a day in addition to metoprolol 50 mg 3 times daily cardiology is following, he is on oral dose of Lasix at 40 mg twice daily. 2 -4.5 L over last 24 hours, has mild swelling of lower extremities, knee-high VÍCTOR hose are applied. Today's labs have been reviewed showing white blood cell, 12.4, hemoglobin of 11, sodium is 138, potassium 3.7, chloride is 111, CO2 is 22, BUN is 44, and creatinine is 1.33. Patient is tolerating oral diet. Specific complaints, other than left lateral chest discomfort with coughing. Follow blood cultures have been negative, urine culture showed no growth, single blood culture from 01/09/2020 showed MSSA. he is currently on Kefzol for antibiotic coverage, oral anticoagulation was started in the form of Eliquis 5 mg twice a day. On 01/16/2020 patient seen in follow-up in the intensive care unit. He is awake and alert, oriented 3, he sitting up in the recliner, eating breakfast. Denies any distress, remains in atrial fibrillation with a rate of 129, patient is due for his morning medications. He is on metoprolol 50 mg 3 times a day, and oral Cardizem at 60 mg 3 times a day per cardiology, he has been started on oral anticoagulation in the form of Eliquis, and there has been no sign of active bleeding. Today's labs have been reviewed, showing hemoglobin of 10.8, white blood cell count is 12.0, platelet count is 368, sodium is 138, potassium 3.7, chloride is 108, CO2 is 23, BUN is 43, creatinine is 1.32. Afebrile, hemodynamically patient is stable, remains on 0.9 normal saline at a rate of 50 ML per hour, room air pulse ox is 94%. Lung sounds reveal crackles over left lower and mid left lung. Today's chest x-ray shows persistent patchy infiltrates at the lung bases left greater than right without significant change. Patient remains on for antibiotic coverage for MSSA bacteremia likely related to MSSA pneumonia. Remains on oral Lasix at 40 mg twice daily. He is in -2.8 L over last 24 hours, mild edema involving bilateral lower extremities. Renal profile remains stable with BUN of 43 and creatinine of 1.32. Davalos catheter remains in place, draining clear yellow urine, in the order of 75-125 ML per hour. There has been no recurrence of hematuria. On 01/17/2020 patient seen in follow-up in the intensive care unit, yesterday in the afternoon patient developed hypotension with systolic in the 70s, however A. fib was better controlled with the rate down to 70s BPM. Earlier in the day oral amiodarone was added in addition to oral Lopressor and Cardizem. Lopressor dose was held in the afternoon, patient was given 1.2 L in fluid boluses, blood pressure improved. Today she seen resting comfortably in bed, she is scheduled for transesophageal echocardiogram. Blood pressure has improved, and this morning it is 111/82, patient remains in atrial fibrillation with a rate of 120 BPM. Today's chest x-ray shows low lung volumes, cardiomegaly and worsening left lung infiltrate and atelectasis. Clinical patient denies any shortness of breath, he remains on room air with pulse ox of 94%, afebrile, remains on cefazolin for antibiotic coverage for MSSA bacteremia likely related to pneumonia. Follow-up blood cultures on and 01/16/2020 are negative. Patient is seen today 01/18/2020 in follow-up in the intensive care unit. He is currently sitting up in a chair at the bedside. Awake and alert in no acute di stress. She denies any worsening shortness of breath cough or congestion. He is maintaining O2 saturations in the 90s on room air. No IV fluids. TATUM showed no evidence of vegetation. He remains on Ancef. Computed tomography scan of the chest revealed increasing [id number] left and small right pleural effusions. Increasing airspace disease which now involves the entire basilar left lower lobe. Peripheral nodular infiltrates ands showing cavitation. Consider atypical fungal/mycobacterial infections and septic emboli. There is a 70 aortic aneurysm measuring 4.4 cm. Coronary artery disease with extensive coronary artery calcifications. Ultrasound of the left chest does reveal significant pocket of 10.4 cm with honeycomb in appearance and multiple septations. Sodium 137. Potassium 4.0. Creatinine 1.41. He is anticoagulated with Eliquis. Objective - Vital Signs Vital signs: Vital Signs Temp 98.2 F 01/18/20 00:00 Pulse 121 H 01/18/20 04:00 Resp 19 01/18/20 04:00 BP 112/87 01/18/20 04:00 Pulse Ox 93 L 01/18/20 04:00 Intake & Output 01/17/20 01/18/20 01/18/20 18:59 06:59 18:59 Intake Total 1520 770 Output Total 1900 1325 Balance -380 -555 Weight 86.3 kg Intake: IV 700 370 Sodium Chloride 0.9% 1, 600 320 000 ml @ 50 mls/hr IV . Q20H DAI Rx#:[id number] ceFAZolin 2 gm In Sodium 100 50 Chloride 0.9% 50 ml @ 100 mls/hr IVPB Q8H DAI Rx#: [id number] Intake, IV Titration 100 Amount Potassium Chloride 10 meq 100 In Water For Injection 1 100ml.bag @ 100 mls/hr IVPB Q1H DAI Rx#: [id number] Oral 720 400 Output: Urine 1900 1325 Other: Voiding Method Indwelling Catheter Indwelling Catheter # Bowel Movements 1 - Exam GENERAL EXAM: Alert, very pleasant, 79-year-old male patient, on room air with a pulse ox 93% comfortable in no apparent distress. HEAD: Normocephalic/atraumatic. EYES: Normal reaction of pupils, equal size. Conjunctiva pink, sclera white. NOSE: Clear with pink turbinates. THROAT: No erythema or exudates. NECK: No masses, no JVD, no thyroid enlargement, no adenopathy. CHEST: No chest wall deformity. Symmetrical expansion. LUNGS: Equal air entry with inspiratory crackles over left lower and left mid lung him a minimal crackles right base CVS: Irregular rate and rhythm she remains in atrial fibrillation with a controlled rate currently at a rate of 116 BPM, normal S1 and S2, no gallops, no murmurs, no rubs ABDOMEN: Soft, nontender. No hepatosplenomegaly, normal bowel sounds, no guarding or rigidity. EXTREMITIES: No clubbing, mild 1+ edema in bilateral lower extremities, knee- high VÍCTOR hose on bilateral lower extremity no cyanosis, 2+ pulses and upper and lower extremities. MUSCULOSKELETAL: Muscle strength and tone normal. SPINE: No scoliosis or deformity SKIN: No rashes CENTRAL NERVOUS SYSTEM: Alert and oriented -3. No focal deficits, tone is norm al in all 4 extremities. PSYCHIATRIC: Alert and oriented -3. Appropriate affect. Intact judgment and insight. - Labs CBC & Chem 7: 01/17/20 05:06 01/18/20 05:41 Labs: Abnormal Lab Results - Last 24 Hours (Table) 01/18/20 Range/Units 05:41 BUN 35 H (9-20) mg/dL Creatinine 1.41 H (0.66-1.25) mg/dL Glucose 105 H (74-99) mg/dL Calcium 7.8 L (8.4-10.2) mg/dL Microbiology - Last 24 Hours (Table) 01/17/20 05:06 Blood Culture - Preliminary Blood No Growth after 24 hours 01/14/20 04:25 Blood Culture Gram Stain - Final Blood Blood Culture - Final Staphylococcus aureus 01/15/20 04:42 Blood Culture - Preliminary Blood No Growth after 72 hours 01/16/20 04:09 Blood Culture - Preliminary Blood No Growth after 48 hours Assessment and Plan Assessment: #1. Acute MSSA bacteremia most likely related to pneumonia, TATUM revealed no evidence of vegetation. Computed tomography scan of the chest revealed increased left pleural effusion. Cavitary nodule lesions. Possible atypical fungal/mycobacterial infections and septic emboli. Ultrasound reveals a 10.4 cm pocket but with honeycombing and septations. #2. Acute gram-positive pneumonia with sepsis likely related to staph aureus #3. Atrial fibrillation with RVR #4. Acute rhabdomyolysis and acute kidney injury, improving #5. Degenerative joint disease #6. Bilateral peripheral pulmonary nodules, some are cavitary in nature and need to be monitored and followed closely, with a plan to repeat CT of the chest in the next few weeks #7. Acute L1 fracture secondary to a fall #8. Acute kidney injury related to sepsis and bacteremia and acute rhabdomyolysis, improving #9. Acute retroperitoneal bleed, status post fall, heparin is on hold #10. Hematuria, resolved, patient has been restarted on Eliquis with no recurrence of hematuria #11. Urinary retention requiring placement of urinary catheter #12. 4.7 ascending aortic aneurysm, will be followed every 6 months #13. Osteoarthritis Plan: The patient was seen and evaluated by Dr. Hathaway CAT scan and ultrasound reviewed, significant pocket but septations and honeyco mbing noted We'll plan for thoracentesis of the left chest for fluid analysis tomorrow or the next day Hold Eliquis Start heparin drip We'll continue to follow I, the cosigning physician, performed a history & physical examination of the patient. Lungs sounds with basilar crackles left greater than right. Maintaining good O2 saturations in the 90s on room air. I discussed the assessment and plan of care with my nurse practitioner, Shanae Joseph. I attest to the above consultation as dictated by her.
[2020-01-18] MEDS ORDERED: HEPARIN SODIUM,PORCINE 5,000 UNIT/ML 1 ML VIAL IV PRN (08:47)
[2020-01-18] MEDS: PANTOPRAZOLE 40 MG TABLET PO SCH (09:09)
[2020-01-18 09:19] LABS: Basophils % (A) 0 %; Eosinophils # (A) 0.1 k/uL (0-0.7); Eosinophils % (A) 1 %; HCT 31.1 % (39.0-53.0); HGB 9.8 gm/dL (13.0-17.5); Lymphocytes # (A) 0.8 k/uL (1.0-4.8); Lymphocytes % (A) 7 %; MCH 29.8 pg (25.0-35.0); MCHC 31.5 g/dL (31.0-37.0); MCV 94.8 fL (80.0-100.0); Mean Platelet Volume 7.6; Monocytes # (A) 0.4 k/uL (0-1.0); Monocytes % (A) 3 %; Neutrophils # (A) 10.1 k/uL (1.3-7.7); Neutrophils % (A) 89 %; Platelet Count 357 k/uL (150-450); RBC 3.29 m/uL (4.30-5.90); RDW 12.9 % (11.5-15.5); WBC 11.4 k/uL (3.8-10.6)
--- NOTE | 2020-01-18 09:21 | PN ---
PROGRESS NOTE Mr. Kinsey is a 79-year-old male with presented after a fall and evidence of rhabdomyolysis. He subsequently went in atrial fibrillation and persisted in atrial fibrillation. He had evidence of bacteremia and underwent transesophageal echocardiogram yesterday that revealed no evidence of endocarditis or vegetations. He continues to have an infiltrate on his chest x-ray. His CT scan showed an an ascending aortic aneurysm 4.4, with coronary calcification. He is feeling well today. He continued to be in atrial fibrillation with episode of rapid ventricular response. He denies any symptoms of chest pain. He denies any dizziness or palpitation. He is feeling better overall and has been ambulating in the room and with better energy. He continues on amiodarone 400 mg twice a day, Eliquis 5 mg twice a day, Lasix 40 mg daily, metoprolol tartrate 50 mg 3 times a day. PHYSICAL EXAMINATION: Blood pressure 100/60 with a heart rate in 90s, afebrile. LUNGS: With crackles at the left base of study and no wheezes. HEART: Irregular, regular S1, S2. No S3 with systolic murmur, no diastolic murmur, no rub. ABDOMEN: Soft, nontender. EXTREMITIES: +1 edema. LAB DATA: Revealed BUN and creatinine 35 and 1.41, potassium 4.0. IMPRESSION: 1. Atrial fibrillation anticoagulated with overall controlled ventricular response. 2. Renal failure. 3. Bacteremia with left lung infiltrate and pneumonia, followed by Dr. Hathaway and Dr. Romero. 4. Hematuria, resolved. 5. Ascending aortic aneurysm, stable. RECOMMENDATION: From the cardiac standpoint, will continue present therapy. Continue to follow his lung status with Dr. Hathaway. Adjust his medical regimen and depending on his progress, further recommendation will be made. MMODL / IJN: [id number] /
[2020-01-18 09:48] LABS: INR 1.2 (<1.2); Partial Thromboplastin Time 33.8 sec (22.0-30.0)
--- NOTE | 2020-01-18 09:56 | P.PN ---
Subjective Progress Note Date: 01/18/20 This is a 79-year-old male one of my patient with a previous medical history significant for osteoporosis, osteoporosis with prior history of L1 compression fracture, vitamin D deficiency, history of enlarged prostate, patient was in his usual state of health until about 2 days ago when he felt a bit sick to stomach episode of nausea and vomiting he was not drinking enough water at that time, patient woke up the yesterday morning at around 12 midnight to go to have a drink of water before he goes to the bathroom he ended up falling on the floor after his right knee gave out and the patient landed on the floor for at least 17 hours until his daughter hold him and he did not answer so she came to the house and she found him laying on the floor EMS was called and the patient was brought into the ER at [facility] and brought to the hospital EMS personnel thought the patient was in atrial fibrillation, upon arrival to the ER his initial EKG showed sinus tachycardia with PAC and PVCs without any evidence of atrial fibrillation, patient lactic acid was elevated at 4.7, he was given IV fluid resuscitation, he had a chest x-ray that did not show much ended up going for computed tomography scan of the chest that showed multiple bilateral peripheral pulmonary infiltrate with left 2.5 cm cavitary lesion in the left upper lobe, patient was started on IV antibiotic in the form of Zithromax, Rocephin, and vancomycin, pulmonary consultation was obtained from , as well as cardiology consultation because of his ectopy. 01/10: Yesterday, patient developed evidence of atrial fibrillation and consult with Dr. Hdz was requested. Patient was started on Cardizem drip and heparin drip. Echocardiogram revealed EF of 50-55%, mild to moderate aortic regurgitation, mild tricuspid regurgitation, moderate pulmonary hypertension. CAT scan of the abdomen and pelvis was obtained which revealed asymmetrical perinephric stranding and edema in the right kidney, correlated to exclude pyelonephritis. Continue fluid edema and fluid in the right retroperitoneum. Unclear if this is arising from the right kidney. Correlate for any relevant history that could predispose the patient to retroperitoneal bleed. The fluid is not high-density would be seen in acute hemorrhage. Tortuous right common and external iliac artery which courses through this tracking fluid. Tiny hiata l hernia and mild circumferential wall thickening of the distal esophagus. Correlate to exclude esophagitis. Continue small effusions with extensive peripheral opacities. Interstitial pneumonitis and atypical pneumonias including COVID-19 pneumonia in the differentials. Incidental finding of a 70 aortic aneurysm 4.7 cm. Consult was obtained with Dr. Sky and he is not convinced retro-peritoneal bleed. Heparin drip will remain on hold. Repeat chest x-ray revealed mild cardiomegaly and continued interstitial density. Correlate to exclude pulmonary vascular congestion. Increasing patchy airspace disease in the left mid and lower lung could represent developing confluent pulmonary edema versus pneumonia. Patient has been seen and followed by Dr. Monk. Patient was also seen by Dr. Romero and continued on vancomycin and Rocephin for possible gram-positive bacteremia as well as azithromycin. Initial blood culture has not been finalized. This morning, equipment monitor phototypesetting atrial fibrillation in the 120s to 140s. He denies any chest pain, shortness of breath or dizziness. No palpitations. Cardiology is increasing Lopressor to 50 mg twice daily and Lasix on hold due to worsening renal function. Anticoagulation remains on hold due to possibility of retroperitoneal bleed. Patient has been afebrile since admission. Blood pressure currently 122/74, pulse ox 98% on 3 L nasal cannula. Repeat blood work reveals WBC 14, hemoglobin 12.6, platelet count 121. Sodium 136, potassium 4.3, chloride 108, CO2 21, BUN 58 and creatinine 1.62. Blood sugar 123. CK is 1026. TSH 0.8-9. Coronavirus not detected. 01/11: Patient sitting up in bed in no apparent distress he denies any chest pain is less short of breath today he denies any abdominal pain, he continues to be in atrial fibrillation his heart rate is better he remains on Cardizem drip at 5 mg hour his Lopressor was increased we will start the patient on Eliquis 5 mg orally twice every day, he would be kept in the ICU for another 24 hours, then he will be transferred to the cardiac telemetry unit. 01/12: Patient is sitting up in his recliner today he is in a positive fluid balance he did receive 20 mg Lasix IV push he continues to be in atrial fibrillation with somewhat fast ventricular response, he was seen earlier by cardiology and pulmonary medicine and spoke with his daughter done and I gave her an updated about his current situation he needs to stay in the ICU, until he goes into neutral fluid balance, he needs additional dose of Lasix we will give him another 20 mg Lasix IV push and continue to monitor his weight and fluid balance. Patient denies any chest pain he continues to have some coughing and minimal phlegm production he appears to be tachypneic, he denies any abdominal pain that he has no nausea or vomiting he seems to be tolerating his treatment very well, he was switched to heparin drip as opposed to Eliquis for few days and he would be monitored. 01/13: Patient remains in intensive care unit. Patient continues to be in atrial fibrillation with RVR running up to the 140s this morning. Patient denies any chest pain, dizziness, palpitations. No nausea or vomiting. No bowel movem ents. No fever or chills. Dr. Hdz has adjusted his Cardizem dose to 60 mg 3 times daily. He is also recommending oral anticoagulation once cleared by urology. Patient has been seen by Dr. Batres with recommendations to keep Davalos for 7 days, start Flomax. Gross hematuria most likely secondary to retention and okay to resume anticoagulation. Repeat chest x-ray reveals hypoventilatory changes. Persistent interstitial infiltrates of the Route and similar confluent left basilar and peripheral left lung airspace disease. One dose of IV Lasix 40mg ordered this morning and continue every 12 hours. BUN 46, creatinine 1.28, potassium 4.3. Hemoglobin 11.3. Initial blood culture has been finalized as MSSA. Patient is currently on ceftriaxone and vancomycin followed by Dr. Romero. 01/14: Patient remains in intensive care unit. He is seen today sitting in recliner and appears to be comfortable. equipment monitor phototypesetting remains in atrial fibrillation and rate in the 120s bpm. He has been otherwise hemodynamically stable. WBC 12.4, hemoglobin 11, sodium 138, potassium 3.7, chloride 111, CO2 22, BUN 44, creatinine 1.33. Dr. Romero has transitioned antibiotics to kefzol. Repeat blood culture revealed gram-positive cocci in groups. Patient was started on Eliquis yesterday. No further hematuria. Repeat chest x-ray reveals patchy infiltrates persist at the lung bases left greater than right without significant change. Correlate for pneumonia. Discharge plan to [facility]. 01/15: Patient remains in the intensive care unit and has been cleared by Dr. Hathaway for transfer out. Patient remains in atrial fibrillation. Heart rate was in the 80s and 90s last evening and manager lpn. Currently 116. Dr. Hdz has had an in amiodarone 200 mg twice daily and continued on Cardizem and metoprolol. Repeat limited echocardiogram reveals suboptimal views but cannot rule out vegetation on the aortic valve. Mild mitral regurgitation, tricuspid regurgitation. Patient to be scheduled for ATTUM to rule out vegetation. Patient had hypotension when working with physical therapy today and at time of the evaluation is also complaining of feeling lightheaded. Cardiology is planning to decrease Cardizem 30 mg 3 times daily. Patient will be given fluid bolus. Lasix frequency will also be decreased frequency to daily He denies having any chest pain or shortness of breath. No abdominal pain. Blood pressure 114/77, pulse ox 95% on room air, afebrile. Patient is tolerating eliquis with no recurrence of hematuria. Davalos catheter is in place. Repeat blood work reveals WBC 12.0, hemoglobin 10.8. Chloride 108, Repeat chest x-ray reveals airspace disease throughout the left mid and lower lung and lesser extent to the right base selective prior. Some of the density has a nodular configuration along the periphery of the left upper lung. Unchanged. WBC 12, hemoglobin 10.8. Sodium 138, potassium 3.7, chloride 108, CO2 23. BUN 43, creatinine 1.32. Repeat blood cultures positive for staph aureus 01/16: Patient remains in the intensive care unit. Dizziness has resolved. He does not have any abdominal pain. Davalos catheter is clear. Dr. Hdz has adjusted amiodarone 400 mg twice daily, Cardizem was discontinued and Lopressor was increased to 50 mg 3 times daily. Heart rate is running in the 150s prior to medications, equipment monitor phototypesetting is atrial fibrillation, pulse ox 94% on room air, blood pressure 109/84. He has been afebrile. He is scheduled for TATUM today. Most recent blood cultures obtained on January 14 and January 15 showing no growth. Patient has been continued on Kefzol. 01/17: Patient remains in intensive care unit. Heart rate remains elevated 1:30 to 140s in atrial fibrillation. Patient denies having any lightheadedness or dizziness. No chest pain or shortness of breath at rest. He denies palpitation. He denies any productive cough. He has had no bloody or black stools. He continues to have lower extremity edema. TATUM was negative for vegetation. CAT scan of the chest without contrast revealed increasing small to moderate left and small right pleural effusions. Increasing airspace disease which now involves the entire basilar left lower lobe. Correlate for worsening pneumonia. Peripheral nodular infiltrates and ground glass 3 demonstrated no many of which show cavitation. Consider atypical fungal or Doyle Terrio infections and septic emboli. Ascending aortic aneurysm at 4.4 cm. Coronary artery disease with extensive coronary artery calcifications. Dr. Hathaway is ordered ultrasound of the chest with possible thoracentesis on the left and obtain cytology. Eliquis placed on hold for this if necessary. The patient is been afebrile, blood pressure 112/87, pulse ox 93% on room air. INR is 1.2. WBC 11.4, hemoglobin 9.8, platelet count 357. Electrolytes within normal limits, BUN 35, creatinine 1.41. Objective - Vital Signs Vital signs: Vital Signs Temp 98.2 F 01/18/20 00:00 Pulse 121 H 01/18/20 04:00 Resp 19 01/18/20 04:00 BP 112/87 01/18/20 04:00 Pulse Ox 93 L 01/18/20 04:00 Intake & Output 01/17/20 01/18/20 01/18/20 18:59 06:59 18:59 Intake Total 1520 770 Output Total 1900 1325 Balance -380 -555 Weight 86.3 kg Intake: IV 700 370 Sodium Chloride 0.9% 1, 600 320 000 ml @ 50 mls/hr IV . Q20H DAI Rx#:[id number] ceFAZolin 2 gm In Sodium 100 50 Chloride 0.9% 50 ml @ 100 mls/hr IVPB Q8H DAI Rx#: [id number] Intake, IV Titration 100 Amount Potassium Chloride 10 meq 100 In Water For Injection 1 100ml.bag @ 100 mls/hr IVPB Q1H DAI Rx#: [id number] Oral 720 400 Output: Urine 1900 1325 Other: Voiding Method Indwelling Catheter Indwelling Catheter # Bowel Movements 1 - Exam Review of Systems Constitutional: Reports weakness, Denies chronic headaches, Denies fatigue, Denies lethargy, denies dizziness Eyes: denies blurred vision, denies bulging eye, denies decreased vision Ears: bilateral: decreased hearing Ears, nose, mouth and throat: Denies dysphagia, Denies neck lump, Denies sore throat Cardiovascular: Reports rapid heart beat denies palpitations, Denies chest pain, Denies decreased exercise tolerance, Denies lightheadedness, Denies shortness of breath, Denies syncope Respiratory: Denies congestion, Denies cough with sputum, Denies home oxygen, Denies sleep apnea, Denies snoring, Denies wheezing Gastrointestinal: Denies abdominal pain, denies nausea, denies vomiting, Denies bloating, Denies change in bowel habits, Denies coffee ground emesis, Denies excessive gas, Denies heartburn, Denies hematemesis, Denies melena Genitourinary: Denies dysuria, Denies incontinence, reports hematuriaresolving Musculoskeletal: Denies frequent falls, Reports gait dysfunction secondary to weakness Musculoskeletal: right: shoulder pain, shoulder stiffness, absent: ankle pain, ankle stiffness, ankle swelling, elbow pain, elbow stiffness, elbow swelling, foot pain, foot stiffness, foot swelling, hand pain, hand stiffness, hand swelling, hip pain, hip stiffness, hip swelling, knee pain, knee swelling, shoulder swelling, wrist pain, wrist stiffness, wrist swelling Integumentary: Denies pruritus, Denies rash Neurological: Denies numbness, Denies weakness Psychiatric: Denies anxiety, Denies depression Physical examination GEN: This is a 79-year-old male. He is resting in bed and appears to be comfortable and in no acute distress. HEENT: Head is atraumatic, normocephalic, pupils were equal round reactive to light and recommendation, extraocular muscle movement were intact. Neck: Supple, no JVD, no carotid bruit. Chest: Decreased breath sounds at the bases, few rhonchi, no expiratory wheezes, minimal chest wall tenderness and the left lower ribs, no intercostal retractions. No sensory muscle usage. Heart: First heart sound is depressed, second heart sound is normal, irregular, there is systolic ejection murmur 2/6. Sternal border. Abdomen: Soft, distended, moderate tenderness in the left upper quadrant , as well as right upper quadrant, depressed bowel sounds. Extremities: 1+ edema, no calf tenderness, dorsalis pedis +1 bilaterally. Neurologic examination: Patient is awake alert and oriented 3, cranial nerves III through XII appear grossly intact. - Labs CBC & Chem 7: 01/18/20 05:41 01/18/20 05:41 Labs: Abnormal Lab Results - Last 24 Hours (Table) 01/18/20 Range/Units 05:41 BUN 35 H (9-20) mg/dL Creatinine 1.41 H (0.66-1.25) mg/dL Glucose 105 H (74-99) mg/dL Calcium 7.8 L (8.4-10.2) mg/dL Microbiology - Last 24 Hours (Table) 01/17/20 05:06 Blood Culture - Preliminary Blood No Growth after 24 hours 01/14/20 04:25 Blood Culture Gram Stain - Final Blood Blood Culture - Final Staphylococcus aureus 01/15/20 04:42 Blood Culture - Preliminary Blood No Growth after 72 hours 01/16/20 04:09 Blood Culture - Preliminary Blood No Growth after 48 hours Assessment and Plan Plan: 1. Acute hypoxemic respiratory failure secondary to acute diastolic heart failure due to atrial fibrillation with rapid ventricular response and MSSA pneumonia with concern for worsening left lower lobe pneumonia and cavitation. Antibiotics transition to Kefzol, continue oxygen support, continue nebulized treatment. Pulmonary consultation. ID consult appreciated. Ultrasound of the chest for possible thoracentesis and cytology, hold eliquis if scheduled. 2. Bilateral peripheral pulmonary nodules with left cavitary lesions in the left upper lobe 2.5 cm. Continue IV antibiotic in the form of Kefzol. Monitor the patient very closely repeat computed tomography scan in about 4 weeks from now. 3. Mild rhabdomyolysis. Completed IV fluid resuscitation. Discontinue IV fluids. 4. Mild hyponatremia secondary to hypovolemia. Resolved. 5. Acute kidney injury secondary to acute tubular necrosis due to rhabdomyolysis. Resolved. 6. New onset of atrial fibrillation with RVR, paroxysmal atrial fibrillation. Amiodarone increased to 400 mg twice daily, Cardizem discontinued,, continue metoprolol 50 mg 3 times daily, continue Eliquis 5 mg orally twice every day. 7. MSSA bacteremia secondary to MSSA pneumonia. TATUM negative for vegetation. Patient is on Kefzol. We will continue to monitor the patient very closely. 8. Severe sepsis likely due to gram-positive pneumonia. Continue Kefzol. 9. Possible retroperitoneal bleed. Stable, continue to monitor very closely. 10. 4.7 cm ascending aortic aneurysm. Patient will continue to have a surveillance computed tomography scan once every 6 months. 11. Lactic acidosis. Continue IV fluid resuscitation, continue IV antibiotic. Repeat lactic acid is better. 12. Osteoarthritis. Stable. 13. Vitamin D deficiency. Continue vitamin D supplements 1000 units once every day. 14. DVT prophylaxis. We will start the patient on Eliquis 5 mg orally twice every day. 15. GI prophylaxis. Continue Protonix 40 mg orally once every day. 16. History of old L1 fracture 17. COVID-19 infection not present. CODE STATUS: full code. Discharge plan: [facility] next week. PT and OT on consult. manager floor following closely. Impression and plan of care have been directed as dictated by the signing physician. Gris Zuniga nurse practitioner acting as scribe for signing physician.
[2020-01-18] MEDS: HEPARIN SOD,PORK IN 0.45% NACL 25,000 UNIT in 0.45% NACL 1 250ML.BAG IV SCH (12:13)
--- NOTE | 2020-01-18 22:56 | PN ---
PROGRESS NOTE DATE OF SERVICE: 01/18/2020 REASON FOR FOLLOWUP: MSSA bacteremia secondary to pneumonia. INTERVAL HISTORY: Patient is currently afebrile. The patient is breathing more comfortably. Denies having any chest pain or shortness of breath. Occasional cough. No vomiting or any diarrhea. PHYSICAL EXAMINATION: Blood pressure 100/66, pulse of 99, temperature 98.4. General description is an elderly male up in the chair in no distress. RESPIRATORY SYSTEM: Unlabored breathing with decreased breath sounds at the base. No wheeze. HEART: S1, S2. Regular rate and rhythm. ABDOMEN: Soft. No tenderness. LABS: Hemoglobin is 9.8, white count 11.4 with a BUN of 35, creatinine 1.41. Blood culture repeat has been negative. DIAGNOSTIC IMPRESSION AND PLAN: Patient with methicillin-susceptible Staphylococcus aeruginosa bacteremia. Source is pneumonia. Endocarditis has been ruled out. The patient is currently covered with cefazolin; to continue to finish his 2-week course of therapy from his negative blood culture. Monitor his clinical course closely. MMODL / IJN: [id number] /
[2020-01-19 05:12] LABS: Basophils % (A) 0 %; Eosinophils # (A) 0.1 k/uL (0-0.7); Eosinophils % (A) 1 %; HCT 28.8 % (39.0-53.0); Lymphocytes # (A) 0.7 k/uL (1.0-4.8); Lymphocytes % (A) 7 %; MCH 29.3 pg (25.0-35.0); MCHC 31.2 g/dL (31.0-37.0); Mean Platelet Volume 7.6; Monocytes # (A) 0.4 k/uL (0-1.0); Monocytes % (A) 4 %; Neutrophils # (A) 9.1 k/uL (1.3-7.7); Neutrophils % (A) 88 %; Platelet Count 316 k/uL (150-450); RBC 3.06 m/uL (4.30-5.90); RDW 12.9 % (11.5-15.5); WBC 10.4 k/uL (3.8-10.6)
[2020-01-19] MEDS: PANTOPRAZOLE 40 MG TABLET PO SCH (07:08)
[2020-01-19 07:29] LABS: Calcium 7.5 mg/dL (8.4-10.2); Potassium 3.9 mmol/L (3.5-5.1)
[2020-01-19] MEDS: METOPROLOL TARTRATE 50 MG TAB PO SCH ×3 (08:30→21:39)
[2020-01-19] MEDS: FUROSEMIDE 40 MG TAB PO SCH (08:30)
[2020-01-19] MEDS: CHOLECALCIFEROL 1,000 UNIT TAB PO SCH (08:30)
[2020-01-19] MEDS: AMIODARONE 200 MG TAB PO SCH ×2 (08:30→21:38)
[2020-01-19] MEDS: TAMSULOSIN 0.4 MG CAP.ER.24H PO SCH (08:30)
--- NOTE | 2020-01-19 09:47 | P.PN ---
Subjective Progress Note Date: 01/19/20 This is a 79-year-old gentleman who was admitted following a fall at home and evidence of rhabdomyolysis. Patient also has atrial fibrillation with rapid ventricular response. He is currently on amiodarone 400 mg by mouth twice a day along with metoprolol. His heart rate is about 90 to 100. Patient is currently on heparin. His hemoglobin is also dropping since he came here. I don't know if he is a candidate for long-term anticoagulation. He lives by himself and there is history of falls. I will leave it up to her primary physician to decide about long-term anticoagulation. Patient also shows evidence of drop in hemoglobin. This may have to the investigated. Patient denies any chest pain. From Cardec standpoint we'll continue current medical therapy Objective - Vital Signs Vital signs: Vital Signs Temp 97.9 F 01/19/20 04:00 Pulse 117 H 01/19/20 08:00 Resp 27 H 01/19/20 08:00 BP 95/71 01/19/20 08:00 Pulse Ox 94 L 01/19/20 08:00 Intake & Output 01/18/20 01/19/20 01/19/20 18:59 06:59 18:59 Intake Total 70 251.756 20 Output Total 950 825 125 Balance -880 -573.244 -105 Weight 85.5 kg Intake: IV 60 150 20 Sodium Chloride 0.9% 1, 60 150 20 000 ml @ 50 mls/hr IV . Q20H DAI Rx#:[id number] Intake, IV Titration 10 101.756 Amount Heparin Sod,Pork in 0.45% 10 101.756 NaCl 25,000 unit In 0.45 % NaCl 1 250ml.bag @ 11.5 UNITS/KG/HR 9.925 mls/hr IV .Q24H DAI Rx#: [id number] Output: Urine 950 825 125 Other: Voiding Method Indwelling Catheter Indwelling Catheter - Exam GENERAL EXAM: Patient is alert and oriented and doesn't appear to be in any acute distress HEENT: Normocephalic. Normal reaction of pupils, equal size, normal range of extraocular motion. No erythema or exudates in the throat. NECK: No masses, no nuchal rigidity. CHEST: No chest wall deformity. LUNGS: Equal air entry with no crackles or wheeze. HEART: S1 and S2 normal with no audible mumurs or gallops. Irregular rhythm ABDOMEN: No hepatosplenomegaly, normal bowel sounds, no guarding or rigidity. SKIN: No rashes CENTRAL NERVOUS SYSTEM: No focal deficits. EXTREMITIES: Mild edema of the legs - Labs CBC & Chem 7: 01/19/20 04:50 01/19/20 04:50 Labs: Abnormal Lab Results - Last 24 Hours (Table) 01/18/20 01/18/20 01/18/20 Range/Units 09:20 14:38 21:25 RBC (4.30-5.90) m/uL Hgb (13.0-17.5) gm/dL Hct (39.0-53.0) % Neutrophils # (1.3-7.7) k/uL Lymphocytes # (1.0-4.8) k/uL INR 1.2 H (<1.2) APTT 33.8 H 39.8 H 118.3 H* (22.0-30.0) sec Chloride (98-107) mmol/L BUN (9-20) mg/dL Creatinine (0.66-1.25) mg/dL Glucose (74-99) mg/dL Calcium (8.4-10.2) mg/dL 01/19/20 01/19/20 01/19/20 Range/Units 04:50 04:50 04:50 RBC 3.06 L (4.30-5.90) m/uL Hgb 9.0 L (13.0-17.5) gm/dL Hct 28.8 L (39.0-53.0) % Neutrophils # 9.1 H (1.3-7.7) k/uL Lymphocytes # 0.7 L (1.0-4.8) k/uL INR (<1.2) APTT 48.1 H (22.0-30.0) sec Chloride 108 H (98-107) mmol/L BUN 40 H (9-20) mg/dL Creatinine 1.29 H (0.66-1.25) mg/dL Glucose 105 H (74-99) mg/dL Calcium 7.5 L (8.4-10.2) mg/dL Microbiology - Last 24 Hours (Table) 01/17/20 05:06 Blood Culture - Preliminary Blood No Growth after 48 hours 01/15/20 04:42 Blood Culture - Preliminary Blood No Growth after 96 hours 01/16/20 04:09 Blood Culture - Preliminary Blood No Growth after 72 hours 01/14/20 04:25 Blood Culture Gram Stain - Final Blood Blood Culture - Final Staphylococcus aureus Assessment and Plan (1) Atrial fibrillation Current Visit: Yes Status: Acute Code(s): I48.91 - UNSPECIFIED ATRIAL FIBRILLATION SNOMED Code(s): 89874861 (2) Fall Current Visit: Yes Status: Acute Code(s): W19.XXXA - UNSPECIFIED FALL, INITIAL ENCOUNTER SNOMED Code(s): 1342143 (3) Pneumonia Current Visit: Yes Status: Acute Code(s): J18.9 - PNEUMONIA, UNSPECIFIED ORGANISM SNOMED Code(s): 723462527 Plan: Continue current medical therapy. Doesn't appear to be good candidate for long- term anticoagulation
--- NOTE | 2020-01-19 10:01 | P.PN ---
Subjective Progress Note Date: 01/19/20 Principal diagnosis: Gram-positive bacteremia, sepsis, bilateral cavitary lung nodules and pneumonia, A. fib with RVR This is a pleasant 79-year-old gentleman who follows with Dr. Harley as his primary care provider. He has a history of osteoarthritis, osteoporosis with prior history of L1 compression fracture, vitamin D deficiency, enlarged prostate, remote history of tobacco dependence for approximately 10 years but quit 60 years ago. Daily alcohol use. On 01/18/2020 the patient had gotten up from bed and headed to the bathroom when his right knee gave out and he fell to the ground. He was unable to get himself up. His daughter called and the patient had not answered and she went to check on him yesterday, found him on the floor and EMS was called. Approximately 16 hours of down time. He was found to be febrile with presenting temperature of 102.9. Computed tomography scan of the chest revealed extensive peripheral bilateral noncalcified pulmonary nodular infiltrates. Neoplastic versus inflammatory disease. There is a 2.5 cm cavitating lesion in the lateral aspect of the left upper lobe. The largest of the peripheral nodules is 2 cm. The patient is seen today in consultation on the selective care unit. He is currently sitting up in a chair. Awake and alert in no acute distress. Currently afebrile. Sinus tachycardia with frequent PACs, possible paroxysmal atrial fibrillation. Echocardiogram reveals preserved left ventricular systolic function with ejection fraction 50-55%. CAT scan of the abdomen and pelvis revealed edema about the right kidney extending to the right renal sinus with possible polynephritis. Confluent edema and fluid extends down the right retroperitoneum cannot exclude retroperitoneal bleed. Confluent small effusions with extensive peripheral opacities. Interstitial pneumonitis and atypical pneumonias are within the differential. There is a 4.7 cm ascending aortic aneurysm. CoVID 19 screening pending. Blood cultures pending. White count 12.1. Hemoglobin 13.0. Platelet count 104. Lymphocytes 0.48. Sodium 131. Potassium 4.2. Bicarb 19. Creatinine 1.18. Glucose 164. CK 867. Troponin 0.025. ProBNP 1910. He has been initiated on ceftriaxone, vancomycin and azithromycin. Cardizem drip at 5 mg per hour. Heparin drip. Patient was reevaluated today on 01/11/20, patient developed worsening shortness of breath overnight, wheezing, and worsening atrial fibrillation with RVR, hence he was transferred to the intensive care unit. Feeling better at present, however he is on 3 L nasal cannula, and O2 saturation is 94%. He is also on Cardizem at 5 mg per hour, IV fluid increased to 1 50 mL per hour. His blood cultures came back positive for gram-positive cocci in clusters, and the patient received vancomycin since admission he remains on vancomycin. He was already seen by infectious disease on consultation. Cardiology is evaluating the patient, his initial echocardiogram was nondiagnostic, patient may require transesophageal echocardiography. CPK was noted to be a bit elevated today, hence I increased his IV fluid. Patient is in atrial fibrillation with RVR, rate is 138 beats per minutes. Primary source of his bacteremia could very well be from the lungs, although the possibility of urinary tract infection and endocarditis is not entirely ruled out. But felt to be less likely. WBC count today is 14 hemoglobin is 12.6. Electrodes are normal, BUN is 58 creatinine is 1.62, worsening compared to yesterday. CPK was also noted to be elevated, pro- calcitonin was quite high 7.12. Patient was reevaluated today on 01/12/20, remains in the ICU, remains in atrial fibrillation, but rate seems to be better controlled. Remains on Cardizem drip at 5 mg per hour, IV fluid is 125 mL per hour. Remains on vancomycin for his gram-positive bacteremia. Chest x-ray continues to show left lower lobe infiltrate. Abdominal film showed dilated bowel loops, however the patient had no clinical symptoms to suggest bowel obstruction. Patient is also on Lopressor and on Eliquis twice a day. We plan to keep him in the ICU for the next 24 hours, and if he remains stable will transfer out of the ICU to a monitor bed on selective. CBC showed evidence of 12.8 hemoglobin is 11.7 electrodes are normal bicarb is a bit low at 18. Renal profile is improving. Is down to 55 creatinin e is down to 1.39. CPK is down to 422 from 1067 yesterday Patient was reevaluated today on 01/13/20, remains in the ICU, remains in atrial fibrillation with RVR. This is being addressed by cardiology. Patient remains on IV fluid at 50 mL/h remains on oxygen at 2 L/m. Patient is off Cardizem drip , and his Lopressor was increased. His renal functioning is improving. Patient was given a dose of Lasix 20 mg IV push 1 today after reviewing his chest x-ray which is suggestive of mild interstitial edema, and I strongly suspect the left lower lobe pneumonia. Final report on the blood cultures remains pending, but the patient did have positive cocci in clusters and his blood cultures. And I believe the most likely source is his left lower lobe pneumonia. On 01/14/2020 patient seen in follow-up in intensive care unit, he is calm and comfortable, sitting up in the recliner, eating breakfast, appetite is good, patient has eaten all of his food on the tray. Tolerating regular diet, denies any difficulty breathing. His heparin infusion is on hold related to hematuria, and urinary retention with subsequent placement of Davalos catheter, currently patient has a Davalos catheter in place and his hematuria seems to have resolved, patient is producing yellow clear urine today, today's hemoglobin is 11.3, white count is 9.5, patient has been afebrile, he is on 2 L of oxygen and pulse ox of 95%. Remains in atrial fibrillation with a controlled rate in the 120-160 BPM, cardiology is following and managing rate control medications. Currently patient is on oral Cardizem and the dose was increased to 60 mg 3 times daily, and oral metoprolol and 50 mg 3 times daily. Patient was given a dose of IV Lasix yesterday, he is in -1.2 L over the last 24 hours, and was started on maintenance dose of IV Lasix 40 mg every 12 hours. Patient is on Zithromax and Rocephin. Patient is on Rocephin and Zithromax and vancomycin, for blood culture positive for MSSA. We'll discontinue vancomycin. Urine culture was negative. Today's chest x-ray shows hypoventilatory changes, and persistent interstitial infiltrate throughout and more confluent patchy left basilar and peripheral left lung densities. On 01/15/2020 patient seen in follow-up in intensive care unit, he is awake and alert, oriented 3, he sitting up in the recliner, in no acute distress, currently on 3 L of oxygen the pulse ox of 96%, remains in atrial fibrillation, and his rate is better controlled compared to yesterday's exam, and is currently at 102 - 116 BPM. Afebrile. Hemodynamically stable, no worsening dyspnea, lung sounds revealed inspiratory crackles in the left base, clear right lung. Currently on point and was saline at a rate of 10 ML per hour, no other drips. Patient is on Cardizem at 60 mg orally 3 times a day in addition to metoprolol 50 mg 3 times daily cardiology is following, he is on oral dose of Lasix at 40 mg twice daily. 2 -4.5 L over last 24 hours, has mild swelling of lower extremities, knee-high VÍCTOR hose are applied. Today's labs have been reviewed showing white blood cell, 12.4, hemoglobin of 11, sodium is 138, potassium 3.7, chloride is 111, CO2 is 22, BUN is 44, and creatinine is 1.33. Patient is tolerating oral diet. Specific complaints, other than left lateral chest discomfort with coughing. Follow blood cultures have been negative, urine culture showed no growth, single blood culture from 01/09/2020 showed MSSA. he is currently on Kefzol for antibiotic coverage, oral anticoagulation was started in the form of Eliquis 5 mg twice a day. On 01/16/2020 patient seen in follow-up in the intensive care unit. He is awake and alert, oriented 3, he sitting up in the recliner, eating breakfast. Denies any distress, remains in atrial fibrillation with a rate of 129, patient is due for his morning medications. He is on metoprolol 50 mg 3 times a day, and oral Cardizem at 60 mg 3 times a day per cardiology, he has been started on oral anticoagulation in the form of Eliquis, and there has been no sign of active bleeding. Today's labs have been reviewed, showing hemoglobin of 10.8, white blood cell count is 12.0, platelet count is 368, sodium is 138, potassium 3.7, chloride is 108, CO2 is 23, BUN is 43, creatinine is 1.32. Afebrile, hemodynamically patient is stable, remains on 0.9 normal saline at a rate of 50 ML per hour, room air pulse ox is 94%. Lung sounds reveal crackles over left lower and mid left lung. Today's chest x-ray shows persistent patchy infiltrates at the lung bases left greater than right without significant change. Patient remains on for antibiotic coverage for MSSA bacteremia likely related to MSSA pneumonia. Remains on oral Lasix at 40 mg twice daily. He is in -2.8 L over last 24 hours, mild edema involving bilateral lower extremities. Renal profile remains stable with BUN of 43 and creatinine of 1.32. Davalos catheter remains in place, draining clear yellow urine, in the order of 75-125 ML per hour. There has been no recurrence of hematuria. On 01/17/2020 patient seen in follow-up in the intensive care unit, yesterday in the afternoon patient developed hypotension with systolic in the 70s, however A. fib was better controlled with the rate down to 70s BPM. Earlier in the day oral amiodarone was added in addition to oral Lopressor and Cardizem. Lopressor dose was held in the afternoon, patient was given 1.2 L in fluid boluses, blood pressure improved. Today she seen resting comfortably in bed, she is scheduled for transesophageal echocardiogram. Blood pressure has improved, and this morning it is 111/82, patient remains in atrial fibrillation with a rate of 120 BPM. Today's chest x-ray shows low lung volumes, cardiomegaly and worsening left lung infiltrate and atelectasis. Clinical patient denies any shortness of breath, he remains on room air with pulse ox of 94%, afebrile, remains on cefazolin for antibiotic coverage for MSSA bacteremia likely related to pneumonia. Follow-up blood cultures on and 01/16/2020 are negative. Patient is seen today 01/18/2020 in follow-up in the intensive care unit. He is currently sitting up in a chair at the bedside. Awake and alert in no acute di stress. She denies any worsening shortness of breath cough or congestion. He is maintaining O2 saturations in the 90s on room air. No IV fluids. TATUM showed no evidence of vegetation. He remains on Ancef. Computed tomography scan of the chest revealed increasing [id number] left and small right pleural effusions. Increasing airspace disease which now involves the entire basilar left lower lobe. Peripheral nodular infiltrates ands showing cavitation. Consider atypical fungal/mycobacterial infections and septic emboli. There is a 70 aortic aneurysm measuring 4.4 cm. Coronary artery disease with extensive coronary artery calcifications. Ultrasound of the left chest does reveal significant pocket of 10.4 cm with honeycomb in appearance and multiple septations. Sodium 137. Potassium 4.0. Creatinine 1.41. He is anticoagulated with Eliquis. Patient is seen today 01/19/2020 in follow-up in the intensive care unit. He is currently resting in bed. Awake and alert in no acute distress. Maintaining O2 saturations in the 90s on room air. He's been afebrile. Heart rate better controlled. Remains in atrial fibrillation. On oral amiodarone. Remains on heparin drip. 0.9 at a KVO. Ultrasound of the chest revealed a 10.4 cm pocket on the left. There is some honeycombing and multiple septations noted. Follow- up blood cultures reveal no growth to date. White count 10.4. Hemoglobin 9.0. Sodium 137. Potassium 3.9. Creatinine 1.29. Remains on cefazolin. Objective - Vital Signs Vital signs: Vital Signs Temp 97.9 F 01/19/20 04:00 Pulse 117 H 01/19/20 08:00 Resp 27 H 01/19/20 08:00 BP 95/71 01/19/20 08:00 Pulse Ox 94 L 01/19/20 08:00 Intake & Output 01/18/20 01/19/20 01/19/20 18:59 06:59 18:59 Intake Total 70 251.756 20 Output Total 950 825 125 Balance -880 -573.244 -105 Weight 85.5 kg Intake: IV 60 150 20 Sodium Chloride 0.9% 1, 60 150 20 000 ml @ 50 mls/hr IV . Q20H DAI Rx#:[id number] Intake, IV Titration 10 101.756 Amount Heparin Sod,Pork in 0.45% 10 101.756 NaCl 25,000 unit In 0.45 % NaCl 1 250ml.bag @ 11.5 UNITS/KG/HR 9.925 mls/hr IV .Q24H DAI Rx#: [id number] Output: Urine 950 825 125 Other: Voiding Method Indwelling Catheter Indwelling Catheter - Exam GENERAL EXAM: Alert, very pleasant, 79-year-old male patient, on room air with a pulse ox 94% comfortable in no apparent distress. HEAD: Normocephalic/atraumatic. EYES: Normal reaction of pupils, equal size. Conjunctiva pink, sclera white. NOSE: Clear with pink turbinates. THROAT: No erythema or exudates. NECK: No masses, no JVD, no thyroid enlargement, no adenopathy. CHEST: No chest wall deformity. Symmetrical expansion. LUNGS: Equal air entry with inspiratory crackles over left lower and left mid lung him a minimal crackles right base CVS: Irregular rate and rhythm she remains in atrial fibrillation with a controlled rate currently at a rate of 116 BPM, normal S1 and S2, no gallops, no murmurs, no rubs ABDOMEN: Soft, nontender. No hepatosplenomegaly, normal bowel sounds, no guarding or rigidity. EXTREMITIES: No clubbing, mild 1+ edema in bilateral lower extremities, knee- high VÍCTOR hose on bilateral lower extremity no cyanosis, 2+ pulses and upper and lower extremities. MUSCULOSKELETAL: Muscle strength and tone normal. SPINE: No scoliosis or deformity SKIN: No rashes CENTRAL NERVOUS SYSTEM: Alert and oriented -3. No focal deficits, tone is normal in all 4 extremities. PSYCHIATRIC: Alert and oriented -3. Appropriate affect. Intact judgment and insight. - Labs CBC & Chem 7: 01/19/20 04:50 01/19/20 04:50 Labs: Abnormal Lab Results - Last 24 Hours (Table) 01/18/20 01/18/20 01/19/20 Range/Units 14:38 21:25 04:50 RBC 3.06 L (4.30-5.90) m/uL Hgb 9.0 L (13.0-17.5) gm/dL Hct 28.8 L (39.0-53.0) % Neutrophils # 9.1 H (1.3-7.7) k/uL Lymphocytes # 0.7 L (1.0-4.8) k/uL APTT 39.8 H 118.3 H* (22.0-30.0) sec Chloride (98-107) mmol/L BUN (9-20) mg/dL Creatinine (0.66-1.25) mg/dL Glucose (74-99) mg/dL Calcium (8.4-10.2) mg/dL 01/19/20 01/19/20 Range/Units 04:50 04:50 RBC (4.30-5.90) m/uL Hgb (13.0-17.5) gm/dL Hct (39.0-53.0) % Neutrophils # (1.3-7.7) k/uL Lymphocytes # (1.0-4.8) k/uL APTT 48.1 H (22.0-30.0) sec Chloride 108 H (98-107) mmol/L BUN 40 H (9-20) mg/dL Creatinine 1.29 H (0.66-1.25) mg/dL Glucose 105 H (74-99) mg/dL Calcium 7.5 L (8.4-10.2) mg/dL Microbiology - Last 24 Hours (Table) 01/17/20 05:06 Blood Culture - Preliminary Blood No Growth after 48 hours 01/15/20 04:42 Blood Culture - Preliminary Blood No Growth after 96 hours 01/16/20 04:09 Blood Culture - Preliminary Blood No Growth after 72 hours 01/14/20 04:25 Blood Culture Gram Stain - Final Blood Blood Culture - Final Staphylococcus aureus Assessment and Plan Assessment: #1. Acute MSSA bacteremia most likely related to pneumonia, TATUM revealed no evidence of vegetation. Computed tomography scan of the chest revealed increased left pleural effusion. Cavitary nodule lesions. Possible atypical fungal/mycobacterial infections and septic emboli. Ultrasound reveals a 10.4 cm pocket but with honeycombing and septations. #2. Acute gram-positive pneumonia with sepsis related to methicillin sensitive staph aureus, follow-up cultures are revealing no growth #3. Atrial fibrillation with RVR #4. Acute rhabdomyolysis and acute kidney injury, improving #5. Degenerative joint disease #6. Bilateral peripheral pulmonary nodules, some are cavitary in nature and need to be monitored and followed closely, with a plan to repeat CT of the chest in the next few weeks #7. Acute L1 fracture secondary to a fall #8. Acute kidney injury related to sepsis and bacteremia and acute rhabdomyolysis, improving #9. Acute retroperitoneal bleed, status post fall, heparin is on hold #10. Hematuria, resolved, patient has been restarted on Eliquis with no recurrence of hematuria #11. Urinary retention requiring placement of urinary catheter #12. 4.7 ascending aortic aneurysm, will be followed every 6 months #13. Osteoarthritis Plan: The patient was seen and evaluated by Dr. Hathaway Currently stable and on room air We'll plan for thoracentesis of the left chest for fluid analysis Holding Eliquis Remains on a heparin drip We'll continue to follow I, the cosigning physician, performed a history & physical examination of the patient. Lungs sounds with basilar crackles left greater than right. Maintaining good O2 saturations in the 90s on room air. I discussed the ass essment and plan of care with my nurse practitioner, Shanae Joseph. I attest to the above consultation as dictated by her.
--- NOTE | 2020-01-19 11:14 | XR ---
EXAMINATION TYPE: XR chest 1V portable DATE OF EXAM: 01/19/2020 HISTORY: S/P thoracentesis on left. REFERENCE: Previous study dated 01/17/2020. FINDINGS: There is a miniscule pneumothorax at the left lung apex. This is less than 5% by volume. There is been a reduction in the amount of fluid on the left. The heart remains mildly enlarged. Ther e is left basilar airspace disease. The right lung is relatively clear. IMPRESSION: TINY LEFT APICAL PNEUMOTHORAX.
[2020-01-19] MEDS: HEPARIN SOD,PORK IN 0.45% NACL 25,000 UNIT in 0.45% NACL 1 250ML.BAG IV SCH (12:47)
[2020-01-19] MEDS: SODIUM CHLORIDE 0.9% 1,000 ML IV SCH (12:51)
--- NOTE | 2020-01-19 18:53 | PN ---
PROGRESS NOTE DATE OF SERVICE: 01/19/2020 REASON FOR FOLLOWUP: MSSA bacteremia and pneumonia. INTERVAL HISTORY: Patient is currently afebrile. The patient has been breathing comfortably. The patient denies having any chest pain or shortness of breath. Occasional cough. No nausea, vomiting, abdominal pain or diarrhea. PHYSICAL EXAMINATION: Blood pressure is 95/71 with a pulse of 170, temp 97.9. He is 94% on room air. General description: The patient is an elderly male up in the chair in no distress. Respiratory system: Unlabored breathing, decreased breath sounds in the base, with no wheeze. Heart S1, S2. Regular rate and rhythm. ABDOMEN: Soft, no tenderness. LABS: Hemoglobin 9, white count 10.4, creatinine 1.29. Blood culture repeat has been negative. DIAGNOSTIC IMPRESSION AND PLAN: Patient with MSSA bacteremia, source likely pneumonia with concern for possible parapneumonic effusion attempted thoracocentesis, not successful. Patient to continue cefazolin 2 grams q.8 hours. Followup blood culture has been negative and monitor clinical course closely. Family at the bedside. Questions answered. MMODL / IJN: [id number] /
--- NOTE | 2020-01-19 20:16 | P.PN ---
Subjective Progress Note Date: 01/19/20 This is a 79-year-old male one of my patient with a previous medical history significant for osteoporosis, osteoporosis with prior history of L1 compression fracture, vitamin D deficiency, history of enlarged prostate, patient was in his usual state of health until about 2 days ago when he felt a bit sick to stomach episode of nausea and vomiting he was not drinking enough water at that time, patient woke up the yesterday morning at around 12 midnight to go to have a drink of water before he goes to the bathroom he ended up falling on the floor after his right knee gave out and the patient landed on the floor for at least 17 hours until his daughter hold him and he did not answer so she came to the house and she found him laying on the floor EMS was called and the patient was brought into the ER at [facility] and brought to the hospital EMS personnel thought the patient was in atrial fibrillation, upon arrival to the ER his initial EKG showed sinus tachycardia with PAC and PVCs without any evidence of atrial fibrillation, patient lactic acid was elevated at 4.7, he was given IV fluid resuscitation, he had a chest x-ray that did not show much ended up going for computed tomography scan of the chest that showed multiple bilateral peripheral pulmonary infiltrate with left 2.5 cm cavitary lesion in the left upper lobe, patient was started on IV antibiotic in the form of Zithromax, Rocephin, and vancomycin, pulmonary consultation was obtained from , as well as cardiology consultation because of his ectopy. 01/10: Yesterday, patient developed evidence of atrial fibrillation and consult with Dr. Hdz was requested. Patient was started on Cardizem drip and heparin drip. Echocardiogram revealed EF of 50-55%, mild to moderate aortic regurgitation, mild tricuspid regurgitation, moderate pulmonary hypertension. CAT scan of the abdomen and pelvis was obtained which revealed asymmetrical perinephric stranding and edema in the right kidney, correlated to exclude pyelonephritis. Continue fluid edema and fluid in the right retroperitoneum. Unclear if this is arising from the right kidney. Correlate for any relevant history that could predispose the patient to retroperitoneal bleed. The fluid is not high-density would be seen in acute hemorrhage. Tortuous right common and external iliac artery which courses through this tracking fluid. Tiny hiata l hernia and mild circumferential wall thickening of the distal esophagus. Correlate to exclude esophagitis. Continue small effusions with extensive peripheral opacities. Interstitial pneumonitis and atypical pneumonias including COVID-19 pneumonia in the differentials. Incidental finding of a 70 aortic aneurysm 4.7 cm. Consult was obtained with Dr. Sky and he is not convinced retro-peritoneal bleed. Heparin drip will remain on hold. Repeat chest x-ray revealed mild cardiomegaly and continued interstitial density. Correlate to exclude pulmonary vascular congestion. Increasing patchy airspace disease in the left mid and lower lung could represent developing confluent pulmonary edema versus pneumonia. Patient has been seen and followed by Dr. Monk. Patient was also seen by Dr. Romero and continued on vancomycin and Rocephin for possible gram-positive bacteremia as well as azithromycin. Initial blood culture has not been finalized. This morning, air sampling and monitoring atrial fibrillation in the 120s to 140s. He denies any chest pain, shortness of breath or dizziness. No palpitations. Cardiology is increasing Lopressor to 50 mg twice daily and Lasix on hold due to worsening renal function. Anticoagulation remains on hold due to possibility of retroperitoneal bleed. Patient has been afebrile since admission. Blood pressure currently 122/74, pulse ox 98% on 3 L nasal cannula. Repeat blood work reveals WBC 14, hemoglobin 12.6, platelet count 121. Sodium 136, potassium 4.3, chloride 108, CO2 21, BUN 58 and creatinine 1.62. Blood sugar 123. CK is 1026. TSH 0.8-9. Coronavirus not detected. 01/11: Patient sitting up in bed in no apparent distress he denies any chest pain is less short of breath today he denies any abdominal pain, he continues to be in atrial fibrillation his heart rate is better he remains on Cardizem drip at 5 mg hour his Lopressor was increased we will start the patient on Eliquis 5 mg orally twice every day, he would be kept in the ICU for another 24 hours, then he will be transferred to the cardiac telemetry unit. 01/12: Patient is sitting up in his recliner today he is in a positive fluid balance he did receive 20 mg Lasix IV push he continues to be in atrial fibrillation with somewhat fast ventricular response, he was seen earlier by cardiology and pulmonary medicine and spoke with his daughter done and I gave her an updated about his current situation he needs to stay in the ICU, until he goes into neutral fluid balance, he needs additional dose of Lasix we will give him another 20 mg Lasix IV push and continue to monitor his weight and fluid balance. Patient denies any chest pain he continues to have some coughing and minimal phlegm production he appears to be tachypneic, he denies any abdominal pain that he has no nausea or vomiting he seems to be tolerating his treatment very well, he was switched to heparin drip as opposed to Eliquis for few days and he would be monitored. 01/13: Patient remains in intensive care unit. Patient continues to be in atrial fibrillation with RVR running up to the 140s this morning. Patient denies any chest pain, dizziness, palpitations. No nausea or vomiting. No bowel movem ents. No fever or chills. Dr. Hdz has adjusted his Cardizem dose to 60 mg 3 times daily. He is also recommending oral anticoagulation once cleared by urology. Patient has been seen by Dr. Batres with recommendations to keep Davalos for 7 days, start Flomax. Gross hematuria most likely secondary to retention and okay to resume anticoagulation. Repeat chest x-ray reveals hypoventilatory changes. Persistent interstitial infiltrates of the Route and similar confluent left basilar and peripheral left lung airspace disease. One dose of IV Lasix 40mg ordered this morning and continue every 12 hours. BUN 46, creatinine 1.28, potassium 4.3. Hemoglobin 11.3. Initial blood culture has been finalized as MSSA. Patient is currently on ceftriaxone and vancomycin followed by Dr. Romero. 01/14: Patient remains in intensive care unit. He is seen today sitting in recliner and appears to be comfortable. pvc monitor remains in atrial fibrillation and rate in the 120s bpm. He has been otherwise hemodynamically stable. WBC 12.4, hemoglobin 11, sodium 138, potassium 3.7, chloride 111, CO2 22, BUN 44, creatinine 1.33. Dr. Romero has transitioned antibiotics to kefzol. Repeat blood culture revealed gram-positive cocci in groups. Patient was started on Eliquis yesterday. No further hematuria. Repeat chest x-ray reveals patchy infiltrates persist at the lung bases left greater than right without significant change. Correlate for pneumonia. Discharge plan to [facility]. 01/15: Patient remains in the intensive care unit and has been cleared by Dr. Hathaway for transfer out. Patient remains in atrial fibrillation. 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 Dr. Hdz has had an in amiodarone 200 mg twice daily and continued on Cardizem and metoprolol. Repeat limited echocardiogram reveals suboptimal views but cannot rule out vegetation on the aortic valve. Mild mitral regurgitation, tricuspid regurgitation. Patient to be scheduled for TATUM to rule out vegetation. Patient had hypotension when working with physical therapy today and at time of the evaluation is also complaining of feeling lightheaded. Cardiology is planning to decrease Cardizem 30 mg 3 times daily. Patient will be given fluid bolus. Lasix frequency will also be decreased frequency to daily He denies having any chest pain or shortness of breath. No abdominal pain. Blood pressure 114/77, pulse ox 95% on room air, afebrile. Patient is tolerating eliquis with no recurrence of hematuria. Davalos catheter is in place. Repeat blood work reveals WBC 12.0, hemoglobin 10.8. Chloride 108, Repeat chest x-ray reveals airspace disease throughout the left mid and lower lung and lesser extent to the right base selective prior. Some of the density has a nodular configuration along the periphery of the left upper lung. Unchanged. WBC 12, hemoglobin 10.8. Sodium 138, potassium 3.7, chloride 108, CO2 23. BUN 43, creatinine 1.32. Repeat blood cultures positive for staph aureus 01/16: Patient remains in the intensive care unit. Dizziness has resolved. He does not have any abdominal pain. Davalos catheter is clear. Dr. Hdz has adjusted amiodarone 400 mg twice daily, Cardizem was discontinued and Lopressor was increased to 50 mg 3 times daily. Heart rate is running in the 150s prior to medications, air sampling and monitoring is atrial fibrillation, pulse ox 94% on room air, blood pressure 109/84. He has been afebrile. He is scheduled for TATUM today. Most recent blood cultures obtained on January 14 and January 15 showing no growth. Patient has been continued on Kefzol. 01/17: Patient remains in intensive care unit. Heart rate remains elevated 1:30 to 140s in atrial fibrillation. Patient denies having any lightheadedness or dizziness. No chest pain or shortness of breath at rest. He denies palpitation. He denies any productive cough. He has had no bloody or black stools. He continues to have lower extremity edema. TATUM was negative for vegetation. CAT scan of the chest without contrast revealed increasing small to moderate left and small right pleural effusions. Increasing airspace disease which now involves the entire basilar left lower lobe. Correlate for worsening pneumonia. Peripheral nodular infiltrates and ground glass 3 demonstrated no many of which show cavitation. Consider atypical fungal or Doyle Terrio infections and septic emboli. Ascending aortic aneurysm at 4.4 cm. Coronary artery disease with extensive coronary artery calcifications. Dr. Hathaway is ordered ultrasound of the chest with possible thoracentesis on the left and obtain cytology. Eliquis placed on hold for this if necessary. The patient is been afebrile, blood pressure 112/87, pulse ox 93% on room air. INR is 1.2. WBC 11.4, hemoglobin 9.8, platelet count 357. Electrolytes within normal limits, BUN 35, creatinine 1.41. 01/18: Patient is sitting up in be feeling better, still in the ICU , continues to have atrial fibrillation with heart rate in between 100-130, he denies any chest pain continues to have shortness of breath, no pleurisy, minimal coughing with minimal phlegm production, no abdominal pain, nausea, or vomiting, has not had a bowel movement yet, he is scheduled to go for left thoracenthesis today to be done by at 11:00 AM. Objective - Vital Signs Vital signs: Vital Signs Temp 97.9 F 01/19/20 04:00 Pulse 117 H 01/19/20 08:00 Resp 27 H 01/19/20 08:00 BP 95/71 01/19/20 08:00 Pulse Ox 94 L 01/19/20 08:00 Intake & Output 01/18/20 01/19/20 01/19/20 18:59 06:59 18:59 Intake Total 70 251.756 20 Output Total 950 825 125 Balance -880 -573.244 -105 Weight 85.5 kg Intake: IV 60 150 20 Sodium Chloride 0.9% 1, 60 150 20 000 ml @ 50 mls/hr IV . Q20H DAI Rx#:[id number] Intake, IV Titration 10 101.756 Amount Heparin Sod,Pork in 0.45% 10 101.756 NaCl 25,000 unit In 0.45 % NaCl 1 250ml.bag @ 11.5 UNITS/KG/HR 9.925 mls/hr IV .Q24H [facility], [facility] Rx#: [id number] Output: Urine 950 825 125 Other: Voiding Method Indwelling Catheter Indwelling Catheter - Exam Review of Systems Constitutional: Reports weakness, Denies chronic headaches, Denies fatigue, Denies lethargy, reports lightheadedness Eyes: denies blurred vision, denies bulging eye, denies decreased vision Ears: bilateral: decreased hearing Ears, nose, mouth and throat: Denies dysphagia, Denies neck lump, Denies sore throat Cardiovascular: rapid heart beat, Denies chest pain, Denies decreased exercise tolerance, reports lightheadedness, positive for shortness of breath, Denies syncope Respiratory: Denies congestion, Denies cough with sputum, Denies home oxygen, Denies sleep apnea, Denies snoring, Denies wheezing Gastrointestinal: Denies abdominal pain, denies nausea,denies vomiting, Denies bloating, Denies change in bowel habits, Denies coffee ground emesis, Denies excessive gas, Denies heartburn, Denies hematemesis, Denies melena Genitourinary: Denies dysuria, Denies incontinence, reports hematuriaresolving Musculoskeletal: Reports frequent falls, Reports gait dysfunction Musculoskeletal: right: shoulder pain, shoulder stiffness, absent: ankle pain, ankle stiffness, ankle swelling, elbow pain, elbow stiffness, elbow swelling, foot pain, foot stiffness, foot swelling, hand pain, hand stiffness, hand swelling, hip pain, hip stiffness, hip swelling, knee pain, knee swelling, shoulder swelling, wrist pain, wrist stiffness, wrist swelling Integumentary: Denies pruritus, Denies rash Neurological: Denies numbness, Denies weakness Psychiatric: Denies anxiety, Denies depression Physical examination HEENT: Head is atraumatic, normocephalic, pupils were equal round reactive to light and recommendation, extraocular muscle movement were intact. Neck: Supple, no JVD, no carotid bruit. Chest: Decreased breath sounds at the bases, few rhonchi, no expiratory wheezes, minimal chest wall tenderness and the left lower ribs, no intercostal retractions, there is egophony to the left lower lobe with decreased Tactile fremitus. Heart: First heart sound is depressed, second heart sound is normal, irregular, there is systolic ejection murmur 2/6 located at the Sternal border. Abdomen: Soft, non tender, non distended positiev bowel sounds.. Extremities: +2 edema, no calf tenderness, dorsalis pedis +1 bilaterally. Neurologic examination: Patient is awake alert and oriented 3, cranial nerves III through XII appear grossly intact, muscle power 4/5 in bilateral upper and lower extemities bilaterally. - Labs CBC & Chem 7: 01/19/20 04:50 01/19/20 04:50 Labs: Abnormal Lab Results - Last 24 Hours (Table) 01/18/20 01/18/20 01/18/20 Range/Units 09:20 14:38 21:25 RBC (4.30-5.90) m/uL Hgb (13.0-17.5) gm/dL Hct (39.0-53.0) % Neutrophils # (1.3-7.7) k/uL Lymphocytes # (1.0-4.8) k/uL INR 1.2 H (<1.2) APTT 33.8 H 39.8 H 118.3 H* (22.0-30.0) sec Chloride (98-107) mmol/L BUN (9-20) mg/dL Creatinine (0.66-1.25) mg/dL Glucose (74-99) mg/dL Calcium (8.4-10.2) mg/dL 01/19/20 01/19/20 01/19/20 Range/Units 04:50 04:50 04:50 RBC 3.06 L (4.30-5.90) m/uL Hgb 9.0 L (13.0-17.5) gm/dL Hct 28.8 L (39.0-53.0) % Neutrophils # 9.1 H (1.3-7.7) k/uL Lymphocytes # 0.7 L (1.0-4.8) k/uL INR (<1.2) APTT 48.1 H (22.0-30.0) sec Chloride 108 H (98-107) mmol/L BUN 40 H (9-20) mg/dL Creatinine 1.29 H (0.66-1.25) mg/dL Glucose 105 H (74-99) mg/dL Calcium 7.5 L (8.4-10.2) mg/dL Microbiology - Last 24 Hours (Table) 01/17/20 05:06 Blood Culture - Preliminary Blood No Growth after 48 hours 01/15/20 04:42 Blood Culture - Preliminary Blood No Growth after 96 hours 01/16/20 04:09 Blood Culture - Preliminary Blood No Growth after 72 hours 01/14/20 04:25 Blood Culture Gram Stain - Final Blood Blood Culture - Final Staphylococcus aureus Assessment and Plan Assessment: 1. Acute hypoxemic respiratory failure secondary to acute diastolic heart failure due to atrial fibrillation with rapid ventricular response and MSSA pneumonia. we will continue with Kefzol 2 gr IVPB Q 8 H continue oxygen support, continue nebulized treatment, increase activity as tolerated with physical therapy. 2. Bilateral peripheral pulmonary nodules with left cavitary lesions in the left upper lobe 2.5 cm. Continue IV antibiotic in the form of Kefzol. Monitor the patient very closely repeat computed tomography scan in about 4 weeks from now. 3. Mild rhabdomyolysis. Resolved , off IVF. 4. Mild hyponatremia secondary to hypovolemia. Resolved. 5. Acute kidney injury secondary to acute tubular necrosis due to rhabdomyolysis. Resolved. 6. Atrila fibrillation with RVR. better heart rate we will continue with Metoprolol 50 mg orally tid and Amiodarone 400 mg orally bid, currently on heparin drip , we should transition to Eliquis 5 mg orally BID in the next 24 hours. 7. MSSA bacteremia secondary to MSSA pneumonia, Ruled out Aortic Vegetation by TATUM. we will continue with Kefzol 2 gr IVPB Q 8 hours . 8. Severe sepsis likely due to gram-positive pneumonia. Continue Kefzol. 9. Possible retroperitoneal bleed . After discussing with intensive care and general surgery it does not seems to be an actual bleeding we will monitor very closely. 10. 4.7 cm ascending aortic aneurysm. Patient will continue to have a surveillance computed tomography scan once every 6 months. 11. Lactic acidosis. Resolved. 12. Osteoarthritis. Stable. 13. Vitamin D deficiency. Continue vitamin D supplements 1000 units once every day. 14. DVT prophylaxis. We will continue patient on Heparin drip for now. 15. GI prophylaxis. Continue Protonix 40 mg orally once every day. 16. History of old L1 fracture 17. COVID-19 infection not present. 18. Medical debility. we will continue with PT likely will require sub acute rehabilitation. 19. Enlarged prostate with urinary retention. we will continue with Davalos catheter and Flomax 0.4 mg orally daily, we will try void trial next week. 20 Prognosis is gaurded.
--- NOTE | 2020-01-19 20:17 | PCN ---
PROCEDURE NOTE PROCEDURE: Left thoracentesis. PREOP DIAGNOSIS: Complicated pleural effusion, left pleural. POSTOP DIAGNOSIS: Same. OPERATORS: Dr. Hathaway and Jake. INDICATION: Pleural effusion. A time-out was completed verifying correct patient, procedure, site, positioning , and implant (s) or special equipment if applicable. Ultrasound guidance was used and appropriate fluid pocket was identified and marked. Patient was positioned, prepped and draped in usual sterile fashion. Lidocaine was used to anesthetize the area. A Thoracentesis catheter was introduced into the pleural space and fluid was removed. Blood loss was none. We attempted a left thoracentesis. Unfortunately, we could only draw out a minimal amount of fluid, not worth sending to the laboratory for analysis. We did have the posterior chest marked by ultrasound. The patient tolerated the procedure well. There was no immediate complication. A chest x-ray will be ordered. Additional recommendations and suggestions are forthcoming. We will attempt the procedure again on Tuesday. Will have interventional radiology attempt the procedure. MMODL / IJN: [id number] /
[2020-01-20 05:53] LABS: Basophils % (A) 0 %; Eosinophils # (A) 0.1 k/uL (0-0.7); Eosinophils % (A) 1 %; HCT 28.6 % (39.0-53.0); Hypochromasia Moderate; Lymphocytes # (A) 0.9 k/uL (1.0-4.8); Lymphocytes % (A) 10 %; MCH 30.5 pg (25.0-35.0); MCHC 31.6 g/dL (31.0-37.0); MCV 96.5 fL (80.0-100.0); Monocytes # (A) 0.4 k/uL (0-1.0); Monocytes % (A) 4 %; Neutrophils # (A) 7.7 k/uL (1.3-7.7); Neutrophils % (A) 83 %; Platelet Count 282 k/uL (150-450); RBC 2.96 m/uL (4.30-5.90); RDW 12.8 % (11.5-15.5); WBC 9.3 k/uL (3.8-10.6)
[2020-01-20] MEDS: PANTOPRAZOLE 40 MG TABLET PO SCH (06:53)
[2020-01-20] MEDS: METOPROLOL TARTRATE 50 MG TAB PO SCH ×3 (08:36→21:17)
[2020-01-20] MEDS: TAMSULOSIN 0.4 MG CAP.ER.24H PO SCH (08:37)
[2020-01-20] MEDS: CHOLECALCIFEROL 1,000 UNIT TAB PO SCH (08:37)
[2020-01-20] MEDS: AMIODARONE 200 MG TAB PO SCH ×2 (08:37→21:17)
[2020-01-20] MEDS: FUROSEMIDE 40 MG TAB PO SCH (08:37)
[2020-01-20] MEDS: HEPARIN SOD,PORK IN 0.45% NACL 25,000 UNIT in 0.45% NACL 1 250ML.BAG IV SCH ×2 (08:39→17:53)
--- NOTE | 2020-01-20 10:31 | P.PN ---
Subjective Progress Note Date: 01/20/20 This is a 79-year-old male one of my patient with a previous medical history significant for osteoporosis, osteoporosis with prior history of L1 compression fracture, vitamin D deficiency, history of enlarged prostate, patient was in his usual state of health until about 2 days ago when he felt a bit sick to stomach episode of nausea and vomiting he was not drinking enough water at that time, patient woke up the yesterday morning at around 12 midnight to go to have a drink of water before he goes to the bathroom he ended up falling on the floor after his right knee gave out and the patient landed on the floor for at least 17 hours until his daughter hold him and he did not answer so she came to the house and she found him laying on the floor EMS was called and the patient was brought into the ER at [facility] and brought to the hospital EMS personnel thought the patient was in atrial fibrillation, upon arrival to the ER his initial EKG showed sinus tachycardia with PAC and PVCs without any evidence of atrial fibrillation, patient lactic acid was elevated at 4.7, he was given IV fluid resuscitation, he had a chest x-ray that did not show much ended up going for computed tomography scan of the chest that showed multiple bilateral peripheral pulmonary infiltrate with left 2.5 cm cavitary lesion in the left upper lobe, patient was started on IV antibiotic in the form of Zithromax, Rocephin, and vancomycin, pulmonary consultation was obtained from , as well as cardiology consultation because of his ectopy. 01/10: Yesterday, patient developed evidence of atrial fibrillation and consult with Dr. Hdz was requested. Patient was started on Cardizem drip and heparin drip. Echocardiogram revealed EF of 50-55%, mild to moderate aortic regurgitation, mild tricuspid regurgitation, moderate pulmonary hypertension. CAT scan of the abdomen and pelvis was obtained which revealed asymmetrical perinephric stranding and edema in the right kidney, correlated to exclude pyelonephritis. Continue fluid edema and fluid in the right retroperitoneum. Unclear if this is arising from the right kidney. Correlate for any relevant history that could predispose the patient to retroperitoneal bleed. The fluid is not high-density would be seen in acute hemorrhage. Tortuous right common and external iliac artery which courses through this tracking fluid. Tiny hiata l hernia and mild circumferential wall thickening of the distal esophagus. Correlate to exclude esophagitis. Continue small effusions with extensive peripheral opacities. Interstitial pneumonitis and atypical pneumonias including COVID-19 pneumonia in the differentials. Incidental finding of a 70 aortic aneurysm 4.7 cm. Consult was obtained with Dr. Sky and he is not convinced retro-peritoneal bleed. Heparin drip will remain on hold. Repeat chest x-ray revealed mild cardiomegaly and continued interstitial density. Correlate to exclude pulmonary vascular congestion. Increasing patchy airspace disease in the left mid and lower lung could represent developing confluent pulmonary edema versus pneumonia. Patient has been seen and followed by Dr. Monk. Patient was also seen by Dr. Romero and continued on vancomycin and Rocephin for possible gram-positive bacteremia as well as azithromycin. Initial blood culture has not been finalized. This morning, monitor tech atrial fibrillation in the 120s to 140s. He denies any chest pain, shortness of breath or dizziness. No palpitations. Cardiology is increasing Lopressor to 50 mg twice daily and Lasix on hold due to worsening renal function. Anticoagulation remains on hold due to possibility of retroperitoneal bleed. Patient has been afebrile since admission. Blood pressure currently 122/74, pulse ox 98% on 3 L nasal cannula. Repeat blood work reveals WBC 14, hemoglobin 12.6, platelet count 121. Sodium 136, potassium 4.3, chloride 108, CO2 21, BUN 58 and creatinine 1.62. Blood sugar 123. CK is 1026. TSH 0.8-9. Coronavirus not detected. 01/11: Patient sitting up in bed in no apparent distress he denies any chest pain is less short of breath today he denies any abdominal pain, he continues to be in atrial fibrillation his heart rate is better he remains on Cardizem drip at 5 mg hour his Lopressor was increased we will start the patient on Eliquis 5 mg orally twice every day, he would be kept in the ICU for another 24 hours, then he will be transferred to the cardiac telemetry unit. 01/12: Patient is sitting up in his recliner today he is in a positive fluid balance he did receive 20 mg Lasix IV push he continues to be in atrial fibrillation with somewhat fast ventricular response, he was seen earlier by cardiology and pulmonary medicine and spoke with his daughter done and I gave her an updated about his current situation he needs to stay in the ICU, until he goes into neutral fluid balance, he needs additional dose of Lasix we will give him another 20 mg Lasix IV push and continue to monitor his weight and fluid balance. Patient denies any chest pain he continues to have some coughing and minimal phlegm production he appears to be tachypneic, he denies any abdominal pain that he has no nausea or vomiting he seems to be tolerating his treatment very well, he was switched to heparin drip as opposed to Eliquis for few days and he would be monitored. 01/13: Patient remains in intensive care unit. Patient continues to be in atrial fibrillation with RVR running up to the 140s this morning. Patient denies any chest pain, dizziness, palpitations. No nausea or vomiting. No bowel movem ents. No fever or chills. Dr. Hdz has adjusted his Cardizem dose to 60 mg 3 times daily. He is also recommending oral anticoagulation once cleared by urology. Patient has been seen by Dr. Batres with recommendations to keep Davalos for 7 days, start Flomax. Gross hematuria most likely secondary to retention and okay to resume anticoagulation. Repeat chest x-ray reveals hypoventilatory changes. Persistent interstitial infiltrates of the Route and similar confluent left basilar and peripheral left lung airspace disease. One dose of IV Lasix 40mg ordered this morning and continue every 12 hours. BUN 46, creatinine 1.28, potassium 4.3. Hemoglobin 11.3. Initial blood culture has been finalized as MSSA. Patient is currently on ceftriaxone and vancomycin followed by Dr. Romero. 01/14: Patient remains in intensive care unit. He is seen today sitting in recliner and appears to be comfortable. monitoring specialist remains in atrial fibrillation and rate in the 120s bpm. He has been otherwise hemodynamically stable. WBC 12.4, hemoglobin 11, sodium 138, potassium 3.7, chloride 111, CO2 22, BUN 44, creatinine 1.33. Dr. Romero has transitioned antibiotics to kefzol. Repeat blood culture revealed gram-positive cocci in groups. Patient was started on Eliquis yesterday. No further hematuria. Repeat chest x-ray reveals patchy infiltrates persist at the lung bases left greater than right without significant change. Correlate for pneumonia. Discharge plan to [facility]. 01/15: Patient remains in the intensive care unit and has been cleared by Dr. Hathaway for transfer out. Patient remains in atrial fibrillation. 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 Currently 116. Dr. Hdz has had an in amiodarone 200 mg twice daily and continued on Cardizem and metoprolol. Repeat limited echocardiogram reveals suboptimal views but cannot rule out vegetation on the aortic valve. Mild mitral regurgitation, tricuspid regurgitation. Patient to be scheduled for TATUM to rule out vegetation. Patient had hypotension when working with physical therapy today and at time of the evaluation is also complaining of feeling lightheaded. Cardiology is planning to decrease Cardizem 30 mg 3 times daily. Patient will be given fluid bolus. Lasix frequency will also be decreased frequency to daily He denies having any chest pain or shortness of breath. No abdominal pain. Blood pressure 114/77, pulse ox 95% on room air, afebrile. Patient is tolerating eliquis with no recurrence of hematuria. Davalos catheter is in place. Repeat blood work reveals WBC 12.0, hemoglobin 10.8. Chloride 108, Repeat chest x-ray reveals airspace disease throughout the left mid and lower lung and lesser extent to the right base selective prior. Some of the density has a nodular configuration along the periphery of the left upper lung. Unchanged. WBC 12, hemoglobin 10.8. Sodium 138, potassium 3.7, chloride 108, CO2 23. BUN 43, creatinine 1.32. Repeat blood cultures positive for staph aureus 01/16: Patient remains in the intensive care unit. Dizziness has resolved. He does not have any abdominal pain. Davalos catheter is clear. Dr. Hdz has adjusted amiodarone 400 mg twice daily, Cardizem was discontinued and Lopressor was increased to 50 mg 3 times daily. Heart rate is running in the 150s prior to medications, monitor tech is atrial fibrillation, pulse ox 94% on room air, blood pressure 109/84. He has been afebrile. He is scheduled for TATUM today. Most recent blood cultures obtained on January 14 and January 15 showing no growth. Patient has been continued on Kefzol. 01/17: Patient remains in intensive care unit. Heart rate remains elevated 1:30 to 140s in atrial fibrillation. Patient denies having any lightheadedness or dizziness. No chest pain or shortness of breath at rest. He denies palpitation. He denies any productive cough. He has had no bloody or black stools. He continues to have lower extremity edema. TATUM was negative for vegetation. CAT scan of the chest without contrast revealed increasing small to moderate left and small right pleural effusions. Increasing airspace disease which now involves the entire basilar left lower lobe. Correlate for worsening pneumonia. Peripheral nodular infiltrates and ground glass 3 demonstrated no many of which show cavitation. Consider atypical fungal or Doyle Terrio infections and septic emboli. Ascending aortic aneurysm at 4.4 cm. Coronary artery disease with extensive coronary artery calcifications. Dr. Hathaway is ordered ultrasound of the chest with possible thoracentesis on the left and obtain cytology. Eliquis placed on hold for this if necessary. The patient is been afebrile, blood pressure 112/87, pulse ox 93% on room air. INR is 1.2. WBC 11.4, hemoglobin 9.8, platelet count 357. Electrolytes within normal limits, BUN 35, creatinine 1.41. 01/18: Patient is sitting up in be feeling better, still in the ICU , continues to have atrial fibrillation with heart rate in between 100-130, he denies any chest pain continues to have shortness of breath, no pleurisy, minimal coughing with minimal phlegm production, no abdominal pain, nausea, or vomiting, has not had a bowel movement yet, he is scheduled to go for left thoracenthesis today to be done by at 11:00 AM. 01/19: Patient is sitting up in bed in no apparent distress is feeling better today he did have a good bowel movement yesterday and attempt for thoracentesis at bedside was aborted and he is scheduled to go for ultrasound-guided thoracentesis tomorrow morning with interventional radiology, patient has no abdominal pain, no nausea or vomiting, he continues to be in atrial fibrillation, he continues to be on heparin drip, he would be switched to oral Eliquis after the procedure in the next 24 hours, patient will likely require subacute rehabilitation in the next 24-48 hours. Objective - Vital Signs Vital signs: Vital Signs Temp 98.5 F 01/20/20 08:00 Pulse 106 H 01/20/20 08:00 Resp 21 01/20/20 08:00 BP 115/82 01/20/20 08:00 Pulse Ox 93 L 01/20/20 08:00 Intake & Output 01/19/20 01/20/20 01/20/20 18:59 06:59 18:59 Intake Total 231.999 160 Output Total 950 950 200 Balance -718.001 -790 -200 Weight 87.2 kg Intake: IV 140 Sodium Chloride 0.9% 1, 140 000 ml @ 50 mls/hr IV . Q20H [facility] Rx#:[id number] Intake, IV Titration 91.999 160 Amount Heparin Sod,Pork in 0.45% 91.999 NaCl 25,000 unit In 0.45 % NaCl 1 250ml.bag @ 11.5 UNITS/KG/HR 9.925 mls/hr IV .Q24H [facility] Rx#: [id number] Sodium Chloride 0.9% 1, 160 000 ml @ 20 mls/hr IV . Q24H [facility] Rx#:[id number] Output: Urine 950 950 200 Other: Voiding Method Indwelling Catheter Indwelling Catheter Indwelling Catheter - Exam Review of Systems Constitutional: Reports weakness, Denies chronic headaches, Denies fatigue, Denies lethargy, reports lightheadedness Eyes: denies blurred vision, denies bulging eye, denies decreased vision Ears: bilateral: decreased hearing Ears, nose, mouth and throat: Denies dysphagia, Denies neck lump, Denies sore th roat Cardiovascular: rapid heart beat, Denies chest pain, Denies decreased exercise tolerance, reports lightheadedness, positive for shortness of breath, Denies syncope Respiratory: Denies congestion, Denies cough with sputum, Denies home oxygen, D enies sleep apnea, Denies snoring, Denies wheezing Gastrointestinal: Denies abdominal pain, denies nausea,denies vomiting, Denies bloating, Denies change in bowel habits, Denies coffee ground emesis, Denies excessive gas, Denies heartburn, Denies hematemesis, Denies melena Genitourinary: Denies dysuria, Denies incontinence, reports hematuriaresolving Musculoskeletal: Reports frequent falls, Reports gait dysfunction Musculoskeletal: right: shoulder pain, shoulder stiffness, absent: ankle pain, a nkle stiffness, ankle swelling, elbow pain, elbow stiffness, elbow swelling, foot pain, foot stiffness, foot swelling, hand pain, hand stiffness, hand swelling, hip pain, hip stiffness, hip swelling, knee pain, knee swelling, shoulder swelling, wrist pain, wrist stiffness, wrist swelling Integumentary: Denies pruritus, Denies rash Neurological: Denies numbness, Denies weakness Psychiatric: Denies anxiety, Denies depression Physical examination HEENT: Head is atraumatic, normocephalic, pupils were equal round reactive to light and recommendation, extraocular muscle movement were intact. Neck: Supple, no JVD, no carotid bruit. Chest: Decreased breath sounds at the bases, few rhonchi, no expiratory wheezes, minimal chest wall tenderness and the left lower ribs, no intercostal retractio ns, there is egophony to the left lower lobe with decreased Tactile fremitus. Heart: First heart sound is depressed, second heart sound is normal, irregular, there is systolic ejection murmur 2/6 located at the Sternal border. Abdomen: Soft, non tender, non distended positiev bowel sounds.. Extremities: +2 edema, no calf tenderness, dorsalis pedis +1 bilaterally. Neurologic examination: Patient is awake alert and oriented 3, cranial nerves III through XII appear grossly intact, muscle power 4/5 in bilateral upper and lower extemities bilaterally. - Labs CBC & Chem 7: 01/20/20 05:20 01/19/20 04:50 Labs: Abnormal Lab Results - Last 24 Hours (Table) 01/20/20 01/20/20 Range/Units 05:20 05:26 RBC 2.96 L (4.30-5.90) m/uL Hgb 9.0 L (13.0-17.5) gm/dL Hct 28.6 L (39.0-53.0) % Lymphocytes # 0.9 L (1.0-4.8) k/uL APTT 43.5 H (22.0-30.0) sec Microbiology - Last 24 Hours (Table) 01/17/20 05:06 Blood Culture - Preliminary Blood No Growth after 72 hours 01/15/20 04:42 Blood Culture - Preliminary Blood No Growth after 120 hours 01/16/20 04:09 Blood Culture - Preliminary Blood No Growth after 96 hours Assessment and Plan Assessment: 1. Acute hypoxemic respiratory failure secondary to acute diastolic heart failure due to atrial fibrillation with rapid ventricular response and MSSA pn eumonia. we will continue with Kefzol 2 gr IVPB Q 8 H continue oxygen support, continue nebulized treatment, increase activity as tolerated with physical therapy. 2. Bilateral peripheral pulmonary nodules with left cavitary lesions in the left upper lobe 2.5 cm. Continue IV antibiotic in the form of Kefzol. Monitor the patient very closely repeat computed tomography scan in about 4 weeks from n ow. 3. Mild rhabdomyolysis. Resolved , off IVF. 4. Mild hyponatremia secondary to hypovolemia. Resolved. 5. Acute kidney injury secondary to acute tubular necrosis due to rhabdomyolysis. Resolved. 6. Atrial fibrillation with RVR. better heart rate we will continue with Metoprolol 50 mg orally tid and Amiodarone 400 mg orally bid, currently on heparin drip , we should transition to Eliquis 5 mg orally BID in the next 24 hours. 7. MSSA bacteremia secondary to MSSA pneumonia, Ruled out Aortic Vegetation by TATUM. we will continue with Kefzol 2 gr IVPB Q 8 hours . 8. Severe sepsis likely due to gram-positive pneumonia. Continue Kefzol. 9. Possible retroperitoneal bleed . After discussing with intensive care and general surgery it does not seems to be an actual bleeding we will monitor very closely. 10. 4.7 cm ascending aortic aneurysm. Patient will continue to have a ayaka veillance computed tomography scan once every 6 months. 11. Lactic acidosis. Resolved. 12. Osteoarthritis. Stable. 13. Vitamin D deficiency. Continue vitamin D supplements 1000 units once every day. 14. DVT prophylaxis. We will continue patient on Heparin drip for now. 15. GI prophylaxis. Continue Protonix 40 mg orally once every day. 16. History of old L1 fracture 17. COVID-19 infection not present. 18. Medical debility. we will continue with PT likely will require sub acute rehabilitation. 19. Enlarged prostate with urinary retention. we will continue with Davalos catheter and Flomax 0.4 mg orally daily, we will try void trial next week. 20. Left-sided pleural effusion likely loculated. Ultrasound-guided thoracentesis tomorrow morning. 21. Prognosis is guarded.
--- NOTE | 2020-01-20 11:21 | P.PN ---
Subjective Progress Note Date: 01/20/20 Principal diagnosis: Gram-positive bacteremia, sepsis, bilateral cavitary lung nodules and pneumonia, A. fib with RVR This is a pleasant 79-year-old gentleman who follows with Dr. Harley as his primary care provider. He has a history of osteoarthritis, osteoporosis with prior history of L1 compression fracture, vitamin D deficiency, enlarged prostate, remote history of tobacco dependence for approximately 10 years but quit 60 years ago. Daily alcohol use. On 01/18/2020 the patient had gotten up from bed and headed to the bathroom when his right knee gave out and he fell to the ground. He was unable to get himself up. His daughter called and the patient had not answered and she went to check on him yesterday, found him on the floor and EMS was called. Approximately 16 hours of down time. He was found to be febrile with presenting temperature of 102.9. Computed tomography scan of the chest revealed extensive peripheral bilateral noncalcified pulmonary nodular infiltrates. Neoplastic versus inflammatory disease. There is a 2.5 cm cavitating lesion in the lateral aspect of the left upper lobe. The largest of the peripheral nodules is 2 cm. The patient is seen today in consultation on the selective care unit. He is currently sitting up in a chair. Awake and alert in no acute distress. Currently afebrile. Sinus tachycardia with frequent PACs, possible paroxysmal atrial fibrillation. Echocardiogram reveals preserved left ventricular systolic function with ejection fraction 50-55%. CAT scan of the abdomen and pelvis revealed edema about the right kidney extending to the right renal sinus with possible polynephritis. Confluent edema and fluid extends down the right retroperitoneum cannot exclude retroperitoneal bleed. Confluent small effusions with extensive peripheral opacities. Interstitial pneumonitis and atypical pneumonias are within the differential. There is a 4.7 cm ascending aortic aneurysm. CoVID 19 screening pending. Blood cultures pending. White count 12.1. Hemoglobin 13.0. Platelet count 104. Lymphocytes 0.48. Sodium 131. Potassium 4.2. Bicarb 19. Creatinine 1.18. Glucose 164. CK 867. Troponin 0.025. ProBNP 1910. He has been initiated on ceftriaxone, vancomycin and azithromycin. Cardizem drip at 5 mg per hour. Heparin drip. Patient was reevaluated today on 01/11/20, patient developed worsening shortness of breath overnight, wheezing, and worsening atrial fibrillation with RVR, hence he was transferred to the intensive care unit. Feeling better at present, however he is on 3 L nasal cannula, and O2 saturation is 94%. He is also on Cardizem at 5 mg per hour, IV fluid increased to 1 50 mL per hour. His blood cultures came back positive for gram-positive cocci in clusters, and the patient received vancomycin since admission he remains on vancomycin. He was already seen by infectious disease on consultation. Cardiology is evaluating the patient, his initial echocardiogram was nondiagnostic, patient may require transesophageal echocardiography. CPK was noted to be a bit elevated today, hence I increased his IV fluid. Patient is in atrial fibrillation with RVR, rate is 138 beats per minutes. Primary source of his bacteremia could very well be from the lungs, although the possibility of urinary tract infection and endocarditis is not entirely ruled out. But felt to be less likely. WBC count today is 14 hemoglobin is 12.6. Electrodes are normal, BUN is 58 creatinine is 1.62, worsening compared to yesterday. CPK was also noted to be elevated, pro- calcitonin was quite high 7.12. Patient was reevaluated today on 01/12/20, remains in the ICU, remains in atrial fibrillation, but rate seems to be better controlled. Remains on Cardizem drip at 5 mg per hour, IV fluid is 125 mL per hour. Remains on vancomycin for his gram-positive bacteremia. Chest x-ray continues to show left lower lobe infiltrate. Abdominal film showed dilated bowel loops, however the patient had no clinical symptoms to suggest bowel obstruction. Patient is also on Lopressor and on Eliquis twice a day. We plan to keep him in the ICU for the next 24 hours, and if he remains stable will transfer out of the ICU to a monitor bed on selective. CBC showed evidence of 12.8 hemoglobin is 11.7 electrodes are normal bicarb is a bit low at 18. Renal profile is improving. Is down to 55 creatinin e is down to 1.39. CPK is down to 422 from 1067 yesterday Patient was reevaluated today on 01/13/20, remains in the ICU, remains in atrial fibrillation with RVR. This is being addressed by cardiology. Patient remains on IV fluid at 50 mL/h remains on oxygen at 2 L/m. Patient is off Cardizem drip , and his Lopressor was increased. His renal functioning is improving. Patient was given a dose of Lasix 20 mg IV push 1 today after reviewing his chest x-ray which is suggestive of mild interstitial edema, and I strongly suspect the left lower lobe pneumonia. Final report on the blood cultures remains pending, but the patient did have positive cocci in clusters and his blood cultures. And I believe the most likely source is his left lower lobe pneumonia. On 01/14/2020 patient seen in follow-up in intensive care unit, he is calm and comfortable, sitting up in the recliner, eating breakfast, appetite is good, patient has eaten all of his food on the tray. Tolerating regular diet, denies any difficulty breathing. His heparin infusion is on hold related to hematuria, and urinary retention with subsequent placement of Davalos catheter, currently patient has a Davalos catheter in place and his hematuria seems to have resolved, patient is producing yellow clear urine today, today's hemoglobin is 11.3, white count is 9.5, patient has been afebrile, he is on 2 L of oxygen and pulse ox of 95%. Remains in atrial fibrillation with a controlled rate in the 120-160 BPM, cardiology is following and managing rate control medications. Currently patient is on oral Cardizem and the dose was increased to 60 mg 3 times daily, and oral metoprolol and 50 mg 3 times daily. Patient was given a dose of IV Lasix yesterday, he is in -1.2 L over the last 24 hours, and was started on maintenance dose of IV Lasix 40 mg every 12 hours. Patient is on Zithromax and Rocephin. Patient is on Rocephin and Zithromax and vancomycin, for blood culture positive for MSSA. We'll discontinue vancomycin. Urine culture was negative. Today's chest x-ray shows hypoventilatory changes, and persistent interstitial infiltrate throughout and more confluent patchy left basilar and peripheral left lung densities. On 01/15/2020 patient seen in follow-up in intensive care unit, he is awake and alert, oriented 3, he sitting up in the recliner, in no acute distress, currently on 3 L of oxygen the pulse ox of 96%, remains in atrial fibrillation, and his rate is better controlled compared to yesterday's exam, and is currently at 102 - 116 BPM. Afebrile. Hemodynamically stable, no worsening dyspnea, lung sounds revealed inspiratory crackles in the left base, clear right lung. Currently on point and was saline at a rate of 10 ML per hour, no other drips. Patient is on Cardizem at 60 mg orally 3 times a day in addition to metoprolol 50 mg 3 times daily cardiology is following, he is on oral dose of Lasix at 40 mg twice daily. 2 -4.5 L over last 24 hours, has mild swelling of lower extremities, knee-high VÍCTOR hose are applied. Today's labs have been reviewed showing white blood cell, 12.4, hemoglobin of 11, sodium is 138, potassium 3.7, chloride is 111, CO2 is 22, BUN is 44, and creatinine is 1.33. Patient is tolerating oral diet. Specific complaints, other than left lateral chest discomfort with coughing. Follow blood cultures have been negative, urine culture showed no growth, single blood culture from 01/09/2020 showed MSSA. he is currently on Kefzol for antibiotic coverage, oral anticoagulation was started in the form of Eliquis 5 mg twice a day. On 01/16/2020 patient seen in follow-up in the intensive care unit. He is awake and alert, oriented 3, he sitting up in the recliner, eating breakfast. Denies any distress, remains in atrial fibrillation with a rate of 129, patient is due for his morning medications. He is on metoprolol 50 mg 3 times a day, and oral Cardizem at 60 mg 3 times a day per cardiology, he has been started on oral anticoagulation in the form of Eliquis, and there has been no sign of active bleeding. Today's labs have been reviewed, showing hemoglobin of 10.8, white blood cell count is 12.0, platelet count is 368, sodium is 138, potassium 3.7, chloride is 108, CO2 is 23, BUN is 43, creatinine is 1.32. Afebrile, hemodynamically patient is stable, remains on 0.9 normal saline at a rate of 50 ML per hour, room air pulse ox is 94%. Lung sounds reveal crackles over left lower and mid left lung. Today's chest x-ray shows persistent patchy infiltrates at the lung bases left greater than right without significant change. Patient remains on for antibiotic coverage for MSSA bacteremia likely related to MSSA pneumonia. Remains on oral Lasix at 40 mg twice daily. He is in -2.8 L over last 24 hours, mild edema involving bilateral lower extremities. Renal profile remains stable with BUN of 43 and creatinine of 1.32. Davalos catheter remains in place, draining clear yellow urine, in the order of 75-125 ML per hour. There has been no recurrence of hematuria. On 01/17/2020 patient seen in follow-up in the intensive care unit, yesterday in the afternoon patient developed hypotension with systolic in the 70s, however A. fib was better controlled with the rate down to 70s BPM. Earlier in the day oral amiodarone was added in addition to oral Lopressor and Cardizem. Lopressor dose was held in the afternoon, patient was given 1.2 L in fluid boluses, blood pressure improved. Today she seen resting comfortably in bed, she is scheduled for transesophageal echocardiogram. Blood pressure has improved, and this morning it is 111/82, patient remains in atrial fibrillation with a rate of 120 BPM. Today's chest x-ray shows low lung volumes, cardiomegaly and worsening left lung infiltrate and atelectasis. Clinical patient denies any shortness of breath, he remains on room air with pulse ox of 94%, afebrile, remains on cefazolin for antibiotic coverage for MSSA bacteremia likely related to pneumonia. Follow-up blood cultures on and 01/16/2020 are negative. Patient is seen today 01/18/2020 in follow-up in the intensive care unit. He is currently sitting up in a chair at the bedside. Awake and alert in no acute di stress. She denies any worsening shortness of breath cough or congestion. He is maintaining O2 saturations in the 90s on room air. No IV fluids. TATUM showed no evidence of vegetation. He remains on Ancef. Computed tomography scan of the chest revealed increasing [id number] left and small right pleural effusions. Increasing airspace disease which now involves the entire basilar left lower lobe. Peripheral nodular infiltrates ands showing cavitation. Consider atypical fungal/mycobacterial infections and septic emboli. There is a 70 aortic aneurysm measuring 4.4 cm. Coronary artery disease with extensive coronary artery calcifications. Ultrasound of the left chest does reveal significant pocket of 10.4 cm with honeycomb in appearance and multiple septations. Sodium 137. Potassium 4.0. Creatinine 1.41. He is anticoagulated with Eliquis. Patient is seen today 01/19/2020 in follow-up in the intensive care unit. He is currently resting in bed. Awake and alert in no acute distress. Maintaining O2 saturations in the 90s on room air. He's been afebrile. Heart rate better controlled. Remains in atrial fibrillation. On oral amiodarone. Remains on heparin drip. 0.9 at a KVO. Ultrasound of the chest revealed a 10.4 cm pocket on the left. There is some honeycombing and multiple septations noted. Follow- up blood cultures reveal no growth to date. White count 10.4. Hemoglobin 9.0. Sodium 137. Potassium 3.9. Creatinine 1.29. Remains on cefazolin. The patient is seen today 01/20/2020 in follow-up in the intensive care unit. He remains a general medical floor overflow. He is awake and alert in no acute distress. He is maintaining O2 saturations in the 90s on room air. Remains in atrial fibrillation. Rate better controlled. He remains on heparin drip. Follow-up blood cultures revealing no growth. White count 9.3. Hemoglobin 9.0. Left thoracentesis attempted yesterday without success. Plan is for interventional radiology to perform a ultrasound guided thoracentesis in the a.m. Remains on oral diuretics. Antibiotics in the form of Cefazolin Objective - Vital Signs Vital signs: Vital Signs Temp 98.5 F 01/20/20 08:00 Pulse 106 H 01/20/20 08:00 Resp 21 01/20/20 08:00 BP 115/82 01/20/20 08:00 Pulse Ox 93 L 01/20/20 08:00 Intake & Output 01/19/20 01/20/20 01/20/20 18:59 06:59 18:59 Intake Total 231.999 160 Output Total 950 950 200 Balance -718.001 -790 -200 Weight 87.2 kg Intake: IV 140 Sodium Chloride 0.9% 1, 140 000 ml @ 50 mls/hr IV . Q20H DAI Rx#:[id number] Intake, IV Titration 91.999 160 Amount Heparin Sod,Pork in 0.45% 91.999 NaCl 25,000 unit In 0.45 % NaCl 1 250ml.bag @ 11.5 UNITS/KG/HR 9.925 mls/hr IV .Q24H DAI Rx#: [id number] Sodium Chloride 0.9% 1, 160 000 ml @ 20 mls/hr IV . Q24H DAI Rx#:[id number] Output: Urine 950 950 200 Other: Voiding Method Indwelling Catheter Indwelling Catheter Indwelling Catheter - Exam GENERAL EXAM: Alert, very pleasant, 79-year-old male patient, on room air with a pulse ox 93% comfortable in no apparent distress. HEAD: Normocephalic/atraumatic. EYES: Normal reaction of pupils, equal size. Conjunctiva pink, sclera white. NOSE: Clear with pink turbinates. THROAT: No erythema or exudates. NECK: No masses, no JVD, no thyroid enlargement, no adenopathy. CHEST: No chest wall deformity. Symmetrical expansion. LUNGS: Equal air entry with inspiratory crackles over left lower and left mid lung CVS: Irregular rate and rhythm, S1 and S2, no gallops, no murmurs, no rubs ABDOMEN: Soft, nontender. No hepatosplenomegaly, normal bowel sounds, no guarding or rigidity. EXTREMITIES: No clubbing, mild 1+ edema in bilateral lower extremities, knee- high VÍCTOR hose on bilateral lower extremity no cyanosis, 2+ pulses and upper and lower extremities. MUSCULOSKELETAL: Muscle strength and tone normal. SPINE: No scoliosis or deformity SKIN: No rashes CENTRAL NERVOUS SYSTEM: No focal deficits, tone is normal in all 4 extremities. PSYCHIATRIC: Alert and oriented -3. Appropriate affect. Intact judgment and insight. - Labs CBC & Chem 7: 01/20/20 05:20 01/19/20 04:50 Labs: Abnormal Lab Results - Last 24 Hours (Table) 01/20/20 01/20/20 Range/Units 05:20 05:26 RBC 2.96 L (4.30-5.90) m/uL Hgb 9.0 L (13.0-17.5) gm/dL Hct 28.6 L (39.0-53.0) % Lymphocytes # 0.9 L (1.0-4.8) k/uL APTT 43.5 H (22.0-30.0) sec Microbiology - Last 24 Hours (Table) 01/17/20 05:06 Blood Culture - Preliminary Blood No Growth after 72 hours 01/15/20 04:42 Blood Culture - Preliminary Blood No Growth after 120 hours 01/16/20 04:09 Blood Culture - Preliminary Blood No Growth after 96 hours Assessment and Plan Assessment: #1. Acute MSSA bacteremia most likely related to pneumonia, TATUM revealed no evidence of vegetation. Computed tomography scan of the chest revealed increased left pleural effusion. Cavitary nodule lesions. Possible atypical fungal/mycobacterial infections and septic emboli. Ultrasound reveals a 10.4 cm pocket but with honeycombing and septations. #2. Acute gram-positive pneumonia with sepsis related to methicillin sensitive staph aureus, follow-up cultures are revealing no growth #3. Atrial fibrillation with RVR #4. Acute rhabdomyolysis and acute kidney injury, improving #5. Degenerative joint disease #6. Bilateral peripheral pulmonary nodules, some are cavitary in nature and need to be monitored and followed closely, with a plan to repeat CT of the chest in the next few weeks #7. Acute L1 fracture secondary to a fall #8. Acute kidney injury related to sepsis and bacteremia and acute rhabdomyolysis, improving #9. Acute retroperitoneal bleed, status post fall, heparin is on hold #10. Hematuria, resolved, patient has been restarted on Eliquis with no recurrence of hematuria #11. Urinary retention requiring placement of urinary catheter #12. 4.7 ascending aortic aneurysm, will be followed every 6 months #13. Osteoarthritis Plan: The patient was seen and evaluated by Dr. Hathaway Currently stable and on room air Interventional radiology requested for ultrasound guided thoracentesis in a.m. Remains on a heparin drip We'll continue to follow I, the cosigning physician, performed a history & physical examination of the patient. Lungs sounds with basilar crackles left greater than right. Maintaining good O2 saturations in the 90s on room air. I discussed the assessment and plan of care with my nurse practitioner, Shanae Joseph. I attest to the above note as dictated by her.
--- NOTE | 2020-01-20 11:53 | P.PN ---
Subjective Progress Note Date: 01/20/20 This is a 79-year-old gentleman who was admitted following a fall at home and evidence of rhabdomyolysis. Patient also has atrial fibrillation with rapid ventricular response. He is currently on amiodarone 400 mg by mouth twice a day along with metoprolol. His heart rate is about 90 to 100. Patient is currently on heparin. His hemoglobin is also dropping since he came here. I don't know if he is a candidate for long-term anticoagulation. He lives by himself and there is history of falls. I will leave it up to her primary physician to decide about long-term anticoagulation. Patient also shows evidence of drop in hemoglobin. This may have to the investigated. Patient denies any chest pain. From Cardec standpoint we'll continue current medical therapy 09/21/2019:. Patient seemed to be clinically stable. Doesn't appear to be in acute distress. His heart rate is better controlled. Attempts at the thoracocentesis yesterday were not successful. There is a plan for CT-guided thoracocentesis maybe tomorrow. Patient otherwise critically stable. He is being treated for pneumonia. From Cardec standpoint will stay in the current medical therapy. We'll follow Objective - Vital Signs Vital signs: Vital Signs Temp 98.5 F 01/20/20 08:00 Pulse 106 H 01/20/20 08:00 Resp 21 01/20/20 08:00 BP 115/82 01/20/20 08:00 Pulse Ox 93 L 01/20/20 08:00 Intake & Output 01/19/20 01/20/20 01/20/20 18:59 06:59 18:59 Intake Total 231.999 160 Output Total 950 950 200 Balance -718.001 -790 -200 Weight 87.2 kg Intake: IV 140 Sodium Chloride 0.9% 1, 140 000 ml @ 50 mls/hr IV . Q20H DAI Rx#:[id number] Intake, IV Titration 91.999 160 Amount Heparin Sod,Pork in 0.45% 91.999 NaCl 25,000 unit In 0.45 % NaCl 1 250ml.bag @ 11.5 UNITS/KG/HR 9.925 mls/hr IV .Q24H DAI Rx#: [id number] Sodium Chloride 0.9% 1, 160 000 ml @ 20 mls/hr IV . Q24H DAI Rx#:[id number] Output: Urine 950 950 200 Other: Voiding Method Indwelling Catheter Indwelling Catheter Indwelling Catheter - Exam GENERAL EXAM: Patient is alert and oriented and doesn't appear to be in any acute distress HEENT: Normocephalic. Normal reaction of pupils, equal size, normal range of extraocular motion. No erythema or exudates in the throat. NECK: No masses, no nuchal rigidity. CHEST: No chest wall deformity. LUNGS: Equal air entry with no crackles or wheeze. HEART: S1 and S2 normal with no audible mumurs or gallops. Irregular rhythm ABDOMEN: No hepatosplenomegaly, normal bowel sounds, no guarding or rigidity. SKIN: No rashes CENTRAL NERVOUS SYSTEM: No focal deficits. EXTREMITIES: Mild edema of the legs - Labs CBC & Chem 7: 01/20/20 05:20 01/19/20 04:50 Labs: Abnormal Lab Results - Last 24 Hours (Table) 01/20/20 01/20/20 Range/Units 05:20 05:26 RBC 2.96 L (4.30-5.90) m/uL Hgb 9.0 L (13.0-17.5) gm/dL Hct 28.6 L (39.0-53.0) % Lymphocytes # 0.9 L (1.0-4.8) k/uL APTT 43.5 H (22.0-30.0) sec Microbiology - Last 24 Hours (Table) 01/17/20 05:06 Blood Culture - Preliminary Blood No Growth after 72 hours 01/15/20 04:42 Blood Culture - Preliminary Blood No Growth after 120 hours 01/16/20 04:09 Blood Culture - Preliminary Blood No Growth after 96 hours Assessment and Plan (1) Atrial fibrillation Current Visit: Yes Status: Acute Code(s): I48.91 - UNSPECIFIED ATRIAL FIBRILLATION SNOMED Code(s): 38193027 (2) Fall Current Visit: Yes Status: Acute Code(s): W19.XXXA - UNSPECIFIED FALL, INITIAL ENCOUNTER SNOMED Code(s): 2107550 (3) Pneumonia Current Visit: Yes Status: Acute Code(s): J18.9 - PNEUMONIA, UNSPECIFIED ORGANISM SNOMED Code(s): 048218154 Plan: Heart rate is better controlled. Patient is critically stable. Continue current medical therapy
[2020-01-20] MEDS: SODIUM CHLORIDE 0.9% 1,000 ML IV SCH (16:17)
--- NOTE | 2020-01-20 20:00 | PN ---
PROGRESS NOTE DATE OF SERVICE: 01/20/2020 REASON FOR FOLLOWUP: MSSA bacteremia and pneumonia. INTERVAL HISTORY: Patient is currently afebrile, has been breathing comfortably on room air. Denies having any chest pain or shortness of breath. Occasional cough. No nausea, vomiting, abdominal pain or diarrhea. However, per the daughter, did mention, he did have significant shortness of breath when he moved from the bed to the chair. PHYSICAL EXAMINATION: Blood pressure 92/63 with a pulse of 89, temperature 98.3. He is 93% on room air. General description: The patient is an elderly male up in the chair in no distress. Respiratory system: Unlabored breathing, decreased breath sounds at bases. No wheeze. Heart S1, S2. Regular rate and rhythm. Abdomen soft, no tenderness. LABS: Hemoglobin 9, white count 9.3, creatinine 1.29. Blood culture has been negative. DIAGNOSTIC IMPRESSION AND PLAN: Patient with MSSA bacteremia, source likely pneumonia in this patient repeat blood culture has been negative. He did have a common effusion for thoracentesis tomorrow. Will monitor his clinical course closely. Continue supportive care. MMODL / IJN: [id number] /
[2020-01-21 06:22] LABS: Basophils % (A) 0 %; Eosinophils # (A) 0.1 k/uL (0-0.7); Eosinophils % (A) 1 %; HCT 28.3 % (39.0-53.0); Hypochromasia Slight; Lymphocytes % (A) 12 %; MCH 30.3 pg (25.0-35.0); MCHC 31.9 g/dL (31.0-37.0); Mean Platelet Volume 7.1; Monocytes # (A) 0.3 k/uL (0-1.0); Monocytes % (A) 4 %; Neutrophils # (A) 7.2 k/uL (1.3-7.7); Neutrophils % (A) 83 %; Platelet Count 297 k/uL (150-450); RBC 2.98 m/uL (4.30-5.90); RDW 12.9 % (11.5-15.5); WBC 8.7 k/uL (3.8-10.6)
[2020-01-21] MEDS: PANTOPRAZOLE 40 MG TABLET PO SCH (06:46)
[2020-01-21 06:54] LABS: Calcium 7.8 mg/dL (8.4-10.2)
--- NOTE | 2020-01-21 06:59 | XR ---
EXAMINATION TYPE: XR chest 1V portable DATE OF EXAM: 01/21/2020 CLINICAL HISTORY: Difficulty breathing progress study. TECHNIQUE: Single AP portable upright view of the chest is obtained. COMPARISON: Chest x-ray from [address] chest 4 days ago. FINDINGS: Persistent low lung volumes and chronic parenchymal changes bilaterally with persistent le ft mid to lower lung airspace opacity extending along lateral aspect of the upper lung. Underlying pu lmonary nodules on CT less well seen on plain films. See some silhouetting left heart border and laureen diaphragm redemonstrated. Cardiac silhouette size is stable and mildly enlarged with atherosclerotic and ectatic thoracic aorta. Some new right infrahilar acute infiltrates are present. Mild interstitia l edema bilaterally. Osseous structures are somewhat demineralized. IMPRESSION: No sizable left-sided pneumothorax on current study. Persistent chronic parenchymal huang e and cardiomegaly with small left-sided pleural fluid collection or effusion with mild interstitial edema. Persistent left midlung acute infiltrate and/or atelectasis. These findings are not significan t changed from most recent prior. Developing right infrahilar acute infiltrate is noted.
[2020-01-21] MEDS: APIXABAN 5 MG TAB PO SCH ×2 (09:00→20:19)
[2020-01-21] MEDS: CHOLECALCIFEROL 1,000 UNIT TAB PO SCH (09:01)
[2020-01-21] MEDS: FUROSEMIDE 40 MG TAB PO SCH (09:01)
[2020-01-21] MEDS: AMIODARONE 200 MG TAB PO SCH ×2 (09:01→20:19)
[2020-01-21] MEDS: TAMSULOSIN 0.4 MG CAP.ER.24H PO SCH (09:01)
[2020-01-21] MEDS: METOPROLOL TARTRATE 50 MG TAB PO SCH ×3 (09:02→20:19)
--- NOTE | 2020-01-21 10:44 | P.PN ---
Subjective Progress Note Date: 01/21/20 This is a 79-year-old male one of my patient with a previous medical history significant for osteoporosis, osteoporosis with prior history of L1 compression fracture, vitamin D deficiency, history of enlarged prostate, patient was in his usual state of health until about 2 days ago when he felt a bit sick to stomach episode of nausea and vomiting he was not drinking enough water at that time, patient woke up the yesterday morning at around 12 midnight to go to have a drink of water before he goes to the bathroom he ended up falling on the floor after his right knee gave out and the patient landed on the floor for at least 17 hours until his daughter hold him and he did not answer so she came to the house and she found him laying on the floor EMS was called and the patient was brought into the ER at [facility] and brought to the hospital EMS personnel thought the patient was in atrial fibrillation, upon arrival to the ER his initial EKG showed sinus tachycardia with PAC and PVCs without any evidence of atrial fibrillation, patient lactic acid was elevated at 4.7, he was given IV fluid resuscitation, he had a chest x-ray that did not show much ended up going for computed tomography scan of the chest that showed multiple bilateral peripheral pulmonary infiltrate with left 2.5 cm cavitary lesion in the left upper lobe, patient was started on IV antibiotic in the form of Zithromax, Rocephin, and vancomycin, pulmonary consultation was obtained from , as well as cardiology consultation because of his ectopy. 01/10: Yesterday, patient developed evidence of atrial fibrillation and consult with Dr. Hdz was requested. Patient was started on Cardizem drip and heparin drip. Echocardiogram revealed EF of 50-55%, mild to moderate aortic regurgitation, mild tricuspid regurgitation, moderate pulmonary hypertension. CAT scan of the abdomen and pelvis was obtained which revealed asymmetrical perinephric stranding and edema in the right kidney, correlated to exclude pyelonephritis. Continue fluid edema and fluid in the right retroperitoneum. Unclear if this is arising from the right kidney. Correlate for any relevant history that could predispose the patient to retroperitoneal bleed. The fluid is not high-density would be seen in acute hemorrhage. Tortuous right common and external iliac artery which courses through this tracking fluid. Tiny hiata l hernia and mild circumferential wall thickening of the distal esophagus. Correlate to exclude esophagitis. Continue small effusions with extensive peripheral opacities. Interstitial pneumonitis and atypical pneumonias including COVID-19 pneumonia in the differentials. Incidental finding of a 70 aortic aneurysm 4.7 cm. Consult was obtained with Dr. Sky and he is not convinced retro-peritoneal bleed. Heparin drip will remain on hold. Repeat chest x-ray revealed mild cardiomegaly and continued interstitial density. Correlate to exclude pulmonary vascular congestion. Increasing patchy airspace disease in the left mid and lower lung could represent developing confluent pulmonary edema versus pneumonia. Patient has been seen and followed by Dr. Monk. Patient was also seen by Dr. Romero and continued on vancomycin and Rocephin for possible gram-positive bacteremia as well as azithromycin. Initial blood culture has not been finalized. 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 He denies any chest pain, shortness of breath or dizziness. No palpitations. Cardiology is increasing Lopressor to 50 mg twice daily and Lasix on hold due to worsening renal function. Anticoagulation remains on hold due to possibility of retroperitoneal bleed. Patient has been afebrile since admission. Blood pressure currently 122/74, pulse ox 98% on 3 L nasal cannula. Repeat blood work reveals WBC 14, hemoglobin 12.6, platelet count 121. Sodium 136, potassium 4.3, chloride 108, CO2 21, BUN 58 and creatinine 1.62. Blood sugar 123. CK is 1026. TSH 0.8-9. Coronavirus not detected. 01/11: Patient sitting up in bed in no apparent distress he denies any chest pain is less short of breath today he denies any abdominal pain, he continues to be in atrial fibrillation his heart rate is better he remains on Cardizem drip at 5 mg hour his Lopressor was increased we will start the patient on Eliquis 5 mg orally twice every day, he would be kept in the ICU for another 24 hours, then he will be transferred to the cardiac telemetry unit. 01/12: Patient is sitting up in his recliner today he is in a positive fluid balance he did receive 20 mg Lasix IV push he continues to be in atrial fibrillation with somewhat fast ventricular response, he was seen earlier by cardiology and pulmonary medicine and spoke with his daughter done and I gave her an updated about his current situation he needs to stay in the ICU, until he goes into neutral fluid balance, he needs additional dose of Lasix we will give him another 20 mg Lasix IV push and continue to monitor his weight and fluid balance. Patient denies any chest pain he continues to have some coughing and minimal phlegm production he appears to be tachypneic, he denies any abdominal pain that he has no nausea or vomiting he seems to be tolerating his treatment very well, he was switched to heparin drip as opposed to Eliquis for few days and he would be monitored. 01/13: Patient remains in intensive care unit. Patient continues to be in atrial fibrillation with RVR running up to the 140s this morning. Patient denies any chest pain, dizziness, palpitations. No nausea or vomiting. No bowel movem ents. No fever or chills. Dr. Hdz has adjusted his Cardizem dose to 60 mg 3 times daily. He is also recommending oral anticoagulation once cleared by urology. Patient has been seen by Dr. Batres with recommendations to keep Davalos for 7 days, start Flomax. Gross hematuria most likely secondary to retention and okay to resume anticoagulation. Repeat chest x-ray reveals hypoventilatory changes. Persistent interstitial infiltrates of the Route and similar confluent left basilar and peripheral left lung airspace disease. One dose of IV Lasix 40mg ordered this morning and continue every 12 hours. BUN 46, creatinine 1.28, potassium 4.3. Hemoglobin 11.3. Initial blood culture has been finalized as MSSA. Patient is currently on ceftriaxone and vancomycin followed by Dr. Romero. 01/14: Patient remains in intensive care unit. He is seen today sitting in recliner and appears to be comfortable. 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 He has been otherwise hemodynamically stable. WBC 12.4, hemoglobin 11, sodium 138, potassium 3.7, chloride 111, CO2 22, BUN 44, creatinine 1.33. Dr. Romero has transitioned antibiotics to kefzol. Repeat blood culture revealed gram-positive cocci in groups. Patient was started on Eliquis yesterday. No further hematuria. Repeat chest x-ray reveals patchy infiltrates persist at the lung bases left greater than right without significant change. Correlate for pneumonia. Discharge plan to [facility]. 01/15: Patient remains in the intensive care unit and has been cleared by Dr. Hathaway for transfer out. Patient remains in atrial fibrillation. 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 Currently 116. Dr. Hdz has had an in amiodarone 200 mg twice daily and continued on Cardizem and metoprolol. Repeat limited echocardiogram reveals suboptimal views but cannot rule out vegetation on the aortic valve. Mild mitral regurgitation, tricuspid regurgitation. Patient to be scheduled for TATUM to rule out vegetation. Patient had hypotension when working with physical therapy today and at time of the evaluation is also complaining of feeling lightheaded. Cardiology is planning to decrease Cardizem 30 mg 3 times daily. Patient will be given fluid bolus. Lasix frequency will also be decreased frequency to daily He denies having any chest pain or shortness of breath. No abdominal pain. Blood pressure 114/77, pulse ox 95% on room air, afebrile. Patient is tolerating eliquis with no recurrence of hematuria. Davalos catheter is in place. Repeat blood work reveals WBC 12.0, hemoglobin 10.8. Chloride 108, Repeat chest x-ray reveals airspace disease throughout the left mid and lower lung and lesser extent to the right base selective prior. Some of the density has a nodular configuration along the periphery of the left upper lung. Unchanged. WBC 12, hemoglobin 10.8. Sodium 138, potassium 3.7, chloride 108, CO2 23. BUN 43, creatinine 1.32. Repeat blood cultures positive for staph aureus 01/16: Patient remains in the intensive care unit. Dizziness has resolved. He does not have any abdominal pain. Davalos catheter is clear. Dr. Hdz has adjusted amiodarone 400 mg twice daily, Cardizem was discontinued and Lopressor was increased to 50 mg 3 times daily. 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 He has been afebrile. He is scheduled for TATUM today. Most recent blood cultures obtained on January 14 and January 15 showing no growth. Patient has been continued on Kefzol. 01/17: Patient remains in intensive care unit. Heart rate remains elevated 1:30 to 140s in atrial fibrillation. Patient denies having any lightheadedness or dizziness. No chest pain or shortness of breath at rest. He denies palpitation. He denies any productive cough. He has had no bloody or black stools. He continues to have lower extremity edema. TATUM was negative for vegetation. CAT scan of the chest without contrast revealed increasing small to moderate left and small right pleural effusions. Increasing airspace disease which now involves the entire basilar left lower lobe. Correlate for worsening pneumonia. Peripheral nodular infiltrates and ground glass 3 demonstrated no many of which show cavitation. Consider atypical fungal or Doyle Terrio infections and septic emboli. Ascending aortic aneurysm at 4.4 cm. Coronary artery disease with extensive coronary artery calcifications. Dr. Hathaway is ordered ultrasound of the chest with possible thoracentesis on the left and obtain cytology. Eliquis placed on hold for this if necessary. The patient is been afebrile, blood pressure 112/87, pulse ox 93% on room air. INR is 1.2. WBC 11.4, hemoglobin 9.8, platelet count 357. Electrolytes within normal limits, BUN 35, creatinine 1.41. 01/18: Patient is sitting up in be feeling better, still in the ICU , continues to have atrial fibrillation with heart rate in between 100-130, he denies any chest pain continues to have shortness of breath, no pleurisy, minimal coughing with minimal phlegm production, no abdominal pain, nausea, or vomiting, has not had a bowel movement yet, he is scheduled to go for left thoracenthesis today to be done by at 11:00 AM. 01/19: Patient is sitting up in bed in no apparent distress is feeling better today he did have a good bowel movement yesterday and attempt for thoracentesis at bedside was aborted and he is scheduled to go for ultrasound-guided thoracentesis tomorrow morning with interventional radiology, patient has no abdominal pain, no nausea or vomiting, he continues to be in atrial fibrillation, he continues to be on heparin drip, he would be switched to oral Eliquis after the procedure in the next 24 hours, patient will likely require subacute rehabilitation in the next 24-48 hours. 01/20: Patient remains in intensive care unit. He is on a heparin drip waiting for interventional radiology to do ultrasound-guided thoracentesis today. Patient states that he is not feeling well this morning. He just feels like crap. He denies any pain. He states he did not sleep last night and the bed is uncomfortable. He remains with Davalos catheter in place which will plan to discontinue after his procedure today. Once procedure is completed, patient will be transitioned to [facility] if okay with cardiology. Patient has been afebrile, heart rate 103, blood pressure 105/72, pulse ox 94% on room air. Repeat blood work reveals hemoglobin of 9, BUN 38 and creatinine 1.38. Anticipate discharge to [facility] on Tuesday or Tuesday of this week. Objective - Vital Signs Vital signs: Vital Signs Temp 98 F 01/21/20 04:00 Pulse 92 01/21/20 04:00 Resp 26 H 01/21/20 04:00 BP 106/81 01/21/20 04:00 Pulse Ox 93 L 01/21/20 04:00 Intake & Output 01/20/20 01/21/20 01/21/20 18:59 06:59 18:59 Intake Total 1330 497.741 Output Total 1150 1230 Balance 180 -732.259 Weight 85.3 kg Intake: IV 580 380 Sodium Chloride 0.9% 1, 330 000 ml @ 20 mls/hr IV . Q24H DAI Rx#:[id number] Sodium Chloride 0.9% 1, 480 000 ml @ 50 mls/hr IV . Q20H DAI Rx#:[id number] ceFAZolin 2 gm In Sodium 100 50 Chloride 0.9% 50 ml @ 100 mls/hr IVPB Q8H DAI Rx#: [id number] Intake, IV Titration 250 117.741 Amount Heparin Sod,Pork in 0.45% 250 117.741 NaCl 25,000 unit In 0.45 % NaCl 1 250ml.bag @ 11.5 UNITS/KG/HR 9.925 mls/hr IV .Q24H DAI Rx#: [id number] Oral 500 Output: Urine 1150 1230 Other: Voiding Method Indwelling Catheter Indwelling Catheter - Exam Review of Systems Constitutional: Reports weakness, Denies chronic headaches, Denies fatigue, Denies lethargy, denies dizziness, reports generalized fatigue Eyes: denies blurred vision, denies bulging eye, denies decreased vision Ears: bilateral: decreased hearing Ears, nose, mouth and throat: Denies dysphagia, Denies neck lump, Denies sore throat Cardiovascular: Reports rapid heart beat denies palpitations, Denies chest pain, Denies decreased exercise tolerance, Denies lightheadedness, Denies shortness of breath, Denies syncope Respiratory: Denies congestion, Denies cough with sputum, Denies home oxygen, Denies sleep apnea, Denies snoring, Denies wheezing Gastrointestinal: Denies abdominal pain, denies nausea, denies vomiting, Denies bloating, Denies change in bowel habits, Denies coffee ground emesis, Denies excessive gas, Denies heartburn, Denies hematemesis, Denies melena Genitourinary: Denies dysuria, Denies incontinence, reports hematuriaresolving Musculoskeletal: Denies frequent falls, Reports gait dysfunction secondary to weakness Musculoskeletal: right: shoulder pain, shoulder stiffness, absent: ankle pain, ankle stiffness, ankle swelling, elbow pain, elbow stiffness, elbow swelling, foot pain, foot stiffness, foot swelling, hand pain, hand stiffness, hand swelling, hip pain, hip stiffness, hip swelling, knee pain, knee swelling, shoulder swelling, wrist pain, wrist stiffness, wrist swelling Integumentary: Denies pruritus, Denies rash Neurological: Denies numbness, Denies weakness Psychiatric: Denies anxiety, Denies depression, reports insomnia Physical examination GEN: This is a 79-year-old male. He is resting in bed and appears to be comfortable and in no acute distress. HEENT: Head is atraumatic, normocephalic, pupils were equal round reactive to light and recommendation, extraocular muscle movement were intact. Neck: Supple, no JVD, no carotid bruit. Chest: Decreased breath sounds at the bases, few rhonchi, no expiratory wheezes, minimal chest wall tenderness and the left lower ribs, no intercostal retractions. No sensory muscle usage. Heart: First heart sound is depressed, second heart sound is normal, irregular, there is systolic ejection murmur 2/6. Sternal border. Abdomen: Soft, nondistended, no tenderness, normal bowel sounds. Extremities: 1+ edema, no calf tenderness, dorsalis pedis +1 bilaterally. Neurologic examination: Patient is awake alert and oriented 3, cranial nerves III through XII appear grossly intact. - Labs CBC & Chem 7: 01/21/20 06:06 01/21/20 06:06 Labs: Abnormal Lab Results - Last 24 Hours (Table) 01/21/20 01/21/20 01/21/20 Range/Units 06:06 06:06 06:06 RBC 2.98 L (4.30-5.90) m/uL Hgb 9.0 L (13.0-17.5) gm/dL Hct 28.3 L (39.0-53.0) % APTT 42.0 H (22.0-30.0) sec BUN 38 H (9-20) mg/dL Creatinine 1.38 H (0.66-1.25) mg/dL Calcium 7.8 L (8.4-10.2) mg/dL Microbiology - Last 24 Hours (Table) 01/15/20 04:42 Blood Culture - Final Blood No Growth after 144 hours 01/16/20 04:09 Blood Culture - Preliminary Blood No Growth after 120 hours 01/17/20 05:06 Blood Culture - Preliminary Blood No Growth after 72 hours Assessment and Plan Plan: 1. Acute hypoxemic respiratory failure secondary to acute diastolic heart failure due to atrial fibrillation with rapid ventricular response and MSSA pneumonia. we will continue with Kefzol 2 gr IVPB Q 8 H continue oxygen support, continue nebulized treatment, increase activity as tolerated with physical therapy. Interventional radiology to perform thoracentesis for cytology today. Resume eliquis following. 2. Bilateral peripheral pulmonary nodules with left cavitary lesions in the left upper lobe 2.5 cm. Continue IV antibiotic in the form of Kefzol. Monitor the patient very closely repeat computed tomography scan in about 4 weeks from now. 3. Mild rhabdomyolysis. Resolved , off IVF. 4. Mild hyponatremia secondary to hypovolemia. Resolved. 5. Acute kidney injury secondary to acute tubular necrosis due to r habdomyolysis. Resolved. 6. Atrial fibrillation with RVR. better heart rate we will continue with Metoprolol 50 mg orally tid and Amiodarone 400 mg orally bid, currently on heparin drip , we should transition to Eliquis 5 mg orally BID in the next 24 hours. 7. MSSA bacteremia secondary to MSSA pneumonia, Ruled out Aortic Vegetation by TATUM. we will continue with Kefzol 2 gr IVPB Q 8 hours . 8. Severe sepsis likely due to gram-positive pneumonia. Continue Kefzol. 9. Possible retroperitoneal bleed . After discussing with intensive care and general surgery it does not seems to be an actual bleeding we will monitor very closely. 10. 4.7 cm ascending aortic aneurysm. Patient will continue to have a surveillance computed tomography scan once every 6 months. 11. Lactic acidosis. Resolved. 12. Osteoarthritis. Stable. 13. Vitamin D deficiency. Continue vitamin D supplements 1000 units once every day. 14. DVT prophylaxis. We will continue patient on Heparin drip for now. 15. GI prophylaxis. Continue Protonix 40 mg orally once every day. 16. History of old L1 fracture 17. COVID-19 infection not present. 18. Medical debility. we will continue with PT likely will require sub acute rehabilitation. 19. Enlarged prostate with urinary retention. we will continue with Davalos catheter and Flomax 0.4 mg orally daily. Discontinue Davalos later today. 20. Left-sided pleural effusion likely loculated. Ultrasound-guided thoracentesis tomorrow morning. Discharge plan: Tuesday or Tuesday. PT and OT on consult. industrial engineering manager following closely. Impression and plan of care have been directed as dictated by the signing physician. Gris Zuniga nurse practitioner acting as scribe for signing physician.
--- NOTE | 2020-01-21 13:26 | PN ---
PROGRESS NOTE This is a 79-year-old gentleman who is admitted to hospital with atrial fibrillation with rapid ventricular rate. He still remains in a-fib with a better controlled ventricular rate and there is history of falls. The patient has pleural effusion and it is not large enough for thoracentesis. He is on IV heparin. He is currently on amiodarone 400 b.i.d., Eliquis 5 b.i.d., IV heparin and Lopressor. On exam, heart rate is 100 beats per minute. Blood pressure is 185/70. Respiratory rate is 18. O2 sat is 94% on room air. There is no jugular venous distention. Chest exam reveals diminished air entry at the bases. Heart exam reveals first and second heart sounds, irregular rhythm. Abdomen is soft. Exam of extremities did not reveal any edema. Peripheral pulses are palpable. Labs show a hemoglobin of 9, platelet count is 297, potassium is 4, creatinine is 1.3. ASSESSMENT: Persistent atrial fibrillation with controlled ventricular rate. PLAN: I will continue current medications. The patient had a TATUM on this admission, did not have any vegetation and had a dilated ascending aorta with moderate aortic regurgitation. He will continue current medical therapy and once we know whether he is to undergo thoracentesis or not, he will switch to Eliquis and stop the heparin. MMODL / IJN: [id number] /
--- NOTE | 2020-01-21 14:35 | P.PN ---
Subjective Progress Note Date: 01/21/20 On today's evaluation of 01/21/2020, I'm seeing the patient for a follow-up. The patient doing extremely well. The patient is a specific complaints. 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 The patient has bilateral cavitating staphylococcal pneumonia for which she is on IV. A Thoracentesis Was Attempted Yesterday on the Left Side and This Was Not Successful. I Reviewed the CAT scan images and I think that the amount of fluid a small and probably is not worthwhile to consider another thoracentesis. I'm going to start the patient back on anti-coagulation knowing that he is chronic atrial fibrillation. His rate is controlled for now. He was receiving IV heparin earlier. No chest pain. No nausea. No vomiting. No fever. No hemoptysis. He reports improvement in his breathing. His oxidation is also improved and currently is on room air oxygen. He has MSSA bacteremia and he remains on IV cefazolin. He is TATUM has been negative. He is on IV fluids with normal saline at the rate of 20 mL an hour. His atrial fibrillation is rate of 92 beats per minute. Objective - Vital Signs Vital signs: Vital Signs Temp 98.4 F 01/21/20 08:00 Pulse 103 H 01/21/20 08:00 Resp 22 01/21/20 08:00 BP 105/72 01/21/20 08:00 Pulse Ox 94 L 01/21/20 08:00 Intake & Output 01/20/20 01/21/20 01/21/20 18:59 06:59 18:59 Intake Total 1330 497.741 Output Total 1150 1230 Balance 180 -732.259 Weight 85.3 kg Intake: IV 580 380 Sodium Chloride 0.9% 1, 330 000 ml @ 20 mls/hr IV . Q24H [facility] Rx#:[id number] Sodium Chloride 0.9% 1, 480 000 ml @ 50 mls/hr IV . Q20H [facility] Rx#:[id number] ceFAZolin 2 gm In Sodium 100 50 Chloride 0.9% 50 ml @ 100 mls/hr IVPB Q8H [facility] Rx#: [id number] Intake, IV Titration 250 117.741 Amount Heparin Sod,Pork in 0.45% 250 117.741 NaCl 25,000 unit In 0.45 % NaCl 1 250ml.bag @ 11.5 UNITS/KG/HR 9.925 mls/hr IV .Q24H [facility] Rx#: [id number] Oral 500 Output: Urine 1150 1230 Other: Voiding Method Indwelling Catheter Indwelling Catheter Indwelling Catheter - Exam GENERAL EXAM: Alert, very pleasant, 79-year-old male patient, on room air with a pulse ox 93% comfortable in no apparent distress. HEAD: Normocephalic/atraumatic. EYES: Normal reaction of pupils, equal size. Conjunctiva pink, sclera white. NOSE: Clear with pink turbinates. THROAT: No erythema or exudates. NECK: No masses, no JVD, no thyroid enlargement, no adenopathy. CHEST: No chest wall deformity. Symmetrical expansion. LUNGS: Equal air entry with inspiratory crackles over left lower and left mid lung CVS: Irregular rate and rhythm, S1 and S2, no gallops, no murmurs, no rubs ABDOMEN: Soft, nontender. No hepatosplenomegaly, normal bowel sounds, no guarding or rigidity. EXTREMITIES: No clubbing, mild 1+ edema in bilateral lower extremities, knee- high VÍCTOR hose on bilateral lower extremity no cyanosis, 2+ pulses and upper and lower extremities. MUSCULOSKELETAL: Muscle strength and tone normal. SPINE: No scoliosis or deformity SKIN: No rashes CENTRAL NERVOUS SYSTEM: No focal deficits, tone is normal in all 4 extremities. PSYCHIATRIC: Alert and oriented -3. Appropriate affect. Intact judgment and insight. - Labs CBC & Chem 7: 01/21/20 06:06 01/21/20 06:06 Labs: Abnormal Lab Results - Last 24 Hours (Table) 01/21/20 01/21/20 01/21/20 Range/Units 06:06 06:06 06:06 RBC 2.98 L (4.30-5.90) m/uL Hgb 9.0 L (13.0-17.5) gm/dL Hct 28.3 L (39.0-53.0) % APTT 42.0 H (22.0-30.0) sec BUN 38 H (9-20) mg/dL Creatinine 1.38 H (0.66-1.25) mg/dL Calcium 7.8 L (8.4-10.2) mg/dL Microbiology - Last 24 Hours (Table) 01/17/20 05:06 Blood Culture - Preliminary Blood No Growth after 96 hours 01/15/20 04:42 Blood Culture - Final Blood No Growth after 144 hours 01/16/20 04:09 Blood Culture - Preliminary Blood No Growth after 120 hours Assessment and Plan Plan: #1. Acute bilateral cavitating pneumonia secondary to staph aureus/MSSA. The patient also had MSSA bacteremia most likely related to pneumonia, TATUM revealed no evidence of vegetation. Computed tomography scan of the chest revealed increased left pleural effusion. Cavitary nodule lesions. The left-sided pleural effusion was noted that it was not an inability for thoracentesis. #2. Sepsis secondary to methicillin sensitive staph aureus, follow-up cultures are revealing no growth #3. Atrial fibrillation with RVR, rate is under better control and the patient on long-term anticoagulants #4. Acute rhabdomyolysis and acute kidney injury, improving #5. Degenerative joint disease #6. Bilateral peripheral pulmonary nodules, some are cavitary in nature and need to be monitored and followed closely, with a plan to repeat CT of the chest in the next few weeks #7. Acute L1 fracture secondary to a fall #8. Acute kidney injury related to sepsis and bacteremia and acute rhabdomyolysis, improving #9. Acute retroperitoneal bleed, status post fall, heparin is on hold #10. Hematuria, resolved #11. Urinary retention requiring placement of urinary catheter #12. 4.7 ascending aortic aneurysm, will be followed every 6 months #13. Osteoarthritis #14 left-sided pleural effusion, small Plan Continued IV cefazolin Monitor fever pattern Monitor oxygenation Chest for this patient to a medical floor No need for thoracentesis and we will going to put the patient on Eliquis and discontinue the IV heparin for now Provide the patient incentive spirometer We'll continue to follow.
[2020-01-21] MEDS: SODIUM CHLORIDE 0.9% 1,000 ML IV SCH (17:37)
--- NOTE | 2020-01-21 18:14 | PN ---
PROGRESS NOTE DATE OF SERVICE: 01/21/2020 REASON FOR FOLLOWUP: MSSA bacteremia secondary to complicated pneumonia. INTERVAL HISTORY: Patient is currently afebrile, has been breathing comfortably. The patient denies having any chest pain or shortness of breath. Occasional cough. No nausea, vomiting. No abdominal pain. No diarrhea. PHYSICAL EXAMINATION: Blood pressure 100/61 with a pulse of 82, temperature 98.4. He is 94% on room air. General description is an elderly male up in the chair in no distress. RESPIRATORY SYSTEM: Unlabored breathing with decreased breath sounds at the base. No wheeze. HEART: S1, S2. Regular rate and rhythm. ABDOMEN: Soft. No tenderness. LABS: Hemoglobin 9, white count 8.7, BUN of 38, creatinine 1.38. DIAGNOSTIC IMPRESSION AND PLAN: Patient with methicillin-susceptible Staphylococcus aeruginosa bacteremia. Source is likely pneumonia no plan for thoracocentesis per Pulmonary. He will get a midline and continue IV cefazolin for at least 3 weeks with close outpatient followup. MMODL / IJN: [id number] /
[2020-01-22] MEDS: PANTOPRAZOLE 40 MG TABLET PO SCH (07:05)
[2020-01-22] MEDS: AMIODARONE 200 MG TAB PO SCH ×2 (08:29→20:20)
[2020-01-22] MEDS: FUROSEMIDE 40 MG TAB PO SCH (08:29)
[2020-01-22] MEDS: CHOLECALCIFEROL 1,000 UNIT TAB PO SCH (08:29)
[2020-01-22] MEDS: METOPROLOL TARTRATE 50 MG TAB PO SCH ×3 (08:29→20:20)
[2020-01-22] MEDS: TAMSULOSIN 0.4 MG CAP.ER.24H PO SCH (08:30)
[2020-01-22] MEDS: APIXABAN 5 MG TAB PO SCH ×2 (08:30→20:20)
--- NOTE | 2020-01-22 10:24 | P.PN ---
Subjective Progress Note Date: 01/22/20 This is a 79-year-old male one of my patient with a previous medical history significant for osteoporosis, osteoporosis with prior history of L1 compression fracture, vitamin D deficiency, history of enlarged prostate, patient was in his usual state of health until about 2 days ago when he felt a bit sick to stomach episode of nausea and vomiting he was not drinking enough water at that time, patient woke up the yesterday morning at around 12 midnight to go to have a drink of water before he goes to the bathroom he ended up falling on the floor after his right knee gave out and the patient landed on the floor for at least 17 hours until his daughter hold him and he did not answer so she came to the house and she found him laying on the floor EMS was called and the patient was brought into the ER at [facility] and brought to the hospital EMS personnel thought the patient was in atrial fibrillation, upon arrival to the ER his initial EKG showed sinus tachycardia with PAC and PVCs without any evidence of atrial fibrillation, patient lactic acid was elevated at 4.7, he was given IV fluid resuscitation, he had a chest x-ray that did not show much ended up going for computed tomography scan of the chest that showed multiple bilateral peripheral pulmonary infiltrate with left 2.5 cm cavitary lesion in the left upper lobe, patient was started on IV antibiotic in the form of Zithromax, Rocephin, and vancomycin, pulmonary consultation was obtained from , as well as cardiology consultation because of his ectopy. 01/10: Yesterday, patient developed evidence of atrial fibrillation and consult with Dr. Hdz was requested. Patient was started on Cardizem drip and heparin drip. Echocardiogram revealed EF of 50-55%, mild to moderate aortic regurgitation, mild tricuspid regurgitation, moderate pulmonary hypertension. CAT scan of the abdomen and pelvis was obtained which revealed asymmetrical perinephric stranding and edema in the right kidney, correlated to exclude pyelonephritis. Continue fluid edema and fluid in the right retroperitoneum. Unclear if this is arising from the right kidney. Correlate for any relevant history that could predispose the patient to retroperitoneal bleed. The fluid is not high-density would be seen in acute hemorrhage. Tortuous right common and external iliac artery which courses through this tracking fluid. Tiny hiata l hernia and mild circumferential wall thickening of the distal esophagus. Correlate to exclude esophagitis. Continue small effusions with extensive peripheral opacities. Interstitial pneumonitis and atypical pneumonias including COVID-19 pneumonia in the differentials. Incidental finding of a 70 aortic aneurysm 4.7 cm. Consult was obtained with Dr. Sky and he is not convinced retro-peritoneal bleed. Heparin drip will remain on hold. Repeat chest x-ray revealed mild cardiomegaly and continued interstitial density. Correlate to exclude pulmonary vascular congestion. Increasing patchy airspace disease in the left mid and lower lung could represent developing confluent pulmonary edema versus pneumonia. Patient has been seen and followed by Dr. Monk. Patient was also seen by Dr. Romero and continued on vancomycin and Rocephin for possible gram-positive bacteremia as well as azithromycin. Initial blood culture has not been finalized. This morning, sand miller atrial fibrillation in the 120s to 140s. He denies any chest pain, shortness of breath or dizziness. No palpitations. Cardiology is increasing Lopressor to 50 mg twice daily and Lasix on hold due to worsening renal function. Anticoagulation remains on hold due to possibility of retroperitoneal bleed. Patient has been afebrile since admission. Blood pressure currently 122/74, pulse ox 98% on 3 L nasal cannula. Repeat blood work reveals WBC 14, hemoglobin 12.6, platelet count 121. Sodium 136, potassium 4.3, chloride 108, CO2 21, BUN 58 and creatinine 1.62. Blood sugar 123. CK is 1026. TSH 0.8-9. Coronavirus not detected. 01/11: Patient sitting up in bed in no apparent distress he denies any chest pain is less short of breath today he denies any abdominal pain, he continues to be in atrial fibrillation his heart rate is better he remains on Cardizem drip at 5 mg hour his Lopressor was increased we will start the patient on Eliquis 5 mg orally twice every day, he would be kept in the ICU for another 24 hours, then he will be transferred to the cardiac telemetry unit. 01/12: Patient is sitting up in his recliner today he is in a positive fluid balance he did receive 20 mg Lasix IV push he continues to be in atrial fibrillation with somewhat fast ventricular response, he was seen earlier by cardiology and pulmonary medicine and spoke with his daughter done and I gave her an updated about his current situation he needs to stay in the ICU, until he goes into neutral fluid balance, he needs additional dose of Lasix we will give him another 20 mg Lasix IV push and continue to monitor his weight and fluid balance. Patient denies any chest pain he continues to have some coughing and minimal phlegm production he appears to be tachypneic, he denies any abdominal pain that he has no nausea or vomiting he seems to be tolerating his treatment very well, he was switched to heparin drip as opposed to Eliquis for few days and he would be monitored. 01/13: Patient remains in intensive care unit. Patient continues to be in atrial fibrillation with RVR running up to the 140s this morning. Patient denies any chest pain, dizziness, palpitations. No nausea or vomiting. No bowel movem ents. No fever or chills. Dr. Hdz has adjusted his Cardizem dose to 60 mg 3 times daily. He is also recommending oral anticoagulation once cleared by urology. Patient has been seen by Dr. Batres with recommendations to keep Davalos for 7 days, start Flomax. Gross hematuria most likely secondary to retention and okay to resume anticoagulation. Repeat chest x-ray reveals hypoventilatory changes. Persistent interstitial infiltrates of the Route and similar confluent left basilar and peripheral left lung airspace disease. One dose of IV Lasix 40mg ordered this morning and continue every 12 hours. BUN 46, creatinine 1.28, potassium 4.3. Hemoglobin 11.3. Initial blood culture has been finalized as MSSA. Patient is currently on ceftriaxone and vancomycin followed by Dr. Romero. 01/14: Patient remains in intensive care unit. He is seen today sitting in recliner and appears to be comfortable. 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 He has been otherwise hemodynamically stable. WBC 12.4, hemoglobin 11, sodium 138, potassium 3.7, chloride 111, CO2 22, BUN 44, creatinine 1.33. Dr. Romero has transitioned antibiotics to kefzol. Repeat blood culture revealed gram-positive cocci in groups. Patient was started on Eliquis yesterday. No further hematuria. Repeat chest x-ray reveals patchy infiltrates persist at the lung bases left greater than right without significant change. Correlate for pneumonia. Discharge plan to [facility]. 01/15: Patient remains in the intensive care unit and has been cleared by Dr. Hathaway for transfer out. Patient remains in atrial fibrillation. 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 Currently 116. Dr. Hdz has had an in amiodarone 200 mg twice daily and continued on Cardizem and metoprolol. Repeat limited echocardiogram reveals suboptimal views but cannot rule out vegetation on the aortic valve. Mild mitral regurgitation, tricuspid regurgitation. Patient to be scheduled for TATUM to rule out vegetation. Patient had hypotension when working with physical therapy today and at time of the evaluation is also complaining of feeling lightheaded. Cardiology is planning to decrease Cardizem 30 mg 3 times daily. Patient will be given fluid bolus. Lasix frequency will also be decreased frequency to daily He denies having any chest pain or shortness of breath. No abdominal pain. Blood pressure 114/77, pulse ox 95% on room air, afebrile. Patient is tolerating eliquis with no recurrence of hematuria. Davalos catheter is in place. Repeat blood work reveals WBC 12.0, hemoglobin 10.8. Chloride 108, Repeat chest x-ray reveals airspace disease throughout the left mid and lower lung and lesser extent to the right base selective prior. Some of the density has a nodular configuration along the periphery of the left upper lung. Unchanged. WBC 12, hemoglobin 10.8. Sodium 138, potassium 3.7, chloride 108, CO2 23. BUN 43, creatinine 1.32. Repeat blood cultures positive for staph aureus 01/16: Patient remains in the intensive care unit. Dizziness has resolved. He does not have any abdominal pain. Davalos catheter is clear. Dr. Hdz has adjusted amiodarone 400 mg twice daily, Cardizem was discontinued and Lopressor was increased to 50 mg 3 times daily. Heart rate is running in the 150s prior to medications, sand miller is atrial fibrillation, pulse ox 94% on room air, blood pressure 109/84. He has been afebrile. He is scheduled for TATUM today. Most recent blood cultures obtained on January 14 and January 15 showing no growth. Patient has been continued on Kefzol. 01/17: Patient remains in intensive care unit. Heart rate remains elevated 1:30 to 140s in atrial fibrillation. Patient denies having any lightheadedness or dizziness. No chest pain or shortness of breath at rest. He denies palpitation. He denies any productive cough. He has had no bloody or black stools. He continues to have lower extremity edema. TATUM was negative for vegetation. CAT scan of the chest without contrast revealed increasing small to moderate left and small right pleural effusions. Increasing airspace disease which now involves the entire basilar left lower lobe. Correlate for worsening pneumonia. Peripheral nodular infiltrates and ground glass 3 demonstrated no many of which show cavitation. Consider atypical fungal or Doyle Terrio infections and septic emboli. Ascending aortic aneurysm at 4.4 cm. Coronary artery disease with extensive coronary artery calcifications. Dr. Hathaway is ordered ultrasound of the chest with possible thoracentesis on the left and obtain cytology. Eliquis placed on hold for this if necessary. The patient is been afebrile, blood pressure 112/87, pulse ox 93% on room air. INR is 1.2. WBC 11.4, hemoglobin 9.8, platelet count 357. Electrolytes within normal limits, BUN 35, creatinine 1.41. 01/18: Patient is sitting up in be feeling better, still in the ICU , continues to have atrial fibrillation with heart rate in between 100-130, he denies any chest pain continues to have shortness of breath, no pleurisy, minimal coughing with minimal phlegm production, no abdominal pain, nausea, or vomiting, has not had a bowel movement yet, he is scheduled to go for left thoracenthesis today to be done by at 11:00 AM. 01/19: Patient is sitting up in bed in no apparent distress is feeling better today he did have a good bowel movement yesterday and attempt for thoracentesis at bedside was aborted and he is scheduled to go for ultrasound-guided thoracentesis tomorrow morning with interventional radiology, patient has no abdominal pain, no nausea or vomiting, he continues to be in atrial fibrillation, he continues to be on heparin drip, he would be switched to oral Eliquis after the procedure in the next 24 hours, patient will likely require subacute rehabilitation in the next 24-48 hours. 01/20: Patient remains in intensive care unit. He is on a heparin drip waiting for interventional radiology to do ultrasound-guided thoracentesis today. Patient states that he is not feeling well this morning. He just feels like crap. He denies any pain. He states he did not sleep last night and the bed is uncomfortable. He remains with Davalos catheter in place which will plan to discontinue after his procedure today. Once procedure is completed, patient will be transitioned to eliquis if okay with cardiology. Patient has been afebrile, heart rate 103, blood pressure 105/72, pulse ox 94% on room air. Repeat blood work reveals hemoglobin of 9, BUN 38 and creatinine 1.38. Anticipate discharge to [facility] on Tuesday or Tuesday of this week. 01/21: Patient remains in the intensive care unit. Dr. Romero is planning on a PICC line insertion and suffers Jamel for 3 weeks for Staphylococcus aeruginosa bacteremia, source likely pneumonia. Pulmonary medicine is not planning for thoracentesis and patient was resumed back on eliquis and IV heparin discontinued. Patient has been afebrile, heart rate in the 70s and 80s, blood pressure 101/76, pulse ox 93% on room air. A Davalos catheter will be removed today, monitor patient overnight and discharged to [facility] tomorrow. Objective - Vital Signs Vital signs: Vital Signs Temp 98.2 F 01/22/20 04:00 Pulse 70 01/22/20 04:00 Resp 16 01/22/20 04:00 BP 101/76 01/22/20 04:00 Pulse Ox 93 L 01/22/20 04:00 Intake & Output 01/21/20 01/22/20 01/22/20 18:59 06:59 18:59 Intake Total 540.259 Output Total 850 Balance -309.741 Weight 85.5 kg Intake: IV 8 Sodium Chloride 0.9% 1, 8 000 ml @ 20 mls/hr IV . Q24H DAI Rx#:[id number] Intake, IV Titration 132.259 Amount Heparin Sod,Pork in 0.45% 132.259 NaCl 25,000 unit In 0.45 % NaCl 1 250ml.bag @ 11.5 UNITS/KG/HR 9.925 mls/hr IV .Q24H DAI Rx#: [id number] Oral 400 Output: Urine 850 Other: Voiding Method Indwelling Catheter Indwelling Catheter - Exam Review of Systems Constitutional: Reports weakness, Denies chronic headaches, Denies lethargy, denies dizziness, reports generalized fatigue Eyes: denies blurred vision, denies bulging eye, denies decreased vision Ears: bilateral: decreased hearing Ears, nose, mouth and throat: Denies dysphagia, Denies neck lump, Denies sore throat Cardiovascular: Reports rapid heart beat denies palpitations, Denies chest pain, Denies decreased exercise tolerance, Denies lightheadedness, Denies shortness of breath, Denies syncope Respiratory: Denies congestion, Denies cough with sputum, Denies home oxygen, Denies sleep apnea, Denies snoring, Denies wheezing Gastrointestinal: Denies abdominal pain, denies nausea, denies vomiting, Denies bloating, Denies change in bowel habits, Denies coffee ground emesis, Denies excessive gas, Denies heartburn, Denies hematemesis, Denies melena Genitourinary: Denies dysuria, Denies incontinence, reports urinary retention, reports hematuriaresolved Musculoskeletal: Denies frequent falls, Reports gait dysfunction secondary to weakness Musculoskeletal: right: shoulder pain, shoulder stiffness, absent: ankle pain, ankle stiffness, ankle swelling, elbow pain, elbow stiffness, elbow swelling, foot pain, foot stiffness, foot swelling, hand pain, hand stiffness, hand swelling, hip pain, hip stiffness, hip swelling, knee pain, knee swelling, shoulder swelling, wrist pain, wrist stiffness, wrist swelling Integumentary: Denies pruritus, Denies rash Neurological: Denies numbness, Denies weakness Psychiatric: Denies anxiety, Denies depression, reports insomnia Physical examination GEN: This is a 79-year-old male. He is resting in bed and appears to be comfortable and in no acute distress. HEENT: Head is atraumatic, normocephalic, pupils were equal round reactive to light and recommendation, extraocular muscle movement were intact. Neck: Supple, no JVD, no carotid bruit. Chest: Decreased breath sounds at the bases, few rhonchi, no expiratory wheezes, minimal chest wall tenderness and the left lower ribs, no intercostal retractions. No sensory muscle usage. Heart: First heart sound is depressed, second heart sound is normal, irregular, there is systolic ejection murmur 2/6. Sternal border. Abdomen: Soft, nondistended, no tenderness, normal bowel sounds. Davalos catheter in place. Extremities: 1+ edema, no calf tenderness, dorsalis pedis +1 bilaterally. Neurologic examination: Patient is awake alert and oriented 3, cranial nerves III through XII appear grossly intact. - Labs CBC & Chem 7: 01/21/20 06:06 01/21/20 06:06 Labs: Abnormal Lab Results - Last 24 Hours (Table) 01/21/20 01/21/20 Range/Units 06:06 18:58 APTT 42.1 H (22.0-30.0) sec Procalcitonin 0.20 H (0.02-0.09) ng/mL Microbiology - Last 24 Hours (Table) 01/17/20 05:06 Blood Culture - Preliminary Blood No Growth after 120 hours 01/16/20 04:09 Blood Culture - Final Blood No Growth after 144 hours 01/15/20 04:42 Blood Culture - Final Blood No Growth after 144 hours Assessment and Plan Plan: 1. Acute hypoxemic respiratory failure secondary to acute diastolic heart failure due to atrial fibrillation with rapid ventricular response and MSSA pneumonia. we will continue with Kefzol 2 gr IVPB Q 8 H continue oxygen support, continue nebulized treatment, increase activity as tolerated with physical therapy. No plan for thoracentesis for cytology today. Eliquis has been resumed. 2. Bilateral peripheral pulmonary nodules with left cavitary lesions in the left upper lobe 2.5 cm. Continue IV antibiotic in the form of Kefzol. Monitor the patient very closely repeat computed tomography scan in about 4 weeks from now. 3. Mild rhabdomyolysis. Resolved , off IVF. 4. Mild hyponatremia secondary to hypovolemia. Resolved. 5. Acute kidney injury secondary to acute tubular necrosis due to r habdomyolysis. Resolved. 6. Atrial fibrillation with RVR. better heart rate we will continue with Metoprolol 50 mg orally tid and Amiodarone 400 mg orally bid, currently on heparin drip , we should transition to Eliquis 5 mg orally BID in the next 24 hours. 7. MSSA bacteremia secondary to MSSA pneumonia, Ruled out Aortic Vegetation by TATUM. we will continue with Kefzol 2 gr IVPB Q 8 hours . PICC line has been ordered and plan for 3 weeks of Kefzol. 8. Severe sepsis likely due to gram-positive pneumonia. Continue Kefzol. 9. Possible retroperitoneal bleed . After discussing with intensive care and general surgery it does not seems to be an actual bleeding we will monitor very closely. 10. 4.7 cm ascending aortic aneurysm. Patient will continue to have a surveillance computed tomography scan once every 6 months. 11. Lactic acidosis. Resolved. 12. Osteoarthritis. Stable. 13. Vitamin D deficiency. Continue vitamin D supplements 1000 units once every day. 14. DVT prophylaxis. We will continue patient on Heparin drip for now. 15. GI prophylaxis. Continue Protonix 40 mg orally once every day. 16. History of old L1 fracture 17. COVID-19 infection not present. 18. Medical debility. we will continue with PT likely will require sub acute rehabilitation. 19. Enlarged prostate with urinary retention. we will continue with Davalos catheter and Flomax 0.4 mg orally daily. Discontinue Davalos. 20. Left-sided pleural effusion likely loculated. Discharge plan: Tuesday. Impression and plan of care have been directed as dictated by the signing physician. Gris Zuniga nurse practitioner acting as scribe for signing physician.
[2020-01-22 10:40] LABS: HCT 25.5 % (39.0-53.0); HGB 8.3 gm/dL (13.0-17.5); Hypochromasia Slight; MCHC 32.7 g/dL (31.0-37.0); MCV 94.9 fL (80.0-100.0); Mean Platelet Volume 7.1; Platelet Count 273 k/uL (150-450); RBC 2.68 m/uL (4.30-5.90); RDW 12.9 % (11.5-15.5)
[2020-01-22 11:08] LABS: Albumin 2.4 g/dL (3.5-5.0); Calcium 7.6 mg/dL (8.4-10.2); Potassium 3.9 mmol/L (3.5-5.1); Total Bilirubin 0.5 mg/dL (0.2-1.3); Total Protein 6.1 g/dL (6.3-8.2)
--- NOTE | 2020-01-22 12:14 | PN ---
PROGRESS NOTE Mr. Kinsey is a 79-year-old gentleman who is admitted to hospital with atrial fibrillation and is currently in ICU for the same. At the time of my evaluation this morning, patient appears comfortable at rest. The patient has staphylococcal bacteremia and had pneumonia as a result. Patient is back on his Eliquis as he is not planning on having a thoracentesis. EXAM: Heart rate is 70 beats per minute, irregular. Blood pressure is 101/76, respiratory 16. There is no jugular venous distention. Carotid upstroke is normal. There is no bruit. Chest exam reveals good air entry bilaterally. Heart exam reveals first and second heart sounds, irregular rhythm. Abdomen: Soft. Exam of extremities reveals 1+ edema. Peripheral pulses are felt. LABS: Show a hemoglobin of 9, potassium is 4, creatinine is 1.3. The patient is currently on intravenous antibiotics, amiodarone 400 b.i.d., which I am going to decrease to 200 b.i.d. Eliquis 5 b.i.d., Lasix and metoprolol. MMODL / IJN: [id number] /
--- NOTE | 2020-01-22 12:37 | P.PN ---
Subjective Progress Note Date: 01/22/20 On 01/21/2020, the patient is doing well. No specific complaints. He remains on IV cefazolin. No respiratory distress. The pro calcitonin level has dropped significantly. No hypotension. No hemodynamic instability and the patient's cardiac rhythm converted into normal sinus. Meanwhile, the rate is controlled and the patient is on long-term and to coagulation with Eliquis 5 mg by mouth twice a day. No other complaints otherwise and the patient is going to be transferred to a regular medical floor. Objective - Vital Signs Vital signs: Vital Signs Temp 98.1 F 01/22/20 08:00 Pulse 72 01/22/20 08:00 Resp 18 01/22/20 08:00 BP 98/63 01/22/20 08:00 Pulse Ox 95 01/22/20 08:00 Intake & Output 01/21/20 01/22/20 01/22/20 18:59 06:59 18:59 Intake Total 540.259 Output Total 850 Balance -309.741 Weight 85.5 kg Intake: IV 8 Sodium Chloride 0.9% 1, 8 000 ml @ 20 mls/hr IV . Q24H DAI Rx#:[id number] Intake, IV Titration 132.259 Amount Heparin Sod,Pork in 0.45% 132.259 NaCl 25,000 unit In 0.45 % NaCl 1 250ml.bag @ 11.5 UNITS/KG/HR 9.925 mls/hr IV .Q24H ADI Rx#: [id number] Oral 400 Output: Urine 850 Other: Voiding Method Indwelling Catheter Indwelling Catheter - Exam GENERAL EXAM: Alert, very pleasant, 79-year-old male patient, on room air with a pulse ox 93% comfortable in no apparent distress. HEAD: Normocephalic/atraumatic. EYES: Normal reaction of pupils, equal size. Conjunctiva pink, sclera white. NOSE: Clear with pink turbinates. THROAT: No erythema or exudates. NECK: No masses, no JVD, no thyroid enlargement, no adenopathy. CHEST: No chest wall deformity. Symmetrical expansion. LUNGS: Equal air entry with inspiratory crackles over left lower and left mid lung CVS: Irregular rate and rhythm, S1 and S2, no gallops, no murmurs, no rubs ABDOMEN: Soft, nontender. No hepatosplenomegaly, normal bowel sounds, no guarding or rigidity. EXTREMITIES: No clubbing, mild 1+ edema in bilateral lower extremities, knee- high VÍCTOR hose on bilateral lower extremity no cyanosis, 2+ pulses and upper and lower extremities. MUSCULOSKELETAL: Muscle strength and tone normal. SPINE: No scoliosis or deformity SKIN: No rashes CENTRAL NERVOUS SYSTEM: No focal deficits, tone is normal in all 4 extremities. PSYCHIATRIC: Alert and oriented -3. Appropriate affect. Intact judgment and insight. - Labs CBC & Chem 7: 01/22/20 10:21 01/22/20 10:21 Labs: Abnormal Lab Results - Last 24 Hours (Table) 01/21/20 01/21/20 01/22/20 Range/Units 06:06 18:58 10:21 RBC 2.68 L (4.30-5.90) m/uL Hgb 8.3 L (13.0-17.5) gm/dL Hct 25.5 L (39.0-53.0) % APTT 42.1 H (22.0-30.0) sec BUN (9-20) mg/dL Creatinine (0.66-1.25) mg/dL Calcium (8.4-10.2) mg/dL Alkaline Phosphatase (38-126) U/L Total Protein (6.3-8.2) g/dL Albumin (3.5-5.0) g/dL Procalcitonin 0.20 H (0.02-0.09) ng/mL 01/22/20 Range/Units 10:21 RBC (4.30-5.90) m/uL Hgb (13.0-17.5) gm/dL Hct (39.0-53.0) % APTT (22.0-30.0) sec BUN 32 H (9-20) mg/dL Creatinine 1.31 H (0.66-1.25) mg/dL Calcium 7.6 L (8.4-10.2) mg/dL Alkaline Phosphatase 128 H (38-126) U/L Total Protein 6.1 L (6.3-8.2) g/dL Albumin 2.4 L (3.5-5.0) g/dL Procalcitonin (0.02-0.09) ng/mL Microbiology - Last 24 Hours (Table) 06/18/20 05:06 Blood Culture - Preliminary Blood No Growth after 120 hours 01/16/20 04:09 Blood Culture - Final Blood No Growth after 144 hours Assessment and Plan Plan: #1. Acute bilateral cavitating pneumonia secondary to staph aureus/MSSA. The patient also had MSSA bacteremia most likely related to pneumonia, TATUM revealed no evidence of vegetation. Computed tomography scan of the chest revealed increased left pleural effusion. Cavitary nodule lesions. The left-sided pleural effusion was noted that it was not an inability for thoracentesis. #2. Sepsis secondary to methicillin sensitive staph aureus, follow-up cultures are revealing no growth #3. Atrial fibrillation with RVR, and the patient is converted back into normal sinus rhythm currently on long-term and to coagulation with Eliquis. #4. Acute rhabdomyolysis and acute kidney injury, improving #5. Degenerative joint disease #6. Bilateral peripheral pulmonary nodules, some are cavitary in nature and nee d to be monitored and followed closely, with a plan to repeat CT of the chest in the next few weeks #7. Acute L1 fracture secondary to a fall #8. Acute kidney injury related to sepsis and bacteremia and acute rhabdomyolysis, improving, creatinine is stable for now at 1.3 #9. Acute retroperitoneal bleed, status post fall, heparin is on hold #10. Hematuria, resolved #11. Urinary retention requiring placement of urinary catheter #12. 4.7 ascending aortic aneurysm, will be followed every 6 months #13. Osteoarthritis #14 left-sided pleural effusion, small Plan Continued IV cefazolin, the pro-calcitonin level is improving Monitor fever pattern, the patient is currently afebrile Monitor oxygenation, currently the patient is on room air oxygen Chest for this patient to a medical floor Continue Eliquis for anticoagulation regarding paroxysmal atrial fibrillation Provide the patient incentive spirometer We'll continue to follow.
[2020-01-22 12:57] VITALS: BMI 27.0
[2020-01-22] MEDS: SODIUM CHLORIDE 0.9% 1,000 ML IV SCH (13:37)
[2020-01-22 23:06] VITALS: RESP 20
--- NOTE | 2020-01-23 00:16 | PN ---
PROGRESS NOTE DATE OF SERVICE: 01/22/2020 REASON FOR FOLLOWUP: MSSA bacteremia and pneumonia. INTERVAL HISTORY: The patient is currently afebrile. The patient is breathing comfortably. Denies having any chest pain. No shortness of breath or any cough. No abdominal pain. No diarrhea. PHYSICAL EXAMINATION: Blood pressure 99/67 with the pulse of 77, temperature 98.7. He is 97% on room air. General description is an elderly male in the chair in no distress. RESPIRATORY SYSTEM: Unlabored breathing, clear to auscultation anteriorly. HEART: S1, S2. Regular rate and rhythm. ABDOMEN: Soft, no tenderness. LABS: Hemoglobin 8.3 with white count 8.0, BUN of 22, creatinine is 1.31. DIAGNOSTIC IMPRESSION AND PLAN: Patient with MSSA bacteremia, source is left-sided pneumonia with a question of parapneumonic effusion. Patient is currently on cefazolin. We did Midline. Continue with IV antibiotic for at least 2-3 weeks depending on his clinical response and close outpatient followup. MMODL / IJN: [id number] /
[2020-01-23 05:32] VITALS: PULSE 71; TEMP 98.2
[2020-01-23 07:27] LABS: HCT 25.9 % (39.0-53.0); HGB 8.1 gm/dL (13.0-17.5); Hypochromasia Slight; MCH 29.9 pg (25.0-35.0); MCHC 31.2 g/dL (31.0-37.0); MCV 95.9 fL (80.0-100.0); Mean Platelet Volume 7.4; Platelet Count 258 k/uL (150-450); RDW 13.3 % (11.5-15.5); WBC 7.2 k/uL (3.8-10.6)
[2020-01-23 07:35] VITALS: BP 106/66
[2020-01-23] MEDS: FUROSEMIDE 40 MG TAB PO SCH (07:36)
[2020-01-23] MEDS: AMIODARONE 200 MG TAB PO SCH (07:36)
[2020-01-23] MEDS: TAMSULOSIN 0.4 MG CAP.ER.24H PO SCH (07:36)
[2020-01-23] MEDS: APIXABAN 5 MG TAB PO SCH (07:36)
[2020-01-23] MEDS: PANTOPRAZOLE 40 MG TABLET PO SCH (07:36)
[2020-01-23] MEDS: CHOLECALCIFEROL 1,000 UNIT TAB PO SCH (07:36)
[2020-01-23 07:46] LABS: Albumin 2.3 g/dL (3.5-5.0); Calcium 7.7 mg/dL (8.4-10.2); Potassium 3.9 mmol/L (3.5-5.1); Total Bilirubin 0.7 mg/dL (0.2-1.3); Total Protein 6.2 g/dL (6.3-8.2)
--- NOTE | 2020-01-23 07:52 | P.DS ---
Providers Date of admission: 01/09/20 22:03 Expected date of discharge: 01/23/20 Attending physician: Elisa Harley Consults: 01/10/20 07:46 Consult Physician Routine Consulting Provider: Lucinda Monk Consult Reason/Comments: Pneumonia Do you want consulting provider notified?: Yes 01/10/20 08:31 Consult Physician Routine Consulting Provider: Thai Hdz Consult Reason/Comments: arrhythmia, known to you Do you want consulting provider notified?: Yes Consult Physician Routine Consulting Provider: Thai Hdz Consult Reason/Comments: cardiology eval, fall Do you want consulting provider notified?: Already Contacted 01/10/20 10:48 Consult Physician Routine Consulting Provider: Francisco Romero Consult Reason/Comments: fever, ? endocarditis Do you want consulting provider notified?: Yes 01/10/20 12:37 Consult Physician Urgent Consulting Provider: Hayden Sky Consult Reason/Comments: possible retroperioneal bleed Do you want consulting provider notified?: Yes 01/13/20 17:04 Consult Physician Routine Consulting Provider: Kit Batres Consult Reason/Comments: Gross hematuria Do you want consulting provider notified?: Yes Primary care physician: Elisa Harley [facility] Course: This is a 79-year-old male one of my patient with a previous medical history significant for osteoporosis, osteoporosis with prior history of L1 compression fracture, vitamin D deficiency, history of enlarged prostate, patient was in his usual state of health until about 2 days ago when he felt a bit sick to stomach episode of nausea and vomiting he was not drinking enough water at that time, patient woke up the yesterday morning at around 12 midnight to go to have a drink of water before he goes to the bathroom he ended up falling on the floor after his right knee gave out and the patient landed on the floor for at least 17 hours until his daughter hold him and he did not answer so she came to the house and she found him laying on the floor EMS was called and the patient was brought into the ER at [facility] and brought to the hospital EMS personnel thought the patient was in atrial fibrillation, upon arrival to the ER his initial EKG showed sinus tachycardia with PAC and PVCs without any evidence of atrial fibrillation, patient lactic acid was elevated at 4.7, he was given IV fluid resuscitation, he had a chest x-ray that did not show much ended up going for computed tomography scan of the chest that showed multiple bilateral peripheral pulmonary infiltrate with left 2.5 cm cavitary lesion in the left upper lobe, patient was started on IV antibiotic in the form of Zithromax, Rocephin, and vancomycin, pulmonary consultation was obtained from , as well as cardiology consultation because of his ectopy. 01/10: Yesterday, patient developed evidence of atrial fibrillation and consult with Dr. Hdz was requested. Patient was started on Cardizem drip and heparin drip. Echocardiogram revealed EF of 50-55%, mild to moderate aortic regurgitation, mild tricuspid regurgitation, moderate pulmonary hypertension. CAT scan of the abdomen and pelvis was obtained which revealed asymmetrical perinephric stranding and edema in the right kidney, correlated to exclude pyelonephritis. Continue fluid edema and fluid in the right retroperitoneum. Unclear if this is arising from the right kidney. Correlate for any relevant hi story that could predispose the patient to retroperitoneal bleed. The fluid is not high-density would be seen in acute hemorrhage. Tortuous right common and external iliac artery which courses through this tracking fluid. Tiny hiatal hernia and mild circumferential wall thickening of the distal esophagus. Correlate to exclude esophagitis. Continue small effusions with extensive peripheral opacities. Interstitial pneumonitis and atypical pneumonias including COVID-19 pneumonia in the differentials. Incidental finding of a 70 aortic aneurysm 4.7 cm. Consult was obtained with Dr. Sky and he is not convinced retro-peritoneal bleed. Heparin drip will remain on hold. Repeat chest x-ray revealed mild cardiomegaly and continued interstitial density. Correlate to exclude pulmonary vascular congestion. Increasing patchy airspace disease in the left mid and lower lung could represent developing confluent pulmonary edema versus pneumonia. Patient has been seen and followed by Dr. Jovon hazel. Patient was also seen by Dr. Romero and continued on vancomycin and Rocephin for possible gram-positive bacteremia as well as azithromycin. Initial blood culture has not been finalized. 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 He denies any chest pain, shortness of breath or dizziness. No palpitations. Cardiology is increasing Lopressor to 50 mg twice daily and Lasix on hold due to worsening renal function. Anticoagulation remains on hold due to possibility of retroperitoneal bleed. Patient has been afebrile since admission. Blood pressure currently 122/74, pulse ox 98% on 3 L nasal cannula. Repeat blood work reveals WBC 14, hemoglobin 12.6, platelet count 121. Sodium 136, potassium 4.3, chloride 108, CO2 21, BUN 58 and creatinine 1.62. Blood sugar 123. CK is 1026. TSH 0.8-9. Coronavirus not detected. 01/11: Patient sitting up in bed in no apparent distress he denies any chest pain is less short of breath today he denies any abdominal pain, he continues to be in atrial fibrillation his heart rate is better he remains on Cardizem drip at 5 mg hour his Lopressor was increased we will start the patient on Eliquis 5 mg orally twice every day, he would be kept in the ICU for another 24 hours, then he will be transferred to the cardiac telemetry unit. 01/12: Patient is sitting up in his recliner today he is in a positive fluid balance he did receive 20 mg Lasix IV push he continues to be in atrial fibrillation with somewhat fast ventricular response, he was seen earlier by cardiology and pulmonary medicine and spoke with his daughter done and I gave her an updated about his current situation he needs to stay in the ICU, until he goes into neutral fluid balance, he needs additional dose of Lasix we will give him another 20 mg Lasix IV push and continue to monitor his weight and fluid balance. Patient denies any chest pain he continues to have some coughing and minimal phlegm production he appears to be tachypneic, he denies any abdominal pain that he has no nausea or vomiting he seems to be tolerating his treatment very well, he was switched to heparin drip as opposed to Eliquis for few days and he would be monitored. 01/13: Patient remains in intensive care unit. Patient continues to be in atrial fibrillation with RVR running up to the 140s this morning. Patient denies any chest pain, dizziness, palpitations. No nausea or vomiting. No bowel movements. No fever or chills. Dr. Hdz has adjusted his Cardizem dose to 60 mg 3 times daily. He is also recommending oral anticoagulation once cleared by urology. Patient has been seen by Dr. Batres with recommendations to keep Davalos for 7 days, start Flomax. Gross hematuria most likely secondary to retention and okay to resume anticoagulation. Repeat chest x-ray reveals hypoventilatory changes. Persistent interstitial infiltrates of the Route and similar confluent left basilar and peripheral left lung airspace disease. One dose of IV Lasix 40mg ordered this morning and continue every 12 hours. BUN 46, creatinine 1.28, potassium 4.3. Hemoglobin 11.3. Initial blood culture has been finalized as MSSA. Patient is currently on ceftriaxone and vancomycin followed by Dr. Romero. 01/14: Patient remains in intensive care unit. He is seen today sitting in recliner and appears to be comfortable. 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 He has been otherwise hemodynamically stable. WBC 12.4, hemoglobin 11, sodium 138, potassium 3.7, chloride 111, CO2 22, BUN 44, creatinine 1.33. Dr. Romero has transitioned antibiotics to kefzol. Repeat blood culture revealed gram-positive cocci in groups. Patient was started on Eliquis yesterday. No further hematuria. Repeat chest x-ray reveals patchy infiltrates persist at the lung bases left greater than right without significant change. Correlate for pneumonia. Discharge plan to [facility]. 01/15: Patient remains in the intensive care unit and has been cleared by Dr. Hathaway for transfer out. Patient remains in atrial fibrillation. Heart rate was in the 80s and 90s last evening and incident response analyst. Currently 116. Dr. Hdz has had an in amiodarone 200 mg twice daily and continued on Cardizem and metoprolol. Repeat limited echocardiogram reveals suboptimal views but cannot rule out vegetation on the aortic valve. Mild mitral regurgitation, tricuspid regurgitation. Patient to be scheduled for TATUM to rule out vegetation. Patient had hypotension when working with physical therapy today and at time of the evaluation is also complaining of feeling lightheaded. Cardiology is planning to decrease Cardizem 30 mg 3 times daily. Patient will be given fluid bolus. Lasix frequency will also be decreased frequency to daily He denies having any chest pain or shortness of breath. No abdominal pain. Blood pressure 114/77, pulse ox 95% on room air, afebrile. Patient is tolerating eliquis with no recurrence of hematuria. Davalso catheter is in place. Repeat blood work reveals WBC 12.0, hemoglobin 10.8. Chloride 108, Repeat chest x-ray reveals airspace disease throughout the left mid and lower lung and lesser extent to the right base selective prior. Some of the density has a nodular configuration along the periphery of the left upper lung. Unchanged. WBC 12, hemoglobin 10.8. Sodium 138, potassium 3.7, chloride 108, CO2 23. BUN 43, creatinine 1.32. Repeat blood cultures positive for staph aureus 01/16: Patient remains in the intensive care unit. Dizziness has resolved. He does not have any abdominal pain. Davalos catheter is clear. Dr. Hdz has adjusted amiodarone 400 mg twice daily, Cardizem was discontinued and Lopressor was increased to 50 mg 3 times daily. 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 He has been afebrile. He is scheduled for TATUM today. Most recent blood cultures obtained on January 14 and January 15 showing no growth. Patient has been continued on Kefzol. 01/17: Patient remains in intensive care unit. Heart rate remains elevated 1:30 to 140s in atrial fibrillation. Patient denies having any lightheadedness or dizziness. No chest pain or shortness of breath at rest. He denies palpitation. He denies any productive cough. He has had no bloody or black stools. He continues to have lower extremity edema. TATUM was negative for vegetation. CAT scan of the chest without contrast revealed increasing small to moderate left and small right pleural effusions. Increasing airspace disease which now involves the entire basilar left lower lobe. Correlate for worsening pneumonia. Peripheral nodular infiltrates and ground glass 3 demonstrated no many of which show cavitation. Consider atypical fungal or Doyle Terrio infections and septic emboli. Ascending aortic aneurysm at 4.4 cm. Coronary artery disease with extensive coronary artery calcifications. Dr. Hathaway is ordered ultrasound of the chest with possible thoracentesis on the left and obtain cytology. Johnathan placed on hold for this if necessary. The patient is been afebrile, blood pressure 112/87, pulse ox 93% on room air. INR is 1.2. WBC 11.4, hemoglobin 9.8, platelet count 357. Electrolytes within normal limits, BUN 35, creatinine 1.41. 01/18: Patient is sitting up in be feeling better, still in the ICU , continues to have atrial fibrillation with heart rate in between 100-130, he denies any chest pain continues to have shortness of breath, no pleurisy, minimal coughing with minimal phlegm production, no abdominal pain, nausea, or vomiting, has not had a bowel movement yet, he is scheduled to go for left thoracenthesis today to be done by at 11:00 AM. 01/19: Patient is sitting up in bed in no apparent distress is feeling better today he did have a good bowel movement yesterday and attempt for thoracentesis at bedside was aborted and he is scheduled to go for ultrasound-guided thoracentesis tomorrow morning with interventional radiology, patient has no abdominal pain, no nausea or vomiting, he continues to be in atrial fibrillation, he continues to be on heparin drip, he would be switched to oral Eliquis after the procedure in the next 24 hours, patient will likely require subacute rehabilitation in the next 24-48 hours. 01/20: Patient remains in intensive care unit. He is on a heparin drip waiting for interventional radiology to do ultrasound-guided thoracentesis today. Patient states that he is not feeling well this morning. He just feels like crap. He denies any pain. He states he did not sleep last night and the bed is uncomfortable. He remains with Davalos catheter in place which will plan to discontinue after his procedure today. Once procedure is completed, patient will be transitioned to eliquis if okay with cardiology. Patient has been afebrile, heart rate 103, blood pressure 105/72, pulse ox 94% on room air. Repeat blood work reveals hemoglobin of 9, BUN 38 and creatinine 1.38. Anticipate discharge to [facility] on Tuesday or Tuesday of this week. 01/21: Patient remains in the intensive care unit. Dr. Romero is planning on a PICC line insertion and suffers Jamel for 3 weeks for Staphylococcus aeruginosa bacteremia, source likely pneumonia. Pulmonary medicine is not planning for thoracentesis and patient was resumed back on eliquis and IV heparin discontinue d. Patient has been afebrile, heart rate in the 70s and 80s, blood pressure 101/76, pulse ox 93% on room air. A Davalos catheter will be removed today, monitor patient overnight and discharged to [facility] tomorrow. 01/22: Patient has been doing very well with physical therapy and no longer qualifies for subacute rehab. Patient is agreeable to go home with homecare. He has a PICC line in place and Dr. Romero is recommending Kefzol for 2-3 weeks. Prescription has been provided to welfare case worker. Patient denies any new complaints today. His heart rate is controlled 106/66, pulse ox 93% on room a ir. He has been afebrile. Repeat blood work reveals hemoglobin of 8.1, BUN 33 and creatinine 1.37, alkaline phosphatase 129. Patient will be discharged home today once arrangements are completed. Discharge diagnoses: 1. Acute hypoxemic respiratory failure secondary to acute diastolic heart failure due to atrial fibrillation with rapid ventricular response and MSSA pne umonia. 2. Bilateral peripheral pulmonary nodules with left cavitary lesions in the left upper lobe 2.5 cm. 3. Mild rhabdomyolysis. Resolved 4. Mild hyponatremia secondary to hypovolemia. 5. Acute kidney injury secondary to acute tubular necrosis due to rhabdomyolysis. Resolved. 6. Atrial fibrillation with RVR, paroxysmal atrial fibrillation. 7. MSSA bacteremia secondary to MSSA pneumonia. 8. Severe sepsis likely due to gram-positive pneumonia. 9. Possible retroperitoneal bleed. 10. 4.7 cm ascending aortic aneurysm. 11. Lactic acidosis. Resolved. 12. Osteoarthritis, generalized. 13. Vitamin D deficiency. 14. History of old L1 fracture 17. COVID-19 infection not present. 18. Medical debility. 19. Enlarged prostate with urinary retention. 20. Left-sided pleural effusion likely loculated. Discharge plan: Home with [facility]. Impression and plan of care have been directed as dictated by the signing physician. Gris Zuniga nurse practitioner acting as scribe for signing physician. Patient Condition at Discharge: Good Plan - Discharge Summary Discharge Rx Participant: No New Discharge Prescriptions: New Amiodarone [Cordarone] 200 mg PO BID #60 tab Apixaban [Eliquis] 5 mg PO BID #60 tab Tamsulosin [Flomax] 0.4 mg PO PC-BRKFST #30 cap.er.24h Cefazolin Sodium/D5w [Kefzol 2 Gm/D5w 100 ml] 2 gm IVPB Q8H #63 dose Furosemide [Lasix] 40 mg PO DAILY #30 tab Metoprolol Tartrate [Lopressor] 50 mg PO TID #90 tab Pantoprazole [Protonix] 40 mg PO AC-BRKFST #30 tablet.dr Discontinued Aspirin 81 mg PO DAILY No Action Cholecalciferol [Vitamin D3] 1,000 unit PO DAILY Discharge Medication List Cholecalciferol [Vitamin D3] 1,000 unit PO DAILY 04/09/16 [History] Amiodarone [Cordarone] 200 mg PO BID #60 tab 01/23/20 [Rx] Apixaban [Eliquis] 5 mg PO BID #60 tab 01/23/20 [Rx] Cefazolin Sodium/D5w [Kefzol 2 Gm/D5w 100 ml] 2 gm IVPB Q8H #63 dose 01/23/20 [Rx] Furosemide [Lasix] 40 mg PO DAILY #30 tab 01/23/20 [Rx] Metoprolol Tartrate [Lopressor] 50 mg PO TID #90 tab 01/23/20 [Rx] Pantoprazole [Protonix] 40 mg PO AC-BRKFST #30 tablet.dr 01/23/20 [Rx] Tamsulosin [Flomax] 0.4 mg PO PC-BRKFST #30 cap.er.24h 01/23/20 [Rx] Follow up Appointment(s)/Referral(s): Thai Hdz MD [STAFF PHYSICIAN] - 01/29/20 4:30 pm Elisa Harley MD [Primary Care Provider] - 01/24/20 2:45 pm [facility] - 1-2 Days [facility]fusion [NON-STAFF] - [facility], [REFERRING] - Francisco Romero MD [STAFF PHYSICIAN] - 02/05/20 10:00 am Alexia Taylor MD [STAFF PHYSICIAN] - 02/07/20 2:45 pm Ambulatory/Diagnostic Orders: Basic Metabolic Panel [LAB.AMB] Location: None Selected Complete Blood Count w/diff [LAB.AMB] Location: None Selected Discharge Disposition: HOME WITH HOME HEALTH SERVICES
[2020-01-23] MEDS: METOPROLOL TARTRATE 50 MG TAB PO SCH (10:40)
[2020-01-23] MEDS: SODIUM CHLORIDE 0.9% 1,000 ML IV SCH (10:49)
== END 2020-01-23 11:14 | DRG 871 ==
LOC: EC 15:33 → 3SCARD 22:03 → 2SICU 01-11 02:28 → 5NMEDONC 01-22 21:37
PROVIDERS: ADMIT Internal Medicine; ATTEND Internal Medicine
PROC: B246ZZ4 Ultrasonography of Right and Left Heart, Transesophageal (ICD-10-PCS; principal; 2020-01-17)
PROC: 0WJB3ZZ Inspection of Left Pleural Cavity, Percutaneous Approach (ICD-10-PCS; 2020-01-19)
PROC: 05HF33Z Insertion of Infusion Device into Left Cephalic Vein, Percutaneous Approach (ICD-10-PCS; 2020-01-21 16:25)
DX: A41.01 Sepsis due to Methicillin susceptible Staphylococcus aureus (principal); I50.31 Acute diastolic (congestive) heart failure; J15.211 Pneumonia due to Methicillin susceptible Staphylococcus aureus; J96.01 Acute respiratory failure with hypoxia; N17.0 Acute kidney failure with tubular necrosis; E87.1 Hypo-osmolality and hyponatremia; E87.2 Acidosis; I47.1 Supraventricular tachycardia; I48.19 Other persistent atrial fibrillation; I76 Septic arterial embolism; J91.8 Pleural effusion in other conditions classified elsewhere; J98.11 Atelectasis; M62.82 Rhabdomyolysis; M80.08XA Age-related osteoporosis with current pathological fracture, vertebra(e), initial encounter for fracture; N12 Tubulo-interstitial nephritis, not specified as acute or chronic; S36.899A Unspecified injury of other intra-abdominal organs, initial encounter; I27.20 Pulmonary hypertension, unspecified; E86.1 Hypovolemia; Z66 Do not resuscitate; J84.89 Other specified interstitial pulmonary diseases; I71.2 Thoracic aortic aneurysm, without rupture; I11.0 Hypertensive heart disease with heart failure; Z20.828 Contact with and (suspected) exposure to other viral communicable diseases; I08.3 Combined rheumatic disorders of mitral, aortic and tricuspid valves; I25.10 Atherosclerotic heart disease of native coronary artery without angina pectoris; I49.3 Ventricular premature depolarization; I49.1 Atrial premature depolarization; M19.041 Primary osteoarthritis, right hand; E78.5 Hyperlipidemia, unspecified; M19.042 Primary osteoarthritis, left hand; N40.1 Benign prostatic hyperplasia with lower urinary tract symptoms; R31.0 Gross hematuria; R33.8 Other retention of urine; R65.20 Severe sepsis without septic shock; W18.30XA Fall on same level, unspecified, initial encounter; Y92.009 Unspecified place in unspecified non-institutional (private) residence as the place of occurrence of the external cause; Z79.01 Long term (current) use of anticoagulants; Z79.82 Long term (current) use of aspirin; Z53.09 Procedure and treatment not carried out because of other contraindication; Z79.899 Other long term (current) drug therapy; Z80.6 Family history of leukemia; Z87.310 Personal history of (healed) osteoporosis fracture; Z87.891 Personal history of nicotine dependence; Z91.81 History of falling; R91.8 Other nonspecific abnormal finding of lung field; R53.81 Other malaise
CPT/HCPCS: 36410; 36415; 71045; 71046; 71250; 72110; 74018; 74176; 76604; 76937; 80048; 80053; 80202; 81001; 82550; 83605; 83880; 84145; 84443; 84484; 85025; 85027; 85610; 85730; 87040; 87077; 87086; 87186; 93005; 93306; 93308; 93312; 93320; 93325; 94640; 96361; 96365; 96367; 99291

== ENCOUNTER → 2020-03-18 | Outpatient (CLI) | payer MEDICARE ==
--- NOTE | 2020-03-18 11:11 | CT ---
EXAMINATION TYPE: CT chest wo con DATE OF EXAM: 03/18/2020 COMPARISON: CT chest 01/17/2020, CT chest 01/09/2020. CT lumbar spine 04/09/2016 HISTORY: lobar pneumonia CT DLP: 312 mGycm Automated exposure control for dose reduction was used. CONTRAST: CT scan of the chest is performed without intravenous contrast. FINDINGS: LUNGS: There is significantly decreased size of the bilateral nodular, groundglass, and cavitary opac ities versus 01/17/2020 CT comparison. Some of the opacities are resolved. There is significantly decr eased size of left lower lobe basilar airspace opacity. There is a 1.8 x 2.6 round pleural-based opac ity of the left lower lobe posterolaterally (4:34). Decreased size of the left pleural effusion, with residual small pleural fluid. Resolution of the right pleural effusion. No pneumothorax. The tracheo bronchial tree is patent. MEDIASTINUM/SOFT TISSUES: No axillary, hilar, or mediastinal lymphadenopathy greater than 1 cm. There is ascending thoracic aortic ectasia measuring up to 4.6 cm. Mild cardiomegaly. Calcified coronary a rtery disease. No pericardial effusion. UPPER ABDOMEN: No adrenal nodule. Too small to characterize hypodense lesion of the right liver, inco mpletely visualized on the inferior most image. OSSEOUS: Chronic L1 vertebral plana, with retropulsion not significantly changed from 2016 CT compari son. Degenerative changes of the spine. IMPRESSION: 1. Nodular opacities, groundglass opacities, and cavitary lesions of the bilateral lungs are signifi cantly decreased or resolved versus 01/17/2020 CT. There is significantly decreased size of the left l ower lobe airspace opacity, with residual 2.6 cm round pleural-based opacity. Resolution of right ple ural effusion, and small residual left pleural effusion. CT follow-up to resolution is recommended. 2. Ascending thoracic aortic 4.6 cm ectasia appears similar. Attention on follow-up imaging.
== END | disposition home or self-care (01) ==
LOC: RADCTMAIN 08:17
PROVIDERS: ATTEND Internal Medicine
DX: R91.8 Other nonspecific abnormal finding of lung field (principal); J90 Pleural effusion, not elsewhere classified; I77.810 Thoracic aortic ectasia
CPT/HCPCS: 71250

== ENCOUNTER → 2020-04-04 | Outpatient (CLI) | payer MEDICARE ==
[2020-04-04 20:39] LABS: African American GFR (CKD) 50.6 (60.0-200.0); Albumin 4.3 g/dL (3.80-4.90); Albumin/Globulin Ratio 1.43 (1.60-3.17); Anion Gap 8.3 mmol/L (4.00-12.00); BUN/Creat Ratio 21.33 Ratio (12.00-20.00); Calcium 9.6 mg/dL (8.7-10.3); Carbon Dioxide 27.7 mmol/L (21.6-31.8); Non-African American GFR(CKD) 43.7 (60.0-200.0); Potassium 4.2 mmol/L (3.5-5.5); Total Bilirubin 1.6 mg/dL (0.3-1.2); Total Protein 7.3 g/dL (6.2-8.2)
== END | disposition home or self-care (01) ==
LOC: LABWHC1 13:55
PROVIDERS: ATTEND Nurse Practitioner Adult Health
DX: I48.0 Paroxysmal atrial fibrillation (principal)
CPT/HCPCS: 36415; 80053; 84443

== ENCOUNTER → 2023-11-02 | Outpatient (CLI) | payer MEDICARE ==
--- NOTE | 2023-11-02 21:20 | XR ---
EXAMINATION TYPE: XR femur LT DATE OF EXAM: 11/02/2023 COMPARISON: None HISTORY: Spondylosis TECHNIQUE: 2 view left femur FINDINGS: Femoral head articulates with the acetabulum. Hip Joint space is preserved as visualized. T he superior portion is excluded.. No acute fracture or dislocation is evident. Knee joint space has n arrowed medial lateral compartments. There is prior open reduction internal fixation of the proximal tibia IMPRESSION: 1. No acute osseous abnormality within the left femur.
--- NOTE | 2023-11-02 21:21 | XR ---
EXAMINATION TYPE: XR Hip Complete LT DATE OF EXAM: 11/02/2023 COMPARISON: None HISTORY: Pain TECHNIQUE: 2 view right hip FINDINGS: Femoral head articulates with the acetabulum. No acute fracture or dislocation is evident. Joint spaces preserved. Follow up exams can be performed 7-10 days from acute trauma for continued pa in. IMPRESSION: 1. No acute osseous abnormality right hip.
--- NOTE | 2023-11-02 21:24 | XR ---
EXAMINATION TYPE: XR lumbar spine with bend/flex DATE OF EXAM: 11/02/2023 COMPARISON: None HISTORY: Spondylosis TECHNIQUE: 5 view lumbar spine with flexion and extension views FINDINGS: There is a compression deformity of L1 no posterior wall displacement is evident. This was present previously. Remaining vertebral body heights are preserved. Posterior endplate spurring is pr esent L2-3 L3-4 L4-5. There is loss of disc height throughout the lumbar spine. Spondylosis is presen t. Facet degenerative changes are present. No spondylolytic defects are evident. There are 5 lumbar-t ype vertebral bodies. The pedicles are intact. IMPRESSION: 1. Old compression deformity L1 without posterior wall displacement. 2. Multilevel degenerative disc changes. 3. Some posterior endplate spurring L3-4 L4-5
== END | disposition home or self-care (01) ==
LOC: RADXRMAIN 11:17
PROVIDERS: ATTEND Internal Medicine
DX: M47.816 Spondylosis without myelopathy or radiculopathy, lumbar region (principal)
CPT/HCPCS: 72114; 73502

== ENCOUNTER → 2024-01-17 | Outpatient (CLI) | payer MEDICARE ==
[2024-01-17 12:08] LABS: African American GFR (CKD) >90 (>60 ml/min/1.73 sqM); Blood Urea Nitrogen 17 mg/dL (9-20); Non-African American GFR(CKD) 79 (>60 ml/min/1.73 sqM)
--- NOTE | 2024-01-17 12:53 | CT ---
EXAMINATION TYPE: CT brain wo con DATE OF EXAM: 01/17/2024 COMPARISON: 04/01/2016 HISTORY: Hx of falling CT DLP: [address] of the brain was performed. The ventricles, basal cisterns and sulci overlying the cerebral convexities demonstrate mild enlargem ent. There is no evidence for intracranial hemorrhage or sulcal effacement. There is decreased attenuation about the periventricular white matter and deep white matter of both c erebral hemispheres, compatible with chronic small vessel ischemia. Differential diagnosis does inclu de demyelination. No mass effects are seen.No midline shift. Osseous calvarium is intact. If symptoms persist consider MRI. IMPRESSION: 1. Age related atrophic and chronic small vessel ischemic change without acute intracranial process s een at this time.
--- NOTE | 2024-01-17 12:58 | CT ---
EXAMINATION TYPE: CT angio chest DATE OF EXAM: 01/17/2024 COMPARISON: 03/18/2020 HISTORY: Elevated d-dimer, frequent falls CT DLP: 568 mGycm CONTRAST: CTA thoracic aorta with 3-D reconstruction is performed and with IV Contrast, patient injected with 1 00 mL of Isovue 370. Contrast CTA of the thoracic aorta was performed from the lung apex through the upper abdomen. 3D re construction imaging obtained at a separate workstation. CT Chest: THORACIC AORTA: Stable ascending thoracic aortic aneurysm measuring 4.2 cm versus 4.1 cm previously. Mild atheromatous changes seen. There is no evidence for dissection or periaortic collection. LUNGS: Hyperinflation compatible with COPD. Improved pleural thickening and subpleural fibrosis. The lungs are clear and free of infiltrate or atelectasis. No pulmonary nodule or mass is detected. No pleural effusion. MEDIASTINUM: No evidence for mediastinal hematoma. The heart is not enlarged. No evidence for med iastinal mass or adenopathy. HILAR STRUCTURES: No evidence for mass. No hilar adenopathy is appreciated. OTHER: No significant abnormality. IMPRESSION- 1. Ascending thoracic aortic aneurysm is stable.
== END | disposition home or self-care (01) ==
LOC: RADCTMAIN 11:14
PROVIDERS: ATTEND Internal Medicine
DX: R79.89 Other specified abnormal findings of blood chemistry (principal); I67.82 Cerebral ischemia; I71.21 Aneurysm of the ascending aorta, without rupture; Z91.81 History of falling
CPT/HCPCS: 82565; 84520; 70450; 71275; 36415; Q9967